=== PATIENT | female | born 1950 | race Caucasian/White ===

== ENCOUNTER 2016-02-28 21:37 | Inpatient (IN) | payer MEDICARE, OTHER ==
[~2016-02-28] VITALS: Ht 157.5 cm; Wt 68.0 kg
[~2016-02-28 21:37] MED LIST: ADVAIR 250-501 EACH; AMLODIPINE BESY10 MG PO; BETAMETHASONE D45 GM; CLONAZEPAM1 M2 PO; CYCLOBENZAPRINE10 MG PO; HYDROMORPHONE HC4 M1 PO; KLOR-CON 88 MEQ PO; NEXIUM40 MG PO; PREMARIN VAG CR45 GM; SYNTHROID100 MCG PO; TENORMIN25 MG ORAL; TOPIRAMATE100 MG PO; VIBRAMYCIN100 MG ORAL; VITAMIN D1000 UNI1 ORAL; ZOLOFT25 MG ORAL
[2016-02-28 21:41] VITALS: BP 108/58
--- NOTE | 2016-02-28 21:59 | Emergency Room Report ---
History of Present Illness General Chief Complaint: Dyspnea/Respdistress Source: Patient, Medical Record, EMS Present Illness HPI 65 YO F BIBEMS for "SOB." Patient allegedly hit life-alert button. EMS found her "SOB with rales" and O2 sat 90%. Improved with NRB and 2x nitro sprays to 100%. History of COPD and CHF. Patient very hard of hearing, cannot hear any questions for HPI I am asking her. Neighbors also saying patient "more altered than usual." Allergies: Coded Allergies: BENZODIAZEPINES (Verified Allergy, Unknown, 04/20/10) IODINE (Verified Allergy, Unknown, 04/20/10) LIDOCAINE (Verified Allergy, Unknown, 04/20/10) LORAZEPAM (Verified Allergy, Unknown, 04/20/10) OXYBUTYNIN (Verified Allergy, Unknown, 04/20/10) PENICILLINS (Verified Allergy, Unknown, 04/20/10) PHENOTHIAZINES (Verified Allergy, Unknown, 04/20/10) PIPERACILLIN (Verified Allergy, Unknown, 04/20/10) PROPOFOL (Verified Allergy, Unknown, 04/20/10) QUINOLONES (Verified Allergy, Unknown, 04/20/10) SULFASALAZINE (Verified Allergy, Unknown, 04/20/10) TAZOBACTAM (Verified Allergy, Unknown, 04/20/10) TEMAZEPAM (Verified Allergy, Unknown, 04/20/10) Patient History Limited by: medical condition Past Medical History: CHF, COPD Past Surgical History: unable to obtain Pertinent Family History: unable to obtain Social History: Denies: alcohol use, drug use, smoking Now: No Immunizations: UTD Reviewed Nursing Documentation: PMH: Agreed, PSxH: Agreed Nursing Documentation-PMH Past Medical History: No History, Except For Hx Cardiac Problems: Yes - AICD,QT SYNDROME Hx Hypertension: Yes - MRSA Hx Pacemaker: No - DEAFNESS, COCHLEAR IMPLANTS Hx Asthma: Yes - PAIN PUMP IMPLANT Hx COPD: Yes Hx Diabetes: No Hx Cancer: No Hx Gastrointestinal Problems: Yes - ULCERATIVE COLITIS Hx Dialysis: No Hx Neurological Problems: No Hx Cerebrovascular Accident: No Hx Seizures: No Review of Systems All Other Systems: limited - AMS, hard of hearing Physical Exam Vital Signs Date Time Temp Pulse Resp B/P Pulse Ox O2 Delivery O2 Flow Rate FiO2 02/28/16 21:36 75 20 108/58 98 Non-Rebreather 15.0 Sp02 EP Interpretation: reviewed, abnormal General Appearance: normal inspection, well appearing, non-toxic, other - lethargic but arousable Head: normocephalic, atraumatic Eyes: bilateral eye EOMI, bilateral eye PERRL ENT: normal ENT inspection, hearing grossly normal, normal voice Neck: normal inspection, full range of motion, supple, no meningismus, no bony tend Respiratory: normal inspection, no respiratory distress, no retraction, no accessory muscle use, decreased breath sounds, crackles, other - Bilateral rales with also wheezing/decreased breath sounds, chest symmetrical, palpation of chest normal Cardiovascular #1: regular rate, rhythm, no edema Gastrointestinal: normal inspection, normal bowel sounds, non tender, soft, no guarding, no hernia Genitourinary: no CVA tenderness Musculoskeletal: normal inspection, back normal, normal range of motion, Vicente' s Sign negative Neurologic: normal inspection, alert, oriented x3, responsive, 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 Hypoxic. Normotensive. DDx includes COPD exacerbation, ACS, infection, sepsis metabolic abnormality, toxic ingestion, polysubstance abuse Patient is slightly disoriented Comprehensive physical exam completed, atraumatic. Bilateral rales. Unreliable history from patient. Labs include CBC, urine toxicology and chem panel, EKG 12 lead and constant cardiac rhythm strip monitoring, IV established. Airway adequately maintained by patient upon arrival. BIPAP started for ?COPD and CHF exacerbation EKG reveals atrial paced rhythm Physician spent 55 minutes of direct critical care time monitoring patient's respiratory, cardiac and neurological status, reassessment, review of imaging, labs and discussion with attending hospitalist. Does not include procedures Medical Decision Making Medicare Attestation I Anthony Tillman MD hereby attest that the medical record entry for date of service, 01/30/16 accurately reflects signatures/notations that I made in my capacity as MD when I treated/diagnosed the above listed Medicare beneficiary. I attest that this information is true, accurate and complete to the best of my knowledge. I understand that any falsification, omission, or concealment of material fact may subject me to administrative, civil, or criminal liability. This patient warrants hospital admission for extreme of age and has a condition that cannot be treated as outpatient. Diagnostic Impression: Primary Impression: Dyspnea Qualified Codes: R06.00 - Dyspnea, unspecified Additional Impressions: CHF (congestive heart failure) Qualified Codes: I50.9 - Heart failure, unspecified COPD (chronic obstructive pulmonary disease) with acute bronchitis ELIZABETH (acute kidney injury) Benzocaine overdose of undetermined intent Qualified Codes: T41.3X4A - Poisoning by local anesthetics, undetermined, initial encounter ER Course 65 YO F with acute dyspnea. VS notable for afebrile, hypoxia. DDx ACS, sepsis, COPD exacerbation PLAN Cardiac, O2 monitor, IV access, EKG, CXR, BIPAP, Lasix, Duonebs, Empiric Abx Azithro May add additional ABx No sepsis at this time Likely admission EKG Diagnostic Results Rate: other - Atrial paced Rhythm: other ST Segments: no acute changes ASA given to the pt in ED: Yes Rhythm Strip Diag. Results EP Interpretation: yes Rate: 75 Rhythm: other - +PVCs Chest X-Ray Diagnostic Results EP Interpretation: Yes Findings: no consolidation, no effusion, no pneumothorax, no acute cardiopulmonary disease Number of Views: 1 Reevaluation Time: 23:32 Last Vital Signs Date Time Temp Pulse Resp B/P Pulse Ox O2 Delivery O2 Flow Rate FiO2 02/28/16 21:36 75 20 108/58 98 Non-Rebreather 15.0 Status: improved Reevaluation Impression Labs: Normal H&H. No leuks. Troponin 0. mild ELIZABETH EKG is atrial paced. No ischemia. CXR: No obvious focal consolidation. A: Combination of COPD and CHF exacerbation. Patient improved on BIPAP. Received lasix, duonebs, Azithro IV Endorsed to Dr Dodson for ODILON admission at 1135pm Urine Tox positive for benzos possibly contributing to her ?AMS Disposition: ADMITTED INPATIENT Condition: Critical ANTHONY TILLMAN M.D. Feb 28, 2016 21:59
[2016-02-28] MEDS ORDERED: Aspirin Baby 81mg ORAL ONE (22:00)
[2016-02-28] MEDS: Albuterol ud Inhalation HHN SCH ×3 (22:00→22:30)
[2016-02-28] MEDS: Ipratropium 0.02% Inh Soln 2.5ml UD HHN SCH ×3 (22:00→22:30)
[2016-02-28] MEDS ORDERED: Azithromycin 500 MG in NS 250 ML IVPB ONE (22:45)
[2016-02-28] MEDS ORDERED: Azithromycin Inj IV ONE (22:52)
[2016-02-28 23:03] LABS: BASOPHILS % (AUTO) 2.8 % (0.0-2.0); LYMPHOCYTES % (AUTO) 19.7 % (20.0-45.0); MEAN CORPUSCULAR HEMOGLOBIN 28.3 PG (27.0-31.0); MEAN CORPUSCULAR HGB CONC 29.9 G/DL (32.0-36.0); MEAN CORPUSCULAR VOLUME 95 FL (80-99); MEAN PLATELET VOLUME 6.3 FL (6.5-10.1); NEUTROPHILS % (AUTO) 69.6 % (45.0-75.0); PLATELET COUNT 134 K/UL (150-450); RED BLOOD COUNT 3.69 M/UL (4.20-5.40); RED CELL DISTRIBUTION WIDTH 13.8 % (11.6-14.8); WHITE BLOOD COUNT 3.9 K/UL (4.8-10.8)
[2016-02-28 23:18] LABS: ALBUMIN/GLOBULIN RATIO 1.2 (1.0-2.7); CALCIUM 8.6 mg/dL (8.6-10.2); CREATININE 1.1 mg/dL (0.5-0.9); GLOMERULAR FILTRATION RATE 49.7 mL/min (>60); POTASSIUM 4.3 mEQ/L (3.4-4.9); TOTAL PROTEIN 7.1 g/dL (6.6-8.7); TROPONIN I < 0.30 ng/mL (<=0.30)
[2016-02-28 23:19] VITALS: BP 119/66
[2016-02-28 23:29] LABS: CKMB 2.5 ng/mL (< 3.8)
[2016-02-29] VITALS (11 sets, daily range): BP systolic 94–146; BP diastolic 49–87
--- NOTE | 2016-02-29 09:41 | Diagnostic Imaging Report ---
Indication: Chest pain Technique: One view of the chest Comparison: 03/10/2012 Findings: There is some atelectasis in the right infrahilar region. Lungs and pleural spaces are clear otherwise. Is right chest bifocal AICD. There is a right arm PICC. Heart size is normal. Numerous prior exam, the PICC and atelectasis are new findings. Previously demonstrated left chest port catheter is no longer evident. Other findings are unchanged Impression: No acute process. Findings as noted
[2016-02-29] MEDS: Solu-MEDROL 40mg Inj IVP SCH ×2 (11:42→18:02)
[2016-02-29] MEDS ORDERED: Vancomycin 1250mg/D5W 250ml IVPB ONE ×2 (12:00)
[2016-02-29] MEDS ORDERED: Ipratropium 0.02% Inh Soln 2.5ml UD HHN SCH (13:00)
[2016-02-29] MEDS: DuoNeb 0.5-3(2.5)mg/3ml neb HHN SCH ×2 (13:00→19:22)
--- NOTE | 2016-02-29 15:02 | Cardiology Report ---
APPROVED REPORT EKG Measurement Heart [id number] MS [id number] [id number] Atiral pacing Low voltage QRS Cannot rule out Anterior infarct, age undetermined Abnormal ECG
[2016-02-29] MEDS ORDERED: BETAMETHASONE 0.05% TOPIC PRN (17:00)
[2016-02-29] MEDS ORDERED: NS 275ml ONE (17:18)
[2016-02-29] MEDS ORDERED: Tubing IV Secondary IV ONE (17:18)
[2016-02-29] MEDS ORDERED: Advair 250/50 Inhaler - 14 dose INH SCH (18:00)
[2016-02-29] MEDS: Cyclobenzaprine 10mg Tab ORAL SCH (18:03)
[2016-02-29] MEDS: Nystatin Powder 100,000 units/gm 15gm TOPIC SCH (18:13)
--- NOTE | 2016-02-29 18:18 | Consultation ---
DATE OF CONSULTATION: 02/29/2016 PULMONARY CONSULTATION HISTORY OF PRESENT ILLNESS: This is a 65-year-old female with a history of multiple medical problems. She hit her Life Alert button and was transported to [facility]. The patient was seen and worked up in the emergency room. She was found to have exacerbation of COPD. She was placed on a BiPAP and is now admitted to the medical floor. On my questioning, the patient appears to be unusually drowsy. Urine toxicology is positive for opiates and benzodiazepines. PAST HISTORY: There is no history of heart disease, however, the patient has a history of a AICD. In the past, she has had prolonged QT syndrome. She has a history of moderate COPD and is on home oxygen. She also has AAKASH and a CPAP at home. She has history with chronic pain and has a Dilaudid pump at home. She also takes regular Dilaudid at home on a regular basis. The patient continues to smoke as well. The patient also has a history in the past of IBD. She also has history of breast cancer and also deafness. She also has a history of ulcerative colitis and MRSA of nares. ALLERGIES: Multiple listed to benzodiazepines, iodine, lidocaine, Ativan, oxybutynin, penicillin, phenothiazine, piperacillin, propofol, quinolones, sulfasalazine, tazobactam and temazepam. This list is essentially unreliable as the patient does takes some of these medications on an infrequent basis. MEDICATIONS: Home medications as mentioned in the chart. REVIEW OF SYSTEMS: The patient denies any shortness of breath at this point in time. Denies any headache, hematemesis, melena, hematochezia. PHYSICAL EXAMINATION: GENERAL: Revealed a 65-year-old female. VITAL SIGNS: Blood pressure is 108/60, heart rate 74, respirations 22, and she is afebrile. HEENT: Unremarkable. CHEST: Clear breath sounds bilaterally. ABDOMEN: Soft. EXTREMITIES: There is edema. The patient has a small abscess on her right forearm. Her pubis Port-A-Cath has been removed. She has cochlear implant over the left side of her head/scalp, which had become infected and healing. LABORATORY AND DIAGNOSTIC DATA: Lab testing shows urine toxicology positive for opiates and benzodiazepines. White count 3.1, hemoglobin 10.5, and platelet count is normal. Chemistry is unremarkable. Toxicology, as discussed above. X-ray chest unremarkable with slight atelectasis. IMPRESSION: 1. Exacerbation of chronic obstructive pulmonary disease. 2. Automatic implantable cardioverter-defibrillator. 3. History of breast carcinoma. 4. Ulcerative colitis/irritable bowel disease. 5. Deafness. 6. Methicillin-resistant Staphylococcus aureus nares. 7. Chronic pain. DISCUSSION: Admit to the hospital. Dr. Dodson is admitting physician and I am consulting as orchid transplanter. We will start the patient on Levaquin and azithromycin, start steroids. We will discontinue BiPAP as a nasal oxygen or by Venti mask. We will follow carefully. Shahid Lake M.D. DR: JM JOB#: [id number] CC:
--- NOTE | 2016-02-29 19:04 | History & Physical ---
History and Physical History & Physicial Dictated for Int Med-Dr Dodson no. [id number]. OSMAR CAMPBELL Feb 29, 2016 19:04
[2016-02-29] MEDS: Advair 250/50 Inhaler - 14 dose INH SCH (20:29)
--- NOTE | 2016-02-29 23:08 | History and Physical Report ---
DATE OF ADMISSION: 02/28/[address] Dodson. CHIEF COMPLAINT: The patient is a 65-year-old white female, presents with complaint of shortness of breath. HISTORY OF PRESENT ILLNESS: The patient has a history of chronic obstructive pulmonary disease. The patient has a Life Alert button. The patient hit her Life Alert button at home after she became short of breath. The patient states she also has some noises in her lungs. The patient presented to [facility] emergency room. The patient was found to have oxygen saturation of 90% on room air. The patient was placed on non-rebreather via EMS. The patient is admitted for acute exacerbation of chronic obstructive pulmonary disease. PAST MEDICAL HISTORY: Significant for, 1. Chronic obstructive pulmonary disease. 2. Coronary artery disease. 3. Hypertension . 4. Congestive heart failure. PAST SURGICAL HISTORY: Significant for AICD placement. CURRENT MEDICATIONS: 1. Amlodipine 10 mg one tablet p.o. daily. 2. Atenolol 25 mg one tablet p.o. daily. 3. Betamethasone cream p.r.n. 4. Vitamin D 3000 units four tablets p.o. daily. 5. Klonopin 1 mg one tablet p.o. at q.h.s. p.r.n. 6. Flexeril 10 mg one tablet p.o. three times daily. 7. Nexium 40 mg one tablet p.o. daily. 8. Premarin 45 g cream applied twice weekly. 9. Advair 250/50 one puff p.o. twice daily. 10. Dilaudid 4 mg one tablet p.o. every 6 hours p.r.n. 11. Levoxyl 100 mcg one tablet p.o. daily. 12. Potassium chloride 8 mEq one tablet p.o. daily. 13. Zoloft 25 mg one tablet p.o. daily. 14. Topamax 200 mg one tablet p.o. at nightly. ALLERGIES: 1. Benzodiazepines. 2. Iodine and lidocaine. 3. Flurazepam. 4. Oxybutynin. 5. Penicillin. 6. Phenothiazine. 7. Piperacillin. 8. Propofol . 9. Quinolones. 10. Sulfasalazine . 11. Tazobactam. 12. Temazepam. SOCIAL HISTORY: The patient is single. The patient is . The patient is disabled. The patient admits to tobacco use of one pack per day for the last 50 years. The patient denies alcohol or drug abuse. REVIEW OF SYSTEMS: Constitutional: The patient denies weight loss or weight gain. The patient denies fevers or chills. HEENT: The patient denies ear or throat pain. Cardiovascular: The patient denies palpitations or chest pain. Chest: The patient complains of shortness of breath as above. The patient complains of wheezes. Abdomen: The patient denies nausea, vomiting, diarrhea, or constipation. Genitourinary: The patient denies dysuria or increased frequency of urination. Neuromuscular: The patient denies seizures or generalized weakness. PHYSICAL EXAMINATION: VITAL SIGNS: Temperature 98.1 degrees, respirations 19, pulse 72, blood pressure 117/76, and oxygen saturation 100% on BiPAP. GENERAL: The patient is well-developed and well-nourished white female, who is difficult to understand secondary to BiPAP mask. HEENT: Eyes, pupils are equal and responsive to light and accommodation. Extraocular movements intact. NECK: Supple without lymphadenopathy. CHEST: Few rales at bilateral bases with few expiratory wheezes. Otherwise, clear to auscultation without wheezes or rales. CARDIOVASCULAR: Regular rhythm and rate rate. S1, S2 normal without murmurs, rubs, or gallops. ABDOMEN: Soft, nontender, and nondistended. Positive bowel sounds. No evidence of hepatosplenomegaly. Currently, no rebound or guarding noted. EXTREMITIES: Negative for clubbing, cyanosis, or edema. RECTAL/GENITAL: Refused. NEUROLOGIC: Cranial nerves II through XII are grossly intact without focal deficits. Motor strength is 5/5 bilaterally. Deep tendon reflexes are 2+ plantar. LABORATORY STUDIES: Urine drug screen positive for opiates and benzodiazepines. WBC 3.9, hemoglobin 10.5, hematocrit 35.0, and platelets 134,000. Sodium 135, potassium 4.3, chloride 90, CO2 32, BUN 22, creatinine 1.1, and glucose 123. Troponin less than 0.3. BNP elevated to 115. Chest x-ray revealed atelectasis in the right infrahilar region. ASSESSMENT: This is a 65-year-old white female with 1. Shortness of breath. 2. Chronic obstructive pulmonary disease, acute exacerbation. 3. Coronary artery disease. 4. Hypertension. 5. Acute on chronic congestive heart failure. 6. Hypothyroidism. 7. Automatic implanted cardioverter defibrillator in situ. TREATMENT: 1. Shortness breath/chronic obstructive pulmonary disease exacerbation. A Pulmonary consultation with Dr. Lake. The patient is currently on DuoNeb every four hours p.r.n. The patient is also on Solu-Medrol 40 mg intravenous every six hours. The patient has been started empirically on intravenous levofloxacin and vancomycin for probable bronchitis. The patient is currently on BiPAP. We will follow recommendations of Pulmonary. 2. Coronary artery disease/congestive heart failure. Cardiology consultation with Dr. Dain Graf. BNP may be elevated secondary to chronic obstructive pulmonary disease as above. Serial troponin levels will be run. 3. Hypertension. Continue Norvasc and atenolol as above. 4. Hypothyroidism. Continue Levoxyl as above. 5. Automatic implanted cardioverter defibrillator in situ. Sheldon Mendoza M.D. DR: Leda JOB#: [id number] CC:
[2016-03-01] VITALS (7 sets, daily range): BP systolic 102–146; BP diastolic 60–87
[2016-03-01] MEDS: Solu-MEDROL 40mg Inj IVP SCH ×5 (00:18→23:59)
[2016-03-01] MEDS: DuoNeb 0.5-3(2.5)mg/3ml neb HHN SCH ×4 (01:05→19:43)
[2016-03-01] MEDS: HYDROmorphone 4mg tab ORAL PRN (01:15)
[2016-03-01 05:35] LABS: MEAN CORPUSCULAR HEMOGLOBIN 29.7 PG (27.0-31.0); MEAN CORPUSCULAR HGB CONC 31.8 G/DL (32.0-36.0); MEAN CORPUSCULAR VOLUME 93 FL (80-99); MEAN PLATELET VOLUME 7.8 FL (6.5-10.1); PLATELET COUNT 132 K/UL (150-450); RED BLOOD COUNT 3.78 M/UL (4.20-5.40); RED CELL DISTRIBUTION WIDTH 13.2 % (11.6-14.8)
[2016-03-01 05:46] LABS: WHITE BLOOD COUNT 1.8 K/UL (4.8-10.8)
[2016-03-01 05:48] LABS: TROPONIN I < 0.30 ng/mL (<=0.30)
[2016-03-01 06:03] LABS: ANION GAP 12 (5-15); CALCIUM 8.4 mg/dL (8.6-10.2); CARBON DIOXIDE 32 mEQ/L (20-30); CHLORIDE 90 mEQ/L (98-107); CREATININE 0.9 mg/dL (0.5-0.9); GLOMERULAR FILTRATION RATE > 60 mL/min (>60); HEMOLYSIS 9; POTASSIUM 4.2 mEQ/L (3.4-4.9); SODIUM 134 mEQ/L (135-145)
[2016-03-01 06:10] LABS: THYROID STIMULATING HORMONE 0.291 uIU/mL (0.300-4.500)
[2016-03-01] MEDS ORDERED: Premarin Vag Cream 3gm VAGIN SCH (09:00)
[2016-03-01] MEDS ORDERED: Atenolol 25mg tab ORAL SCH (09:00)
[2016-03-01] MEDS ORDERED: Sertraline 50mg tab ORAL SCH (09:00)
[2016-03-01] MEDS: Vitamin D 1000 IU Tab ORAL SCH (09:20)
[2016-03-01] MEDS: Cyclobenzaprine 10mg Tab ORAL SCH ×3 (09:20→17:36)
[2016-03-01] MEDS: Nystatin Powder 100,000 units/gm 15gm TOPIC SCH ×3 (09:28→17:36)
--- NOTE | 2016-03-01 09:28 | Pulmonology Progress Note ---
Assessment/Plan Assessment/Plan IMPRESSION: 1. Exacerbation of chronic obstructive pulmonary disease. 2. Automatic implantable cardioverter-defibrillator. 3. History of breast carcinoma. 4. Ulcerative colitis/irritable bowel disease. 5. Deafness. 6. History of methicillin-resistant Staphylococcus aureus nares. 7. Chronic pain. DISCUSSION: Continue Levaquin and azithromycin, continue steroids. Use BiPAP q pm and prn only; use NRBM as needed. I will follow carefully. Subjective Interval Events: On BiPAP q pm and prn; still drowsy Constitutional: Reports: no symptoms HEENT: Repors: no symptoms Respiratory: Reports: dyspnea at rest, wheezing Cardiovascular: Reports: no symptoms Gastrointestinal/Abdominal: Reports: no symptoms Genitourinary: Reports: no symptoms Neurologic: Reports: no symptoms Psychiatric: Reports: no symptoms Allergies: Coded Allergies: BENZODIAZEPINES (Verified Allergy, Unknown, 04/20/10) IODINE (Verified Allergy, Unknown, 04/20/10) LIDOCAINE (Verified Allergy, Unknown, 04/20/10) LORAZEPAM (Verified Allergy, Unknown, 04/20/10) OXYBUTYNIN (Verified Allergy, Unknown, 04/20/10) PENICILLINS (Verified Allergy, Unknown, 04/20/10) PHENOTHIAZINES (Verified Allergy, Unknown, 04/20/10) PIPERACILLIN (Verified Allergy, Unknown, 04/20/10) PROPOFOL (Verified Allergy, Unknown, 04/20/10) QUINOLONES (Verified Allergy, Unknown, 04/20/10) SULFASALAZINE (Verified Allergy, Unknown, 04/20/10) TAZOBACTAM (Verified Allergy, Unknown, 04/20/10) TEMAZEPAM (Verified Allergy, Unknown, 04/20/10) Objective Last 24 Hour Vital Signs Date Time Temp Pulse Resp B/P Pulse Ox O2 Delivery O2 Flow Rate FiO2 03/01/16 08:00 96.3 77 14 118/61 95 Bi-pap 70 03/01/16 07:16 75 15 100 Bi-pap 70 03/01/16 07:06 75 14 99 Bi-pap 70 03/01/16 07:05 75 14 99 Facial 70 03/01/16 05:30 71 23 92 Facial 70 03/01/16 04:03 97.5 74 20 102/62 90 Bi-pap 03/01/16 03:15 75 03/01/16 03:08 72 16 96 Facial 70 03/01/16 01:24 76 19 93 Facial 70 03/01/16 01:16 76 19 96 Bi-pap 70 03/01/16 01:00 70 03/01/16 01:00 76 19 93 Bi-pap 70 03/01/16 00:00 97.2 75 18 146/87 97 Bi-pap 3.0 02/29/16 23:32 75 02/29/16 23:19 74 15 94 Facial 70 02/29/16 21:06 75 16 97 Facial 70 02/29/16 20:00 74 02/29/16 19:53 98.3 77 22 105/62 97 Bi-pap 3.0 02/29/16 19:20 78 19 97 Bi-pap 70 02/29/16 19:10 75 21 92 Facial 70 02/29/16 19:10 75 21 92 Bi-pap 02/29/16 16:53 100 02/29/16 16:44 75 19 96 Facial 70 02/29/16 16:00 78 02/29/16 16:00 98.9 78 23 124/68 97 Bi-pap 4.0 02/29/16 14:41 74 17 99 Facial 75 02/29/16 13:00 75 19 100 Facial 80 02/29/16 12:00 98.1 72 19 117/76 100 Bi-pap 100 02/29/16 11:30 87 17 90 Facial 100 Intake and Output 02/29/16 03/01/16 19:00 07:00 Intake Total 650 ml 358 ml Output Total 300 ml 550 ml Balance 350 ml -192 ml Intake Oral 300 ml 358 ml IV Total 350 ml Output Urine Total 300 ml 550 ml # Voids 1 # Bowel Movements 1 General Appearance: no acute distress HEENT: normocephalic Respiratory/Chest: chest wall non-tender, decreased breath sounds, rhonchi Cardiovascular: normal peripheral pulses, normal rate Abdomen: normal bowel sounds Laboratory Tests 03/01/16 04:20: White Blood Count 1.8#*L, Red Blood Count 3.78L, Hemoglobin 11.2L, Hematocrit 35.3L, Mean Corpuscular Volume 93, Mean Corpuscular Hemoglobin 29.7, Mean Corpuscular Hemoglobin Concent 31.8L, Red Cell Distribution Width 13.2, Platelet Count 132L, Mean Platelet Volume 7.8, Neutrophils (%) (Auto) , Lymphocytes (%) (Auto) , Monocytes (%) (Auto) , Eosinophils (%) (Auto) , Basophils (%) (Auto) , Neutrophils % (Manual) [Pending], Lymphocytes % (Manual) [Pending], Platelet Estimate [Pending], Platelet Morphology [Pending], Sodium Level 134L, Potassium Level 4.2, Chloride Level 90L, Carbon Dioxide Level 32H, Anion Gap 12, Blood Urea Nitrogen 28H, Creatinine 0.9, Estimat Glomerular Filtration Rate > 60, Glucose Level 157H, Calcium Level 8.4L, Troponin I < 0.30 , Pro-B-Type Natriuretic Peptide 446H, Thyroid Stimulating Hormone (TSH) 0.291L , Free Thyroxine 0.61L, Total Triiodothyronine 0.37L, Triiodothyronine (T3) Uptake [Pending] Current Medications Medications (Trade) Dose Ordered Sig/Mamie Route PRN Reason Start Time Stop Time Status Last Admin Dose Admin Albuterol/ Ipratropium (DuoNeb 0.5-3(2.5)mg/3ml) 3 ml Q6HRT HHN 02/29/16 13:00 03/05/16 12:59 03/01/16 07:39 Amlodipine Besylate (Norvasc) 10 mg DAILY ORAL 03/01/16 09:00 03/31/16 08:59 Atenolol (Tenormin) 25 mg DAILY ORAL 03/01/16 09:00 03/31/16 08:59 Betamethasone Dipropionate (Diprolene Oint) 1 applic TID PRN TOPIC Itching 02/29/16 17:00 03/30/16 16:59 Clonazepam (KlonoPIN) 1 mg QPM PRN ORAL For Anxiety 02/29/16 17:00 03/07/16 16:59 Cyclobenzaprine HCl (Flexeril) 10 mg TID ORAL 02/29/16 18:00 03/30/16 17:59 02/29/16 18:03 Dextrose STAT PRN IV Hypoglycemia 02/29/16 10:15 03/30/16 10:14 Hydromorphone HCl (Dilaudid) 4 mg Q6HR PRN ORAL For Pain 02/29/16 17:00 03/07/16 16:59 03/01/16 01:15 Levofloxacin (Levaquin) 100 ml @ 100 mls/hr Q24H IVPB 02/29/16 11:00 03/07/16 10:59 02/29/16 11:42 Levothyroxine Sodium (Synthroid) 100 mcg ACBREAKFAST ORAL 03/01/16 06:30 03/31/16 06:29 03/01/16 06:19 Methylprednisolone Sodium Succinate 40 mg 40 mg EVERY 6 HOURS IVP 02/29/16 12:00 03/30/16 11:59 03/01/16 06:19 Nystatin (Nystop Powder) 1 applic THREE TIMES A DAY TOPIC 02/29/16 18:00 03/30/16 17:59 02/29/16 18:13 Pantoprazole (Protonix) 40 mg DAILY ORAL 03/01/16 09:00 03/31/16 08:59 Potassium Chloride (K-Dur) 10 meq DAILY ORAL 03/01/16 09:00 03/31/16 08:59 Salmeterol Xinafoate/ Fluticasone (Advair 250/50 Diskus) 1 puffs BID INH 02/29/16 21:00 03/30/16 20:59 02/29/16 20:29 Sertraline HCl (Zoloft) 1 mg DAILY ORAL 03/01/16 09:00 03/31/16 08:59 Topiramate (Topamax) 200 mg QHS ORAL 03/01/16 21:00 03/31/16 20:59 Vancomycin HCl (Vanco rx to dose) 1 ea DAILY PRN MISC Per rx protocol 02/29/16 10:15 03/30/16 10:14 Vancomycin HCl/ Dextrose (Vancomycin/D5W 250ml) 250 ml @ 167 mls/hr Q24H IVPB 03/01/16 12:00 03/06/16 11:59 Vitamin D (Vitamin D) 1,000 intlu DAILY ORAL 03/01/16 09:00 03/31/16 08:59 Shahid Lake MD Mar 01, 2016 09:28
[2016-03-01 09:47] LABS: BAND NEUTROPHILS % (MANUAL) 7 % (0-8); BASOPHILS % (MANUAL) 0 % (0-2); EOSINOPHILS % (MANUAL) 0 % (0-3); HYPOCHROMASIA 1+; LYMPHOCYTES % (MANUAL) 21 % (20-45); NEUTROPHILS % (MANUAL) 71 % (45-75); PLATELET ESTIMATE ADEQUATE; PLATELET MORPHOLOGY NORMAL; TOTAL CELLS COUNTED 100
[2016-03-01] MEDS: Advair 250/50 Inhaler - 14 dose INH SCH ×2 (10:33→18:00)
[2016-03-01 10:46] LABS: ABG ALLEN TEST POSITIVE; ABG BASE EXCESS 2.2; ABG PCO2 76.7 mmHg (35.0-45.0)
[2016-03-01] MEDS ORDERED: Vancomycin 1gm/D5W 250ml IVPB SCH ×2 (12:00)
--- NOTE | 2016-03-01 17:22 | Cardiac Electrophysiology PN ---
Subjective Subjective [id number] Objective Last 24 Hour Vital Signs Date Time Temp Pulse Resp B/P Pulse Ox O2 Delivery O2 Flow Rate FiO2 03/01/16 17:10 76 21 93 Facial 60 03/01/16 17:00 60 03/01/16 16:05 97.3 75 16 106/66 92 Bi-pap 60 03/01/16 15:12 75 15 94 Facial 60 03/01/16 13:45 96.3 03/01/16 13:26 77 24 92 70 03/01/16 13:16 75 20 92 Bi-pap 60 03/01/16 13:15 75 30 92 Facial 60 03/01/16 12:00 75 03/01/16 12:00 97.3 75 26 106/60 95 Bi-pap 60 03/01/16 10:41 75 15 94 Facial 60 03/01/16 09:19 77 118/61 03/01/16 09:00 77 118/61 03/01/16 08:00 75 03/01/16 08:00 96.3 77 14 118/61 95 Bi-pap 70 03/01/16 08:00 70 03/01/16 07:16 75 15 100 Bi-pap 70 03/01/16 07:06 75 14 99 Bi-pap 70 03/01/16 07:05 75 14 99 Facial 70 03/01/16 05:30 71 23 92 Facial 70 03/01/16 04:03 97.5 74 20 102/62 90 Bi-pap 03/01/16 03:15 75 03/01/16 03:08 72 16 96 Facial 70 03/01/16 01:24 76 19 93 Facial 70 03/01/16 01:16 76 19 96 Bi-pap 70 03/01/16 01:00 70 03/01/16 01:00 76 19 93 Bi-pap 70 03/01/16 00:00 97.2 75 18 146/87 97 Bi-pap 3.0 02/29/16 23:32 75 02/29/16 23:19 74 15 94 Facial 70 02/29/16 21:06 75 16 97 Facial 70 02/29/16 20:00 74 02/29/16 19:53 98.3 77 22 105/62 97 Bi-pap 3.0 02/29/16 19:20 78 19 97 Bi-pap 70 1/4/17 19:10 75 21 92 Facial 70 02/29/16 19:10 75 21 92 Bi-pap Intake and Output 02/29/16 03/01/16 19:00 07:00 Intake Total 650 ml 358 ml Output Total 300 ml 550 ml Balance 350 ml -192 ml Intake Oral 300 ml 358 ml IV Total 350 ml Output Urine Total 300 ml 550 ml # Voids 1 # Bowel Movements 1 Laboratory Tests Test 03/01/16 04:20 03/01/16 10:30 White Blood Count 1.8 K/UL (4.8-10.8) #*L Red Blood Count 3.78 M/UL (4.20-5.40) L Hemoglobin 11.2 G/DL (12.0-16.0) L Hematocrit 35.3 % (37.0-47.0) L Mean Corpuscular Volume 93 FL (80-99) Mean Corpuscular Hemoglobin 29.7 PG (27.0-31.0) Mean Corpuscular Hemoglobin Concent 31.8 G/DL (32.0-36.0) L Red Cell Distribution Width 13.2 % (11.6-14.8) Platelet Count 132 K/UL (150-450) L Mean Platelet Volume 7.8 FL (6.5-10.1) Neutrophils (%) (Auto) % (45.0-75.0) Lymphocytes (%) (Auto) % (20.0-45.0) Monocytes (%) (Auto) % (1.0-10.0) Eosinophils (%) (Auto) % (0.0-3.0) Basophils (%) (Auto) % (0.0-2.0) Differential Total Cells Counted 100 Neutrophils % (Manual) 71 % (45-75) Lymphocytes % (Manual) 21 % (20-45) Monocytes % (Manual) 1 % (1-10) Eosinophils % (Manual) 0 % (0-3) Basophils % (Manual) 0 % (0-2) Band Neutrophils 7 % (0-8) Platelet Estimate Adequate Platelet Morphology Normal Hypochromasia 1+ Sodium Level 134 mEQ/L (135-145) L Potassium Level 4.2 mEQ/L (3.4-4.9) Chloride Level 90 mEQ/L (98-107) L Carbon Dioxide Level 32 mEQ/L (20-30) H Anion Gap 12 (5-15) Blood Urea Nitrogen 28 mg/dL (7-23) H Creatinine 0.9 mg/dL (0.5-0.9) Estimat Glomerular Filtration Rate > 60 mL/min (>60) Glucose Level 157 mg/dL (74-106) H Calcium Level 8.4 mg/dL (8.6-10.2) L Troponin I < 0.30 ng/mL (<=0.30) Pro-B-Type Natriuretic Peptide 446 pg/mL (0-125) H Thyroid Stimulating Hormone (TSH) 0.291 uIU/mL (0.300-4.500) Free Thyroxine 0.61 ng/dL (0.86-1.85) L Total Triiodothyronine 0.37 ng/mL (0.80-2.00) L Triiodothyronine (T3) Uptake Pending Arterial Blood pH 7.230 (7.350-7.450) Arterial Blood Partial Pressure CO2 76.7 mmHg (35.0-45.0) *H Arterial Blood Partial Pressure O2 89.9 mmHg (75.0-100.0) Arterial Blood HCO3 31.5 mmol/L (22.0-26.0) H Arterial Blood Oxygen Saturation 96.0 % (92.0-98.0) Arterial Blood Base Excess 2.2 Giorgio Test Positive COCO ANGEL Mar 01, 2016 17:22
--- NOTE | 2016-03-01 18:12 | Internal Med Progress Note ---
Subjective Date of Service: Mar 01, 2016 Physician Name Osmar Campbell Attending Physician Flex Dodson MD Current Medications Medications (Trade) Dose Ordered Sig/Mamie Route PRN Reason Start Time Stop Time Status Last Admin Dose Admin Albuterol/ Ipratropium (DuoNeb 0.5-3(2.5)mg/3ml) 3 ml Q6HRT HHN 02/29/16 13:00 03/05/16 12:59 03/01/16 13:27 Amlodipine Besylate (Norvasc) 10 mg DAILY ORAL 03/01/16 09:00 03/31/16 08:59 03/01/16 09:19 Betamethasone Dipropionate (Diprolene Oint) 1 applic TID PRN TOPIC Itching 02/29/16 17:00 03/30/16 16:59 Clonazepam (KlonoPIN) 1 mg QPM PRN ORAL For Anxiety 02/29/16 17:00 03/07/16 16:59 Cyclobenzaprine HCl (Flexeril) 10 mg TID ORAL 02/29/16 18:00 03/30/16 17:59 03/01/16 17:36 Dextrose STAT PRN IV Hypoglycemia 02/29/16 10:15 03/30/16 10:14 Furosemide (Lasix) 40 mg EVERY 12 HOURS IV 03/01/16 21:00 03/31/16 20:59 Hydromorphone HCl (Dilaudid) 4 mg Q6HR PRN ORAL For Pain 02/29/16 17:00 03/07/16 16:59 03/01/16 01:15 Levofloxacin (Levaquin) 100 ml @ 100 mls/hr Q24H IVPB 02/29/16 11:00 03/07/16 10:59 03/01/16 11:46 Levothyroxine Sodium (Synthroid) 100 mcg ACBREAKFAST ORAL 03/01/16 06:30 03/31/16 06:29 03/01/16 06:19 Lisinopril (Zestril) 10 mg DAILY ORAL 03/02/16 09:00 04/01/16 08:59 Methylprednisolone Sodium Succinate 40 mg 40 mg EVERY 6 HOURS IVP 02/29/16 12:00 03/30/16 11:59 03/01/16 17:36 Nystatin (Nystop Powder) 1 applic THREE TIMES A DAY TOPIC 1/4/17 18:00 03/30/16 17:59 03/01/16 17:36 Pantoprazole (Protonix) 40 mg DAILY ORAL 03/01/16 09:00 03/31/16 08:59 03/01/16 09:19 Potassium Chloride (K-Dur) 10 meq DAILY ORAL 03/01/16 09:00 03/31/16 08:59 03/01/16 09:28 Salmeterol Xinafoate/ Fluticasone (Advair 250/50 Diskus) 1 puffs BID INH 02/29/16 21:00 03/30/16 20:59 03/01/16 10:33 Sertraline HCl (Zoloft) 50 mg DAILY ORAL 03/02/16 09:00 04/01/16 08:59 Topiramate (Topamax) 100 mg QHS ORAL 03/01/16 21:00 03/31/16 20:59 Vancomycin HCl (Vanco rx to dose) 1 ea DAILY PRN MISC Per rx protocol 02/29/16 10:15 03/30/16 10:14 Vancomycin HCl/ Dextrose (Vancomycin/D5W 250ml) 250 ml @ 167 mls/hr Q24H IVPB 03/01/16 12:00 03/06/16 11:59 03/01/16 12:57 Vitamin D (Vitamin D) 1,000 intlu DAILY ORAL 03/01/16 09:00 03/31/16 08:59 03/01/16 09:20 Allergies: Coded Allergies: BENZODIAZEPINES (Verified Allergy, Unknown, 04/20/10) IODINE (Verified Allergy, Unknown, 04/20/10) LIDOCAINE (Verified Allergy, Unknown, 04/20/10) LORAZEPAM (Verified Allergy, Unknown, 04/20/10) OXYBUTYNIN (Verified Allergy, Unknown, 04/20/10) PENICILLINS (Verified Allergy, Unknown, 04/20/10) PHENOTHIAZINES (Verified Allergy, Unknown, 04/20/10) PIPERACILLIN (Verified Allergy, Unknown, 04/20/10) PROPOFOL (Verified Allergy, Unknown, 04/20/10) QUINOLONES (Verified Allergy, Unknown, 04/20/10) SULFASALAZINE (Verified Allergy, Unknown, 04/20/10) TAZOBACTAM (Verified Allergy, Unknown, 04/20/10) TEMAZEPAM (Verified Allergy, Unknown, 04/20/10) ROS Limited/Unobtainable: No Constitutional: Reports: no symptoms HEENT: Reports: no symptoms Cardiovascular: Reports: no symptoms Respiratory: Reports: shortness of breath Gastrointestinal/Abdominal: Reports: no symptoms Genitourinary: Reports: no symptoms Neurologic/Psychiatric: Reports: no symptoms Subjective Cover for Int Med-Dr Dodson. Cont on BIPAP Objective Last Vital Signs Date Time Temp Pulse Resp B/P Pulse Ox O2 Delivery O2 Flow Rate FiO2 03/01/16 17:10 76 21 93 Facial 60 03/01/16 16:05 97.3 106/66 03/01/16 00:00 3.0 General Appearance: WD/WN, alert, moderate distress EENT: PERRL/EOMI, normal ENT inspection Neck: normal alignment, supple Cardiovascular: normal peripheral pulses, normal rate, regular rhythm, no gallop/murmur, no JVD Respiratory/Chest: decreased breath sounds, accessory muscle use, crackles/ rales, rhonchi - bilaterally, expiratory wheezing Abdomen: non tender, soft, no organomegaly, no mass Extremities: normal range of motion, non-tender Neurologic: director motion picture II-XII grossly normal, no motor/sensory deficits Skin: warm/dry Laboratory Tests Test 03/01/16 04:20 03/01/16 10:30 White Blood Count 1.8 K/UL (4.8-10.8) #*L Red Blood Count 3.78 M/UL (4.20-5.40) L Hemoglobin 11.2 G/DL (12.0-16.0) L Hematocrit 35.3 % (37.0-47.0) L Mean Corpuscular Volume 93 FL (80-99) Mean Corpuscular Hemoglobin 29.7 PG (27.0-31.0) Mean Corpuscular Hemoglobin Concent 31.8 G/DL (32.0-36.0) L Red Cell Distribution Width 13.2 % (11.6-14.8) Platelet Count 132 K/UL (150-450) L Mean Platelet Volume 7.8 FL (6.5-10.1) Neutrophils (%) (Auto) % (45.0-75.0) Lymphocytes (%) (Auto) % (20.0-45.0) Monocytes (%) (Auto) % (1.0-10.0) Eosinophils (%) (Auto) % (0.0-3.0) Basophils (%) (Auto) % (0.0-2.0) Differential Total Cells Counted 100 Neutrophils % (Manual) 71 % (45-75) Lymphocytes % (Manual) 21 % (20-45) Monocytes % (Manual) 1 % (1-10) Eosinophils % (Manual) 0 % (0-3) Basophils % (Manual) 0 % (0-2) Band Neutrophils 7 % (0-8) Platelet Estimate Adequate Platelet Morphology Normal Hypochromasia 1+ Sodium Level 134 mEQ/L (135-145) L Potassium Level 4.2 mEQ/L (3.4-4.9) Chloride Level 90 mEQ/L (98-107) L Carbon Dioxide Level 32 mEQ/L (20-30) H Anion Gap 12 (5-15) Blood Urea Nitrogen 28 mg/dL (7-23) H Creatinine 0.9 mg/dL (0.5-0.9) Estimat Glomerular Filtration Rate > 60 mL/min (>60) Glucose Level 157 mg/dL (74-106) H Calcium Level 8.4 mg/dL (8.6-10.2) L Troponin I < 0.30 ng/mL (<=0.30) Pro-B-Type Natriuretic Peptide 446 pg/mL (0-125) H Thyroid Stimulating Hormone (TSH) 0.291 uIU/mL (0.300-4.500) Free Thyroxine 0.61 ng/dL (0.86-1.85) L Total Triiodothyronine 0.37 ng/mL (0.80-2.00) L Triiodothyronine (T3) Uptake Pending Arterial Blood pH 7.230 (7.350-7.450) Arterial Blood Partial Pressure CO2 76.7 mmHg (35.0-45.0) *H Arterial Blood Partial Pressure O2 89.9 mmHg (75.0-100.0) Arterial Blood HCO3 31.5 mmol/L (22.0-26.0) H Arterial Blood Oxygen Saturation 96.0 % (92.0-98.0) Arterial Blood Base Excess 2.2 Giorgio Test Positive Intake and Output 02/29/16 03/01/16 19:00 07:00 Intake Total 650 ml 358 ml Output Total 300 ml 550 ml Balance 350 ml -192 ml Intake Oral 300 ml 358 ml IV Total 350 ml Output Urine Total 300 ml 550 ml # Voids 1 # Bowel Movements 1 Assessment/Plan Problem List: (1) CAD (coronary artery disease) (2) HTN (hypertension) Assessment & Plan: Cont lisinopril and norvasc. (3) CHF (congestive heart failure) (4) Hypothyroidism Assessment & Plan: Cont synthroid. (5) AICD (automatic cardioverter/defibrillator) present (6) Shortness of breath (7) COPD with acute exacerbation Assessment & Plan: See Pulmonary note. Cont BIPAP prn and non rebreather when tolerated. Cont advair and duoneb. D/C vanco; cont levaquin and start azithromycin per pulm (8) Chronic pain Assessment & Plan: Patient has dilaudid pain pump-needs refill on 03/02/16. Status: progressing OSMAR CAMPBELL Mar 01, 2016 18:12
[2016-03-01] MEDS: Topiramate 100mg tab ORAL SCH (20:45)
--- NOTE | 2016-03-01 20:52 | Cardiology Report ---
APPROVED REPORT EXAM: Two-dimensional and M-mode echocardiogram with Doppler and color Doppler. INDICATION Shortness of Breath M-Mode DIMENSIONS IVSd1.0 (0.7-1.1cm)Left Atrium (MM)4.1 (1.6-4.0cm) LVDd4.3 (3.5-5.6cm)Aortic Root2.8 (2.0-3.7cm) PWd.9 (0.7-1.1cm)Aortic Cusp Exc.1.6 (1.5-2.0cm) LVDs2.9 (2.5-4.0cm) PWs.7 cm Technically difficult study due to poor acoustic windows. Study quality precludes accurate assessment of regional wall motion. Normal left ventricular chamber size, systolic function and wall motion. Left ventricular ejection fraction estimated to be 60-65%. No evidence of ventricular hypertrophy. Anterior Echo-free space, may be due to pericardial fat or effusion. All other cardiac chamber sizes are within normal limits. Mild focal aortic valve sclerosis with adequate cusp excursion Mildly thickened mitral valve leaflets with normal excursion. Mild mitral annulus and aortic root calcification. Pulmonic valve visualized. Normal tricuspid valve structure. IVC at normal size with physiologic collapse. A color flow and spectral Doppler study was performed and revealed: No aortic regurgitation. Trace mitral regurgitation. Mitral inflow indicate normal left ventricular diastolic function. Trace tricuspid regurgitation. Tricuspid systolic velocities suggests peak right ventricular systolic pressure of 8 mmHg.
[2016-03-01] MEDS ORDERED: Topiramate 100mg tab ORAL SCH (21:00)
--- NOTE | 2016-03-01 22:17 | Consultation ---
DATE OF CONSULTATION: 03/01/2016 CARDIOLOGY CONSULTATION CONSULTING PHYSICIAN: Kevin Brennan M.D. REFERRING PHYSICIAN: Flex Dodson M.D. REASON FOR CONSULTATION: Management of congestive heart failure and the patient's defibrillator. HISTORY OF PRESENT ILLNESS: The patient is a 65-year-old lady with history of hypertension and congestive heart rate, who had undergone a right-sided defibrillator implantation, who hit her Life Alert button at home, where she became short of breath. The patient was brought to [place] emergency room and was found to have oxygen saturation of 90% on room air. The patient was put on non-rebreather face mask and was admitted for observation of CHF and COPD. At the time of my evaluation, the patient has a BiPAP on direct observation unit. PAST MEDICAL HISTORY: 1. Hypertension. 2. Congestive heart failure. 3. History of defibrillator implantation on the right side, but the patient does not remember the brand. MEDICATION: As per reconciliation. ALLERGIES: She is allergic to iodine, benzodiazepine, lorazepam, penicillin, piperacillin, propofol, quinolone, temazepam and tazobactam. FAMILY HISTORY: Noncontributory. SOCIAL HISTORY: She is single and . She has been smoking a pack a day for more than 50 years. Denies alcohol or drug use. REVIEW OF SYSTEMS: Negative other than what was mentioned in history of present illness. PHYSICAL EXAMINATION: VITAL SIGNS: Blood pressure is 106/60, pulse 76, respirations 16, and she is afebrile. HEAD AND NECK: Show positive JVD. LUNGS: Decreased breath sounds with coarse rhonchi and rales. CARDIOVASCULAR: Shows regular S1 and S2 with no gallop or murmur. The defibrillation is in the right subclavian. ABDOMEN: Soft. EXTREMITIES: There is 1+ pitting edema. IMAGING STUDIES: Her EKG showed atrially paced rhythm at a rate of 75 with a TN of 204 milliseconds. Echocardiogram showed ejection fraction of 40% to 45%. LABORATORY DATA: Show a white count of 1.8, hemoglobin 11.2, hematocrit 35.3, and platelet count is 132,000. Her urine toxicology screen is positive for benzodiazepine and opiates. INR is 1.1. ASSESSMENT AND PLAN: 1. Shortness of breath due to exacerbation of congestive heart failure as well as chronic obstructive pulmonary disease possible pneumonia. The patient's ejection fraction is 40%. We will start the patient on Lasix 40 mg intravenous twice a day. Continue to follow the patient clinically. In view of patient's chronic obstructive pulmonary disease, I would discontinue atenolol at this time. 2. Congestive heart failure. Brain natriuretic peptide of 815. Again, ejection fraction is 40%. Creatinine is within normal range with additional Lasix and add lisinopril to her medical regimen. Avoid beta-bridget at this time. The patient has severe chronic obstructive pulmonary disease. 3. Status post right-sided defibrillator implantation. We will try to find the brand of defibrillator interrogated for further evaluation. 4. Severe chronic obstructive pulmonary disease. 5. History of breast cancer. 6. History of ulcerative colitis bowel syndrome. 7. History of deafness. Thank you very much, Dr. Dodson, for allowing me to participate in the care of this patient. Please do not hesitate to contact me for any questions regarding my evaluation. Kevin Brennan M.D. DR: LAVELLE JOB#: [id number] CC:
[2016-03-02] MEDS: DuoNeb 0.5-3(2.5)mg/3ml neb HHN SCH ×4 (00:40→19:31)
[2016-03-02 04:32] VITALS: BP 138/69
[2016-03-02] MEDS: Solu-MEDROL 40mg Inj IVP SCH ×4 (05:32→23:51)
[2016-03-02 06:02] LABS: MEAN CORPUSCULAR HEMOGLOBIN 28.4 PG (27.0-31.0); MEAN CORPUSCULAR HGB CONC 30.9 G/DL (32.0-36.0); MEAN CORPUSCULAR VOLUME 92 FL (80-99); MEAN PLATELET VOLUME 7.6 FL (6.5-10.1); PLATELET COUNT 120 K/UL (150-450); RED BLOOD COUNT 3.95 M/UL (4.20-5.40); RED CELL DISTRIBUTION WIDTH 13.3 % (11.6-14.8); WHITE BLOOD COUNT 2.8 K/UL (4.8-10.8)
[2016-03-02 06:26] LABS: ANION GAP 13 (5-15); CALCIUM 8.9 mg/dL (8.6-10.2); CARBON DIOXIDE 35 mEQ/L (20-30); CHLORIDE 89 mEQ/L (98-107); CREATININE 0.8 mg/dL (0.5-0.9); GLOMERULAR FILTRATION RATE > 60 mL/min (>60); HEMOLYSIS 19; SODIUM 137 mEQ/L (135-145)
[2016-03-02 08:00] VITALS: BP 124/67
[2016-03-02] MEDS: Advair 250/50 Inhaler - 14 dose INH SCH ×2 (09:00→18:00)
--- NOTE | 2016-03-02 09:10 | Cardiac Electrophysiology PN ---
Assessment/Plan Assessment/Plan 1. Exacerbation of congestive heart failure and BNP 815. The patient's ejection fraction is 40%. Continue Lasix 40 mg intravenous twice a day and Lisinopril. Keep off beta bridget for severe chronic obstructive pulmonary disease. Creatinine is within normal range. 2. Status post right-sided defibrillator implantation. We will try to find the brand of defibrillator interrogated for further evaluation. 3. Severe chronic obstructive pulmonary disease. 4. History of breast cancer. 5. History of ulcerative colitis bowel syndrome. 6. History of deafness. PAULA RN Subjective Subjective In ODIL[place] on BIPAP. Did not have any events overnight. Objective Last 24 Hour Vital Signs Date Time Temp Pulse Resp B/P Pulse Ox O2 Delivery O2 Flow Rate FiO2 03/02/16 08:00 97.2 78 19 124/67 84 Venturi Mask 55 03/02/16 07:12 Bi-pap 60 03/02/16 07:12 76 17 94 Bi-pap 60 03/02/16 07:10 75 17 94 Facial 60 03/02/16 05:26 75 20 94 Facial 60 03/02/16 04:32 97.5 76 20 138/69 94 Bi-pap 03/02/16 04:00 75 03/02/16 03:24 82 16 93 Facial 60 03/02/16 01:00 60 03/02/16 00:48 76 16 95 Bi-pap 60 03/02/16 00:39 76 14 94 Facial 60 03/02/16 00:30 74 14 95 Bi-pap 60 03/02/16 00:30 60 03/01/16 23:30 97.0 79 19 105/62 95 Bi-pap 03/01/16 23:00 75 19 92 Facial 60 03/01/16 21:30 81 22 93 Facial 60 03/01/16 20:06 97.3 75 16 113/70 94 Bi-pap 60 03/01/16 20:00 75 03/01/16 19:40 83 23 93 Bi-pap 60 03/01/16 19:30 82 23 93 Facial 60 03/01/16 19:30 72 20 93 Bi-pap 60 03/01/16 19:30 60 03/01/16 18:35 97.3 03/01/16 17:10 76 21 93 Facial 60 03/01/16 17:00 60 1/5/17 16:05 97.3 75 16 106/66 92 Bi-pap 60 03/01/16 16:00 75 03/01/16 15:12 75 15 94 Facial 60 03/01/16 13:26 77 24 92 70 03/01/16 13:16 75 20 92 Bi-pap 60 03/01/16 13:15 75 30 92 Facial 60 03/01/16 12:00 75 03/01/16 12:00 97.3 75 26 106/60 95 Bi-pap 60 03/01/16 10:41 75 15 94 Facial 60 03/01/16 09:19 77 118/61 Intake and Output 03/01/16 03/02/16 19:00 07:00 Intake Total 500 ml 750 ml Output Total 300 ml 1700 ml Balance 200 ml -950 ml Intake Oral 150 ml 500 ml IV Total 350 ml 250 ml Output Urine Total 300 ml 1700 ml Laboratory Tests Test 03/01/16 10:30 03/02/16 04:20 Arterial Blood pH 7.230 (7.350-7.450) Arterial Blood Partial Pressure CO2 76.7 mmHg (35.0-45.0) *H Arterial Blood Partial Pressure O2 89.9 mmHg (75.0-100.0) Arterial Blood HCO3 31.5 mmol/L (22.0-26.0) H Arterial Blood Oxygen Saturation 96.0 % (92.0-98.0) Arterial Blood Base Excess 2.2 Giorgoi Test Positive White Blood Count 2.8 K/UL (4.8-10.8) #L Red Blood Count 3.95 M/UL (4.20-5.40) L Hemoglobin 11.2 G/DL (12.0-16.0) L Hematocrit 36.3 % (37.0-47.0) L Mean Corpuscular Volume 92 FL (80-99) Mean Corpuscular Hemoglobin 28.4 PG (27.0-31.0) Mean Corpuscular Hemoglobin Concent 30.9 G/DL (32.0-36.0) L Red Cell Distribution Width 13.3 % (11.6-14.8) Platelet Count 120 K/UL (150-450) L Mean Platelet Volume 7.6 FL (6.5-10.1) Neutrophils (%) (Auto) % (45.0-75.0) Lymphocytes (%) (Auto) % (20.0-45.0) Monocytes (%) (Auto) % (1.0-10.0) Eosinophils (%) (Auto) % (0.0-3.0) Basophils (%) (Auto) % (0.0-2.0) Neutrophils % (Manual) Pending Lymphocytes % (Manual) Pending Platelet Estimate Pending Platelet Morphology Pending Sodium Level 137 mEQ/L (135-145) Potassium Level 4.0 mEQ/L (3.4-4.9) Chloride Level 89 mEQ/L (98-107) L Carbon Dioxide Level 35 mEQ/L (20-30) H Anion Gap 13 (5-15) Blood Urea Nitrogen 31 mg/dL (7-23) H Creatinine 0.8 mg/dL (0.5-0.9) Estimat Glomerular Filtration Rate > 60 mL/min (>60) Glucose Level 140 mg/dL (74-106) H Calcium Level 8.9 mg/dL (8.6-10.2) Pro-B-Type Natriuretic Peptide 386 pg/mL (0-125) H Microbiology Date/Time Source Procedure Growth Status 02/29/16 06:15 Rectum VRE Culture - Final Enterococcus Faecium - Vre Complete Objective HEAD AND NECK: Positive JVD.BIPAP mask on. LUNGS: Decreased breath sounds with coarse rhonchi and rales. CARDIOVASCULAR: Shows regular S1 and S2 with no gallop or murmur. The defibrillatior is in the right subclavian. ABDOMEN: Soft. EXTREMITIES: There is 1+ pitting edema. COCO ANGEL Mar 02, 2016 09:10
[2016-03-02] MEDS: Nystatin Powder 100,000 units/gm 15gm TOPIC SCH ×3 (09:35→17:43)
[2016-03-02] MEDS: Vitamin D 1000 IU Tab ORAL SCH (09:36)
[2016-03-02] MEDS: Lisinopril 10mg tab ORAL SCH (09:36)
[2016-03-02] MEDS: Sertraline 50mg tab ORAL SCH (09:36)
[2016-03-02] MEDS: Cyclobenzaprine 10mg Tab ORAL SCH ×3 (09:37→17:42)
[2016-03-02 10:10] LABS: BAND NEUTROPHILS % (MANUAL) 5 % (0-8); BASOPHILS % (MANUAL) 0 % (0-2); EOSINOPHILS % (MANUAL) 0 % (0-3); LYMPHOCYTES % (MANUAL) 14 % (20-45); NEUTROPHILS % (MANUAL) 74 % (45-75); PLATELET ESTIMATE DECREASED; PLATELET MORPHOLOGY NORMAL; TOTAL CELLS COUNTED 100
[2016-03-02 10:11] LABS: HYPOCHROMASIA 1+
[2016-03-02 12:00] VITALS: BP 125/66
[2016-03-02 16:00] VITALS: BP 102/66
--- NOTE | 2016-03-02 16:59 | Internal Med Progress Note ---
Subjective Physician Name Flex Dodson Attending Physician Flex Dodson MD Current Medications Medications (Trade) Dose Ordered Sig/Mamie Route PRN Reason Start Time Stop Time Status Last Admin Dose Admin Albuterol/ Ipratropium (DuoNeb 0.5-3(2.5)mg/3ml) 3 ml Q6HRT HHN 02/29/16 13:00 03/05/16 12:59 03/02/16 00:40 Amlodipine Besylate (Norvasc) 10 mg DAILY ORAL 03/01/16 09:00 03/31/16 08:59 03/02/16 09:35 Azithromycin/ Dextrose (Zithromax/D5W 250ml) 250 ml @ 250 mls/hr Q24HRS IV 03/01/16 20:00 03/07/16 20:59 03/01/16 20:01 Betamethasone Dipropionate (Diprolene Oint) 1 applic TID PRN TOPIC Itching 02/29/16 17:00 03/30/16 16:59 Clonazepam (KlonoPIN) 1 mg QPM PRN ORAL For Anxiety 02/29/16 17:00 03/07/16 16:59 Cyclobenzaprine HCl (Flexeril) 10 mg TID ORAL 02/29/16 18:00 03/30/16 17:59 03/02/16 12:05 Dextrose (Dextrose 50%) STAT PRN IV Hypoglycemia 02/29/16 10:15 03/30/16 10:14 Furosemide (Lasix) 40 mg EVERY 12 HOURS IV 03/01/16 21:00 03/31/16 20:59 03/02/16 09:37 Hydromorphone HCl (Dilaudid) 4 mg Q6HR PRN ORAL For Pain 02/29/16 17:00 03/07/16 16:59 03/01/16 01:15 Levofloxacin (Levaquin) 100 ml @ 100 mls/hr Q24H IVPB 02/29/16 11:00 03/07/16 10:59 03/02/16 10:55 Levothyroxine Sodium (Synthroid) 100 mcg ACBREAKFAST ORAL 03/01/16 06:30 03/31/16 06:29 03/02/16 05:33 Lisinopril 10 mg 10 mg DAILY ORAL 03/02/16 09:00 04/01/16 08:59 03/02/16 09:36 Methylprednisolone Sodium Succinate 40 mg 40 mg EVERY 6 HOURS IVP 02/29/16 12:00 03/30/16 11:59 03/02/16 12:05 Nystatin (Nystop Powder) 1 applic THREE TIMES A DAY TOPIC 02/29/16 18:00 03/30/16 17:59 03/02/16 12:05 Pantoprazole (Protonix) 40 mg DAILY ORAL 03/01/16 09:00 03/31/16 08:59 03/02/16 09:36 Potassium Chloride (K-Dur) 10 meq DAILY ORAL 03/01/16 09:00 03/31/16 08:59 03/02/16 09:36 Salmeterol Xinafoate/ Fluticasone (Advair 250/50 Diskus) 1 puffs BID INH 02/29/16 21:00 03/30/16 20:59 03/01/16 10:33 Sertraline HCl (Zoloft) 50 mg DAILY ORAL 03/02/16 09:00 04/01/16 08:59 03/02/16 09:36 Topiramate (Topamax) 100 mg QHS ORAL 03/01/16 21:00 03/31/16 20:59 03/01/16 20:45 Vitamin D (Vitamin D) 1,000 intlu DAILY ORAL 03/01/16 09:00 03/31/16 08:59 03/02/16 09:36 Allergies: Coded Allergies: BENZODIAZEPINES (Verified Allergy, Unknown, 04/20/10) IODINE (Verified Allergy, Unknown, 04/20/10) LIDOCAINE (Verified Allergy, Unknown, 04/20/10) LORAZEPAM (Verified Allergy, Unknown, 04/20/10) OXYBUTYNIN (Verified Allergy, Unknown, 04/20/10) PENICILLINS (Verified Allergy, Unknown, 04/20/10) PHENOTHIAZINES (Verified Allergy, Unknown, 04/20/10) PIPERACILLIN (Verified Allergy, Unknown, 04/20/10) PROPOFOL (Verified Allergy, Unknown, 04/20/10) QUINOLONES (Verified Allergy, Unknown, 04/20/10) SULFASALAZINE (Verified Allergy, Unknown, 04/20/10) TAZOBACTAM (Verified Allergy, Unknown, 04/20/10) TEMAZEPAM (Verified Allergy, Unknown, 04/20/10) Subjective awake, alert, responsive, on BiPAP, Hard to hear Objective Last Vital Signs Date Time Temp Pulse Resp B/P Pulse Ox O2 Delivery O2 Flow Rate FiO2 03/02/16 16:44 77 19 96 Facial 60 03/02/16 16:00 98.1 102/66 03/01/16 00:00 3.0 Laboratory Tests Test 03/02/16 04:20 White Blood Count 2.8 K/UL (4.8-10.8) #L Red Blood Count 3.95 M/UL (4.20-5.40) L Hemoglobin 11.2 G/DL (12.0-16.0) L Hematocrit 36.3 % (37.0-47.0) L Mean Corpuscular Volume 92 FL (80-99) Mean Corpuscular Hemoglobin 28.4 PG (27.0-31.0) Mean Corpuscular Hemoglobin Concent 30.9 G/DL (32.0-36.0) L Red Cell Distribution Width 13.3 % (11.6-14.8) Platelet Count 120 K/UL (150-450) L Mean Platelet Volume 7.6 FL (6.5-10.1) Neutrophils (%) (Auto) % (45.0-75.0) Lymphocytes (%) (Auto) % (20.0-45.0) Monocytes (%) (Auto) % (1.0-10.0) Eosinophils (%) (Auto) % (0.0-3.0) Basophils (%) (Auto) % (0.0-2.0) Differential Total Cells Counted 100 Neutrophils % (Manual) 74 % (45-75) Lymphocytes % (Manual) 14 % (20-45) L Monocytes % (Manual) 7 % (1-10) Eosinophils % (Manual) 0 % (0-3) Basophils % (Manual) 0 % (0-2) Band Neutrophils 5 % (0-8) Platelet Estimate Decreased L Platelet Morphology Normal Hypochromasia 1+ Sodium Level 137 mEQ/L (135-145) Potassium Level 4.0 mEQ/L (3.4-4.9) Chloride Level 89 mEQ/L (98-107) L Carbon Dioxide Level 35 mEQ/L (20-30) H Anion Gap 13 (5-15) Blood Urea Nitrogen 31 mg/dL (7-23) H Creatinine 0.8 mg/dL (0.5-0.9) Estimat Glomerular Filtration Rate > 60 mL/min (>60) Glucose Level 140 mg/dL (74-106) H Calcium Level 8.9 mg/dL (8.6-10.2) Pro-B-Type Natriuretic Peptide 386 pg/mL (0-125) H Microbiology Date/Time Source Procedure Growth Status 02/29/16 06:15 Nasal Nares MRSA Culture - Final NO METHICILLIN RESISTANT STAPH AUREUS... Complete 02/29/16 06:15 Rectum VRE Culture - Final Enterococcus Faecium - Vre Complete Intake and Output 03/01/16 03/02/16 19:00 07:00 Intake Total 500 ml 750 ml Output Total 300 ml 1700 ml Balance 200 ml -950 ml Intake Oral 150 ml 500 ml IV Total 350 ml 250 ml Output Urine Total 300 ml 1700 ml Objective GENERAL: The patient is well-developed and well-nourished white female, on BiPAP mask. HEENT: Eyes, pupils are equal and responsive to light and accommodation. Extraocular movements intact. NECK: Supple without lymphadenopathy. CHEST: Bilateral air entry, decrease air on bases, less wheezes. CARDIOVASCULAR: Regular rhythm and rate rate. S1, S2 normal without murmurs, distant heart sound. AICD @ RCW. ABDOMEN: Soft, nontender, and nondistended. Positive bowel sounds. pain Pump on Left side of abdomen. EXTREMITIES: Negative for clubbing, cyanosis, or edema. Hyperpigmentation on Bilateral LE's. RECTAL/GENITAL: Refused. NEUROLOGIC: Cranial nerves II through XII are grossly intact without focal deficits. Motor strength is 5/5 bilaterally. Assessment/Plan Assessment/Plan 1. Acute respiratory failure. 2. Chronic obstructive pulmonary disease, acute exacerbation. 3. Coronary artery disease. 4. Hypertension. 5. Acute on chronic congestive heart failure. 6. Hypothyroidism. 7. Automatic implanted cardioverter defibrillator in situ. Plan: Abx: Levaquin IV Neb TX Solumedral IV ABG, Labs, Cultures Monitor BS Heparin SQ Full code Flex Dodson MD Mar 02, 2016 16:59
[2016-03-02] MEDS ORDERED: Tubing IV Secondary IV ONE (19:44)
[2016-03-02] MEDS ORDERED: NS 275ml ONE (19:44)
[2016-03-02] MEDS ORDERED: Sterile Water Irrig 1000ml IRRIG ONE (19:44)
[2016-03-02 20:00] VITALS: BP 102/58
--- NOTE | 2016-03-02 20:06 | Pulmonology Progress Note ---
Assessment/Plan Assessment/Plan IMPRESSION: 1. Exacerbation of chronic obstructive pulmonary disease. 2. Automatic implantable cardioverter-defibrillator. 3. History of breast carcinoma. 4. Ulcerative colitis/irritable bowel disease. 5. Deafness. 6. History of methicillin-resistant Staphylococcus aureus nares. 7. Chronic pain. DISCUSSION: Continue Levaquin and azithromycin, continue steroids. Use BiPAP q pm and prn only; use NRBM as needed. I will follow carefully. Subjective Interval Events: Looking and feeling bettre; on BiPAP Constitutional: Reports: no symptoms HEENT: Repors: no symptoms Respiratory: Reports: shortness of breath Cardiovascular: Reports: no symptoms Gastrointestinal/Abdominal: Reports: no symptoms Genitourinary: Reports: no symptoms Allergies: Coded Allergies: BENZODIAZEPINES (Verified Allergy, Unknown, 04/20/10) IODINE (Verified Allergy, Unknown, 04/20/10) LIDOCAINE (Verified Allergy, Unknown, 04/20/10) LORAZEPAM (Verified Allergy, Unknown, 04/20/10) OXYBUTYNIN (Verified Allergy, Unknown, 04/20/10) PENICILLINS (Verified Allergy, Unknown, 04/20/10) PHENOTHIAZINES (Verified Allergy, Unknown, 04/20/10) PIPERACILLIN (Verified Allergy, Unknown, 04/20/10) PROPOFOL (Verified Allergy, Unknown, 04/20/10) QUINOLONES (Verified Allergy, Unknown, 04/20/10) SULFASALAZINE (Verified Allergy, Unknown, 04/20/10) TAZOBACTAM (Verified Allergy, Unknown, 04/20/10) TEMAZEPAM (Verified Allergy, Unknown, 04/20/10) Objective Last 24 Hour Vital Signs Date Time Temp Pulse Resp B/P Pulse Ox O2 Delivery O2 Flow Rate FiO2 03/02/16 19:45 77 16 97 Bi-pap 60 03/02/16 19:33 60 03/02/16 19:32 75 14 95 Bi-pap 60 03/02/16 19:29 75 14 95 Facial 60 03/02/16 18:40 98.1 03/02/16 16:44 77 19 96 Facial 60 03/02/16 16:00 76 03/02/16 16:00 98.1 76 18 102/66 97 Bi-pap 60 03/02/16 16:00 60 03/02/16 15:02 75 14 96 Facial 60 03/02/16 13:14 Bi-pap 60 03/02/16 13:13 77 16 94 Bi-pap 60 03/02/16 13:12 77 16 94 Facial 60 03/02/16 12:00 97.7 81 18 125/66 94 Bi-pap 60 03/02/16 12:00 75 03/02/16 11:11 76 18 94 Facial 60 03/02/16 09:36 124/67 03/02/16 09:35 78 124/67 03/02/16 09:00 60 03/02/16 08:46 78 15 94 Facial 60 03/02/16 08:00 75 03/02/16 08:00 97.2 78 19 124/67 84 Venturi Mask 55 03/02/16 07:12 Bi-pap 60 03/02/16 07:12 76 17 94 Bi-pap 60 03/02/16 07:10 75 17 94 Facial 60 03/02/16 05:26 75 20 94 Facial 60 03/02/16 04:32 97.5 76 20 138/69 94 Bi-pap 03/02/16 04:00 75 03/02/16 03:24 82 16 93 Facial 60 03/02/16 01:00 60 03/02/16 00:48 76 16 95 Bi-pap 60 03/02/16 00:39 76 14 94 Facial 60 03/02/16 00:30 74 14 95 Bi-pap 60 03/02/16 00:30 60 03/01/16 23:30 97.0 79 19 105/62 95 Bi-pap 03/01/16 23:00 75 19 92 Facial 60 03/01/16 21:30 81 22 93 Facial 60 03/01/16 20:06 97.3 75 16 113/70 94 Bi-pap 60 Intake and Output 03/01/16 03/02/16 19:00 07:00 Intake Total 500 ml 750 ml Output Total 300 ml 1700 ml Balance 200 ml -950 ml Intake Oral 150 ml 500 ml IV Total 350 ml 250 ml Output Urine Total 300 ml 1700 ml General Appearance: WD/WN HEENT: normocephalic Respiratory/Chest: chest wall non-tender, decreased breath sounds, rhonchi Cardiovascular: normal peripheral pulses, regular rhythm Abdomen: normal bowel sounds, soft, non tender Microbiology Date/Time Source Procedure Growth Status 02/29/16 06:15 Nasal Nares MRSA Culture - Final NO METHICILLIN RESISTANT STAPH AUREUS... Complete 02/29/16 06:15 Rectum VRE Culture - Final Enterococcus Faecium - Vre Complete Laboratory Tests 03/02/16 04:20: White Blood Count 2.8#L, Red Blood Count 3.95L, Hemoglobin 11.2L, Hematocrit 36.3L, Mean Corpuscular Volume 92, Mean Corpuscular Hemoglobin 28.4, Mean Corpuscular Hemoglobin Concent 30.9L, Red Cell Distribution Width 13.3, Platelet Count 120L, Mean Platelet Volume 7.6, Neutrophils (%) (Auto) , Lymphocytes (%) (Auto) , Monocytes (%) (Auto) , Eosinophils (%) (Auto) , Basophils (%) (Auto) , Differential Total Cells Counted 100, Neutrophils % ( Manual) 74, Lymphocytes % (Manual) 14L, Monocytes % (Manual) 7, Eosinophils % ( Manual) 0, Basophils % (Manual) 0, Band Neutrophils 5, Platelet Estimate DecreasedL, Platelet Morphology Normal, Hypochromasia 1+, Sodium Level 137, Potassium Level 4.0, Chloride Level 89L, Carbon Dioxide Level 35H, Anion Gap 13 , Blood Urea Nitrogen 31H, Creatinine 0.8, Estimat Glomerular Filtration Rate > 60, Glucose Level 140H, Calcium Level 8.9, Pro-B-Type Natriuretic Peptide 386H Current Medications Medications (Trade) Dose Ordered Sig/Mamie Route PRN Reason Start Time Stop Time Status Last Admin Dose Admin Albuterol/ Ipratropium (DuoNeb 0.5-3(2.5)mg/3ml) 3 ml Q6HRT HHN 02/29/16 13:00 03/05/16 12:59 03/02/16 19:31 Amlodipine Besylate (Norvasc) 10 mg DAILY ORAL 03/01/16 09:00 03/31/16 08:59 03/02/16 09:35 Azithromycin/ Dextrose (Zithromax/D5W 250ml) 250 ml @ 250 mls/hr Q24HRS IV 03/01/16 20:00 03/07/16 20:59 03/01/16 20:01 Betamethasone Dipropionate (Diprolene Oint) 1 applic TID PRN TOPIC Itching 02/29/16 17:00 03/30/16 16:59 Clonazepam (KlonoPIN) 1 mg QPM PRN ORAL For Anxiety 02/29/16 17:00 03/07/16 16:59 Cyclobenzaprine HCl (Flexeril) 10 mg TID ORAL 02/29/16 18:00 03/30/16 17:59 03/02/16 17:42 Dextrose (Dextrose 50%) STAT PRN IV Hypoglycemia 02/29/16 10:15 03/30/16 10:14 Furosemide (Lasix) 40 mg DAILY IV 03/03/16 09:00 04/02/16 08:59 Hydromorphone HCl (Dilaudid) 4 mg Q6HR PRN ORAL For Pain 02/29/16 17:00 03/07/16 16:59 03/01/16 01:15 Insulin Aspart (NovoLOG) BEFORE MEALS AND HS SUBQ 03/02/16 21:00 04/01/16 20:59 Levofloxacin (Levaquin) 100 ml @ 100 mls/hr Q24H IVPB 02/29/16 11:00 03/07/16 10:59 03/02/16 10:55 Levothyroxine Sodium (Synthroid) 100 mcg ACBREAKFAST ORAL 03/01/16 06:30 03/31/16 06:29 03/02/16 05:33 Lisinopril 10 mg 10 mg DAILY ORAL 03/02/16 09:00 04/01/16 08:59 03/02/16 09:36 Methylprednisolone Sodium Succinate 40 mg 40 mg EVERY 6 HOURS IVP 02/29/16 12:00 03/30/16 11:59 03/02/16 17:42 Nystatin (Nystop Powder) 1 applic THREE TIMES A DAY TOPIC 02/29/16 18:00 03/30/16 17:59 03/02/16 17:43 Pantoprazole (Protonix) 40 mg DAILY ORAL 03/01/16 09:00 03/31/16 08:59 03/02/16 09:36 Potassium Chloride (K-Dur) 10 meq DAILY ORAL 03/01/16 09:00 03/31/16 08:59 03/02/16 09:36 Salmeterol Xinafoate/ Fluticasone (Advair 250/50 Diskus) 1 puffs BID INH 02/29/16 21:00 2/3/17 20:59 03/01/16 10:33 Sertraline HCl (Zoloft) 50 mg DAILY ORAL 03/02/16 09:00 04/01/16 08:59 03/02/16 09:36 Topiramate (Topamax) 100 mg QHS ORAL 03/01/16 21:00 03/31/16 20:59 03/01/16 20:45 Vitamin D (Vitamin D) 1,000 intlu DAILY ORAL 03/01/16 09:00 03/31/16 08:59 03/02/16 09:36 Shahid Lake MD Mar 02, 2016 20:06
[2016-03-02] MEDS: Topiramate 100mg tab ORAL SCH (20:54)
[2016-03-02] MEDS: NovoLOG Insulin Flexpen SUBQ SCH (20:57)
[2016-03-03] VITALS (7 sets, daily range): BP systolic 108–133; BP diastolic 60–68
[2016-03-03] MEDS: DuoNeb 0.5-3(2.5)mg/3ml neb HHN SCH ×4 (00:38→20:07)
[2016-03-03] MEDS: Solu-MEDROL 40mg Inj IVP SCH ×3 (06:00→18:23)
[2016-03-03] MEDS: NovoLOG Insulin Flexpen SUBQ SCH ×4 (06:38→20:31)
--- NOTE | 2016-03-03 08:47 | Pulmonology Progress Note ---
Assessment/Plan Assessment/Plan IMPRESSION: 1. Exacerbation of chronic obstructive pulmonary disease. 2. Automatic implantable cardioverter-defibrillator. 3. History of breast carcinoma. 4. Ulcerative colitis/irritable bowel disease. 5. Deafness. 6. History of methicillin-resistant Staphylococcus aureus nares. 7. Chronic pain. DISCUSSION: Continue Levaquin and azithromycin, continue steroids. Use BiPAP q pm and prn only; use NRBM as needed. I will follow carefully. She is improving slowly. Subjective Interval Events: On 50% VTM; feeling better Constitutional: Reports: no symptoms HEENT: Repors: no symptoms Respiratory: Reports: dyspnea at rest, productive cough Cardiovascular: Reports: no symptoms Gastrointestinal/Abdominal: Reports: no symptoms Genitourinary: Reports: no symptoms Allergies: Coded Allergies: BENZODIAZEPINES (Verified Allergy, Unknown, 04/20/10) IODINE (Verified Allergy, Unknown, 04/20/10) LIDOCAINE (Verified Allergy, Unknown, 04/20/10) LORAZEPAM (Verified Allergy, Unknown, 04/20/10) OXYBUTYNIN (Verified Allergy, Unknown, 04/20/10) PENICILLINS (Verified Allergy, Unknown, 04/20/10) PHENOTHIAZINES (Verified Allergy, Unknown, 04/20/10) PIPERACILLIN (Verified Allergy, Unknown, 04/20/10) PROPOFOL (Verified Allergy, Unknown, 04/20/10) QUINOLONES (Verified Allergy, Unknown, 04/20/10) SULFASALAZINE (Verified Allergy, Unknown, 04/20/10) TAZOBACTAM (Verified Allergy, Unknown, 04/20/10) TEMAZEPAM (Verified Allergy, Unknown, 04/20/10) Objective Last 24 Hour Vital Signs Date Time Temp Pulse Resp B/P Pulse Ox O2 Delivery O2 Flow Rate FiO2 03/03/16 07:36 77 18 98 Bi-pap 50 03/03/16 07:26 50 03/03/16 07:26 76 18 95 Facial 50 03/03/16 07:25 76 18 95 Bi-pap 50 03/03/16 05:29 80 14 94 Facial 50 03/03/16 04:00 96.3 76 18 133/68 97 Bi-pap 50 03/03/16 03:52 75 03/03/16 03:09 80 14 97 Facial 60 03/03/16 01:00 60 03/03/16 00:45 75 13 97 Bi-pap 3.0 60 03/03/16 00:40 75 03/03/16 00:37 60 03/03/16 00:36 75 13 96 Bi-pap 60 03/03/16 00:36 75 13 96 Facial 60 03/03/16 00:00 97.6 76 16 108/64 96 Bi-pap 60 03/02/16 22:40 74 19 95 Facial 60 03/02/16 20:56 78 22 95 Facial 60 03/02/16 20:00 60 03/02/16 20:00 98.2 78 20 102/58 96 Bi-pap 60 03/02/16 20:00 78 03/02/16 19:45 77 16 97 Bi-pap 60 03/02/16 19:33 60 03/02/16 19:32 75 14 95 Bi-pap 60 03/02/16 19:29 75 14 95 Facial 60 03/02/16 18:40 98.1 03/02/16 16:44 77 19 96 Facial 60 03/02/16 16:00 76 03/02/16 16:00 98.1 76 18 102/66 97 Bi-pap 60 03/02/16 16:00 60 03/02/16 15:02 75 14 96 Facial 60 03/02/16 13:14 Bi-pap 60 03/02/16 13:13 77 16 94 Bi-pap 60 03/02/16 13:12 77 16 94 Facial 60 03/02/16 12:00 97.7 81 18 125/66 94 Bi-pap 60 03/02/16 12:00 75 03/02/16 11:11 76 18 94 Facial 60 03/02/16 09:36 124/67 03/02/16 09:35 78 124/67 03/02/16 09:00 60 Intake and Output 03/02/16 03/03/16 19:00 07:00 Intake Total 450 ml 300 ml Output Total 850 ml 1000 ml Balance -400 ml -700 ml Intake Oral 350 ml 50 ml IV Total 100 ml 250 ml Output Urine Total 850 ml 1000 ml General Appearance: WD/WN HEENT: normocephalic Respiratory/Chest: chest wall non-tender, lungs clear Cardiovascular: normal peripheral pulses Current Medications Medications (Trade) Dose Ordered Sig/Mamie Route PRN Reason Start Time Stop Time Status Last Admin Dose Admin Albuterol/ Ipratropium (DuoNeb 0.5-3(2.5)mg/3ml) 3 ml Q6HRT HHN 02/29/16 13:00 03/05/16 12:59 03/03/16 07:26 Amlodipine Besylate (Norvasc) 10 mg DAILY ORAL 03/01/16 09:00 03/31/16 08:59 03/02/16 09:35 Azithromycin/ Dextrose (Zithromax/D5W 250ml) 250 ml @ 250 mls/hr Q24HRS IV 03/01/16 20:00 03/07/16 20:59 03/02/16 20:54 Betamethasone Dipropionate (Diprolene Oint) 1 applic TID PRN TOPIC Itching 02/29/16 17:00 03/30/16 16:59 Clonazepam (KlonoPIN) 1 mg QPM PRN ORAL For Anxiety 02/29/16 17:00 03/07/16 16:59 Cyclobenzaprine HCl (Flexeril) 10 mg TID ORAL 02/29/16 18:00 03/30/16 17:59 03/02/16 17:42 Dextrose (Dextrose 50%) STAT PRN IV Hypoglycemia 02/29/16 10:15 03/30/16 10:14 Furosemide (Lasix) 40 mg DAILY IV 03/03/16 09:00 04/02/16 08:59 Hydromorphone HCl (Dilaudid) 4 mg Q6HR PRN ORAL For Pain 02/29/16 17:00 03/07/16 16:59 03/01/16 01:15 Insulin Aspart (NovoLOG) BEFORE MEALS AND HS SUBQ 03/02/16 21:00 04/01/16 20:59 03/03/16 06:38 Levofloxacin (Levaquin) 100 ml @ 100 mls/hr Q24H IVPB 02/29/16 11:00 03/07/16 10:59 03/02/16 10:55 Levothyroxine Sodium (Synthroid) 100 mcg ACBREAKFAST ORAL 03/01/16 06:30 03/31/16 06:29 03/03/16 06:00 Lisinopril 10 mg 10 mg DAILY ORAL 03/02/16 09:00 04/01/16 08:59 03/02/16 09:36 Methylprednisolone Sodium Succinate 40 mg 40 mg EVERY 6 HOURS IVP 02/29/16 12:00 03/30/16 11:59 03/03/16 06:00 Nystatin (Nystop Powder) 1 applic THREE TIMES A DAY TOPIC 02/29/16 18:00 03/30/16 17:59 03/02/16 17:43 Pantoprazole (Protonix) 40 mg DAILY ORAL 03/01/16 09:00 03/31/16 08:59 03/02/16 09:36 Potassium Chloride (K-Dur) 10 meq DAILY ORAL 03/01/16 09:00 03/31/16 08:59 03/02/16 09:36 Salmeterol Xinafoate/ Fluticasone (Advair 250/50 Diskus) 1 puffs BID INH 02/29/16 21:00 03/30/16 20:59 03/01/16 10:33 Sertraline HCl (Zoloft) 50 mg DAILY ORAL 03/02/16 09:00 04/01/16 08:59 03/02/16 09:36 Topiramate (Topamax) 100 mg QHS ORAL 03/01/16 21:00 03/31/16 20:59 03/02/16 20:54 Vitamin D (Vitamin D) 1,000 intlu DAILY ORAL 03/01/16 09:00 03/31/16 08:59 03/02/16 09:36 Shahid Lake MD Mar 03, 2016 08:47
[2016-03-03] MEDS: Advair 250/50 Inhaler - 14 dose INH SCH ×2 (09:00→18:22)
[2016-03-03] MEDS: Cyclobenzaprine 10mg Tab ORAL SCH ×3 (09:24→18:23)
[2016-03-03] MEDS: Sertraline 50mg tab ORAL SCH (09:24)
[2016-03-03] MEDS: Vitamin D 1000 IU Tab ORAL SCH (09:25)
[2016-03-03] MEDS: Lisinopril 10mg tab ORAL SCH (09:25)
[2016-03-03 10:27] LABS: MEAN CORPUSCULAR HEMOGLOBIN 28.1 PG (27.0-31.0); MEAN CORPUSCULAR HGB CONC 30.9 G/DL (32.0-36.0); MEAN CORPUSCULAR VOLUME 91 FL (80-99); MEAN PLATELET VOLUME 7.3 FL (6.5-10.1); PLATELET COUNT 136 K/UL (150-450); RED CELL DISTRIBUTION WIDTH 13.6 % (11.6-14.8); WHITE BLOOD COUNT 2.8 K/UL (4.8-10.8)
[2016-03-03 10:41] LABS: INR 1.2 (0.9-1.1); PROTHROMBIN TIME 12.7 SEC (9.30-11.50)
[2016-03-03 10:50] LABS: ALANINE AMINOTRANSFERASE 16 U/L (3-33); ALBUMIN/GLOBULIN RATIO 1.5 (1.0-2.7); ANION GAP 11 (5-15); ASPARTATE AMINO TRANSFERASE 31 U/L (5-40); CARBON DIOXIDE 38 mEQ/L (20-30); CHLORIDE 90 mEQ/L (98-107); CREATININE 0.9 mg/dL (0.5-0.9); GLOMERULAR FILTRATION RATE > 60 mL/min (>60); HEMOLYSIS 3; MAGNESIUM 2.3 mg/dL (1.7-2.5); PHOSPHORUS 1.9 mg/dL (2.5-4.8); POTASSIUM 3.7 mEQ/L (3.4-4.9); SODIUM 139 mEQ/L (135-145)
[2016-03-03 11:06] LABS: BAND NEUTROPHILS % (MANUAL) 2 % (0-8); LYMPHOCYTES % (MANUAL) 31 % (20-45); NEUTROPHILS % (MANUAL) 61 % (45-75); TOTAL CELLS COUNTED 100
[2016-03-03 11:07] LABS: BASOPHILS % (MANUAL) 0 % (0-2); EOSINOPHILS % (MANUAL) 0 % (0-3); HYPOCHROMASIA 1+; PLATELET ESTIMATE ADEQUATE; PLATELET MORPHOLOGY NORMAL
[2016-03-03] MEDS: Nystatin Powder 100,000 units/gm 15gm TOPIC SCH ×3 (11:14→18:24)
--- NOTE | 2016-03-03 12:13 | Cardiac Electrophysiology PN ---
Assessment/Plan Assessment/Plan 1. Exacerbation of congestive heart failure and BNP 815. The patient's ejection fraction is 40%. Now on Lasix 40 mg intravenous daily and Lisinopril. Off beta bridget for severe chronic obstructive pulmonary disease. 2. Status post right-sided [facility] defibrillator implantation. Interrogation Final report pending. 3. Severe chronic obstructive pulmonary disease. 4. History of breast cancer. 5. History of ulcerative colitis 6. History of deafness. 7. Leukopenia DW RN Subjective Subjective Still SOB on BIPAP. Did not have any events or arrhythmia overnight. Objective Last 24 Hour Vital Signs Date Time Temp Pulse Resp B/P Pulse Ox O2 Delivery O2 Flow Rate FiO2 03/03/16 10:54 76 16 92 Facial 50 03/03/16 09:25 108/60 03/03/16 09:25 75 108/60 03/03/16 09:06 75 18 92 Facial 50 03/03/16 09:00 50 03/03/16 08:00 77 03/03/16 08:00 97.3 85 18 108/60 92 03/03/16 07:36 77 18 98 Bi-pap 50 03/03/16 07:26 50 03/03/16 07:26 76 18 95 Facial 50 03/03/16 07:25 76 18 95 Bi-pap 50 03/03/16 05:29 80 14 94 Facial 50 03/03/16 04:00 96.3 76 18 133/68 97 Bi-pap 50 03/03/16 03:52 75 03/03/16 03:09 80 14 97 Facial 60 03/03/16 01:00 60 03/03/16 00:45 75 13 97 Bi-pap 3.0 60 03/03/16 00:40 75 03/03/16 00:37 60 03/03/16 00:36 75 13 96 Bi-pap 60 03/03/16 00:36 75 13 96 Facial 60 03/03/16 00:00 97.6 76 16 108/64 96 Bi-pap 60 03/02/16 22:40 74 19 95 Facial 60 03/02/16 20:56 78 22 95 Facial 60 03/02/16 20:00 60 03/02/16 20:00 98.2 78 20 102/58 96 Bi-pap 60 03/02/16 20:00 78 03/02/16 19:45 77 16 97 Bi-pap 60 03/02/16 19:33 60 03/02/16 19:32 75 14 95 Bi-pap 60 03/02/16 19:29 75 14 95 Facial 60 03/02/16 18:40 98.1 03/02/16 16:44 77 19 96 Facial 60 03/02/16 16:00 76 03/02/16 16:00 98.1 76 18 102/66 97 Bi-pap 60 03/02/16 16:00 60 03/02/16 15:02 75 14 96 Facial 60 03/02/16 13:14 Bi-pap 60 03/02/16 13:13 77 16 94 Bi-pap 60 03/02/16 13:12 77 16 94 Facial 60 Intake and Output 03/02/16 03/03/16 19:00 07:00 Intake Total 450 ml 300 ml Output Total 850 ml 1000 ml Balance -400 ml -700 ml Intake Oral 350 ml 50 ml IV Total 100 ml 250 ml Output Urine Total 850 ml 1000 ml Laboratory Tests Test 03/03/16 09:45 White Blood Count 2.8 K/UL (4.8-10.8) L Red Blood Count 4.30 M/UL (4.20-5.40) Hemoglobin 12.1 G/DL (12.0-16.0) Hematocrit 39.2 % (37.0-47.0) Mean Corpuscular Volume 91 FL (80-99) Mean Corpuscular Hemoglobin 28.1 PG (27.0-31.0) Mean Corpuscular Hemoglobin Concent 30.9 G/DL (32.0-36.0) L Red Cell Distribution Width 13.6 % (11.6-14.8) Platelet Count 136 K/UL (150-450) L Mean Platelet Volume 7.3 FL (6.5-10.1) Neutrophils (%) (Auto) % (45.0-75.0) Lymphocytes (%) (Auto) % (20.0-45.0) Monocytes (%) (Auto) % (1.0-10.0) Eosinophils (%) (Auto) % (0.0-3.0) Basophils (%) (Auto) % (0.0-2.0) Differential Total Cells Counted 100 Neutrophils % (Manual) 61 % (45-75) Lymphocytes % (Manual) 31 % (20-45) Monocytes % (Manual) 6 % (1-10) Eosinophils % (Manual) 0 % (0-3) Basophils % (Manual) 0 % (0-2) Band Neutrophils 2 % (0-8) Platelet Estimate Adequate Platelet Morphology Normal Hypochromasia 1+ Prothrombin Time 12.7 SEC (9.30-11.50) H Prothromb Time International Ratio 1.2 (0.9-1.1) H Activated Partial Thromboplast Time 26 SEC (23-33) Sodium Level 139 mEQ/L (135-145) Potassium Level 3.7 mEQ/L (3.4-4.9) Chloride Level 90 mEQ/L (98-107) L Carbon Dioxide Level 38 mEQ/L (20-30) H Anion Gap 11 (5-15) Blood Urea Nitrogen 39 mg/dL (7-23) H Creatinine 0.9 mg/dL (0.5-0.9) Estimat Glomerular Filtration Rate > 60 mL/min (>60) Glucose Level 135 mg/dL (74-106) H Calcium Level 9.0 mg/dL (8.6-10.2) Phosphorus Level 1.9 mg/dL (2.5-4.8) L Magnesium Level 2.3 mg/dL (1.7-2.5) Total Bilirubin 0.5 mg/dL (0.0-1.2) Aspartate Amino Transf (AST/SGOT) 31 U/L (5-40) Alanine Aminotransferase (ALT/SGPT) 16 U/L (3-33) Alkaline Phosphatase 52 U/L (35-104) Total Protein 7.0 g/dL (6.6-8.7) Albumin 4.2 g/dL (3.5-5.2) Globulin 2.8 g/dL Albumin/Globulin Ratio 1.5 (1.0-2.7) Amylase Level 42 U/L (10-110) Objective HEAD AND NECK: Positive JVD.BIPAP mask on. LUNGS: Decreased breath sounds with coarse rhonchi and rales. CARDIOVASCULAR: Shows regular S1 and S2 with no gallop or murmur. The defibrillatior is in the right subclavian. ABDOMEN: Soft. EXTREMITIES: There is 1+ pitting edema. COCO ANGEL Mar 03, 2016 12:13
--- NOTE | 2016-03-03 14:42 | Internal Med Progress Note ---
Subjective Date of Service: Mar 03, 2016 Physician Name Osmar Campbell Attending Physician Flex Dodson MD Current Medications Medications (Trade) Dose Ordered Sig/Mamie Route PRN Reason Start Time Stop Time Status Last Admin Dose Admin Albuterol/ Ipratropium (DuoNeb 0.5-3(2.5)mg/3ml) 3 ml Q6HRT HHN 02/29/16 13:00 03/05/16 12:59 03/03/16 12:56 Azithromycin/ Dextrose (Zithromax/D5W 250ml) 250 ml @ 250 mls/hr Q24HRS IV 03/01/16 20:00 03/07/16 20:59 03/02/16 20:54 Betamethasone Dipropionate (Diprolene Oint) 1 applic TID PRN TOPIC Itching 02/29/16 17:00 03/30/16 16:59 Clonazepam (KlonoPIN) 1 mg QPM PRN ORAL For Anxiety 02/29/16 17:00 03/07/16 16:59 03/03/16 14:29 Cyclobenzaprine HCl (Flexeril) 10 mg TID ORAL 02/29/16 18:00 03/30/16 17:59 03/03/16 12:34 Dextrose (Dextrose 50%) STAT PRN IV Hypoglycemia 02/29/16 10:15 03/30/16 10:14 Docusate Sodium (Colace) 100 mg TWICE A DAY ORAL 03/03/16 18:00 04/02/16 17:59 Furosemide (Lasix) 40 mg DAILY IV 03/03/16 09:00 04/02/16 08:59 03/03/16 09:29 Hydromorphone HCl (Dilaudid) 4 mg Q6HR PRN ORAL For Pain 02/29/16 17:00 03/07/16 16:59 03/01/16 01:15 Insulin Aspart (NovoLOG) BEFORE MEALS AND HS SUBQ 03/02/16 21:00 04/01/16 20:59 03/03/16 11:31 Levofloxacin (Levaquin) 100 ml @ 100 mls/hr Q24H IVPB 02/29/16 11:00 03/07/16 10:59 03/03/16 11:14 Levothyroxine Sodium (Synthroid) 100 mcg ACBREAKFAST ORAL 03/01/16 06:30 03/31/16 06:29 03/03/16 06:00 Lisinopril (Zestril) 10 mg DAILY ORAL 03/04/16 09:00 04/03/16 08:59 Methylprednisolone Sodium Succinate 40 mg 40 mg EVERY 6 HOURS IVP 02/29/16 12:00 03/30/16 11:59 03/03/16 12:33 Nystatin (Nystop Powder) 1 applic THREE TIMES A DAY TOPIC 02/29/16 18:00 03/30/16 17:59 03/03/16 13:21 Pantoprazole (Protonix) 40 mg DAILY ORAL 03/01/16 09:00 03/31/16 08:59 03/03/16 09:23 Potassium Chloride (K-Dur) 10 meq DAILY ORAL 03/01/16 09:00 03/31/16 08:59 03/02/16 09:36 Salmeterol Xinafoate/ Fluticasone (Advair 250/50 Diskus) 1 puffs BID INH 02/29/16 21:00 03/30/16 20:59 03/01/16 10:33 Sertraline HCl (Zoloft) 50 mg DAILY ORAL 03/02/16 09:00 04/01/16 08:59 03/03/16 09:24 Topiramate 100 mg 100 mg QHS ORAL 03/01/16 21:00 03/31/16 20:59 03/02/16 20:54 Vitamin D (Vitamin D) 1,000 intlu DAILY ORAL 03/01/16 09:00 03/31/16 08:59 03/03/16 09:25 Allergies: Coded Allergies: BENZODIAZEPINES (Verified Allergy, Unknown, 04/20/10) IODINE (Verified Allergy, Unknown, 04/20/10) LIDOCAINE (Verified Allergy, Unknown, 04/20/10) LORAZEPAM (Verified Allergy, Unknown, 04/20/10) OXYBUTYNIN (Verified Allergy, Unknown, 04/20/10) PENICILLINS (Verified Allergy, Unknown, 04/20/10) PHENOTHIAZINES (Verified Allergy, Unknown, 04/20/10) PIPERACILLIN (Verified Allergy, Unknown, 04/20/10) PROPOFOL (Verified Allergy, Unknown, 04/20/10) QUINOLONES (Verified Allergy, Unknown, 04/20/10) SULFASALAZINE (Verified Allergy, Unknown, 04/20/10) TAZOBACTAM (Verified Allergy, Unknown, 04/20/10) TEMAZEPAM (Verified Allergy, Unknown, 04/20/10) ROS Limited/Unobtainable: No Constitutional: Reports: no symptoms HEENT: Reports: no symptoms Cardiovascular: Reports: no symptoms Respiratory: Reports: shortness of breath Gastrointestinal/Abdominal: Reports: no symptoms Genitourinary: Reports: no symptoms Neurologic/Psychiatric: Reports: no symptoms Subjective 65 YO F admitted for Shortness of breath and COPD exacerbation. Cover for Kelly Cristina-Dr Dodson. Off BIPAP; Tolerating face mask. Objective Last Vital Signs Date Time Temp Pulse Resp B/P Pulse Ox O2 Delivery O2 Flow Rate FiO2 03/03/16 13:06 78 18 98 15.0 55 03/03/16 12:00 97.7 119/66 Bi-pap Laboratory Tests Test 03/03/16 09:45 White Blood Count 2.8 K/UL (4.8-10.8) L Red Blood Count 4.30 M/UL (4.20-5.40) Hemoglobin 12.1 G/DL (12.0-16.0) Hematocrit 39.2 % (37.0-47.0) Mean Corpuscular Volume 91 FL (80-99) Mean Corpuscular Hemoglobin 28.1 PG (27.0-31.0) Mean Corpuscular Hemoglobin Concent 30.9 G/DL (32.0-36.0) L Red Cell Distribution Width 13.6 % (11.6-14.8) Platelet Count 136 K/UL (150-450) L Mean Platelet Volume 7.3 FL (6.5-10.1) Neutrophils (%) (Auto) % (45.0-75.0) Lymphocytes (%) (Auto) % (20.0-45.0) Monocytes (%) (Auto) % (1.0-10.0) Eosinophils (%) (Auto) % (0.0-3.0) Basophils (%) (Auto) % (0.0-2.0) Differential Total Cells Counted 100 Neutrophils % (Manual) 61 % (45-75) Lymphocytes % (Manual) 31 % (20-45) Monocytes % (Manual) 6 % (1-10) Eosinophils % (Manual) 0 % (0-3) Basophils % (Manual) 0 % (0-2) Band Neutrophils 2 % (0-8) Platelet Estimate Adequate Platelet Morphology Normal Hypochromasia 1+ Prothrombin Time 12.7 SEC (9.30-11.50) H Prothromb Time International Ratio 1.2 (0.9-1.1) H Activated Partial Thromboplast Time 26 SEC (23-33) Sodium Level 139 mEQ/L (135-145) Potassium Level 3.7 mEQ/L (3.4-4.9) Chloride Level 90 mEQ/L (98-107) L Carbon Dioxide Level 38 mEQ/L (20-30) H Anion Gap 11 (5-15) Blood Urea Nitrogen 39 mg/dL (7-23) H Creatinine 0.9 mg/dL (0.5-0.9) Estimat Glomerular Filtration Rate > 60 mL/min (>60) Glucose Level 135 mg/dL (74-106) H Calcium Level 9.0 mg/dL (8.6-10.2) Phosphorus Level 1.9 mg/dL (2.5-4.8) L Magnesium Level 2.3 mg/dL (1.7-2.5) Total Bilirubin 0.5 mg/dL (0.0-1.2) Aspartate Amino Transf (AST/SGOT) 31 U/L (5-40) Alanine Aminotransferase (ALT/SGPT) 16 U/L (3-33) Alkaline Phosphatase 52 U/L (35-104) Total Protein 7.0 g/dL (6.6-8.7) Albumin 4.2 g/dL (3.5-5.2) Globulin 2.8 g/dL Albumin/Globulin Ratio 1.5 (1.0-2.7) Amylase Level 42 U/L (10-110) Intake and Output 03/02/16 03/03/16 19:00 07:00 Intake Total 450 ml 300 ml Output Total 850 ml 1000 ml Balance -400 ml -700 ml Intake Oral 350 ml 50 ml IV Total 100 ml 250 ml Output Urine Total 850 ml 1000 ml Objective General Appearance: WD/WN, alert, moderate distress EENT: PERRL/EOMI, normal ENT inspection Neck: normal alignment, supple Cardiovascular: normal peripheral pulses, normal rate, regular rhythm, no gallop/murmur, no JVD Respiratory/Chest: Face mask; decreased breath sounds, accessory muscle use, crackles/rales, rhonchi - bilaterally, expiratory wheezing Abdomen: non tender, soft, no organomegaly, no mass Extremities: normal range of motion, non-tender 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 (3) CHF (congestive heart failure) (4) Hypothyroidism Assessment & Plan: Cont synthroid. (5) AICD (automatic cardioverter/defibrillator) present (6) Shortness of breath (7) COPD with acute exacerbation Assessment & Plan: See Pulmonary note. Off BIPAP prn and tolerating face mask.. Cont advair and duoneb. D/C vanco; cont levaquin and azithromycin per pulm (8) Chronic pain Assessment & Plan: Patient has dilaudid pain pump-needs refill on 03/02/16. Status: progressing OSMAR CAMPBELL Mar 03, 2016 14:42
[2016-03-03] MEDS ORDERED: NS 275ml ONE (17:04)
[2016-03-03] MEDS: Docusate 100mg cap ORAL SCH (18:23)
[2016-03-03] MEDS: Topiramate 100mg tab ORAL SCH (20:31)
[2016-03-04] MEDS: Solu-MEDROL 40mg Inj IVP SCH ×4 (00:11→17:45)
[2016-03-04] MEDS: HYDROmorphone 4mg tab ORAL PRN ×3 (00:12→19:14)
[2016-03-04] MEDS: DuoNeb 0.5-3(2.5)mg/3ml neb HHN SCH ×4 (01:03→20:18)
[2016-03-04 03:52] VITALS: BP 116/73
[2016-03-04 04:32] LABS: MEAN CORPUSCULAR HEMOGLOBIN 28.6 PG (27.0-31.0); MEAN CORPUSCULAR HGB CONC 30.8 G/DL (32.0-36.0); MEAN CORPUSCULAR VOLUME 93 FL (80-99); MEAN PLATELET VOLUME 7.4 FL (6.5-10.1); PLATELET COUNT 134 K/UL (150-450); RED BLOOD COUNT 4.44 M/UL (4.20-5.40); RED CELL DISTRIBUTION WIDTH 13.8 % (11.6-14.8); WHITE BLOOD COUNT 2.4 K/UL (4.8-10.8)
[2016-03-04 05:12] LABS: ANION GAP 12 (5-15); CALCIUM 9.1 mg/dL (8.6-10.2); CARBON DIOXIDE 35 mEQ/L (20-30); CHLORIDE 90 mEQ/L (98-107); CREATININE 0.9 mg/dL (0.5-0.9); GLOMERULAR FILTRATION RATE > 60 mL/min (>60); HEMOLYSIS 5; POTASSIUM 4.1 mEQ/L (3.4-4.9); SODIUM 137 mEQ/L (135-145)
[2016-03-04] MEDS: NovoLOG Insulin Flexpen SUBQ SCH ×4 (06:23→20:28)
[2016-03-04 08:00] VITALS: BP 118/74
[2016-03-04] MEDS: Advair 250/50 Inhaler - 14 dose INH SCH ×2 (09:00→19:13)
[2016-03-04] MEDS: Sertraline 50mg tab ORAL SCH (09:10)
[2016-03-04] MEDS: Vitamin D 1000 IU Tab ORAL SCH (09:10)
[2016-03-04] MEDS: Cyclobenzaprine 10mg Tab ORAL SCH ×3 (09:11→17:45)
[2016-03-04] MEDS: Docusate 100mg cap ORAL SCH ×2 (09:12→17:45)
[2016-03-04] MEDS: Lisinopril 10mg tab ORAL SCH (09:12)
--- NOTE | 2016-03-04 09:18 | Pulmonology Progress Note ---
Assessment/Plan Assessment/Plan IMPRESSION: 1. Exacerbation of chronic obstructive pulmonary disease. 2. Automatic implantable cardioverter-defibrillator. 3. History of breast carcinoma. 4. Ulcerative colitis/inflammatory bowel disease. 5. Deafness. 6. History of methicillin-resistant Staphylococcus aureus nares. 7. Chronic pain. DISCUSSION: Continue Levaquin and azithromycin, continue steroids, will decrease dose. Use BiPAP q pm and prn only; use NRBM as needed. I will follow carefully. She is improving slowly. Subjective Interval Events: Remains on 50% Ventimask; BiPAP use prn and qHS; feels better Constitutional: Reports: no symptoms HEENT: Repors: no symptoms Respiratory: Reports: dry cough, shortness of breath Cardiovascular: Reports: no symptoms Gastrointestinal/Abdominal: Reports: no symptoms Allergies: Coded Allergies: BENZODIAZEPINES (Verified Allergy, Unknown, 04/20/10) IODINE (Verified Allergy, Unknown, 04/20/10) LIDOCAINE (Verified Allergy, Unknown, 04/20/10) LORAZEPAM (Verified Allergy, Unknown, 04/20/10) OXYBUTYNIN (Verified Allergy, Unknown, 04/20/10) PENICILLINS (Verified Allergy, Unknown, 04/20/10) PHENOTHIAZINES (Verified Allergy, Unknown, 04/20/10) PIPERACILLIN (Verified Allergy, Unknown, 04/20/10) PROPOFOL (Verified Allergy, Unknown, 04/20/10) QUINOLONES (Verified Allergy, Unknown, 04/20/10) SULFASALAZINE (Verified Allergy, Unknown, 04/20/10) TAZOBACTAM (Verified Allergy, Unknown, 04/20/10) TEMAZEPAM (Verified Allergy, Unknown, 04/20/10) Objective Last 24 Hour Vital Signs Date Time Temp Pulse Resp B/P Pulse Ox O2 Delivery O2 Flow Rate FiO2 03/04/16 09:12 118/74 03/04/16 07:36 50 03/04/16 07:36 78 20 93 Venturi Mask 50 03/04/16 07:34 Facial 03/04/16 07:23 Bi-pap 50 03/04/16 07:23 75 13 Bi-pap 50 03/04/16 04:42 75 16 93 Facial 50 03/04/16 04:00 76 03/04/16 03:52 97.0 76 20 116/73 96 Bi-pap 03/04/16 03:30 75 14 94 Facial 50 03/04/16 01:15 96.8 03/04/16 01:13 76 20 95 Bi-pap 50 03/04/16 01:02 50 03/04/16 01:02 75 16 95 Bi-pap 50 03/04/16 01:00 55 03/04/16 00:59 79 15 95 Facial 50 03/04/16 00:00 72 03/03/16 23:31 96.8 72 19 120/61 95 Bi-pap 03/03/16 23:30 75 16 97 Facial 50 03/03/16 20:14 97.2 03/03/16 20:04 76 03/03/16 20:00 97.2 75 18 116/68 92 Venturi Mask 55 03/03/16 19:40 79 20 96 Venturi Mask 14.0 55 03/03/16 19:30 55 03/03/16 19:30 76 20 92 Venturi Mask 14.0 55 03/03/16 19:30 93 14.0 55 03/03/16 17:04 Venturi Mask 15.0 55 03/03/16 17:00 55 03/03/16 16:00 75 03/03/16 16:00 97.8 76 23 115/66 93 Venturi Mask 55 03/03/16 16:00 97.7 76 16 112/66 Mechanical Ventilator 03/03/16 13:06 78 18 98 15.0 55 03/03/16 12:56 55 03/03/16 12:55 76 20 95 55 03/03/16 12:00 75 03/03/16 12:00 97.7 78 14 119/66 92 Bi-pap 50 03/03/16 10:54 76 16 92 Facial 50 03/03/16 09:25 108/60 03/03/16 09:25 75 108/60 Intake and Output 03/03/16 03/04/16 19:00 07:00 Intake Total 860 ml 600 ml Output Total 700 ml 550 ml Balance 160 ml 50 ml Intake Oral 760 ml 600 ml IV Total 100 ml Output Urine Total 700 ml 550 ml General Appearance: no acute distress HEENT: normocephalic Respiratory/Chest: chest wall non-tender, decreased breath sounds Cardiovascular: normal peripheral pulses, normal rate Abdomen: normal bowel sounds, soft, non tender Laboratory Tests 03/03/16 09:45: White Blood Count 2.8L, Red Blood Count 4.30, Hemoglobin 12.1, Hematocrit 39.2, Mean Corpuscular Volume 91, Mean Corpuscular Hemoglobin 28.1, Mean Corpuscular Hemoglobin Concent 30.9L, Red Cell Distribution Width 13.6, Platelet Count 136L , Mean Platelet Volume 7.3, Neutrophils (%) (Auto) , Lymphocytes (%) (Auto) , Monocytes (%) (Auto) , Eosinophils (%) (Auto) , Basophils (%) (Auto) , Differential Total Cells Counted 100, Neutrophils % (Manual) 61, Lymphocytes % ( Manual) 31, Monocytes % (Manual) 6, Eosinophils % (Manual) 0, Basophils % ( Manual) 0, Band Neutrophils 2, Platelet Estimate Adequate, Platelet Morphology Normal, Hypochromasia 1+, Prothrombin Time 12.7H, Prothromb Time International Ratio 1.2H, Activated Partial Thromboplast Time 26, Sodium Level 139, Potassium Level 3.7, Chloride Level 90L, Carbon Dioxide Level 38H, Anion Gap 11, Blood Urea Nitrogen 39H, Creatinine 0.9, Estimat Glomerular Filtration Rate > 60, Glucose Level 135H, Calcium Level 9.0, Phosphorus Level 1.9L, Magnesium Level 2.3, Total Bilirubin 0.5, Aspartate Amino Transf (AST/SGOT) 31, Alanine Aminotransferase (ALT/SGPT) 16, Alkaline Phosphatase 52, Total Protein 7.0, Albumin 4.2, Globulin 2.8, Albumin/Globulin Ratio 1.5, Amylase Level 42 03/04/16 03:50: White Blood Count 2.4L, Red Blood Count 4.44, Hemoglobin 12.7, Hematocrit 41.1, Mean Corpuscular Volume 93, Mean Corpuscular Hemoglobin 28.6, Mean Corpuscular Hemoglobin Concent 30.8L, Red Cell Distribution Width 13.8, Platelet Count 134L , Mean Platelet Volume 7.4, Neutrophils (%) (Auto) , Lymphocytes (%) (Auto) , Monocytes (%) (Auto) , Eosinophils (%) (Auto) , Basophils (%) (Auto) , Neutrophils % (Manual) [Pending], Lymphocytes % (Manual) [Pending], Platelet Estimate [Pending], Platelet Morphology [Pending], Sodium Level 137, Potassium Level 4.1, Chloride Level 90L, Carbon Dioxide Level 35H, Anion Gap 12, Blood Urea Nitrogen 41H, Creatinine 0.9, Estimat Glomerular Filtration Rate > 60, Glucose Level 166H, Calcium Level 9.1 Current Medications Medications (Trade) Dose Ordered Sig/Mamie Route PRN Reason Start Time Stop Time Status Last Admin Dose Admin Albuterol/ Ipratropium (DuoNeb 0.5-3(2.5)mg/3ml) 3 ml Q6HRT HHN 02/29/16 13:00 03/05/16 12:59 03/04/16 07:25 Azithromycin/ Dextrose (Zithromax/D5W 250ml) 250 ml @ 250 mls/hr Q24HRS IV 03/01/16 20:00 03/07/16 20:59 03/03/16 20:30 Betamethasone Dipropionate (Diprolene Oint) 1 applic TID PRN TOPIC Itching 02/29/16 17:00 03/30/16 16:59 Clonazepam (KlonoPIN) 1 mg QPM PRN ORAL For Anxiety 02/29/16 17:00 03/07/16 16:59 03/03/16 14:29 Cyclobenzaprine HCl (Flexeril) 10 mg TID ORAL 02/29/16 18:00 03/30/16 17:59 03/04/16 09:11 Dextrose (Dextrose 50%) STAT PRN IV Hypoglycemia 02/29/16 10:15 03/30/16 10:14 Docusate Sodium (Colace) 100 mg TWICE A DAY ORAL 03/03/16 18:00 04/02/16 17:59 03/04/16 09:12 Furosemide (Lasix) 40 mg DAILY IV 03/03/16 09:00 04/02/16 08:59 03/04/16 09:11 Hydromorphone HCl (Dilaudid) 4 mg Q6HR PRN ORAL For Pain 02/29/16 17:00 03/07/16 16:59 03/04/16 00:12 Insulin Aspart (NovoLOG) BEFORE MEALS AND HS SUBQ 03/02/16 21:00 04/01/16 20:59 03/04/16 06:23 Levofloxacin (Levaquin) 100 ml @ 100 mls/hr Q24H IVPB 02/29/16 11:00 03/07/16 10:59 03/03/16 11:14 Levothyroxine Sodium (Synthroid) 100 mcg ACBREAKFAST ORAL 03/01/16 06:30 03/31/16 06:29 03/04/16 06:16 Lisinopril (Zestril) 10 mg DAILY ORAL 03/04/16 09:00 04/03/16 08:59 03/04/16 09:12 Methylprednisolone Sodium Succinate 40 mg 40 mg EVERY 6 HOURS IVP 02/29/16 12:00 03/30/16 11:59 03/04/16 06:16 Nystatin (Nystop Powder) 1 applic THREE TIMES A DAY TOPIC 02/29/16 18:00 03/30/16 17:59 03/03/16 18:24 Pantoprazole (Protonix) 40 mg DAILY ORAL 03/01/16 09:00 03/31/16 08:59 03/04/16 09:12 Potassium Chloride (K-Dur) 10 meq DAILY ORAL 03/01/16 09:00 03/31/16 08:59 03/02/16 09:36 Salmeterol Xinafoate/ Fluticasone (Advair 250/50 Diskus) 1 puffs BID INH 02/29/16 21:00 03/30/16 20:59 03/03/16 18:22 Sertraline HCl (Zoloft) 50 mg DAILY ORAL 03/02/16 09:00 04/01/16 08:59 03/04/16 09:10 Topiramate 100 mg 100 mg QHS ORAL 03/01/16 21:00 03/31/16 20:59 03/03/16 20:31 Vitamin D (Vitamin D) 1,000 intlu DAILY ORAL 03/01/16 09:00 03/31/16 08:59 03/04/16 09:10 Shahid Lake MD Mar 04, 2016 09:18
[2016-03-04] MEDS: Nystatin Powder 100,000 units/gm 15gm TOPIC SCH ×3 (09:22→17:45)
[2016-03-04 09:39] LABS: BAND NEUTROPHILS % (MANUAL) 1 % (0-8); BASOPHILS % (MANUAL) 0 % (0-2); EOSINOPHILS % (MANUAL) 0 % (0-3); HYPOCHROMASIA 1+; LYMPHOCYTES % (MANUAL) 27 % (20-45); NEUTROPHILS % (MANUAL) 70 % (45-75); PLATELET ESTIMATE ADEQUATE; PLATELET MORPHOLOGY NORMAL; TOTAL CELLS COUNTED 100
[2016-03-04 12:00] VITALS: BP 97/59
--- NOTE | 2016-03-04 12:42 | Cardiac Electrophysiology PN ---
Assessment/Plan Assessment/Plan 1. Exacerbation of congestive heart failure and BNP 815. Ejection fraction is 40%.Continue Lasix 40 mg intravenous daily and Lisinopril 10. Off beta bridget for severe chronic obstructive pulmonary disease. 2. Status post right-sided [facility] defibrillator implantation. Interrogation showed normal function. 3. Severe chronic obstructive pulmonary disease. 4. History of breast cancer. 5. History of ulcerative colitis 6. History of deafness. 7. 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 Did not have any arrhythmia overnight.Wants to go home. Objective Last 24 Hour Vital Signs Date Time Temp Pulse Resp B/P Pulse Ox O2 Delivery O2 Flow Rate FiO2 03/04/16 11:33 15.0 55 03/04/16 10:10 97.0 03/04/16 09:12 118/74 03/04/16 08:00 97.7 75 20 118/74 93 Venturi Mask 10.0 55 03/04/16 08:00 75 03/04/16 07:36 50 03/04/16 07:36 78 20 93 Venturi Mask 50 03/04/16 07:34 Facial 03/04/16 07:23 Bi-pap 50 03/04/16 07:23 75 13 Bi-pap 50 03/04/16 04:42 75 16 93 Facial 50 03/04/16 04:00 76 03/04/16 03:52 97.0 76 20 116/73 96 Bi-pap 03/04/16 03:30 75 14 94 Facial 50 03/04/16 01:15 96.8 03/04/16 01:13 76 20 95 Bi-pap 50 03/04/16 01:02 50 03/04/16 01:02 75 16 95 Bi-pap 50 03/04/16 01:00 55 03/04/16 00:59 79 15 95 Facial 50 03/04/16 00:00 72 03/03/16 23:31 96.8 72 19 120/61 95 Bi-pap 03/03/16 23:30 75 16 97 Facial 50 03/03/16 20:04 76 03/03/16 20:00 97.2 75 18 116/68 92 Venturi Mask 55 03/03/16 19:40 79 20 96 Venturi Mask 14.0 55 03/03/16 19:30 55 03/03/16 19:30 76 20 92 Venturi Mask 14.0 55 03/03/16 19:30 93 14.0 55 03/03/16 17:04 Venturi Mask 15.0 55 03/03/16 17:00 55 03/03/16 16:00 75 03/03/16 16:00 97.8 76 23 115/66 93 Venturi Mask 55 03/03/16 16:00 97.7 76 16 112/66 Mechanical Ventilator 03/03/16 13:06 78 18 98 15.0 55 03/03/16 12:56 55 03/03/16 12:55 76 20 95 55 Intake and Output 03/03/16 03/04/16 19:00 07:00 Intake Total 860 ml 600 ml Output Total 700 ml 550 ml Balance 160 ml 50 ml Intake Oral 760 ml 600 ml IV Total 100 ml Output Urine Total 700 ml 550 ml Laboratory Tests Test 03/04/16 03:50 White Blood Count 2.4 K/UL (4.8-10.8) L Red Blood Count 4.44 M/UL (4.20-5.40) Hemoglobin 12.7 G/DL (12.0-16.0) Hematocrit 41.1 % (37.0-47.0) Mean Corpuscular Volume 93 FL (80-99) Mean Corpuscular Hemoglobin 28.6 PG (27.0-31.0) Mean Corpuscular Hemoglobin Concent 30.8 G/DL (32.0-36.0) L Red Cell Distribution Width 13.8 % (11.6-14.8) Platelet Count 134 K/UL (150-450) L Mean Platelet Volume 7.4 FL (6.5-10.1) Neutrophils (%) (Auto) % (45.0-75.0) Lymphocytes (%) (Auto) % (20.0-45.0) Monocytes (%) (Auto) % (1.0-10.0) Eosinophils (%) (Auto) % (0.0-3.0) Basophils (%) (Auto) % (0.0-2.0) Differential Total Cells Counted 100 Neutrophils % (Manual) 70 % (45-75) Lymphocytes % (Manual) 27 % (20-45) Monocytes % (Manual) 2 % (1-10) Eosinophils % (Manual) 0 % (0-3) Basophils % (Manual) 0 % (0-2) Band Neutrophils 1 % (0-8) Platelet Estimate Adequate Platelet Morphology Normal Hypochromasia 1+ Sodium Level 137 mEQ/L (135-145) Potassium Level 4.1 mEQ/L (3.4-4.9) Chloride Level 90 mEQ/L (98-107) L Carbon Dioxide Level 35 mEQ/L (20-30) H Anion Gap 12 (5-15) Blood Urea Nitrogen 41 mg/dL (7-23) H Creatinine 0.9 mg/dL (0.5-0.9) Estimat Glomerular Filtration Rate > 60 mL/min (>60) Glucose Level 166 mg/dL (74-106) H Calcium Level 9.1 mg/dL (8.6-10.2) Objective HEAD AND NECK: Positive JVD. LUNGS: Decreased breath sounds with coarse rhonchi and rales. CARDIOVASCULAR: Shows regular S1 and S2 with no gallop or murmur. The defibrillatior is in the right subclavian. ABDOMEN: Soft. EXTREMITIES: There is 1+ pitting edema. COCO ANGEL Mar 04, 2016 12:42
[2016-03-04 16:00] VITALS: BP 111/45
--- NOTE | 2016-03-04 17:33 | Internal Med Progress Note ---
Subjective Date of Service: Mar 04, 2016 Physician Name KellyOsmar Attending Physician Flex Dodson MD Current Medications Medications (Trade) Dose Ordered Sig/Mamie Route PRN Reason Start Time Stop Time Status Last Admin Dose Admin Albuterol/ Ipratropium (DuoNeb 0.5-3(2.5)mg/3ml) 3 ml Q6HRT HHN 02/29/16 13:00 03/05/16 12:59 03/04/16 13:11 Azithromycin/ Dextrose (Zithromax/D5W 250ml) 250 ml @ 250 mls/hr Q24HRS IV 03/01/16 20:00 03/07/16 20:59 03/03/16 20:30 Betamethasone Dipropionate (Diprolene Oint) 1 applic TID PRN TOPIC Itching 02/29/16 17:00 03/30/16 16:59 Clonazepam (KlonoPIN) 1 mg QPM PRN ORAL For Anxiety 02/29/16 17:00 03/07/16 16:59 03/03/16 14:29 Cyclobenzaprine HCl (Flexeril) 10 mg TID ORAL 02/29/16 18:00 03/30/16 17:59 03/04/16 13:07 Dextrose (Dextrose 50%) STAT PRN IV Hypoglycemia 02/29/16 10:15 03/30/16 10:14 Docusate Sodium (Colace) 100 mg TWICE A DAY ORAL 03/03/16 18:00 04/02/16 17:59 03/04/16 09:12 Furosemide (Lasix) 40 mg DAILY IV 03/03/16 09:00 04/02/16 08:59 03/04/16 09:11 Hydromorphone HCl (Dilaudid) 4 mg Q6HR PRN ORAL For Pain 02/29/16 17:00 03/07/16 16:59 03/04/16 13:08 Insulin Aspart (NovoLOG) BEFORE MEALS AND HS SUBQ 03/02/16 21:00 04/01/16 20:59 03/04/16 16:24 Levofloxacin (Levaquin) 100 ml @ 100 mls/hr Q24H IVPB 02/29/16 11:00 03/07/16 10:59 03/04/16 11:23 Levothyroxine Sodium (Synthroid) 100 mcg ACBREAKFAST ORAL 03/01/16 06:30 03/31/16 06:29 03/04/16 06:16 Lisinopril (Zestril) 10 mg DAILY ORAL 03/04/16 09:00 04/03/16 08:59 03/04/16 09:12 Methylprednisolone Sodium Succinate (Solu-MEDROL) 20 mg EVERY 6 HOURS IVP 03/04/16 12:00 04/03/16 11:59 03/04/16 11:23 Nystatin (Nystop Powder) 1 applic THREE TIMES A DAY TOPIC 02/29/16 18:00 03/30/16 17:59 03/04/16 13:07 Pantoprazole (Protonix) 40 mg DAILY ORAL 03/01/16 09:00 03/31/16 08:59 03/04/16 09:12 Potassium Chloride (K-Dur) 10 meq DAILY ORAL 03/01/16 09:00 03/31/16 08:59 03/02/16 09:36 Salmeterol Xinafoate/ Fluticasone (Advair 250/50 Diskus) 1 puffs BID INH 02/29/16 21:00 03/30/16 20:59 03/03/16 18:22 Sertraline HCl (Zoloft) 50 mg DAILY ORAL 03/02/16 09:00 04/01/16 08:59 03/04/16 09:10 Topiramate 100 mg 100 mg QHS ORAL 03/01/16 21:00 03/31/16 20:59 03/03/16 20:31 Vitamin D (Vitamin D) 1,000 intlu DAILY ORAL 03/01/16 09:00 03/31/16 08:59 03/04/16 09:10 Allergies: Coded Allergies: BENZODIAZEPINES (Verified Allergy, Unknown, 04/20/10) IODINE (Verified Allergy, Unknown, 04/20/10) LIDOCAINE (Verified Allergy, Unknown, 04/20/10) LORAZEPAM (Verified Allergy, Unknown, 04/20/10) OXYBUTYNIN (Verified Allergy, Unknown, 04/20/10) PENICILLINS (Verified Allergy, Unknown, 04/20/10) PHENOTHIAZINES (Verified Allergy, Unknown, 04/20/10) PIPERACILLIN (Verified Allergy, Unknown, 04/20/10) PROPOFOL (Verified Allergy, Unknown, 04/20/10) QUINOLONES (Verified Allergy, Unknown, 04/20/10) SULFASALAZINE (Verified Allergy, Unknown, 04/20/10) TAZOBACTAM (Verified Allergy, Unknown, 04/20/10) TEMAZEPAM (Verified Allergy, Unknown, 04/20/10) ROS Limited/Unobtainable: No Constitutional: Reports: no symptoms HEENT: Reports: no symptoms Cardiovascular: Reports: no symptoms Respiratory: Reports: no symptoms Gastrointestinal/Abdominal: Reports: constipated Genitourinary: Reports: no symptoms Neurologic/Psychiatric: Reports: no symptoms Subjective 65 YO F admitted for Shortness of breath and COPD exacerbation. Cover for Int Jonnie-Dr Dodson. Off BIPAP; Tolerating simple face mask. Objective Last Vital Signs Date Time Temp Pulse Resp B/P Pulse Ox O2 Delivery O2 Flow Rate FiO2 03/04/16 16:00 75 03/04/16 16:00 98.1 14 111/45 90 Simple Mask 13.0 03/04/16 13:21 50 Laboratory Tests Test 03/04/16 03:50 White Blood Count 2.4 K/UL (4.8-10.8) L Red Blood Count 4.44 M/UL (4.20-5.40) Hemoglobin 12.7 G/DL (12.0-16.0) Hematocrit 41.1 % (37.0-47.0) Mean Corpuscular Volume 93 FL (80-99) Mean Corpuscular Hemoglobin 28.6 PG (27.0-31.0) Mean Corpuscular Hemoglobin Concent 30.8 G/DL (32.0-36.0) L Red Cell Distribution Width 13.8 % (11.6-14.8) Platelet Count 134 K/UL (150-450) L Mean Platelet Volume 7.4 FL (6.5-10.1) Neutrophils (%) (Auto) % (45.0-75.0) Lymphocytes (%) (Auto) % (20.0-45.0) Monocytes (%) (Auto) % (1.0-10.0) Eosinophils (%) (Auto) % (0.0-3.0) Basophils (%) (Auto) % (0.0-2.0) Differential Total Cells Counted 100 Neutrophils % (Manual) 70 % (45-75) Lymphocytes % (Manual) 27 % (20-45) Monocytes % (Manual) 2 % (1-10) Eosinophils % (Manual) 0 % (0-3) Basophils % (Manual) 0 % (0-2) Band Neutrophils 1 % (0-8) Platelet Estimate Adequate Platelet Morphology Normal Hypochromasia 1+ Sodium Level 137 mEQ/L (135-145) Potassium Level 4.1 mEQ/L (3.4-4.9) Chloride Level 90 mEQ/L (98-107) L Carbon Dioxide Level 35 mEQ/L (20-30) H Anion Gap 12 (5-15) Blood Urea Nitrogen 41 mg/dL (7-23) H Creatinine 0.9 mg/dL (0.5-0.9) Estimat Glomerular Filtration Rate > 60 mL/min (>60) Glucose Level 166 mg/dL (74-106) H Calcium Level 9.1 mg/dL (8.6-10.2) Intake and Output 03/03/16 03/04/16 19:00 07:00 Intake Total 860 ml 600 ml Output Total 700 ml 550 ml Balance 160 ml 50 ml Intake Oral 760 ml 600 ml IV Total 100 ml Output Urine Total 700 ml 550 ml Objective General Appearance: WD/WN, alert, moderate distress EENT: PERRL/EOMI, normal ENT inspection Neck: normal alignment, supple Cardiovascular: normal peripheral pulses, normal rate, regular rhythm, no gallop/murmur, no JVD Respiratory/Chest: Face mask; decreased breath sounds, accessory muscle use, crackles/rales, rhonchi - bilaterally, expiratory wheezing Abdomen: non tender, soft, no organomegaly, no mass Extremities: normal range of motion, non-tender 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 (3) CHF (congestive heart failure) (4) Hypothyroidism Assessment & Plan: Cont synthroid. (5) AICD (automatic cardioverter/defibrillator) present (6) Shortness of breath (7) COPD with acute exacerbation Assessment & Plan: See Pulmonary note. Off BIPAP prn and tolerating face mask. Cont advair and duoneb. D/C vanco; cont levaquin and azithromycin per pulm. Decrease IV solumedrol to 20 mg IV q 6 hr (8) Chronic pain Assessment & Plan: Patient has dilaudid pain pump-needs refill on 03/02/16. (9) Constipation Assessment & Plan: Cont colace. Start mag citrate prn Status: progressing OSMAR CAMPBELL Mar 04, 2016 17:33
[2016-03-04] MEDS ORDERED: Magnesium Citrate Liq Btl ORAL PRN (18:00)
[2016-03-04] MEDS ORDERED: Fleet's Enema 133ml RECTAL ONE (19:00)
[2016-03-04 20:00] VITALS: BP 104/45
[2016-03-04] MEDS: Topiramate 100mg tab ORAL SCH (20:27)
[2016-03-05] VITALS: BP_SYST 89; BP_SYST 95; BP_DIAS 55
[2016-03-05] MEDS: DuoNeb 0.5-3(2.5)mg/3ml neb HHN SCH ×2 (01:24→08:21)
[2016-03-05 04:00] VITALS: BP 105/63
[2016-03-05] MEDS: Solu-MEDROL 40mg Inj IVP SCH ×5 (05:52→23:43)
[2016-03-05] MEDS: NovoLOG Insulin Flexpen SUBQ SCH ×4 (05:54→20:52)
[2016-03-05 06:35] LABS: CALCIUM 9.3 mg/dL (8.6-10.2); CREATININE 1.1 mg/dL (0.5-0.9); GLOMERULAR FILTRATION RATE 49.7 mL/min (>60); POTASSIUM 3.7 mEQ/L (3.4-4.9)
[2016-03-05 08:00] VITALS: BP 135/68
[2016-03-05] MEDS: Advair 250/50 Inhaler - 14 dose INH SCH ×2 (08:22→19:31)
--- NOTE | 2016-03-05 08:52 | Pulmonology Progress Note ---
Assessment/Plan Assessment/Plan IMPRESSION: 1. Exacerbation of chronic obstructive pulmonary disease. 2. Automatic implantable cardioverter-defibrillator. 3. History of breast carcinoma. 4. Ulcerative colitis/inflammatory bowel disease. 5. Deafness. 6. History of methicillin-resistant Staphylococcus aureus nares. 7. Chronic pain. DISCUSSION: Continue Levaquin and azithromycin, continue steroids. Use BiPAP q pm and prn only; use NRBM as needed. I will follow carefully. She is improving slowly. REmains hypoxic. Suggest to decrease sedatives and narcotics Subjective Interval Events: Remains drowsy; episodically hypoxic on ventimask. Constitutional: Reports: no symptoms HEENT: Repors: no symptoms Respiratory: Reports: no symptoms Cardiovascular: Reports: no symptoms Gastrointestinal/Abdominal: Reports: no symptoms Genitourinary: Reports: no symptoms Allergies: Coded Allergies: BENZODIAZEPINES (Verified Allergy, Unknown, 04/20/10) IODINE (Verified Allergy, Unknown, 04/20/10) LIDOCAINE (Verified Allergy, Unknown, 04/20/10) LORAZEPAM (Verified Allergy, Unknown, 04/20/10) OXYBUTYNIN (Verified Allergy, Unknown, 04/20/10) PENICILLINS (Verified Allergy, Unknown, 04/20/10) PHENOTHIAZINES (Verified Allergy, Unknown, 04/20/10) PIPERACILLIN (Verified Allergy, Unknown, 04/20/10) PROPOFOL (Verified Allergy, Unknown, 04/20/10) QUINOLONES (Verified Allergy, Unknown, 04/20/10) SULFASALAZINE (Verified Allergy, Unknown, 04/20/10) TAZOBACTAM (Verified Allergy, Unknown, 04/20/10) TEMAZEPAM (Verified Allergy, Unknown, 04/20/10) Objective Last 24 Hour Vital Signs Date Time Temp Pulse Resp B/P Pulse Ox O2 Delivery O2 Flow Rate FiO2 03/05/16 07:50 91 18 75 Venturi Mask 55 03/05/16 07:49 55 03/05/16 07:45 91 18 74 55 03/05/16 07:45 Venturi Mask 15.0 55 03/05/16 04:00 97.0 77 18 105/63 92 Simple Mask 03/05/16 03:40 75 03/05/16 01:33 55 03/05/16 01:33 85 18 94 Venturi Mask 55 03/05/16 01:23 91 18 93 55 03/05/16 00:00 97.8 77 18 95/55 93 Simple Mask 10.0 03/05/16 00:00 96.0 77 18 89/55 92 Simple Mask 03/04/16 23:44 75 03/04/16 20:24 76 18 94 Venturi Mask 50 03/04/16 20:20 76 18 93 55 03/04/16 20:19 Venturi Mask 15.0 55 03/04/16 20:18 55 03/04/16 20:00 75 03/04/16 20:00 98.1 95 13 104/45 93 Simple Mask 10.0 03/04/16 16:00 75 03/04/16 16:00 98.1 76 14 111/45 90 Simple Mask 13.0 03/04/16 14:06 97.7 03/04/16 14:06 97.7 03/04/16 13:21 76 18 93 Venturi Mask 50 03/04/16 13:11 50 03/04/16 13:10 75 16 89 50 03/04/16 12:00 78 03/04/16 12:00 97.7 77 16 97/59 90 Venturi Mask 10.0 55 03/04/16 11:33 15.0 55 03/04/16 09:12 118/74 Intake and Output 03/04/16 03/05/16 19:00 07:00 Intake Total 400 ml 490 ml Output Total 850 ml 325 ml Balance -450 ml 165 ml Intake Oral 300 ml 240 ml IV Total 100 ml 250 ml Output Urine Total 850 ml 325 ml # Bowel Movements 1 General Appearance: no acute distress HEENT: normocephalic Respiratory/Chest: chest wall non-tender, lungs clear Cardiovascular: normal peripheral pulses, normal rate Abdomen: normal bowel sounds, soft, non tender Laboratory Tests 03/05/16 04:30: Sodium Level 138, Potassium Level 3.7, Chloride Level 91L, Carbon Dioxide Level 32H, Anion Gap 15, Blood Urea Nitrogen 49H, Creatinine 1.1H, Estimat Glomerular Filtration Rate 49.7, Glucose Level 161H, Calcium Level 9.3 Current Medications Medications (Trade) Dose Ordered Sig/Mamie Route PRN Reason Start Time Stop Time Status Last Admin Dose Admin Albuterol/ Ipratropium (DuoNeb 0.5-3(2.5)mg/3ml) 3 ml Q6HRT HHN 02/29/16 13:00 03/05/16 12:59 03/05/16 08:21 Azithromycin/ Dextrose (Zithromax/D5W 250ml) 250 ml @ 250 mls/hr Q24HRS IV 03/01/16 20:00 03/07/16 20:59 03/04/16 19:32 Betamethasone Dipropionate (Diprolene Oint) 1 applic TID PRN TOPIC Itching 02/29/16 17:00 03/30/16 16:59 Clonazepam (KlonoPIN) 1 mg QPM PRN ORAL For Anxiety 02/29/16 17:00 03/07/16 16:59 03/04/16 23:52 Cyclobenzaprine HCl (Flexeril) 10 mg TID ORAL 02/29/16 18:00 03/30/16 17:59 03/04/16 17:45 Dextrose (Dextrose 50%) STAT PRN IV Hypoglycemia 02/29/16 10:15 03/30/16 10:14 Docusate Sodium (Colace) 100 mg TWICE A DAY ORAL 03/03/16 18:00 04/02/16 17:59 03/04/16 17:45 Furosemide (Lasix) 40 mg DAILY IV 03/03/16 09:00 04/02/16 08:59 03/04/16 09:11 Hydromorphone HCl (Dilaudid) 4 mg Q6HR PRN ORAL For Pain 02/29/16 17:00 03/07/16 16:59 03/04/16 19:14 Insulin Aspart (NovoLOG) BEFORE MEALS AND HS SUBQ 03/02/16 21:00 04/01/16 20:59 03/05/16 05:54 Levofloxacin (Levaquin) 100 ml @ 100 mls/hr Q24H IVPB 02/29/16 11:00 03/07/16 10:59 03/04/16 11:23 Levothyroxine Sodium (Synthroid) 100 mcg ACBREAKFAST ORAL 03/01/16 06:30 03/31/16 06:29 03/05/16 05:52 Lisinopril (Zestril) 10 mg DAILY ORAL 03/04/16 09:00 04/03/16 08:59 03/04/16 09:12 Magnesium Citrate (Citrate Of Magnesia) 300 ml DAILYPRN PRN ORAL Constipation 03/04/16 18:00 04/03/16 17:59 Methylprednisolone Sodium Succinate (Solu-MEDROL) 20 mg EVERY 6 HOURS IVP 03/04/16 12:00 04/03/16 11:59 03/05/16 05:52 Nystatin (Nystop Powder) 1 applic THREE TIMES A DAY TOPIC 02/29/16 18:00 03/30/16 17:59 03/04/16 17:45 Pantoprazole (Protonix) 40 mg DAILY ORAL 03/01/16 09:00 03/31/16 08:59 03/04/16 09:12 Potassium Chloride (K-Dur) 10 meq DAILY ORAL 03/01/16 09:00 03/31/16 08:59 03/02/16 09:36 Salmeterol Xinafoate/ Fluticasone (Advair 250/50 Diskus) 1 puffs BID INH 02/29/16 21:00 03/30/16 20:59 03/05/16 08:22 Sertraline HCl (Zoloft) 50 mg DAILY ORAL 03/02/16 09:00 04/01/16 08:59 03/04/16 09:10 Topiramate 100 mg 100 mg QHS ORAL 03/01/16 21:00 03/31/16 20:59 03/04/16 20:27 Vitamin D (Vitamin D) 1,000 intlu DAILY ORAL 03/01/16 09:00 03/31/16 08:59 03/04/16 09:10 Shahid Lake MD Mar 05, 2016 08:52
[2016-03-05] MEDS: Vitamin D 1000 IU Tab ORAL SCH (09:01)
[2016-03-05] MEDS: Cyclobenzaprine 10mg Tab ORAL SCH ×3 (09:01→17:37)
[2016-03-05] MEDS: Lisinopril 10mg tab ORAL SCH (09:02)
[2016-03-05] MEDS: Sertraline 50mg tab ORAL SCH (09:04)
[2016-03-05] MEDS: Nystatin Powder 100,000 units/gm 15gm TOPIC SCH ×3 (09:04→17:37)
[2016-03-05] MEDS: Docusate 100mg cap ORAL SCH ×2 (09:04→17:37)
[2016-03-05 11:06] LABS: BASOPHILS % (AUTO) 1.4 % (0.0-2.0); EOSINOPHILS % (AUTO) 0.1 % (0.0-3.0); MEAN CORPUSCULAR HEMOGLOBIN 28.2 PG (27.0-31.0); MEAN CORPUSCULAR VOLUME 91 FL (80-99); MEAN PLATELET VOLUME 7.4 FL (6.5-10.1); MONOCYTES % (AUTO) 8.4 % (1.0-10.0); NEUTROPHILS % (AUTO) 70.1 % (45.0-75.0); PLATELET COUNT 129 K/UL (150-450); RED BLOOD COUNT 4.24 M/UL (4.20-5.40); RED CELL DISTRIBUTION WIDTH 13.7 % (11.6-14.8); WHITE BLOOD COUNT 4.6 K/UL (4.8-10.8)
[2016-03-05 12:00] VITALS: BP 99/59
--- NOTE | 2016-03-05 13:06 | Internal Med Progress Note ---
Subjective Date of Service: Mar 05, 2016 Physician Name Osmar Campbell Attending Physician Flex Dodson MD Current Medications Medications (Trade) Dose Ordered Sig/Mamie Route PRN Reason Start Time Stop Time Status Last Admin Dose Admin Azithromycin/ Dextrose (Zithromax/D5W 250ml) 250 ml @ 250 mls/hr Q24HRS IV 03/01/16 20:00 03/07/16 20:59 03/04/16 19:32 Betamethasone Dipropionate (Diprolene Oint) 1 applic TID PRN TOPIC Itching 02/29/16 17:00 03/30/16 16:59 Clonazepam (KlonoPIN) 1 mg QPM PRN ORAL For Anxiety 02/29/16 17:00 03/07/16 16:59 03/04/16 23:52 Cyclobenzaprine HCl (Flexeril) 10 mg TID ORAL 02/29/16 18:00 03/30/16 17:59 03/05/16 09:01 Dextrose (Dextrose 50%) STAT PRN IV Hypoglycemia 02/29/16 10:15 03/30/16 10:14 Docusate Sodium (Colace) 100 mg TWICE A DAY ORAL 03/03/16 18:00 04/02/16 17:59 03/05/16 09:04 Furosemide (Lasix) 40 mg DAILY IV 03/03/16 09:00 04/02/16 08:59 03/05/16 09:00 Hydromorphone HCl (Dilaudid) 4 mg Q6HR PRN ORAL For Pain 02/29/16 17:00 03/07/16 16:59 03/04/16 19:14 Insulin Aspart (NovoLOG) BEFORE MEALS AND HS SUBQ 03/02/16 21:00 04/01/16 20:59 03/05/16 11:52 Levofloxacin (Levaquin) 100 ml @ 100 mls/hr Q24H IVPB 02/29/16 11:00 03/07/16 10:59 03/05/16 11:42 Levothyroxine Sodium (Synthroid) 100 mcg ACBREAKFAST ORAL 03/01/16 06:30 03/31/16 06:29 03/05/16 05:52 Lisinopril (Zestril) 10 mg DAILY ORAL 03/04/16 09:00 04/03/16 08:59 03/05/16 09:02 Magnesium Citrate (Citrate Of Magnesia) 300 ml DAILYPRN PRN ORAL Constipation 03/04/16 18:00 04/03/16 17:59 Methylprednisolone Sodium Succinate (Solu-MEDROL) 20 mg EVERY 6 HOURS IVP 03/04/16 12:00 04/03/16 11:59 03/05/16 11:42 Nystatin (Nystop Powder) 1 applic THREE TIMES A DAY TOPIC 02/29/16 18:00 03/30/16 17:59 03/05/16 09:04 Pantoprazole (Protonix) 40 mg ACBREAKFAST ORAL 03/06/16 06:30 03/31/16 08:59 Potassium Chloride (K-Dur) 10 meq DAILY ORAL 03/01/16 09:00 03/31/16 08:59 03/05/16 09:01 Salmeterol Xinafoate/ Fluticasone (Advair 250/50 Diskus) 1 puffs BID INH 02/29/16 21:00 03/30/16 20:59 03/05/16 08:22 Sertraline HCl (Zoloft) 50 mg DAILY ORAL 03/02/16 09:00 04/01/16 08:59 03/05/16 09:04 Topiramate 100 mg 100 mg QHS ORAL 03/01/16 21:00 03/31/16 20:59 03/04/16 20:27 Vitamin D (Vitamin D) 1,000 intlu DAILY ORAL 03/01/16 09:00 03/31/16 08:59 03/05/16 09:01 Allergies: Coded Allergies: BENZODIAZEPINES (Verified Allergy, Unknown, 04/20/10) IODINE (Verified Allergy, Unknown, 04/20/10) LIDOCAINE (Verified Allergy, Unknown, 04/20/10) LORAZEPAM (Verified Allergy, Unknown, 04/20/10) OXYBUTYNIN (Verified Allergy, Unknown, 04/20/10) PENICILLINS (Verified Allergy, Unknown, 04/20/10) PHENOTHIAZINES (Verified Allergy, Unknown, 04/20/10) PIPERACILLIN (Verified Allergy, Unknown, 04/20/10) PROPOFOL (Verified Allergy, Unknown, 04/20/10) QUINOLONES (Verified Allergy, Unknown, 04/20/10) SULFASALAZINE (Verified Allergy, Unknown, 04/20/10) TAZOBACTAM (Verified Allergy, Unknown, 04/20/10) TEMAZEPAM (Verified Allergy, Unknown, 04/20/10) ROS Limited/Unobtainable: No Constitutional: Reports: no symptoms HEENT: Reports: no symptoms Cardiovascular: Reports: no symptoms Respiratory: Reports: cough, shortness of breath, wheezing Gastrointestinal/Abdominal: Reports: no symptoms Genitourinary: Reports: no symptoms Neurologic/Psychiatric: Reports: no symptoms Subjective 65 YO F admitted for Shortness of breath and COPD exacerbation. Cover for Int Jonnie-Dr Dodson. Off BIPAP; Tolerating simple mask. Objective Last Vital Signs Date Time Temp Pulse Resp B/P Pulse Ox O2 Delivery O2 Flow Rate FiO2 03/05/16 12:00 97.3 72 20 99/59 90 Simple Mask 03/05/16 07:50 55 03/05/16 07:45 15.0 Laboratory Tests Test 03/05/16 04:30 03/05/16 09:45 Sodium Level 138 mEQ/L (135-145) Potassium Level 3.7 mEQ/L (3.4-4.9) Chloride Level 91 mEQ/L (98-107) L Carbon Dioxide Level 32 mEQ/L (20-30) H Anion Gap 15 (5-15) Blood Urea Nitrogen 49 mg/dL (7-23) H Creatinine 1.1 mg/dL (0.5-0.9) H Estimat Glomerular Filtration Rate 49.7 mL/min (>60) Glucose Level 161 mg/dL (74-106) H Calcium Level 9.3 mg/dL (8.6-10.2) White Blood Count 4.6 K/UL (4.8-10.8) #L Red Blood Count 4.24 M/UL (4.20-5.40) Hemoglobin 11.9 G/DL (12.0-16.0) L Hematocrit 38.5 % (37.0-47.0) Mean Corpuscular Volume 91 FL (80-99) Mean Corpuscular Hemoglobin 28.2 PG (27.0-31.0) Mean Corpuscular Hemoglobin Concent 31.0 G/DL (32.0-36.0) L Red Cell Distribution Width 13.7 % (11.6-14.8) Platelet Count 129 K/UL (150-450) L Mean Platelet Volume 7.4 FL (6.5-10.1) Neutrophils (%) (Auto) 70.1 % (45.0-75.0) Lymphocytes (%) (Auto) 20.0 % (20.0-45.0) Monocytes (%) (Auto) 8.4 % (1.0-10.0) Eosinophils (%) (Auto) 0.1 % (0.0-3.0) Basophils (%) (Auto) 1.4 % (0.0-2.0) Intake and Output 03/04/16 03/05/16 19:00 07:00 Intake Total 400 ml 490 ml Output Total 850 ml 325 ml Balance -450 ml 165 ml Intake Oral 300 ml 240 ml IV Total 100 ml 250 ml Output Urine Total 850 ml 325 ml # Bowel Movements 1 Objective General Appearance: WD/WN, alert, moderate distress EENT: PERRL/EOMI, normal ENT inspection Neck: normal alignment, supple Cardiovascular: normal peripheral pulses, normal rate, regular rhythm, no gallop/murmur, no JVD Respiratory/Chest: Simple mask; decreased breath sounds, accessory muscle use, crackles/rales, rhonchi - bilaterally, expiratory wheezing Abdomen: non tender, soft, no organomegaly, no mass Extremities: normal range of motion, non-tender 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 (3) CHF (congestive heart failure) (4) Hypothyroidism Assessment & Plan: Cont synthroid. (5) AICD (automatic cardioverter/defibrillator) present (6) Shortness of breath (7) COPD with acute exacerbation Assessment & Plan: See Pulmonary note. Off BIPAP prn and tolerating face mask. Cont advair and duoneb. D/C vanco; cont levaquin and azithromycin per pulm. Decrease IV solumedrol to 20 mg IV q 6 hr (8) Chronic pain Assessment & Plan: Patient has dilaudid pain pump-needs refill on 03/02/16. (9) Constipation Assessment & Plan: Cont colace. Start mag citrate prn Status: not improved OSMAR CAMPBELL Mar 05, 2016 13:06
[2016-03-05 16:01] VITALS: BP 96/54
[2016-03-05] MEDS ORDERED: NS 275ml ONE (16:18)
[2016-03-05] MEDS ORDERED: Tubing IV Secondary IV ONE (16:18)
[2016-03-05 20:00] VITALS: BP 92/56
[2016-03-05] MEDS: Topiramate 100mg tab ORAL SCH (20:48)
[2016-03-06] VITALS: BP 100/55
[2016-03-06 04:00] VITALS: BP 98/64
[2016-03-06] MEDS: Solu-MEDROL 40mg Inj IVP SCH ×3 (06:01→17:32)
[2016-03-06] MEDS: NovoLOG Insulin Flexpen SUBQ SCH ×4 (06:03→20:25)
[2016-03-06 06:17] LABS: BASOPHILS % (AUTO) 0.7 % (0.0-2.0); LYMPHOCYTES % (AUTO) 12.5 % (20.0-45.0); MEAN CORPUSCULAR HEMOGLOBIN 28.2 PG (27.0-31.0); MEAN CORPUSCULAR HGB CONC 30.8 G/DL (32.0-36.0); MEAN CORPUSCULAR VOLUME 92 FL (80-99); MEAN PLATELET VOLUME 7.4 FL (6.5-10.1); NEUTROPHILS % (AUTO) 79.7 % (45.0-75.0); PLATELET COUNT 130 K/UL (150-450); RED BLOOD COUNT 4.13 M/UL (4.20-5.40); RED CELL DISTRIBUTION WIDTH 13.5 % (11.6-14.8); WHITE BLOOD COUNT 4.9 K/UL (4.8-10.8)
[2016-03-06 06:41] LABS: CALCIUM 9.3 mg/dL (8.6-10.2); GLOMERULAR FILTRATION RATE 55.5 mL/min (>60); POTASSIUM 3.9 mEQ/L (3.4-4.9)
[2016-03-06 08:35] VITALS: BP 126/77
[2016-03-06] MEDS: Advair 250/50 Inhaler - 14 dose INH SCH ×2 (09:12→21:15)
[2016-03-06] MEDS: Lisinopril 10mg tab ORAL SCH (09:26)
[2016-03-06] MEDS: Docusate 100mg cap ORAL SCH ×2 (09:26→17:32)
[2016-03-06] MEDS: Nystatin Powder 100,000 units/gm 15gm TOPIC SCH ×3 (09:26→17:34)
[2016-03-06] MEDS: Vitamin D 1000 IU Tab ORAL SCH (09:27)
[2016-03-06] MEDS: Cyclobenzaprine 10mg Tab ORAL SCH ×3 (09:27→17:33)
[2016-03-06] MEDS: Sertraline 50mg tab ORAL SCH (09:27)
--- NOTE | 2016-03-06 10:21 | Pulmonology Progress Note ---
Assessment/Plan Assessment/Plan IMPRESSION: 1. Exacerbation of chronic obstructive pulmonary disease. 2. Automatic implantable cardioverter-defibrillator. 3. History of breast carcinoma. 4. Ulcerative colitis/inflammatory bowel disease. 5. Deafness. 6. History of methicillin-resistant Staphylococcus aureus nares. 7. Chronic pain. DISCUSSION: Continue Levaquin and azithromycin, continue steroids. Use BiPAP q pm and prn only; use NRBM as needed. I will follow carefully. She is improving slowly. REmains hypoxic. Will advance diet Suggest to decrease sedatives and narcotics Subjective Interval Events: More awake Constitutional: Reports: no symptoms HEENT: Repors: no symptoms Respiratory: Reports: productive cough, shortness of breath Cardiovascular: Reports: no symptoms Gastrointestinal/Abdominal: Reports: no symptoms Genitourinary: Reports: no symptoms Allergies: Coded Allergies: BENZODIAZEPINES (Verified Allergy, Unknown, 04/20/10) IODINE (Verified Allergy, Unknown, 04/20/10) LIDOCAINE (Verified Allergy, Unknown, 04/20/10) LORAZEPAM (Verified Allergy, Unknown, 04/20/10) OXYBUTYNIN (Verified Allergy, Unknown, 04/20/10) PENICILLINS (Verified Allergy, Unknown, 04/20/10) PHENOTHIAZINES (Verified Allergy, Unknown, 04/20/10) PIPERACILLIN (Verified Allergy, Unknown, 04/20/10) PROPOFOL (Verified Allergy, Unknown, 04/20/10) QUINOLONES (Verified Allergy, Unknown, 04/20/10) SULFASALAZINE (Verified Allergy, Unknown, 04/20/10) TAZOBACTAM (Verified Allergy, Unknown, 04/20/10) TEMAZEPAM (Verified Allergy, Unknown, 04/20/10) Objective Last 24 Hour Vital Signs Date Time Temp Pulse Resp B/P Pulse Ox O2 Delivery O2 Flow Rate FiO2 03/06/16 09:26 126/77 03/06/16 08:36 75 03/06/16 08:35 97.9 75 14 126/77 75 Bi-pap 50 03/06/16 08:33 15.0 50 03/06/16 07:22 Venturi Mask 15.0 55 03/06/16 07:22 70 12 96 Facial 50 03/06/16 05:26 75 14 96 Facial 50 03/06/16 04:00 50 03/06/16 04:00 97.9 75 14 98/64 96 Bi-pap 50 03/06/16 04:00 75 03/06/16 03:26 75 12 96 Facial 50 03/06/16 01:18 76 12 95 Facial 50 03/06/16 00:00 50 03/06/16 00:00 76 03/06/16 00:00 97.5 76 12 100/55 98 Bi-pap 50 03/05/16 22:47 78 12 97 Facial 50 03/05/16 20:00 75 03/05/16 20:00 97.9 69 20 92/56 95 Venturi Mask 55 03/05/16 19:31 Venturi Mask 15.0 55 03/05/16 18:36 97.7 03/05/16 16:30 75 03/05/16 16:01 97.7 75 20 96/54 95 Venturi Mask 55 03/05/16 12:00 75 03/05/16 12:00 97.3 72 20 99/59 90 Simple Mask Intake and Output 03/05/16 03/06/16 19:00 07:00 Intake Total 250 ml 600 ml Output Total 550 ml 750 ml Balance -300 ml -150 ml Intake Oral 150 ml 350 ml IV Total 100 ml 250 ml Output Urine Total 550 ml 750 ml General Appearance: no acute distress HEENT: normocephalic, atraumatic Respiratory/Chest: chest wall non-tender, decreased breath sounds Cardiovascular: normal peripheral pulses, normal rate Abdomen: normal bowel sounds, soft, non tender Laboratory Tests 03/06/16 04:00: White Blood Count 4.9, Red Blood Count 4.13L, Hemoglobin 11.6L, Hematocrit 37.8 , Mean Corpuscular Volume 92, Mean Corpuscular Hemoglobin 28.2, Mean Corpuscular Hemoglobin Concent 30.8L, Red Cell Distribution Width 13.5, Platelet Count 130L, Mean Platelet Volume 7.4, Neutrophils (%) (Auto) 79.7H, Lymphocytes (%) (Auto) 12.5L, Monocytes (%) (Auto) 7.0, Eosinophils (%) (Auto) 0.0, Basophils (%) (Auto) 0.7, Sodium Level 139, Potassium Level 3.9, Chloride Level 91L, Carbon Dioxide Level 36H, Anion Gap 12, Blood Urea Nitrogen 48H, Creatinine 1.0H, Estimat Glomerular Filtration Rate 55.5, Glucose Level 127H, Calcium Level 9.3 Current Medications Medications (Trade) Dose Ordered Sig/Mamie Route PRN Reason Start Time Stop Time Status Last Admin Dose Admin Azithromycin/ Dextrose (Zithromax/D5W 250ml) 250 ml @ 250 mls/hr Q24HRS IV 03/01/16 20:00 03/07/16 20:59 03/05/16 19:59 Betamethasone Dipropionate (Diprolene Oint) 1 applic TID PRN TOPIC Itching 02/29/16 17:00 03/30/16 16:59 Clonazepam (KlonoPIN) 1 mg QPM PRN ORAL For Anxiety 02/29/16 17:00 03/07/16 16:59 03/04/16 23:52 Cyclobenzaprine HCl (Flexeril) 10 mg TID ORAL 02/29/16 18:00 03/30/16 17:59 03/06/16 09:27 Dextrose (Dextrose 50%) STAT PRN IV Hypoglycemia 02/29/16 10:15 03/30/16 10:14 Docusate Sodium (Colace) 100 mg TWICE A DAY ORAL 03/03/16 18:00 04/02/16 17:59 03/06/16 09:26 Furosemide (Lasix) 40 mg DAILY IV 03/03/16 09:00 04/02/16 08:59 03/06/16 09:26 Hydromorphone HCl (Dilaudid) 4 mg Q6HR PRN ORAL For Pain 02/29/16 17:00 03/07/16 16:59 03/04/16 19:14 Insulin Aspart (NovoLOG) BEFORE MEALS AND HS SUBQ 03/02/16 21:00 04/01/16 20:59 03/06/16 06:03 Levofloxacin (Levaquin) 100 ml @ 100 mls/hr Q24H IVPB 02/29/16 11:00 03/07/16 10:59 03/05/16 11:42 Levothyroxine Sodium (Synthroid) 100 mcg ACBREAKFAST ORAL 03/01/16 06:30 03/31/16 06:29 03/06/16 06:01 Lisinopril (Zestril) 10 mg DAILY ORAL 03/04/16 09:00 04/03/16 08:59 03/06/16 09:26 Magnesium Citrate (Citrate Of Magnesia) 300 ml DAILYPRN PRN ORAL Constipation 03/04/16 18:00 04/03/16 17:59 Methylprednisolone Sodium Succinate (Solu-MEDROL) 20 mg EVERY 6 HOURS IVP 03/04/16 12:00 04/03/16 11:59 03/06/16 06:01 Nystatin (Nystop Powder) 1 applic THREE TIMES A DAY TOPIC 02/29/16 18:00 03/30/16 17:59 03/06/16 09:26 Pantoprazole (Protonix) 40 mg ACBREAKFAST ORAL 03/06/16 06:30 03/31/16 08:59 03/06/16 06:02 Potassium Chloride (K-Dur) 10 meq DAILY ORAL 03/01/16 09:00 03/31/16 08:59 03/06/16 09:27 Salmeterol Xinafoate/ Fluticasone (Advair 250/50 Diskus) 1 puffs BID INH 02/29/16 21:00 03/30/16 20:59 03/06/16 09:12 Sertraline HCl (Zoloft) 50 mg DAILY ORAL 03/02/16 09:00 04/01/16 08:59 03/06/16 09:27 Topiramate 100 mg 100 mg QHS ORAL 03/01/16 21:00 03/31/16 20:59 03/05/16 20:48 Vitamin D (Vitamin D) 1,000 intlu DAILY ORAL 03/01/16 09:00 03/31/16 08:59 03/06/16 09:27 Shahid Lake MD Mar 06, 2016 10:21
[2016-03-06 12:00] VITALS: BP 97/64
[2016-03-06 16:10] VITALS: BP 85/54
--- NOTE | 2016-03-06 16:20 | Cardiac Electrophysiology PN ---
Assessment/Plan Assessment/Plan 1. CHF with BNP 815 and EF 40%.Continue Lasix 40 mg intravenous daily and Lisinopril 10. Off beta bridget for COPD. 2. Status post right-sided [facility] Oskar defibrillator implantation. Interrogation showed normal function. 3. Severe chronic obstructive pulmonary disease.On Venturi mask and antibiotics.. 4. History of breast cancer. 5. History of ulcerative colitis 6. History of deafness. 7. Leukopenia DW RN Subjective Subjective Alert in NAD but still on Venturi Mask. No svt or vt. In A Paced rhythm. Objective Last 24 Hour Vital Signs Date Time Temp Pulse Resp B/P Pulse Ox O2 Delivery O2 Flow Rate FiO2 03/06/16 16:10 97.3 76 14 85/54 93 Nasal Cannula 10.0 03/06/16 12:00 97.9 76 20 97/64 94 Venturi Mask 10.0 03/06/16 12:00 75 03/06/16 09:26 126/77 03/06/16 08:36 75 03/06/16 08:35 97.9 75 14 126/77 94 Venturi Mask 10.0 03/06/16 08:33 15.0 50 03/06/16 07:22 Venturi Mask 15.0 55 03/06/16 07:22 70 12 96 Facial 50 03/06/16 05:26 75 14 96 Facial 50 03/06/16 04:00 50 03/06/16 04:00 97.9 75 14 98/64 96 Bi-pap 50 03/06/16 04:00 75 03/06/16 03:26 75 12 96 Facial 50 03/06/16 01:18 76 12 95 Facial 50 03/06/16 00:00 50 03/06/16 00:00 76 03/06/16 00:00 97.5 76 12 100/55 98 Bi-pap 50 03/05/16 22:47 78 12 97 Facial 50 03/05/16 20:00 75 03/05/16 20:00 97.9 69 20 92/56 95 Venturi Mask 55 03/05/16 19:31 Venturi Mask 15.0 55 03/05/16 18:36 97.7 03/05/16 16:30 75 Intake and Output 03/05/16 03/06/16 19:00 07:00 Intake Total 250 ml 600 ml Output Total 550 ml 750 ml Balance -300 ml -150 ml Intake Oral 150 ml 350 ml IV Total 100 ml 250 ml Output Urine Total 550 ml 750 ml Laboratory Tests Test 03/06/16 04:00 White Blood Count 4.9 K/UL (4.8-10.8) Red Blood Count 4.13 M/UL (4.20-5.40) L Hemoglobin 11.6 G/DL (12.0-16.0) L Hematocrit 37.8 % (37.0-47.0) Mean Corpuscular Volume 92 FL (80-99) Mean Corpuscular Hemoglobin 28.2 PG (27.0-31.0) Mean Corpuscular Hemoglobin Concent 30.8 G/DL (32.0-36.0) L Red Cell Distribution Width 13.5 % (11.6-14.8) Platelet Count 130 K/UL (150-450) L Mean Platelet Volume 7.4 FL (6.5-10.1) Neutrophils (%) (Auto) 79.7 % (45.0-75.0) H Lymphocytes (%) (Auto) 12.5 % (20.0-45.0) L Monocytes (%) (Auto) 7.0 % (1.0-10.0) Eosinophils (%) (Auto) 0.0 % (0.0-3.0) Basophils (%) (Auto) 0.7 % (0.0-2.0) Sodium Level 139 mEQ/L (135-145) Potassium Level 3.9 mEQ/L (3.4-4.9) Chloride Level 91 mEQ/L (98-107) L Carbon Dioxide Level 36 mEQ/L (20-30) H Anion Gap 12 (5-15) Blood Urea Nitrogen 48 mg/dL (7-23) H Creatinine 1.0 mg/dL (0.5-0.9) H Estimat Glomerular Filtration Rate 55.5 mL/min (>60) Glucose Level 127 mg/dL (74-106) H Calcium Level 9.3 mg/dL (8.6-10.2) Objective HEAD AND NECK: Mild JVD. LUNGS: Decreased breath sounds CARDIOVASCULAR: Shows regular S1 and S2 with no gallop or murmur. The defibrillatior is in the right subclavian. ABDOMEN: Soft. EXTREMITIES: There is 1+ pitting edema. COCO ANGEL Mar 06, 2016 16:20
--- NOTE | 2016-03-06 18:59 | Internal Med Progress Note ---
Subjective Date of Service: Mar 06, 2016 Physician Name Osmar Campbell Attending Physician Flex Dodson MD Current Medications Medications (Trade) Dose Ordered Sig/Mamie Route PRN Reason Start Time Stop Time Status Last Admin Dose Admin Azithromycin/ Dextrose (Zithromax/D5W 250ml) 250 ml @ 250 mls/hr Q24HRS IV 03/01/16 20:00 03/07/16 20:59 03/05/16 19:59 Betamethasone Dipropionate (Diprolene Oint) 1 applic TID PRN TOPIC Itching 02/29/16 17:00 03/30/16 16:59 Clonazepam (KlonoPIN) 1 mg QPM PRN ORAL For Anxiety 02/29/16 17:00 03/07/16 16:59 03/04/16 23:52 Cyclobenzaprine HCl (Flexeril) 10 mg TID ORAL 02/29/16 18:00 03/30/16 17:59 03/06/16 17:33 Dextrose (Dextrose 50%) STAT PRN IV Hypoglycemia 02/29/16 10:15 03/30/16 10:14 Docusate Sodium (Colace) 100 mg TWICE A DAY ORAL 03/03/16 18:00 04/02/16 17:59 03/06/16 17:32 Furosemide (Lasix) 40 mg DAILY IV 03/03/16 09:00 04/02/16 08:59 03/06/16 09:26 Hydromorphone HCl (Dilaudid) 4 mg Q6HR PRN ORAL For Pain 02/29/16 17:00 03/07/16 16:59 03/04/16 19:14 Insulin Aspart (NovoLOG) BEFORE MEALS AND HS SUBQ 03/02/16 21:00 04/01/16 20:59 03/06/16 15:58 Levofloxacin (Levaquin) 100 ml @ 100 mls/hr Q24H IVPB 02/29/16 11:00 03/07/16 10:59 03/06/16 11:13 Levothyroxine Sodium (Synthroid) 100 mcg ACBREAKFAST ORAL 03/01/16 06:30 03/31/16 06:29 03/06/16 06:01 Lisinopril (Zestril) 10 mg DAILY ORAL 03/04/16 09:00 04/03/16 08:59 03/06/16 09:26 Magnesium Citrate (Citrate Of Magnesia) 300 ml DAILYPRN PRN ORAL Constipation 03/04/16 18:00 04/03/16 17:59 Methylprednisolone Sodium Succinate (Solu-MEDROL) 20 mg EVERY 6 HOURS IVP 03/04/16 12:00 04/03/16 11:59 03/06/16 17:32 Nystatin (Nystop Powder) 1 applic THREE TIMES A DAY TOPIC 02/29/16 18:00 03/30/16 17:59 03/06/16 17:34 Pantoprazole (Protonix) 40 mg ACBREAKFAST ORAL 03/06/16 06:30 03/31/16 08:59 03/06/16 06:02 Potassium Chloride (K-Dur) 10 meq DAILY ORAL 03/01/16 09:00 03/31/16 08:59 03/06/16 09:27 Salmeterol Xinafoate/ Fluticasone (Advair 250/50 Diskus) 1 puffs BID INH 02/29/16 21:00 03/30/16 20:59 03/06/16 09:12 Sertraline HCl (Zoloft) 50 mg DAILY ORAL 03/02/16 09:00 04/01/16 08:59 03/06/16 09:27 Topiramate 100 mg 100 mg QHS ORAL 03/01/16 21:00 03/31/16 20:59 03/05/16 20:48 Vitamin D (Vitamin D) 1,000 intlu DAILY ORAL 03/01/16 09:00 03/31/16 08:59 03/06/16 09:27 Allergies: Coded Allergies: BENZODIAZEPINES (Verified Allergy, Unknown, 04/20/10) IODINE (Verified Allergy, Unknown, 04/20/10) LIDOCAINE (Verified Allergy, Unknown, 04/20/10) LORAZEPAM (Verified Allergy, Unknown, 04/20/10) OXYBUTYNIN (Verified Allergy, Unknown, 04/20/10) PENICILLINS (Verified Allergy, Unknown, 04/20/10) PHENOTHIAZINES (Verified Allergy, Unknown, 04/20/10) PIPERACILLIN (Verified Allergy, Unknown, 04/20/10) PROPOFOL (Verified Allergy, Unknown, 04/20/10) QUINOLONES (Verified Allergy, Unknown, 04/20/10) SULFASALAZINE (Verified Allergy, Unknown, 04/20/10) TAZOBACTAM (Verified Allergy, Unknown, 04/20/10) TEMAZEPAM (Verified Allergy, Unknown, 04/20/10) ROS Limited/Unobtainable: No Constitutional: Reports: no symptoms HEENT: Reports: no symptoms Cardiovascular: Reports: no symptoms Respiratory: Reports: shortness of breath Gastrointestinal/Abdominal: Reports: no symptoms Genitourinary: Reports: no symptoms Neurologic/Psychiatric: Reports: no symptoms Subjective 65 YO F admitted for Shortness of breath and COPD exacerbation. Cover for Kelly Dodson. Off BIPAP; Tolerating venturi mask. Objective Last Vital Signs Date Time Temp Pulse Resp B/P Pulse Ox O2 Delivery O2 Flow Rate FiO2 03/06/16 16:10 97.3 76 14 85/54 93 Nasal Cannula 10.0 03/06/16 08:35 Laboratory Tests Test 03/06/16 04:00 White Blood Count 4.9 K/UL (4.8-10.8) Red Blood Count 4.13 M/UL (4.20-5.40) L Hemoglobin 11.6 G/DL (12.0-16.0) L Hematocrit 37.8 % (37.0-47.0) Mean Corpuscular Volume 92 FL (80-99) Mean Corpuscular Hemoglobin 28.2 PG (27.0-31.0) Mean Corpuscular Hemoglobin Concent 30.8 G/DL (32.0-36.0) L Red Cell Distribution Width 13.5 % (11.6-14.8) Platelet Count 130 K/UL (150-450) L Mean Platelet Volume 7.4 FL (6.5-10.1) Neutrophils (%) (Auto) 79.7 % (45.0-75.0) H Lymphocytes (%) (Auto) 12.5 % (20.0-45.0) L Monocytes (%) (Auto) 7.0 % (1.0-10.0) Eosinophils (%) (Auto) 0.0 % (0.0-3.0) Basophils (%) (Auto) 0.7 % (0.0-2.0) Sodium Level 139 mEQ/L (135-145) Potassium Level 3.9 mEQ/L (3.4-4.9) Chloride Level 91 mEQ/L (98-107) L Carbon Dioxide Level 36 mEQ/L (20-30) H Anion Gap 12 (5-15) Blood Urea Nitrogen 48 mg/dL (7-23) H Creatinine 1.0 mg/dL (0.5-0.9) H Estimat Glomerular Filtration Rate 55.5 mL/min (>60) Glucose Level 127 mg/dL (74-106) H Calcium Level 9.3 mg/dL (8.6-10.2) Intake and Output 03/05/16 03/06/16 19:00 07:00 Intake Total 250 ml 600 ml Output Total 550 ml 750 ml Balance -300 ml -150 ml Intake Oral 150 ml 350 ml IV Total 100 ml 250 ml Output Urine Total 550 ml 750 ml Objective General Appearance: WD/WN, alert, moderate distress EENT: PERRL/EOMI, normal ENT inspection Neck: normal alignment, supple Cardiovascular: normal peripheral pulses, normal rate, regular rhythm, no gallop/murmur, no JVD Respiratory/Chest: Simple mask; decreased breath sounds, accessory muscle use, crackles/rales, rhonchi - bilaterally, expiratory wheezing Abdomen: non tender, soft, no organomegaly, no mass Extremities: normal range of motion, non-tender 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 (3) CHF (congestive heart failure) (4) Hypothyroidism Assessment & Plan: Cont synthroid. (5) AICD (automatic cardioverter/defibrillator) present (6) Shortness of breath (7) COPD with acute exacerbation Assessment & Plan: See Pulmonary note. Off BIPAP prn and tolerating face mask. Cont advair and duoneb. D/C vanco; cont levaquin and azithromycin per pulm. Decrease IV solumedrol to 20 mg IV q 6 hr (8) Chronic pain Assessment & Plan: Cont oral dilaudid prn (9) Constipation Assessment & Plan: Cont colace. Start mag citrate prn Status: progressing OSMAR CAMPBELL Mar 06, 2016 18:59
[2016-03-06 20:00] VITALS: BP_SYST 110; BP_SYST 83; BP_DIAS 43; BP_DIAS 46
[2016-03-06] MEDS: Topiramate 100mg tab ORAL SCH (20:25)
--- NOTE | 2016-03-06 23:05 | Diagnostic Imaging Report ---
APPROVED REPORT CPT Code: 98863 Present Symptoms Lower Extremity Pain: Bilateral Shortness of breath Comments: Abnormal chest sounds BILATERAL: Imaging reveals a patent deep venous system bilaterally. There is no evidence of thrombus within the femoral, popliteal or tibial segments. The greater saphenous veins are also within normal limits. Doppler indicates normal spontaneous flow within these segments.
[2016-03-07] VITALS: BP 105/64
[2016-03-07] MEDS: Solu-MEDROL 40mg Inj IVP SCH ×4 (00:53→17:35)
[2016-03-07 04:00] VITALS: BP 110/66
[2016-03-07] MEDS: NovoLOG Insulin Flexpen SUBQ SCH ×4 (06:16→20:30)
[2016-03-07 06:21] LABS: BASOPHILS % (AUTO) 1.1 % (0.0-2.0); LYMPHOCYTES % (AUTO) 10.6 % (20.0-45.0); MEAN CORPUSCULAR HGB CONC 30.4 G/DL (32.0-36.0); MEAN CORPUSCULAR VOLUME 92 FL (80-99); MEAN PLATELET VOLUME 8.6 FL (6.5-10.1); MONOCYTES % (AUTO) 7.4 % (1.0-10.0); NEUTROPHILS % (AUTO) 80.9 % (45.0-75.0); PLATELET COUNT 140 K/UL (150-450); RED BLOOD COUNT 4.28 M/UL (4.20-5.40); RED CELL DISTRIBUTION WIDTH 14.1 % (11.6-14.8); WHITE BLOOD COUNT 6.5 K/UL (4.8-10.8)
[2016-03-07 06:30] LABS: GLOMERULAR FILTRATION RATE 55.5 mL/min (>60)
--- NOTE | 2016-03-07 07:19 | Pulmonology Progress Note ---
Assessment/Plan Assessment/Plan IMPRESSION: 1. Exacerbation of chronic obstructive pulmonary disease. 2. Automatic implantable cardioverter-defibrillator. 3. History of breast carcinoma. 4. Ulcerative colitis/inflammatory bowel disease. 5. Deafness. 6. History of methicillin-resistant Staphylococcus aureus nares. 7. Chronic pain. DISCUSSION: Continue Levaquin and azithromycin, continue steroids. Use BiPAP q pm and prn only; use NRBM as needed. I will follow carefully. She is improving slowly. Remains hypoxic. Will advance diet to regular. Continue to decrease sedatives and narcotics Dr Hurt will follow 03/07/16-03/10/16 Subjective Interval Events: Slowly improving; remains drowsy Constitutional: Reports: no symptoms HEENT: Repors: no symptoms Respiratory: Reports: dry cough, shortness of breath, wheezing Cardiovascular: Reports: no symptoms Gastrointestinal/Abdominal: Reports: no symptoms Genitourinary: Reports: no symptoms Allergies: Coded Allergies: BENZODIAZEPINES (Verified Allergy, Unknown, 04/20/10) IODINE (Verified Allergy, Unknown, 04/20/10) LIDOCAINE (Verified Allergy, Unknown, 04/20/10) LORAZEPAM (Verified Allergy, Unknown, 04/20/10) OXYBUTYNIN (Verified Allergy, Unknown, 04/20/10) PENICILLINS (Verified Allergy, Unknown, 04/20/10) PHENOTHIAZINES (Verified Allergy, Unknown, 04/20/10) PIPERACILLIN (Verified Allergy, Unknown, 04/20/10) PROPOFOL (Verified Allergy, Unknown, 04/20/10) QUINOLONES (Verified Allergy, Unknown, 04/20/10) SULFASALAZINE (Verified Allergy, Unknown, 04/20/10) TAZOBACTAM (Verified Allergy, Unknown, 04/20/10) TEMAZEPAM (Verified Allergy, Unknown, 04/20/10) Objective Last 24 Hour Vital Signs Date Time Temp Pulse Resp B/P Pulse Ox O2 Delivery O2 Flow Rate FiO2 03/07/16 05:22 75 12 98 Facial 50 03/07/16 04:00 97.7 75 20 110/66 98 Bi-pap 50 03/07/16 04:00 75 03/07/16 02:55 76 13 96 Facial 40 03/07/16 01:12 78 12 98 Facial 40 03/07/16 00:05 94 12 97 Facial 40 03/07/16 00:00 97.9 75 20 105/64 100 Venturi Mask 03/07/16 00:00 50 03/07/16 00:00 75 03/06/16 21:15 Venturi Mask 15.0 55 03/06/16 20:00 75 03/06/16 20:00 97.5 81 14 110/43 97 Simple Mask 14.0 03/06/16 16:10 97.3 76 14 85/54 93 Nasal Cannula 10.0 03/06/16 16:00 75 03/06/16 12:00 97.9 76 20 97/64 94 Venturi Mask 10.0 03/06/16 12:00 75 03/06/16 09:26 126/77 03/06/16 08:36 75 03/06/16 08:35 97.9 75 14 126/77 94 Venturi Mask 10.0 03/06/16 08:33 15.0 50 03/06/16 07:22 Venturi Mask 15.0 55 03/06/16 07:22 70 12 96 Facial 50 Intake and Output 03/06/16 03/07/16 19:00 07:00 Intake Total 480 ml 400 ml Output Total 750 ml 600 ml Balance -270 ml -200 ml Intake Oral 480 ml 150 ml IV Total 250 ml Output Urine Total 750 ml 600 ml General Appearance: no acute distress HEENT: normocephalic Respiratory/Chest: chest wall non-tender, decreased breath sounds, rhonchi Cardiovascular: normal peripheral pulses, normal rate Abdomen: normal bowel sounds Laboratory Tests 03/07/16 05:00: White Blood Count 6.5, Red Blood Count 4.28, Hemoglobin 12.0, Hematocrit 39.3, Mean Corpuscular Volume 92, Mean Corpuscular Hemoglobin 28.0, Mean Corpuscular Hemoglobin Concent 30.4L, Red Cell Distribution Width 14.1, Platelet Count 140L , Mean Platelet Volume 8.6, Neutrophils (%) (Auto) 80.9H, Lymphocytes (%) (Auto ) 10.6L, Monocytes (%) (Auto) 7.4, Eosinophils (%) (Auto) 0.0, Basophils (%) ( Auto) 1.1, Sodium Level 138, Potassium Level 4.0, Chloride Level 94L, Carbon Dioxide Level 34H, Anion Gap 10, Blood Urea Nitrogen 51H, Creatinine 1.0H, Estimat Glomerular Filtration Rate 55.5, Glucose Level 130H, Calcium Level 9.0 Current Medications Medications (Trade) Dose Ordered Sig/Mamie Route PRN Reason Start Time Stop Time Status Last Admin Dose Admin Azithromycin/ Dextrose (Zithromax/D5W 250ml) 250 ml @ 250 mls/hr Q24HRS IV 03/01/16 20:00 03/07/16 20:59 03/06/16 19:08 Betamethasone Dipropionate (Diprolene Oint) 1 applic TID PRN TOPIC Itching 02/29/16 17:00 03/30/16 16:59 Clonazepam (KlonoPIN) 1 mg QPM PRN ORAL For Anxiety 02/29/16 17:00 03/07/16 16:59 03/04/16 23:52 Cyclobenzaprine HCl (Flexeril) 10 mg TID ORAL 02/29/16 18:00 03/30/16 17:59 03/06/16 17:33 Dextrose (Dextrose 50%) STAT PRN IV Hypoglycemia 02/29/16 10:15 03/30/16 10:14 Docusate Sodium (Colace) 100 mg TWICE A DAY ORAL 03/03/16 18:00 04/02/16 17:59 03/06/16 17:32 Furosemide (Lasix) 40 mg DAILY IV 03/03/16 09:00 04/02/16 08:59 03/06/16 09:26 Hydromorphone HCl (Dilaudid) 4 mg Q6HR PRN ORAL For Pain 02/29/16 17:00 03/07/16 16:59 03/04/16 19:14 Insulin Aspart (NovoLOG) BEFORE MEALS AND HS SUBQ 03/02/16 21:00 04/01/16 20:59 03/07/16 06:16 Levofloxacin (Levaquin) 100 ml @ 100 mls/hr Q24H IVPB 02/29/16 11:00 03/07/16 10:59 03/06/16 11:13 Levothyroxine Sodium (Synthroid) 100 mcg ACBREAKFAST ORAL 03/01/16 06:30 03/31/16 06:29 03/07/16 06:14 Lisinopril (Zestril) 10 mg DAILY ORAL 03/04/16 09:00 04/03/16 08:59 03/06/16 09:26 Magnesium Citrate (Citrate Of Magnesia) 300 ml DAILYPRN PRN ORAL Constipation 03/04/16 18:00 04/03/16 17:59 Methylprednisolone Sodium Succinate (Solu-MEDROL) 20 mg EVERY 6 HOURS IVP 03/04/16 12:00 04/03/16 11:59 03/07/16 06:14 Nystatin (Nystop Powder) 1 applic THREE TIMES A DAY TOPIC 02/29/16 18:00 03/30/16 17:59 03/06/16 17:34 Pantoprazole (Protonix) 40 mg ACBREAKFAST ORAL 03/06/16 06:30 03/31/16 08:59 03/07/16 06:14 Potassium Chloride (K-Dur) 10 meq DAILY ORAL 03/01/16 09:00 03/31/16 08:59 03/06/16 09:27 Salmeterol Xinafoate/ Fluticasone (Advair 250/50 Diskus) 1 puffs BID INH 02/29/16 21:00 03/30/16 20:59 03/06/16 21:15 Sertraline HCl (Zoloft) 50 mg DAILY ORAL 03/02/16 09:00 04/01/16 08:59 03/06/16 09:27 Topiramate 100 mg 100 mg QHS ORAL 03/01/16 21:00 03/31/16 20:59 03/06/16 20:25 Vitamin D (Vitamin D) 1,000 intlu DAILY ORAL 03/01/16 09:00 03/31/16 08:59 03/06/16 09:27 Shahid Lake MD Mar 07, 2016 07:19
[2016-03-07 08:00] VITALS: BP 113/71
[2016-03-07] MEDS: HYDROmorphone 4mg tab ORAL PRN (08:34)
[2016-03-07] MEDS: Docusate 100mg cap ORAL SCH ×2 (08:34→17:34)
[2016-03-07] MEDS: Lisinopril 10mg tab ORAL SCH (08:35)
[2016-03-07] MEDS: Sertraline 50mg tab ORAL SCH (08:35)
[2016-03-07] MEDS: Cyclobenzaprine 10mg Tab ORAL SCH ×3 (08:35→17:35)
[2016-03-07] MEDS: Nystatin Powder 100,000 units/gm 15gm TOPIC SCH ×3 (08:36→17:38)
[2016-03-07] MEDS: Vitamin D 1000 IU Tab ORAL SCH (08:36)
[2016-03-07] MEDS: Advair 250/50 Inhaler - 14 dose INH SCH ×2 (09:00→18:00)
--- NOTE | 2016-03-07 09:20 | Cardiac Electrophysiology PN ---
Assessment/Plan Assessment/Plan 1. CHF with BNP 815 and EF 40%.Change Lasix to 40 mg po daily and continue Lisinopril 10. Off beta bridget for COPD. 2. Status post right-sided [employer] Oskar defibrillator implantation with showed normal function. 3. Severe chronic obstructive pulmonary disease.On Venturi mask and antibiotics. 4. History of breast cancer. 5. History of ulcerative colitis 6. History of deafness. 7. Leukopenia DW RN Subjective Subjective Alert feeling much better off and on on Venturi Mask. No SVT or VT. A. Paced rhythm. Objective Last 24 Hour Vital Signs Date Time Temp Pulse Resp B/P Pulse Ox O2 Delivery O2 Flow Rate FiO2 03/07/16 08:35 115/67 03/07/16 05:22 75 12 98 Facial 50 03/07/16 04:00 97.7 75 20 110/66 98 Bi-pap 50 03/07/16 04:00 75 03/07/16 02:55 76 13 96 Facial 40 03/07/16 01:12 78 12 98 Facial 40 03/07/16 00:05 94 12 97 Facial 40 03/07/16 00:00 97.9 75 20 105/64 100 Venturi Mask 03/07/16 00:00 50 03/07/16 00:00 75 03/06/16 21:15 Venturi Mask 15.0 55 03/06/16 20:00 75 03/06/16 20:00 97.5 81 14 110/43 97 Simple Mask 14.0 03/06/16 16:10 97.3 76 14 85/54 93 Nasal Cannula 10.0 03/06/16 16:00 75 03/06/16 12:00 97.9 76 20 97/64 94 Venturi Mask 10.0 03/06/16 12:00 75 03/06/16 09:26 126/77 Intake and Output 03/06/16 03/07/16 19:00 07:00 Intake Total 480 ml 400 ml Output Total 750 ml 600 ml Balance -270 ml -200 ml Intake Oral 480 ml 150 ml IV Total 250 ml Output Urine Total 750 ml 600 ml Laboratory Tests Test 03/07/16 05:00 White Blood Count 6.5 K/UL (4.8-10.8) Red Blood Count 4.28 M/UL (4.20-5.40) Hemoglobin 12.0 G/DL (12.0-16.0) Hematocrit 39.3 % (37.0-47.0) Mean Corpuscular Volume 92 FL (80-99) Mean Corpuscular Hemoglobin 28.0 PG (27.0-31.0) Mean Corpuscular Hemoglobin Concent 30.4 G/DL (32.0-36.0) L Red Cell Distribution Width 14.1 % (11.6-14.8) Platelet Count 140 K/UL (150-450) L Mean Platelet Volume 8.6 FL (6.5-10.1) Neutrophils (%) (Auto) 80.9 % (45.0-75.0) H Lymphocytes (%) (Auto) 10.6 % (20.0-45.0) L Monocytes (%) (Auto) 7.4 % (1.0-10.0) Eosinophils (%) (Auto) 0.0 % (0.0-3.0) Basophils (%) (Auto) 1.1 % (0.0-2.0) Sodium Level 138 mEQ/L (135-145) Potassium Level 4.0 mEQ/L (3.4-4.9) Chloride Level 94 mEQ/L (98-107) L Carbon Dioxide Level 34 mEQ/L (20-30) H Anion Gap 10 (5-15) Blood Urea Nitrogen 51 mg/dL (7-23) H Creatinine 1.0 mg/dL (0.5-0.9) H Estimat Glomerular Filtration Rate 55.5 mL/min (>60) Glucose Level 130 mg/dL (74-106) H Calcium Level 9.0 mg/dL (8.6-10.2) Objective HEAD AND NECK: Mild JVD. LUNGS: Decreased breath sounds CARDIOVASCULAR: Shows regular S1 and S2 with no gallop or murmur. The defibrillatior is in the right subclavian. ABDOMEN: Soft. EXTREMITIES: There is 1+ pitting edema. COCO ANGEL Mar 07, 2016 09:20
[2016-03-07 12:00] VITALS: BP 98/65
--- NOTE | 2016-03-07 14:22 | Internal Med Progress Note ---
Subjective Date of Service: Mar 07, 2016 Physician Name Osmar Campbell Attending Physician Flex Dodson MD Current Medications Medications (Trade) Dose Ordered Sig/Mamie Route PRN Reason Start Time Stop Time Status Last Admin Dose Admin Azithromycin/ Dextrose (Zithromax/D5W 250ml) 250 ml @ 250 mls/hr Q24HRS IV 03/01/16 20:00 03/07/16 20:59 03/06/16 19:08 Betamethasone Dipropionate (Diprolene Oint) 1 applic TID PRN TOPIC Itching 02/29/16 17:00 03/30/16 16:59 Clonazepam (KlonoPIN) 1 mg QPM PRN ORAL For Anxiety 02/29/16 17:00 03/07/16 16:59 03/04/16 23:52 Cyclobenzaprine HCl (Flexeril) 10 mg TID ORAL 02/29/16 18:00 03/30/16 17:59 03/07/16 13:16 Dextrose (Dextrose 50%) STAT PRN IV Hypoglycemia 02/29/16 10:15 03/30/16 10:14 Docusate Sodium (Colace) 100 mg TWICE A DAY ORAL 03/03/16 18:00 04/02/16 17:59 03/07/16 08:34 Furosemide (Lasix) 40 mg DAILY ORAL 03/08/16 09:00 04/07/16 08:59 Hydromorphone HCl (Dilaudid) 4 mg Q6HR PRN ORAL For Pain 02/29/16 17:00 03/07/16 16:59 03/07/16 08:34 Insulin Aspart (NovoLOG) BEFORE MEALS AND HS SUBQ 03/02/16 21:00 04/01/16 20:59 03/07/16 12:03 Levofloxacin (Levaquin) 100 ml @ 100 mls/hr Q24H IVPB 02/29/16 11:00 03/12/16 10:59 03/07/16 12:02 Levothyroxine Sodium (Synthroid) 100 mcg ACBREAKFAST ORAL 03/01/16 06:30 03/31/16 06:29 03/07/16 06:14 Lisinopril (Zestril) 10 mg DAILY ORAL 03/04/16 09:00 04/03/16 08:59 03/07/16 08:35 Magnesium Citrate (Citrate Of Magnesia) 300 ml DAILYPRN PRN ORAL Constipation 03/04/16 18:00 04/03/16 17:59 Methylprednisolone Sodium Succinate (Solu-MEDROL) 20 mg EVERY 6 HOURS IVP 03/04/16 12:00 04/03/16 11:59 03/07/16 12:02 Nystatin (Nystop Powder) 1 applic THREE TIMES A DAY TOPIC 02/29/16 18:00 03/30/16 17:59 03/07/16 13:17 Pantoprazole (Protonix) 40 mg ACBREAKFAST ORAL 03/06/16 06:30 03/31/16 08:59 03/07/16 06:14 Potassium Chloride (K-Dur) 10 meq DAILY ORAL 03/01/16 09:00 03/31/16 08:59 03/07/16 08:35 Salmeterol Xinafoate/ Fluticasone (Advair 250/50 Diskus) 1 puffs BID INH 02/29/16 21:00 03/30/16 20:59 03/06/16 21:15 Sertraline HCl (Zoloft) 50 mg DAILY ORAL 03/02/16 09:00 04/01/16 08:59 03/07/16 08:35 Topiramate 100 mg 100 mg QHS ORAL 03/01/16 21:00 03/31/16 20:59 03/06/16 20:25 Vitamin D (Vitamin D) 1,000 intlu DAILY ORAL 03/01/16 09:00 03/31/16 08:59 03/07/16 08:36 Allergies: Coded Allergies: BENZODIAZEPINES (Verified Allergy, Unknown, 04/20/10) IODINE (Verified Allergy, Unknown, 04/20/10) LIDOCAINE (Verified Allergy, Unknown, 04/20/10) LORAZEPAM (Verified Allergy, Unknown, 04/20/10) OXYBUTYNIN (Verified Allergy, Unknown, 04/20/10) PENICILLINS (Verified Allergy, Unknown, 04/20/10) PHENOTHIAZINES (Verified Allergy, Unknown, 04/20/10) PIPERACILLIN (Verified Allergy, Unknown, 04/20/10) PROPOFOL (Verified Allergy, Unknown, 04/20/10) QUINOLONES (Verified Allergy, Unknown, 04/20/10) SULFASALAZINE (Verified Allergy, Unknown, 04/20/10) TAZOBACTAM (Verified Allergy, Unknown, 04/20/10) TEMAZEPAM (Verified Allergy, Unknown, 04/20/10) ROS Limited/Unobtainable: No Constitutional: Reports: no symptoms HEENT: Reports: no symptoms Cardiovascular: Reports: no symptoms Respiratory: Reports: shortness of breath Gastrointestinal/Abdominal: Reports: no symptoms Genitourinary: Reports: no symptoms Neurologic/Psychiatric: Reports: no symptoms Subjective 65 YO F admitted for Shortness of breath and COPD exacerbation. Cover for Int Jonnie-Dr Dodson. Off BIPAP; venturi mask. Objective Last Vital Signs Date Time Temp Pulse Resp B/P Pulse Ox O2 Delivery O2 Flow Rate FiO2 03/07/16 12:00 75 03/07/16 12:00 97.8 20 98/65 95 Venturi Mask 55 03/07/16 09:00 15.0 Laboratory Tests Test 03/07/16 05:00 White Blood Count 6.5 K/UL (4.8-10.8) Red Blood Count 4.28 M/UL (4.20-5.40) Hemoglobin 12.0 G/DL (12.0-16.0) Hematocrit 39.3 % (37.0-47.0) Mean Corpuscular Volume 92 FL (80-99) Mean Corpuscular Hemoglobin 28.0 PG (27.0-31.0) Mean Corpuscular Hemoglobin Concent 30.4 G/DL (32.0-36.0) L Red Cell Distribution Width 14.1 % (11.6-14.8) Platelet Count 140 K/UL (150-450) L Mean Platelet Volume 8.6 FL (6.5-10.1) Neutrophils (%) (Auto) 80.9 % (45.0-75.0) H Lymphocytes (%) (Auto) 10.6 % (20.0-45.0) L Monocytes (%) (Auto) 7.4 % (1.0-10.0) Eosinophils (%) (Auto) 0.0 % (0.0-3.0) Basophils (%) (Auto) 1.1 % (0.0-2.0) Sodium Level 138 mEQ/L (135-145) Potassium Level 4.0 mEQ/L (3.4-4.9) Chloride Level 94 mEQ/L (98-107) L Carbon Dioxide Level 34 mEQ/L (20-30) H Anion Gap 10 (5-15) Blood Urea Nitrogen 51 mg/dL (7-23) H Creatinine 1.0 mg/dL (0.5-0.9) H Estimat Glomerular Filtration Rate 55.5 mL/min (>60) Glucose Level 130 mg/dL (74-106) H Calcium Level 9.0 mg/dL (8.6-10.2) Intake and Output 03/06/16 03/07/16 19:00 07:00 Intake Total 480 ml 400 ml Output Total 750 ml 600 ml Balance -270 ml -200 ml Intake Oral 480 ml 150 ml IV Total 250 ml Output Urine Total 750 ml 600 ml Objective General Appearance: WD/WN, alert, moderate distress EENT: PERRL/EOMI, normal ENT inspection Neck: normal alignment, supple Cardiovascular: normal peripheral pulses, normal rate, regular rhythm, no gallop/murmur, no JVD Respiratory/Chest: Simple mask; decreased breath sounds, accessory muscle use, crackles/rales, rhonchi - bilaterally, expiratory wheezing Abdomen: non tender, soft, no organomegaly, no mass Extremities: normal range of motion, non-tender 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 (3) CHF (congestive heart failure) (4) Hypothyroidism Assessment & Plan: Cont synthroid. (5) AICD (automatic cardioverter/defibrillator) present (6) Shortness of breath (7) COPD with acute exacerbation Assessment & Plan: See Pulmonary note. Off BIPAP prn and tolerating face mask. Cont advair and duoneb. D/C vanco; cont levaquin and azithromycin per pulm. Decrease IV solumedrol to 20 mg IV q 6 hr (8) Chronic pain Assessment & Plan: Cont oral dilaudid prn (9) Constipation Assessment & Plan: Cont colace. Start mag citrate prn Status: not improved OSMAR CAMPBELL Mar 07, 2016 14:22
[2016-03-07 16:07] VITALS: BP 105/40
[2016-03-07] MEDS ORDERED: NS 275ml ONE (18:08)
[2016-03-07 20:04] VITALS: BP 94/64
[2016-03-07] MEDS: Topiramate 100mg tab ORAL SCH (20:18)
[2016-03-08 00:04] VITALS: BP 113/61
[2016-03-08] MEDS: Solu-MEDROL 40mg Inj IVP SCH ×4 (00:09→17:38)
[2016-03-08 04:05] VITALS: BP 126/79
[2016-03-08] MEDS: NovoLOG Insulin Flexpen SUBQ SCH ×4 (06:11→20:17)
[2016-03-08 06:12] LABS: MEAN CORPUSCULAR HEMOGLOBIN 28.9 PG (27.0-31.0); MEAN CORPUSCULAR HGB CONC 32.5 G/DL (32.0-36.0); MEAN CORPUSCULAR VOLUME 89 FL (80-99); MEAN PLATELET VOLUME 7.1 FL (6.5-10.1); PLATELET COUNT 126 K/UL (150-450); WHITE BLOOD COUNT 7.9 K/UL (4.8-10.8)
[2016-03-08 06:33] LABS: CREATININE 1.1 mg/dL (0.5-0.9); GLOMERULAR FILTRATION RATE 49.7 mL/min (>60); POTASSIUM 4.3 mEQ/L (3.4-4.9)
[2016-03-08 08:00] VITALS: BP 116/61
[2016-03-08 08:38] LABS: LYMPHOCYTES % (MANUAL) 11 % (20-45); NEUTROPHILS % (MANUAL) 84 % (45-75); TOTAL CELLS COUNTED 100
[2016-03-08 08:40] LABS: BAND NEUTROPHILS % (MANUAL) 0 % (0-8); BASOPHILS % (MANUAL) 0 % (0-2); EOSINOPHILS % (MANUAL) 0 % (0-3); HYPOCHROMASIA 1+; PLATELET ESTIMATE DECREASED; PLATELET MORPHOLOGY NORMAL
[2016-03-08] MEDS: Advair 250/50 Inhaler - 14 dose INH SCH ×2 (09:00→18:00)
[2016-03-08] MEDS: Lisinopril 10mg tab ORAL SCH (09:45)
[2016-03-08] MEDS: Vitamin D 1000 IU Tab ORAL SCH (09:45)
[2016-03-08] MEDS: Furosemide 40mg tab ORAL SCH (09:45)
[2016-03-08] MEDS: Sertraline 50mg tab ORAL SCH (09:45)
[2016-03-08] MEDS: Cyclobenzaprine 10mg Tab ORAL SCH ×3 (09:46→17:38)
[2016-03-08] MEDS: Nystatin Powder 100,000 units/gm 15gm TOPIC SCH ×3 (09:46→17:39)
[2016-03-08] MEDS: Docusate 100mg cap ORAL SCH ×2 (09:46→17:38)
[2016-03-08 12:00] VITALS: BP 102/72
[2016-03-08 16:10] VITALS: BP 99/96
--- NOTE | 2016-03-08 16:45 | Cardiac Electrophysiology PN ---
Assessment/Plan Assessment/Plan 1. CHF with BNP 815 and EF 40%.Continue Lasix 40 mg po daily and Lisinopril 10 . Off beta bridget for COPD. 2. Status post right-sided [facility] [employer] defibrillator implantation with showed normal function. 3. Severe chronic obstructive pulmonary disease.On Venturi mask and antibiotics. 4. History of breast cancer. 5. History of ulcerative colitis 6. History of deafness. 7. Leukopenia DW RN Subjective Subjective Alert in NAD.Still has the face mask on. No fib, SVT or VT.Remained in A. Paced rhythm. Objective Last 24 Hour Vital Signs Date Time Temp Pulse Resp B/P Pulse Ox O2 Delivery O2 Flow Rate FiO2 03/08/16 16:10 97.5 76 19 99/96 96 Venturi Mask 03/08/16 13:00 98.4 03/08/16 12:00 75 03/08/16 12:00 97.5 75 22 102/72 100 Venturi Mask 55 03/08/16 09:45 126/79 03/08/16 08:00 98.6 80 20 116/61 96 Venturi Mask 55 03/08/16 08:00 75 03/08/16 07:35 98 Venturi Mask 15.0 55 03/08/16 07:35 Venturi Mask 15.0 55 03/08/16 04:05 98.4 80 20 126/79 99 Simple Mask 10.0 03/08/16 04:00 75 03/08/16 00:04 97.5 76 19 113/61 99 Simple Mask 10.0 03/08/16 00:00 75 03/07/16 22:00 77 16 96 03/07/16 20:35 98 Venturi Mask 15.0 55 03/07/16 20:34 Venturi Mask 15.0 55 03/07/16 20:04 97.7 76 14 94/64 93 Simple Mask 10.0 03/07/16 20:00 75 Intake and Output 03/07/16 03/08/16 19:00 07:00 Intake Total 260 ml Output Total 800 ml 1000 ml Balance -540 ml -1000 ml Intake Oral 260 ml Output Urine Total 800 ml 1000 ml Laboratory Tests Test 03/08/16 04:30 White Blood Count 7.9 K/UL (4.8-10.8) Red Blood Count 4.20 M/UL (4.20-5.40) Hemoglobin 12.2 G/DL (12.0-16.0) Hematocrit 37.5 % (37.0-47.0) Mean Corpuscular Volume 89 FL (80-99) Mean Corpuscular Hemoglobin 28.9 PG (27.0-31.0) Mean Corpuscular Hemoglobin Concent 32.5 G/DL (32.0-36.0) Red Cell Distribution Width 14.0 % (11.6-14.8) Platelet Count 126 K/UL (150-450) L Mean Platelet Volume 7.1 FL (6.5-10.1) Neutrophils (%) (Auto) % (45.0-75.0) Lymphocytes (%) (Auto) % (20.0-45.0) Monocytes (%) (Auto) % (1.0-10.0) Eosinophils (%) (Auto) % (0.0-3.0) Basophils (%) (Auto) % (0.0-2.0) Differential Total Cells Counted 100 Neutrophils % (Manual) 84 % (45-75) H Lymphocytes % (Manual) 11 % (20-45) L Monocytes % (Manual) 5 % (1-10) Eosinophils % (Manual) 0 % (0-3) Basophils % (Manual) 0 % (0-2) Band Neutrophils 0 % (0-8) Platelet Estimate Decreased L Platelet Morphology Normal Hypochromasia 1+ Sodium Level 136 mEQ/L (135-145) Potassium Level 4.3 mEQ/L (3.4-4.9) Chloride Level 94 mEQ/L (98-107) L Carbon Dioxide Level 32 mEQ/L (20-30) H Anion Gap 10 (5-15) Blood Urea Nitrogen 56 mg/dL (7-23) H Creatinine 1.1 mg/dL (0.5-0.9) H Estimat Glomerular Filtration Rate 49.7 mL/min (>60) Glucose Level 134 mg/dL (74-106) H Calcium Level 9.0 mg/dL (8.6-10.2) Objective HEAD AND NECK: Mild JVD. LUNGS: Coarse rhonchi CARDIOVASCULAR: Regular S1 and S2 with no gallop or murmur. The defibrillator is in the right subclavian. ABDOMEN: Soft. EXTREMITIES: There is 1+ pitting edema. COCO ANGEL Mar 08, 2016 16:45
--- NOTE | 2016-03-08 18:19 | Internal Med Progress Note ---
Subjective Date of Service: Mar 08, 2016 Physician Name Osmar Campbell Attending Physician Flex Dodson MD Current Medications Medications (Trade) Dose Ordered Sig/Mamie Route PRN Reason Start Time Stop Time Status Last Admin Dose Admin Betamethasone Dipropionate (Diprolene Oint) 1 applic TID PRN TOPIC Itching 02/29/16 17:00 03/30/16 16:59 Cyclobenzaprine HCl (Flexeril) 10 mg TID ORAL 02/29/16 18:00 03/30/16 17:59 03/08/16 17:38 Dextrose (Dextrose 50%) STAT PRN IV Hypoglycemia 02/29/16 10:15 03/30/16 10:14 Docusate Sodium (Colace) 100 mg TWICE A DAY ORAL 03/03/16 18:00 04/02/16 17:59 03/08/16 17:38 Furosemide (Lasix) 40 mg DAILY ORAL 03/08/16 09:00 04/07/16 08:59 03/08/16 09:45 Insulin Aspart (NovoLOG) BEFORE MEALS AND HS SUBQ 03/02/16 21:00 04/01/16 20:59 03/08/16 11:58 Levofloxacin (Levaquin) 500 mg DAILY ORAL 03/09/16 09:00 03/12/16 08:59 Levothyroxine Sodium (Synthroid) 100 mcg ACBREAKFAST ORAL 03/01/16 06:30 03/31/16 06:29 03/08/16 06:09 Lisinopril (Zestril) 10 mg DAILY ORAL 03/04/16 09:00 04/03/16 08:59 03/08/16 09:45 Magnesium Citrate (Citrate Of Magnesia) 300 ml DAILYPRN PRN ORAL Constipation 03/04/16 18:00 04/03/16 17:59 Methylprednisolone Sodium Succinate (Solu-MEDROL) 20 mg EVERY 6 HOURS IVP 03/04/16 12:00 04/03/16 11:59 03/08/16 17:38 Nystatin (Nystop Powder) 1 applic THREE TIMES A DAY TOPIC 02/29/16 18:00 03/30/16 17:59 03/08/16 17:39 Pantoprazole (Protonix) 40 mg ACBREAKFAST ORAL 03/06/16 06:30 03/31/16 08:59 03/08/16 06:09 Potassium Chloride (K-Dur) 10 meq DAILY ORAL 03/01/16 09:00 03/31/16 08:59 03/08/16 09:46 Salmeterol Xinafoate/ Fluticasone (Advair 250/50 Diskus) 1 puffs BID INH 02/29/16 21:00 03/30/16 20:59 03/06/16 21:15 Sertraline HCl (Zoloft) 50 mg DAILY ORAL 03/02/16 09:00 04/01/16 08:59 03/08/16 09:45 Topiramate (Topamax) 100 mg QHS ORAL 03/01/16 21:00 03/31/16 20:59 03/07/16 20:18 Vitamin D (Vitamin D) 1,000 intlu DAILY ORAL 03/01/16 09:00 03/31/16 08:59 03/08/16 09:45 Allergies: Coded Allergies: BENZODIAZEPINES (Verified Allergy, Unknown, 04/20/10) IODINE (Verified Allergy, Unknown, 04/20/10) LIDOCAINE (Verified Allergy, Unknown, 04/20/10) LORAZEPAM (Verified Allergy, Unknown, 04/20/10) OXYBUTYNIN (Verified Allergy, Unknown, 04/20/10) PENICILLINS (Verified Allergy, Unknown, 04/20/10) PHENOTHIAZINES (Verified Allergy, Unknown, 04/20/10) PIPERACILLIN (Verified Allergy, Unknown, 04/20/10) PROPOFOL (Verified Allergy, Unknown, 04/20/10) QUINOLONES (Verified Allergy, Unknown, 04/20/10) SULFASALAZINE (Verified Allergy, Unknown, 04/20/10) TAZOBACTAM (Verified Allergy, Unknown, 04/20/10) TEMAZEPAM (Verified Allergy, Unknown, 04/20/10) Constitutional: Reports: no symptoms HEENT: Reports: no symptoms Cardiovascular: Reports: no symptoms Respiratory: Reports: cough, shortness of breath Gastrointestinal/Abdominal: Reports: no symptoms Genitourinary: Reports: no symptoms Neurologic/Psychiatric: Reports: no symptoms Subjective 65 YO F admitted for Shortness of breath and COPD exacerbation. Cover for Int Jonnie-Dr Dodson. Off BIPAP; tolerating venturi mask. Await [facility] eval Objective Last Vital Signs Date Time Temp Pulse Resp B/P Pulse Ox O2 Delivery O2 Flow Rate FiO2 03/08/16 16:10 97.5 76 19 99/96 96 Venturi Mask 03/08/16 12:00 55 03/08/16 07:35 15.0 Laboratory Tests Test 03/08/16 04:30 White Blood Count 7.9 K/UL (4.8-10.8) Red Blood Count 4.20 M/UL (4.20-5.40) Hemoglobin 12.2 G/DL (12.0-16.0) Hematocrit 37.5 % (37.0-47.0) Mean Corpuscular Volume 89 FL (80-99) Mean Corpuscular Hemoglobin 28.9 PG (27.0-31.0) Mean Corpuscular Hemoglobin Concent 32.5 G/DL (32.0-36.0) Red Cell Distribution Width 14.0 % (11.6-14.8) Platelet Count 126 K/UL (150-450) L Mean Platelet Volume 7.1 FL (6.5-10.1) Neutrophils (%) (Auto) % (45.0-75.0) Lymphocytes (%) (Auto) % (20.0-45.0) Monocytes (%) (Auto) % (1.0-10.0) Eosinophils (%) (Auto) % (0.0-3.0) Basophils (%) (Auto) % (0.0-2.0) Differential Total Cells Counted 100 Neutrophils % (Manual) 84 % (45-75) H Lymphocytes % (Manual) 11 % (20-45) L Monocytes % (Manual) 5 % (1-10) Eosinophils % (Manual) 0 % (0-3) Basophils % (Manual) 0 % (0-2) Band Neutrophils 0 % (0-8) Platelet Estimate Decreased L Platelet Morphology Normal Hypochromasia 1+ Sodium Level 136 mEQ/L (135-145) Potassium Level 4.3 mEQ/L (3.4-4.9) Chloride Level 94 mEQ/L (98-107) L Carbon Dioxide Level 32 mEQ/L (20-30) H Anion Gap 10 (5-15) Blood Urea Nitrogen 56 mg/dL (7-23) H Creatinine 1.1 mg/dL (0.5-0.9) H Estimat Glomerular Filtration Rate 49.7 mL/min (>60) Glucose Level 134 mg/dL (74-106) H Calcium Level 9.0 mg/dL (8.6-10.2) Intake and Output 03/07/16 03/08/16 19:00 07:00 Intake Total 260 ml Output Total 800 ml 1000 ml Balance -540 ml -1000 ml Intake Oral 260 ml Output Urine Total 800 ml 1000 ml Objective General Appearance: WD/WN, alert, moderate distress EENT: PERRL/EOMI, normal ENT inspection Neck: normal alignment, supple Cardiovascular: normal peripheral pulses, normal rate, regular rhythm, no gallop/murmur, no JVD Respiratory/Chest: Simple mask; decreased breath sounds, accessory muscle use, crackles/rales, rhonchi - bilaterally, expiratory wheezing Abdomen: non tender, soft, no organomegaly, no mass Extremities: normal range of motion, non-tender 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 (3) CHF (congestive heart failure) (4) Hypothyroidism Assessment & Plan: Cont synthroid. (5) AICD (automatic cardioverter/defibrillator) present (6) Shortness of breath (7) COPD with acute exacerbation Assessment & Plan: See Pulmonary note. Off BIPAP prn and tolerating face mask. Cont advair and duoneb. D/C vanco; cont levaquin and azithromycin per pulm. Decrease IV solumedrol to 20 mg IV q 6 hr (8) Chronic pain Assessment & Plan: Cont oral dilaudid prn (9) Constipation Assessment & Plan: Cont colace. Start mag citrate prn Status: not improved Assessment/Plan Delano lucio. OSMAR CAMPBELL Mar 08, 2016 18:19
--- NOTE | 2016-03-08 18:54 | Pulmonology Progress Note ---
Assessment/Plan Problems: (1) COPD with acute exacerbation (2) CHF (congestive heart failure) (3) CAD (coronary artery disease) (4) Shortness of breath (5) Constipation (6) Chronic pain (7) Hypothyroidism (8) HTN (hypertension) Assessment/Plan IMPRESSION: 1. Exacerbation of chronic obstructive pulmonary disease. 2. Automatic implantable cardioverter-defibrillator. 3. History of breast carcinoma. 4. Ulcerative colitis/inflammatory bowel disease. 5. Deafness. 6. History of methicillin-resistant Staphylococcus aureus nares. 7. Chronic pain. PLAN: -Optimize pulmonary hygiene/mobilize as tolerated -Titrate down FiO2 to keep SaO2 ~ 90% -RTC and PRN DUOnebs -Continue SM 20 IV q6 and taper slowly -BiPAP PRN and qHS -D/C Abx -Check CXR and ABG -Monitor volumes/PO lasix per cards -DVT Px: SCD's, add Hep SQ -Aspiration precautions -Full code Subjective Allergies: Coded Allergies: BENZODIAZEPINES (Verified Allergy, Unknown, 04/20/10) IODINE (Verified Allergy, Unknown, 04/20/10) LIDOCAINE (Verified Allergy, Unknown, 04/20/10) LORAZEPAM (Verified Allergy, Unknown, 04/20/10) OXYBUTYNIN (Verified Allergy, Unknown, 04/20/10) PENICILLINS (Verified Allergy, Unknown, 04/20/10) PHENOTHIAZINES (Verified Allergy, Unknown, 04/20/10) PIPERACILLIN (Verified Allergy, Unknown, 04/20/10) PROPOFOL (Verified Allergy, Unknown, 04/20/10) QUINOLONES (Verified Allergy, Unknown, 04/20/10) SULFASALAZINE (Verified Allergy, Unknown, 04/20/10) TAZOBACTAM (Verified Allergy, Unknown, 04/20/10) TEMAZEPAM (Verified Allergy, Unknown, 04/20/10) Subjective Remains on VM Less cough, less SOB, no F/C, no CP + constipation Objective Last 24 Hour Vital Signs Date Time Temp Pulse Resp B/P Pulse Ox O2 Delivery O2 Flow Rate FiO2 03/08/16 16:10 97.5 76 19 99/96 96 Venturi Mask 03/08/16 16:00 75 03/08/16 13:00 98.4 03/08/16 12:00 75 03/08/16 12:00 97.5 75 22 102/72 100 Venturi Mask 55 03/08/16 09:45 126/79 03/08/16 08:00 98.6 80 20 116/61 96 Venturi Mask 55 03/08/16 08:00 75 03/08/16 07:35 98 Venturi Mask 15.0 55 03/08/16 07:35 Venturi Mask 15.0 55 03/08/16 04:05 98.4 80 20 126/79 99 Simple Mask 10.0 03/08/16 04:00 75 03/08/16 00:04 97.5 76 19 113/61 99 Simple Mask 10.0 03/08/16 00:00 75 03/07/16 22:00 77 16 96 03/07/16 20:35 98 Venturi Mask 15.0 55 03/07/16 20:34 Venturi Mask 15.0 55 03/07/16 20:04 97.7 76 14 94/64 93 Simple Mask 10.0 03/07/16 20:00 75 Intake and Output 03/07/16 03/08/16 19:00 07:00 Intake Total 260 ml Output Total 800 ml 1000 ml Balance -540 ml -1000 ml Intake Oral 260 ml Output Urine Total 800 ml 1000 ml General Appearance: WD/WN, no acute distress HEENT: normocephalic, atraumatic, anicteric, mucous membranes moist Respiratory/Chest: chest wall non-tender, lungs clear - but distant, no respiratory distress, no accessory muscle use Cardiovascular: normal peripheral pulses, normal rate, regular rhythm Abdomen: normal bowel sounds, soft, non tender, no organomegaly, non distended Extremities: no cyanosis, no clubbing, no edema Laboratory Tests 03/08/16 04:30: White Blood Count 7.9, Red Blood Count 4.20, Hemoglobin 12.2, Hematocrit 37.5, Mean Corpuscular Volume 89, Mean Corpuscular Hemoglobin 28.9, Mean Corpuscular Hemoglobin Concent 32.5, Red Cell Distribution Width 14.0, Platelet Count 126L, Mean Platelet Volume 7.1, Neutrophils (%) (Auto) , Lymphocytes (%) (Auto) , Monocytes (%) (Auto) , Eosinophils (%) (Auto) , Basophils (%) (Auto) , Differential Total Cells Counted 100, Neutrophils % (Manual) 84H, Lymphocytes % (Manual) 11L, Monocytes % (Manual) 5, Eosinophils % (Manual) 0, Basophils % ( Manual) 0, Band Neutrophils 0, Platelet Estimate DecreasedL, Platelet Morphology Normal, Hypochromasia 1+, Sodium Level 136, Potassium Level 4.3, Chloride Level 94L, Carbon Dioxide Level 32H, Anion Gap 10, Blood Urea Nitrogen 56H, Creatinine 1.1H, Estimat Glomerular Filtration Rate 49.7, Glucose Level 134H, Calcium Level 9.0 Current Medications Medications (Trade) Dose Ordered Sig/Mamie Route PRN Reason Start Time Stop Time Status Last Admin Dose Admin Albuterol/ Ipratropium (DuoNeb 0.5-3(2.5)mg/3ml) 3 ml Q4H PRN HHN Shortness of Breath 03/08/16 19:00 03/13/16 18:59 UNV Albuterol/ Ipratropium (DuoNeb 0.5-3(2.5)mg/3ml) 3 ml Q6HRT HHN 03/08/16 19:00 03/13/16 18:59 UNV Betamethasone Dipropionate (Diprolene Oint) 1 applic TID PRN TOPIC Itching 02/29/16 17:00 03/30/16 16:59 Cyclobenzaprine HCl (Flexeril) 10 mg TID ORAL 02/29/16 18:00 03/30/16 17:59 03/08/16 17:38 Dextrose (Dextrose 50%) STAT PRN IV Hypoglycemia 02/29/16 10:15 03/30/16 10:14 Docusate Sodium (Colace) 100 mg TWICE A DAY ORAL 03/03/16 18:00 04/02/16 17:59 03/08/16 17:38 Furosemide (Lasix) 40 mg DAILY ORAL 03/08/16 09:00 04/07/16 08:59 03/08/16 09:45 Insulin Aspart (NovoLOG) BEFORE MEALS AND HS SUBQ 03/02/16 21:00 04/01/16 20:59 03/08/16 11:58 Levofloxacin (Levaquin) 500 mg DAILY ORAL 03/09/16 09:00 03/12/16 08:59 Levothyroxine Sodium (Synthroid) 100 mcg ACBREAKFAST ORAL 03/01/16 06:30 03/31/16 06:29 03/08/16 06:09 Lisinopril (Zestril) 10 mg DAILY ORAL 03/04/16 09:00 04/03/16 08:59 03/08/16 09:45 Magnesium Citrate (Citrate Of Magnesia) 300 ml DAILYPRN PRN ORAL Constipation 03/04/16 18:00 04/03/16 17:59 Methylprednisolone Sodium Succinate (Solu-MEDROL) 20 mg EVERY 6 HOURS IVP 03/04/16 12:00 04/03/16 11:59 03/08/16 17:38 Nystatin (Nystop Powder) 1 applic THREE TIMES A DAY TOPIC 02/29/16 18:00 03/30/16 17:59 03/08/16 17:39 Pantoprazole (Protonix) 40 mg ACBREAKFAST ORAL 03/06/16 06:30 03/31/16 08:59 03/08/16 06:09 Potassium Chloride (K-Dur) 10 meq DAILY ORAL 03/01/16 09:00 03/31/16 08:59 03/08/16 09:46 Salmeterol Xinafoate/ Fluticasone (Advair 250/50 Diskus) 1 puffs BID INH 02/29/16 21:00 03/30/16 20:59 03/06/16 21:15 Sertraline HCl (Zoloft) 50 mg DAILY ORAL 03/02/16 09:00 04/01/16 08:59 03/08/16 09:45 Topiramate (Topamax) 100 mg QHS ORAL 03/01/16 21:00 03/31/16 20:59 03/07/16 20:18 Vitamin D (Vitamin D) 1,000 intlu DAILY ORAL 03/01/16 09:00 03/31/16 08:59 03/08/16 09:45 NABIL ORTEGA M.D. Mar 08, 2016 18:54
[2016-03-08] MEDS ORDERED: DuoNeb 0.5-3(2.5)mg/3ml neb HHN PRN (19:00)
[2016-03-08 19:32] LABS: ABG ALLEN TEST POSITIVE; ABG BASE EXCESS 2.8; ABG PCO2 49.3 mmHg (35.0-45.0)
[2016-03-08] MEDS: DuoNeb 0.5-3(2.5)mg/3ml neb HHN SCH (19:35)
[2016-03-08 20:00] VITALS: BP 101/60
[2016-03-08] MEDS: Topiramate 100mg tab ORAL SCH (20:16)
[2016-03-08] MEDS: Heparin 5000 units/ml inj SUBQ SCH (20:18)
[2016-03-09] VITALS: BP 98/61
[2016-03-09] MEDS: Solu-MEDROL 40mg Inj IVP SCH ×4 (00:09→18:04)
[2016-03-09] MEDS: DuoNeb 0.5-3(2.5)mg/3ml neb HHN SCH ×2 (01:00→07:08)
[2016-03-09 04:00] VITALS: BP 116/71
[2016-03-09 05:20] LABS: BASOPHILS % (AUTO) 0.4 % (0.0-2.0); LYMPHOCYTES % (AUTO) 14.1 % (20.0-45.0); MEAN CORPUSCULAR HEMOGLOBIN 28.3 PG (27.0-31.0); MEAN CORPUSCULAR HGB CONC 32.3 G/DL (32.0-36.0); MEAN CORPUSCULAR VOLUME 88 FL (80-99); MEAN PLATELET VOLUME 7.6 FL (6.5-10.1); MONOCYTES % (AUTO) 9.5 % (1.0-10.0); PLATELET COUNT 146 K/UL (150-450); RED BLOOD COUNT 4.36 M/UL (4.20-5.40); RED CELL DISTRIBUTION WIDTH 13.9 % (11.6-14.8); WHITE BLOOD COUNT 9.7 K/UL (4.8-10.8)
[2016-03-09 06:13] LABS: CALCIUM 9.2 mg/dL (8.6-10.2); CREATININE 1.1 mg/dL (0.5-0.9); GLOMERULAR FILTRATION RATE 49.7 mL/min (>60)
[2016-03-09] MEDS: NovoLOG Insulin Flexpen SUBQ SCH ×4 (07:01→20:29)
[2016-03-09 08:00] VITALS: BP 114/69
[2016-03-09] MEDS: Advair 250/50 Inhaler - 14 dose INH SCH ×2 (08:04→19:52)
[2016-03-09] MEDS: Nystatin Powder 100,000 units/gm 15gm TOPIC SCH ×3 (08:44→18:04)
[2016-03-09] MEDS: Docusate 100mg cap ORAL SCH ×2 (08:45→18:04)
[2016-03-09] MEDS: Lisinopril 10mg tab ORAL SCH (08:45)
[2016-03-09] MEDS: Vitamin D 1000 IU Tab ORAL SCH (08:45)
[2016-03-09] MEDS: Sertraline 50mg tab ORAL SCH (08:45)
[2016-03-09] MEDS: Furosemide 40mg tab ORAL SCH (08:46)
[2016-03-09] MEDS: Cyclobenzaprine 10mg Tab ORAL SCH ×3 (08:46→18:05)
[2016-03-09] MEDS: Heparin 5000 units/ml inj SUBQ SCH ×2 (08:49→20:29)
[2016-03-09] MEDS ORDERED: Levofloxacin 500mg tab ORAL SCH (09:00)
--- NOTE | 2016-03-09 10:53 | Cardiac Electrophysiology PN ---
Assessment/Plan Assessment/Plan 1. CHF with BNP 815 and EF 40%.Continue Lasix 40 mg po daily and Lisinopril 10. Off beta bridget for COPD. 2. Status post right-sided [facility] [employer] defibrillator implantation with showed normal function. 3. Severe chronic obstructive pulmonary disease.On Venturi mask and antibiotics. 4. History of breast cancer. 5. Leukopenia 6. Ulcerative colitis/inflammatory bowel disease. 7. Deafness. 8. History of methicillin-resistant Staphylococcus aureus nares. PAULA RN Subjective Subjective Alert in NAD with the face mask on. No fib, SVT or VT.Remais in A. Paced rhythm.Nothing new overnight Objective Last 24 Hour Vital Signs Date Time Temp Pulse Resp B/P Pulse Ox O2 Delivery O2 Flow Rate FiO2 03/09/16 08:45 114/69 03/09/16 08:00 97.0 78 20 114/69 98 Venturi Mask 45 03/09/16 08:00 75 03/09/16 07:07 96 Venturi Mask 14.0 55 03/09/16 07:07 Venturi Mask 03/09/16 07:06 Venturi Mask 10.0 45 03/09/16 07:06 Venturi Mask 14.0 55 03/09/16 04:04 75 03/09/16 04:00 96.8 75 20 116/71 96 Venturi Mask 45 03/09/16 01:16 Venturi Mask 03/09/16 01:15 74 18 97 Venturi Mask 10.0 45 03/09/16 00:30 75 03/09/16 00:00 96.1 75 18 98/61 96 Venturi Mask 55 03/08/16 22:07 75 16 95 03/08/16 20:00 75 03/08/16 20:00 97.5 76 19 101/60 97 Venturi Mask 55 03/08/16 19:48 82 22 95 Venturi Mask 10.0 45 03/08/16 19:41 55 03/08/16 19:40 75 20 97 Venturi Mask 14.0 55 03/08/16 19:39 Venturi Mask 14.0 55 03/08/16 19:38 97 Venturi Mask 14.0 55 03/08/16 16:10 97.5 76 19 99/96 96 Venturi Mask 03/08/16 16:00 75 03/08/16 13:00 98.4 03/08/16 12:00 75 03/08/16 12:00 97.5 75 22 102/72 100 Venturi Mask 55 Intake and Output 03/08/16 03/09/16 19:00 07:00 Intake Total 500 ml 400 ml Output Total 500 ml 850 ml Balance 0 ml -450 ml Intake Oral 400 ml 400 ml IV Total 100 ml Output Urine Total 500 ml 850 ml Laboratory Tests Test 03/08/16 18:48 03/09/16 04:00 Arterial Blood pH 7.380 (7.350-7.450) Arterial Blood Partial Pressure CO2 49.3 mmHg (35.0-45.0) H Arterial Blood Partial Pressure O2 74.4 mmHg (75.0-100.0) L Arterial Blood HCO3 28.7 mmol/L (22.0-26.0) H Arterial Blood Oxygen Saturation 93.5 % (92.0-98.0) Arterial Blood Base Excess 2.8 Giorgio Test Positive White Blood Count 9.7 K/UL (4.8-10.8) Red Blood Count 4.36 M/UL (4.20-5.40) Hemoglobin 12.3 G/DL (12.0-16.0) Hematocrit 38.2 % (37.0-47.0) Mean Corpuscular Volume 88 FL (80-99) Mean Corpuscular Hemoglobin 28.3 PG (27.0-31.0) Mean Corpuscular Hemoglobin Concent 32.3 G/DL (32.0-36.0) Red Cell Distribution Width 13.9 % (11.6-14.8) Platelet Count 146 K/UL (150-450) L Mean Platelet Volume 7.6 FL (6.5-10.1) Neutrophils (%) (Auto) 76.0 % (45.0-75.0) H Lymphocytes (%) (Auto) 14.1 % (20.0-45.0) L Monocytes (%) (Auto) 9.5 % (1.0-10.0) Eosinophils (%) (Auto) 0.0 % (0.0-3.0) Basophils (%) (Auto) 0.4 % (0.0-2.0) Sodium Level 142 mEQ/L (135-145) Potassium Level 4.0 mEQ/L (3.4-4.9) Chloride Level 99 mEQ/L (98-107) Carbon Dioxide Level 31 mEQ/L (20-30) H Anion Gap 12 (5-15) Blood Urea Nitrogen 58 mg/dL (7-23) H Creatinine 1.1 mg/dL (0.5-0.9) H Estimat Glomerular Filtration Rate 49.7 mL/min (>60) Glucose Level 94 mg/dL (74-106) Calcium Level 9.2 mg/dL (8.6-10.2) Objective HEAD AND NECK: No JVD. LUNGS: Coarse rhonchi CARDIOVASCULAR: Regular S1 and S2 with no gallop or murmur. The defibrillator is in the right subclavian. ABDOMEN: Soft. EXTREMITIES: No pitting edema. COCO ANGEL Mar 09, 2016 10:53
[2016-03-09 11:34] VITALS: BP 106/57
--- NOTE | 2016-03-09 12:49 | Diagnostic Imaging Report ---
Indication: Cough Comparison: 02/28/16 A single view chest radiograph was obtained. Findings: Suggestion of mild basilar atelectasis. Heart is mildly enlarged but stable. Pacemaker noted as well as a PICC line both stable. Impression: Suggestion of basilar atelectasis and/or scarring.
--- NOTE | 2016-03-09 13:40 | Pulmonology Progress Note ---
Assessment/Plan Problems: (1) COPD with acute exacerbation (2) CHF (congestive heart failure) (3) CAD (coronary artery disease) (4) Shortness of breath (5) Constipation (6) Chronic pain (7) Hypothyroidism (8) HTN (hypertension) Assessment/Plan IMPRESSION: 1. Exacerbation of chronic obstructive pulmonary disease. 2. Automatic implantable cardioverter-defibrillator. 3. History of breast carcinoma. 4. Ulcerative colitis/inflammatory bowel disease. 5. Deafness. 6. History of methicillin-resistant Staphylococcus aureus nares. 7. Chronic pain. PLAN: -Optimize pulmonary hygiene/mobilize as tolerated -Titrate down FiO2 to keep SaO2 ~ 90% -RTC and PRN Ipratropium only -Decrease SM to 20 IV BID and taper -BiPAP PRN and qHS -Observe off Abx -Monitor volumes/PO lasix per cards -DVT Px: SCD's, add Hep SQ -Aspiration precautions -Full code Subjective Allergies: Coded Allergies: BENZODIAZEPINES (Verified Allergy, Unknown, 04/20/10) IODINE (Verified Allergy, Unknown, 04/20/10) LIDOCAINE (Verified Allergy, Unknown, 04/20/10) LORAZEPAM (Verified Allergy, Unknown, 04/20/10) OXYBUTYNIN (Verified Allergy, Unknown, 04/20/10) PENICILLINS (Verified Allergy, Unknown, 04/20/10) PHENOTHIAZINES (Verified Allergy, Unknown, 04/20/10) PIPERACILLIN (Verified Allergy, Unknown, 04/20/10) PROPOFOL (Verified Allergy, Unknown, 04/20/10) QUINOLONES (Verified Allergy, Unknown, 04/20/10) SULFASALAZINE (Verified Allergy, Unknown, 04/20/10) TAZOBACTAM (Verified Allergy, Unknown, 04/20/10) TEMAZEPAM (Verified Allergy, Unknown, 04/20/10) Subjective Remains on VM @ 45% 7.38/49/74/28/93 No cough, still SOB, no F/C, no CP Refused albuterol + constipation Objective Last 24 Hour Vital Signs Date Time Temp Pulse Resp B/P Pulse Ox O2 Delivery O2 Flow Rate FiO2 03/09/16 11:34 97.0 76 18 106/57 97 Venturi Mask 45 03/09/16 08:45 114/69 03/09/16 08:00 97.0 78 20 114/69 98 Venturi Mask 45 03/09/16 08:00 75 03/09/16 07:07 96 Venturi Mask 14.0 55 03/09/16 07:07 Venturi Mask 03/09/16 07:06 Venturi Mask 10.0 45 03/09/16 07:06 Venturi Mask 14.0 55 03/09/16 04:04 75 03/09/16 04:00 96.8 75 20 116/71 96 Venturi Mask 45 03/09/16 01:16 Venturi Mask 03/09/16 01:15 74 18 97 Venturi Mask 10.0 45 03/09/16 00:30 75 03/09/16 00:00 96.1 75 18 98/61 96 Venturi Mask 55 03/08/16 22:07 75 16 95 03/08/16 20:00 75 03/08/16 20:00 97.5 76 19 101/60 97 Venturi Mask 55 03/08/16 19:48 82 22 95 Venturi Mask 10.0 45 03/08/16 19:41 55 03/08/16 19:40 75 20 97 Venturi Mask 14.0 55 03/08/16 19:39 Venturi Mask 14.0 55 03/08/16 19:38 97 Venturi Mask 14.0 55 03/08/16 16:10 97.5 76 19 99/96 96 Venturi Mask 03/08/16 16:00 75 Intake and Output 03/08/16 03/09/16 19:00 07:00 Intake Total 500 ml 400 ml Output Total 500 ml 850 ml Balance 0 ml -450 ml Intake Oral 400 ml 400 ml IV Total 100 ml Output Urine Total 500 ml 850 ml General Appearance: WD/WN, no acute distress HEENT: normocephalic, atraumatic, mucous membranes moist Respiratory/Chest: no respiratory distress, rhonchi - scattered Cardiovascular: normal peripheral pulses, normal rate, regular rhythm Abdomen: normal bowel sounds, soft, non tender, no organomegaly, non distended Extremities: no cyanosis, no clubbing, other - trace Laboratory Tests 03/08/16 18:48: Arterial Blood pH 7.380, Arterial Blood Partial Pressure CO2 49.3H, Arterial Blood Partial Pressure O2 74.4L, Arterial Blood HCO3 28.7H, Arterial Blood Oxygen Saturation 93.5, Arterial Blood Base Excess 2.8, Giorgio Test Positive 03/09/16 04:00: White Blood Count 9.7, Red Blood Count 4.36, Hemoglobin 12.3, Hematocrit 38.2, Mean Corpuscular Volume 88, Mean Corpuscular Hemoglobin 28.3, Mean Corpuscular Hemoglobin Concent 32.3, Red Cell Distribution Width 13.9, Platelet Count 146L, Mean Platelet Volume 7.6, Neutrophils (%) (Auto) 76.0H, Lymphocytes (%) (Auto) 14.1L, Monocytes (%) (Auto) 9.5, Eosinophils (%) (Auto) 0.0, Basophils (%) (Auto ) 0.4, Sodium Level 142, Potassium Level 4.0, Chloride Level 99, Carbon Dioxide Level 31H, Anion Gap 12, Blood Urea Nitrogen 58H, Creatinine 1.1H, Estimat Glomerular Filtration Rate 49.7, Glucose Level 94, Calcium Level 9.2 Current Medications Medications (Trade) Dose Ordered Sig/Mamie Route PRN Reason Start Time Stop Time Status Last Admin Dose Admin Albuterol/ Ipratropium (DuoNeb 0.5-3(2.5)mg/3ml) 3 ml Q4H PRN HHN Shortness of Breath 03/08/16 19:00 03/13/16 18:59 Albuterol/ Ipratropium (DuoNeb 0.5-3(2.5)mg/3ml) 3 ml Q6HRT HHN 03/08/16 19:00 03/13/16 18:59 03/08/16 19:35 Betamethasone Dipropionate (Diprolene Oint) 1 applic TID PRN TOPIC Itching 02/29/16 17:00 03/30/16 16:59 Cyclobenzaprine HCl (Flexeril) 10 mg TID ORAL 02/29/16 18:00 03/30/16 17:59 03/09/16 12:33 Dextrose (Dextrose 50%) STAT PRN IV Hypoglycemia 02/29/16 10:15 03/30/16 10:14 Docusate Sodium (Colace) 100 mg TWICE A DAY ORAL 03/03/16 18:00 04/02/16 17:59 03/09/16 08:45 Furosemide (Lasix) 40 mg DAILY ORAL 03/08/16 09:00 04/07/16 08:59 03/09/16 08:46 Heparin Sodium (Porcine) (Heparin 5000 units/ml) 5,000 units EVERY 12 HOURS SUBQ 03/08/16 21:00 04/07/16 20:59 03/09/16 08:49 Insulin Aspart (NovoLOG) BEFORE MEALS AND HS SUBQ 03/02/16 21:00 04/01/16 20:59 03/09/16 11:39 Levothyroxine Sodium (Synthroid) 100 mcg ACBREAKFAST ORAL 03/01/16 06:30 03/31/16 06:29 03/09/16 06:36 Lisinopril (Zestril) 10 mg DAILY ORAL 03/04/16 09:00 04/03/16 08:59 03/09/16 08:45 Magnesium Citrate (Citrate Of Magnesia) 300 ml DAILYPRN PRN ORAL Constipation 03/04/16 18:00 04/03/16 17:59 Methylprednisolone Sodium Succinate (Solu-MEDROL) 20 mg EVERY 6 HOURS IVP 03/04/16 12:00 04/03/16 11:59 03/09/16 11:38 Nystatin (Nystop Powder) 1 applic THREE TIMES A DAY TOPIC 02/29/16 18:00 03/30/16 17:59 03/09/16 08:44 Pantoprazole (Protonix) 40 mg ACBREAKFAST ORAL 03/06/16 06:30 03/31/16 08:59 03/09/16 06:36 Potassium Chloride (K-Dur) 10 meq DAILY ORAL 03/01/16 09:00 03/31/16 08:59 03/09/16 08:45 Salmeterol Xinafoate/ Fluticasone (Advair 250/50 Diskus) 1 puffs BID INH 02/29/16 21:00 03/30/16 20:59 03/06/16 21:15 Sertraline HCl (Zoloft) 50 mg DAILY ORAL 03/02/16 09:00 04/01/16 08:59 03/09/16 08:45 Topiramate (Topamax) 100 mg QHS ORAL 03/01/16 21:00 03/31/16 20:59 03/08/16 20:16 Vitamin D (Vitamin D) 1,000 intlu DAILY ORAL 03/01/16 09:00 2/4/17 08:59 03/09/16 08:45 NABIL ORTEGA M.D. Mar 09, 2016 13:40
[2016-03-09] MEDS ORDERED: Ipratropium 0.02% Inh Soln 2.5ml UD HHN PRN (13:45)
[2016-03-09 17:00] VITALS: BP 112/58
--- NOTE | 2016-03-09 19:32 | Internal Med Progress Note ---
Subjective Date of Service: Mar 09, 2016 Physician Name Osmar Mendoza Attending Physician Flex Dodson MD Current Medications Medications (Trade) Dose Ordered Sig/Mamie Route PRN Reason Start Time Stop Time Status Last Admin Dose Admin Betamethasone Dipropionate (Diprolene Oint) 1 applic TID PRN TOPIC Itching 02/29/16 17:00 03/30/16 16:59 Cyclobenzaprine HCl (Flexeril) 10 mg TID ORAL 02/29/16 18:00 03/30/16 17:59 03/09/16 18:05 Dextrose (Dextrose 50%) STAT PRN IV Hypoglycemia 02/29/16 10:15 03/30/16 10:14 Docusate Sodium (Colace) 100 mg TWICE A DAY ORAL 03/03/16 18:00 04/02/16 17:59 03/09/16 18:04 Furosemide (Lasix) 40 mg DAILY ORAL 03/08/16 09:00 04/07/16 08:59 03/09/16 08:46 Heparin Sodium (Porcine) (Heparin 5000 units/ml) 5,000 units EVERY 12 HOURS SUBQ 03/08/16 21:00 04/07/16 20:59 03/09/16 08:49 Insulin Aspart (NovoLOG) BEFORE MEALS AND HS SUBQ 03/02/16 21:00 04/01/16 20:59 03/09/16 15:44 Ipratropium [place] (Atrovent) 500 mcg Q4H PRN HHN Shortness of Breath 03/09/16 13:45 03/14/16 13:44 Ipratropium [place] (Atrovent) 500 mcg Q6HRT HHN 03/09/16 19:00 03/14/16 18:59 Levothyroxine Sodium (Synthroid) 100 mcg ACBREAKFAST ORAL 03/01/16 06:30 03/31/16 06:29 03/09/16 06:36 Lisinopril (Zestril) 10 mg DAILY ORAL 03/04/16 09:00 04/03/16 08:59 03/09/16 08:45 Magnesium Citrate (Citrate Of Magnesia) 300 ml DAILYPRN PRN ORAL Constipation 03/04/16 18:00 04/03/16 17:59 Methylprednisolone Sodium Succinate (Solu-MEDROL) 20 mg BID IVP 03/09/16 18:00 2/12/17 17:59 03/09/16 18:04 Nystatin (Nystop Powder) 1 applic THREE TIMES A DAY TOPIC 02/29/16 18:00 03/30/16 17:59 03/09/16 18:04 Pantoprazole (Protonix) 40 mg ACBREAKFAST ORAL 03/06/16 06:30 03/31/16 08:59 03/09/16 06:36 Potassium Chloride (K-Dur) 10 meq DAILY ORAL 03/01/16 09:00 03/31/16 08:59 03/09/16 08:45 Salmeterol Xinafoate/ Fluticasone (Advair 250/50 Diskus) 1 puffs BID INH 02/29/16 21:00 03/30/16 20:59 03/06/16 21:15 Sertraline HCl (Zoloft) 50 mg DAILY ORAL 03/02/16 09:00 04/01/16 08:59 03/09/16 08:45 Topiramate (Topamax) 100 mg QHS ORAL 03/01/16 21:00 03/31/16 20:59 03/08/16 20:16 Vitamin D (Vitamin D) 1,000 intlu DAILY ORAL 03/01/16 09:00 03/31/16 08:59 03/09/16 08:45 Allergies: Coded Allergies: BENZODIAZEPINES (Verified Allergy, Unknown, 04/20/10) IODINE (Verified Allergy, Unknown, 04/20/10) LIDOCAINE (Verified Allergy, Unknown, 04/20/10) LORAZEPAM (Verified Allergy, Unknown, 04/20/10) OXYBUTYNIN (Verified Allergy, Unknown, 04/20/10) PENICILLINS (Verified Allergy, Unknown, 04/20/10) PHENOTHIAZINES (Verified Allergy, Unknown, 04/20/10) PIPERACILLIN (Verified Allergy, Unknown, 04/20/10) PROPOFOL (Verified Allergy, Unknown, 04/20/10) QUINOLONES (Verified Allergy, Unknown, 04/20/10) SULFASALAZINE (Verified Allergy, Unknown, 04/20/10) TAZOBACTAM (Verified Allergy, Unknown, 04/20/10) TEMAZEPAM (Verified Allergy, Unknown, 04/20/10) ROS Limited/Unobtainable: No Constitutional: Reports: no symptoms HEENT: Reports: no symptoms Cardiovascular: Reports: no symptoms Respiratory: Reports: shortness of breath Gastrointestinal/Abdominal: Reports: no symptoms Genitourinary: Reports: no symptoms Neurologic/Psychiatric: Reports: no symptoms Subjective 65 YO F admitted for Shortness of breath and COPD exacerbation. Cover for Kelly Cristina-Dr Dodson. Off BIPAP; tolerating venturi mask. Await [facility] eval Objective Last Vital Signs Date Time Temp Pulse Resp B/P Pulse Ox O2 Delivery O2 Flow Rate FiO2 03/09/16 17:00 75 03/09/16 17:00 98.1 20 112/58 99 Venturi Mask 10.0 45 Laboratory Tests Test 03/09/16 04:00 White Blood Count 9.7 K/UL (4.8-10.8) Red Blood Count 4.36 M/UL (4.20-5.40) Hemoglobin 12.3 G/DL (12.0-16.0) Hematocrit 38.2 % (37.0-47.0) Mean Corpuscular Volume 88 FL (80-99) Mean Corpuscular Hemoglobin 28.3 PG (27.0-31.0) Mean Corpuscular Hemoglobin Concent 32.3 G/DL (32.0-36.0) Red Cell Distribution Width 13.9 % (11.6-14.8) Platelet Count 146 K/UL (150-450) L Mean Platelet Volume 7.6 FL (6.5-10.1) Neutrophils (%) (Auto) 76.0 % (45.0-75.0) H Lymphocytes (%) (Auto) 14.1 % (20.0-45.0) L Monocytes (%) (Auto) 9.5 % (1.0-10.0) Eosinophils (%) (Auto) 0.0 % (0.0-3.0) Basophils (%) (Auto) 0.4 % (0.0-2.0) Sodium Level 142 mEQ/L (135-145) Potassium Level 4.0 mEQ/L (3.4-4.9) Chloride Level 99 mEQ/L (98-107) Carbon Dioxide Level 31 mEQ/L (20-30) H Anion Gap 12 (5-15) Blood Urea Nitrogen 58 mg/dL (7-23) H Creatinine 1.1 mg/dL (0.5-0.9) H Estimat Glomerular Filtration Rate 49.7 mL/min (>60) Glucose Level 94 mg/dL (74-106) Calcium Level 9.2 mg/dL (8.6-10.2) Intake and Output 03/08/16 03/09/16 19:00 07:00 Intake Total 500 ml 400 ml Output Total 500 ml 850 ml Balance 0 ml -450 ml Intake Oral 400 ml 400 ml IV Total 100 ml Output Urine Total 500 ml 850 ml Objective General Appearance: WD/WN, alert, moderate distress EENT: PERRL/EOMI, normal ENT inspection Neck: normal alignment, supple Cardiovascular: normal peripheral pulses, normal rate, regular rhythm, no gallop/murmur, no JVD Respiratory/Chest: Venturi mask; decreased breath sounds, accessory muscle use , crackles/rales, rhonchi - bilaterally, expiratory wheezing Abdomen: non tender, soft, no organomegaly, no mass Extremities: normal range of motion, non-tender Neurologic: 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 (3) CHF (congestive heart failure) (4) Hypothyroidism Assessment & Plan: Cont synthroid. (5) AICD (automatic cardioverter/defibrillator) present (6) Shortness of breath (7) COPD with acute exacerbation Assessment & Plan: See Pulmonary note. Off BIPAP prn and tolerating face mask. Cont advair and duoneb. D/C vanco; cont levaquin and azithromycin per pulm. Decrease IV solumedrol to 20 mg IV BID (8) Chronic pain Assessment & Plan: Cont oral dilaudid prn (9) Constipation Assessment & Plan: Cont colace. 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
[2016-03-09] MEDS: Ipratropium 0.02% Inh Soln 2.5ml UD HHN SCH (19:52)
[2016-03-09 20:00] VITALS: BP 105/68
[2016-03-09] MEDS: Topiramate 100mg tab ORAL SCH (20:29)
[2016-03-10] VITALS: BP 106/70
[2016-03-10] MEDS: Ipratropium 0.02% Inh Soln 2.5ml UD HHN SCH ×4 (01:50→19:23)
[2016-03-10 04:00] VITALS: BP 110/59
[2016-03-10 05:57] LABS: BASOPHILS % (AUTO) 0.6 % (0.0-2.0); LYMPHOCYTES % (AUTO) 18.5 % (20.0-45.0); MEAN CORPUSCULAR HEMOGLOBIN 28.2 PG (27.0-31.0); MEAN CORPUSCULAR HGB CONC 30.7 G/DL (32.0-36.0); MEAN CORPUSCULAR VOLUME 92 FL (80-99); MEAN PLATELET VOLUME 7.5 FL (6.5-10.1); MONOCYTES % (AUTO) 8.6 % (1.0-10.0); NEUTROPHILS % (AUTO) 72.4 % (45.0-75.0); PLATELET COUNT 162 K/UL (150-450); RED BLOOD COUNT 4.35 M/UL (4.20-5.40); RED CELL DISTRIBUTION WIDTH 13.9 % (11.6-14.8); WHITE BLOOD COUNT 11.9 K/UL (4.8-10.8)
[2016-03-10 06:00] LABS: ANION GAP 10 (5-15); CALCIUM 8.7 mg/dL (8.6-10.2); CARBON DIOXIDE 32 mEQ/L (20-30); CHLORIDE 101 mEQ/L (98-107); CREATININE 0.9 mg/dL (0.5-0.9); GLOMERULAR FILTRATION RATE > 60 mL/min (>60); HEMOLYSIS 5; POTASSIUM 3.8 mEQ/L (3.4-4.9); SODIUM 143 mEQ/L (135-145)
[2016-03-10] MEDS: NovoLOG Insulin Flexpen SUBQ SCH ×4 (06:11→22:00)
[2016-03-10 08:00] VITALS: BP 126/65
[2016-03-10] MEDS: Docusate 100mg cap ORAL SCH ×2 (08:39→17:43)
[2016-03-10] MEDS: Cyclobenzaprine 10mg Tab ORAL SCH ×3 (08:39→17:44)
[2016-03-10] MEDS: Vitamin D 1000 IU Tab ORAL SCH (08:39)
[2016-03-10] MEDS: Solu-MEDROL 40mg Inj IVP SCH ×2 (08:40→17:44)
[2016-03-10] MEDS: Lisinopril 10mg tab ORAL SCH (08:40)
[2016-03-10] MEDS: Sertraline 50mg tab ORAL SCH (08:40)
[2016-03-10] MEDS: Furosemide 40mg tab ORAL SCH (08:40)
[2016-03-10] MEDS: Heparin 5000 units/ml inj SUBQ SCH ×2 (08:42→21:36)
[2016-03-10] MEDS: Nystatin Powder 100,000 units/gm 15gm TOPIC SCH ×3 (08:43→17:59)
[2016-03-10] MEDS: Advair 250/50 Inhaler - 14 dose INH SCH ×2 (09:00→19:23)
[2016-03-10 12:00] VITALS: BP 110/62
--- NOTE | 2016-03-10 13:02 | Cardiac Electrophysiology PN ---
Assessment/Plan Assessment/Plan 1. CHF with BNP 815 and EF 40%.Continue Lasix 40 mg and Lisinopril 10 daily. Off beta bridget for COPD. 2. Status post right-sided [employer] Oskar defibrillator implantation with function. 3. Severe chronic obstructive pulmonary disease.On Nasal Cannula now. 4. History of breast cancer. 5. Leukopenia 6. Ulcerative colitis/inflammatory bowel disease. 7. Deafness. 8. History of methicillin-resistant Staphylococcus aureus nares. PUALA RN Subjective Subjective Alert in NAD no chest pain. Now on Nasal Cannula. Remais in A. Paced rhythm Objective Last 24 Hour Vital Signs Date Time Temp Pulse Resp B/P Pulse Ox O2 Delivery O2 Flow Rate FiO2 03/10/16 09:38 97.2 03/10/16 08:40 126/65 03/10/16 08:03 82 18 97 Nasal Cannula 4.0 36 03/10/16 08:00 97.2 76 18 126/65 90 Nasal Cannula 3.0 03/10/16 08:00 75 03/10/16 07:53 95 Nasal Cannula 3.0 32 03/10/16 07:53 Nasal Cannula 3.0 32 03/10/16 07:53 75 18 95 Nasal Cannula 3.0 32 03/10/16 04:00 75 03/10/16 04:00 97.5 74 19 110/59 98 Venturi Mask 10.0 45 03/10/16 01:59 79 18 98 Nasal Cannula 3.0 32 03/10/16 01:50 78 18 98 Nasal Cannula 3.0 32 03/10/16 00:00 75 03/10/16 00:00 98.0 76 19 106/70 99 Venturi Mask 10.0 45 03/09/16 20:00 98.5 79 20 105/68 99 Venturi Mask 10.0 45 03/09/16 20:00 75 03/09/16 20:00 82 20 96 Nasal Cannula 3.0 32 03/09/16 19:52 75 20 96 Nasal Cannula 3.0 32 03/09/16 19:51 Nasal Cannula 3.0 32 03/09/16 19:51 96 Nasal Cannula 3.0 32 03/09/16 17:00 75 03/09/16 17:00 98.1 75 20 112/58 99 Venturi Mask 10.0 45 Intake and Output 03/09/16 03/10/16 19:00 07:00 Intake Total 880 ml 550 ml Output Total 200 ml 1000 ml Balance 680 ml -450 ml Intake Oral 880 ml 550 ml Output Urine Total 200 ml 1000 ml Laboratory Tests Test 03/10/16 04:00 White Blood Count 11.9 K/UL (4.8-10.8) H Red Blood Count 4.35 M/UL (4.20-5.40) Hemoglobin 12.3 G/DL (12.0-16.0) Hematocrit 39.9 % (37.0-47.0) Mean Corpuscular Volume 92 FL (80-99) Mean Corpuscular Hemoglobin 28.2 PG (27.0-31.0) Mean Corpuscular Hemoglobin Concent 30.7 G/DL (32.0-36.0) L Red Cell Distribution Width 13.9 % (11.6-14.8) Platelet Count 162 K/UL (150-450) Mean Platelet Volume 7.5 FL (6.5-10.1) Neutrophils (%) (Auto) 72.4 % (45.0-75.0) Lymphocytes (%) (Auto) 18.5 % (20.0-45.0) L Monocytes (%) (Auto) 8.6 % (1.0-10.0) Eosinophils (%) (Auto) 0.0 % (0.0-3.0) Basophils (%) (Auto) 0.6 % (0.0-2.0) Sodium Level 143 mEQ/L (135-145) Potassium Level 3.8 mEQ/L (3.4-4.9) Chloride Level 101 mEQ/L (98-107) Carbon Dioxide Level 32 mEQ/L (20-30) H Anion Gap 10 (5-15) Blood Urea Nitrogen 52 mg/dL (7-23) H Creatinine 0.9 mg/dL (0.5-0.9) Estimat Glomerular Filtration Rate > 60 mL/min (>60) Glucose Level 87 mg/dL (74-106) Calcium Level 8.7 mg/dL (8.6-10.2) Objective HEAD AND NECK: No JVD. LUNGS: Coarse rhonchi CARDIOVASCULAR: Regular S1 and S2 with no murmur. The defibrillator is in the right subclavian. ABDOMEN: Soft. EXTREMITIES: No pitting edema. COCO ANGEL Mar 10, 2016 13:02
[2016-03-10 16:00] VITALS: BP 107/64
[2016-03-10] MEDS ORDERED: Ipratropium 0.02% Inh Soln 2.5ml UD HHN PRN (17:45)
[2016-03-10] MEDS ORDERED: BETAMETHASONE 0.05% TOPIC PRN (18:00)
[2016-03-10] MEDS ORDERED: Magnesium Citrate Liq Btl ORAL PRN (18:00)
--- NOTE | 2016-03-10 18:18 | Pulmonology Progress Note ---
Assessment/Plan Assessment/Plan IMPRESSION: 1. Exacerbation of chronic obstructive pulmonary disease. 2. Automatic implantable cardioverter-defibrillator. 3. History of breast carcinoma. 4. Ulcerative colitis/inflammatory bowel disease. 5. Deafness. 6. History of methicillin-resistant Staphylococcus aureus nares. 7. Chronic pain. PLAN: -Optimize pulmonary hygiene/mobilize as tolerated -Titrate down FiO2 to keep SaO2 ~ 90% -RTC and PRN Ipratropium only -Decrease SM to 20 IV BID and taper -BiPAP PRN and qHS -Observe off Abx -Monitor volumes/PO lasix per cards -DVT Px: SCD's, add Hep SQ -Aspiration precautions -Full code Subjective Interval Events: ontinues to improve; saturating 94% on 2L/min O2 HEENT: Repors: no symptoms Respiratory: Reports: productive cough, shortness of breath Cardiovascular: Reports: no symptoms Gastrointestinal/Abdominal: Reports: no symptoms Allergies: Coded Allergies: BENZODIAZEPINES (Verified Allergy, Unknown, 04/20/10) IODINE (Verified Allergy, Unknown, 04/20/10) LIDOCAINE (Verified Allergy, Unknown, 04/20/10) LORAZEPAM (Verified Allergy, Unknown, 04/20/10) OXYBUTYNIN (Verified Allergy, Unknown, 04/20/10) PENICILLINS (Verified Allergy, Unknown, 04/20/10) PHENOTHIAZINES (Verified Allergy, Unknown, 04/20/10) PIPERACILLIN (Verified Allergy, Unknown, 04/20/10) PROPOFOL (Verified Allergy, Unknown, 04/20/10) QUINOLONES (Verified Allergy, Unknown, 04/20/10) SULFASALAZINE (Verified Allergy, Unknown, 04/20/10) TAZOBACTAM (Verified Allergy, Unknown, 04/20/10) TEMAZEPAM (Verified Allergy, Unknown, 04/20/10) Objective Last 24 Hour Vital Signs Date Time Temp Pulse Resp B/P Pulse Ox O2 Delivery O2 Flow Rate FiO2 03/10/16 16:00 97.5 85 18 107/64 95 Nasal Cannula 2.0 03/10/16 14:40 89 18 98 Nasal Cannula 4.0 36 03/10/16 14:31 89 16 94 Nasal Cannula 4.0 36 03/10/16 14:05 97.2 03/10/16 12:00 75 03/10/16 12:00 97.2 82 19 110/62 93 Nasal Cannula 4.0 03/10/16 08:40 126/65 03/10/16 08:03 82 18 97 Nasal Cannula 4.0 36 03/10/16 08:00 97.2 76 18 126/65 90 Nasal Cannula 3.0 03/10/16 08:00 75 03/10/16 07:53 95 Nasal Cannula 3.0 32 03/10/16 07:53 Nasal Cannula 3.0 32 03/10/16 07:53 75 18 95 Nasal Cannula 3.0 32 03/10/16 04:00 75 03/10/16 04:00 97.5 74 19 110/59 98 Venturi Mask 10.0 45 03/10/16 01:59 79 18 98 Nasal Cannula 3.0 32 03/10/16 01:50 78 18 98 Nasal Cannula 3.0 32 03/10/16 00:00 75 03/10/16 00:00 98.0 76 19 106/70 99 Venturi Mask 10.0 45 03/09/16 20:00 98.5 79 20 105/68 99 Venturi Mask 10.0 45 03/09/16 20:00 75 03/09/16 20:00 82 20 96 Nasal Cannula 3.0 32 03/09/16 19:52 75 20 96 Nasal Cannula 3.0 32 03/09/16 19:51 Nasal Cannula 3.0 32 03/09/16 19:51 96 Nasal Cannula 3.0 32 Intake and Output 03/09/16 03/10/16 19:00 07:00 Intake Total 880 ml 550 ml Output Total 200 ml 1000 ml Balance 680 ml -450 ml Intake Oral 880 ml 550 ml Output Urine Total 200 ml 1000 ml General Appearance: no acute distress HEENT: normocephalic Respiratory/Chest: chest wall non-tender, lungs clear Cardiovascular: normal peripheral pulses, normal rate Abdomen: normal bowel sounds Laboratory Tests 03/10/16 04:00: White Blood Count 11.9H, Red Blood Count 4.35, Hemoglobin 12.3, Hematocrit 39.9 , Mean Corpuscular Volume 92, Mean Corpuscular Hemoglobin 28.2, Mean Corpuscular Hemoglobin Concent 30.7L, Red Cell Distribution Width 13.9, Platelet Count 162, Mean Platelet Volume 7.5, Neutrophils (%) (Auto) 72.4, Lymphocytes (%) (Auto) 18.5L, Monocytes (%) (Auto) 8.6, Eosinophils (%) (Auto) 0.0, Basophils (%) (Auto) 0.6, Sodium Level 143, Potassium Level 3.8, Chloride Level 101, Carbon Dioxide Level 32H, Anion Gap 10, Blood Urea Nitrogen 52H, Creatinine 0.9, Estimat Glomerular Filtration Rate > 60, Glucose Level 87, Calcium Level 8.7 Current Medications Medications (Trade) Dose Ordered Sig/Mamie Route PRN Reason Start Time Stop Time Status Last Admin Dose Admin Betamethasone Dipropionate (Diprolene Oint) 1 applic TID PRN TOPIC Itching 03/10/16 18:00 04/09/16 17:59 Cyclobenzaprine HCl (Flexeril) 10 mg TID ORAL 03/10/16 18:00 04/09/16 17:59 03/10/16 17:44 Dextrose (Dextrose 50%) STAT PRN IV Hypoglycemia 03/10/16 15:26 04/09/16 15:25 Docusate Sodium (Colace) 100 mg TWICE A DAY ORAL 03/10/16 18:00 04/09/16 17:59 03/10/16 17:43 Furosemide (Lasix) 40 mg DAILY ORAL 03/11/16 09:00 04/10/16 08:59 Heparin Sodium (Porcine) (Heparin 5000 units/ml) 5,000 units EVERY 12 HOURS SUBQ 03/10/16 21:00 04/09/16 20:59 Insulin Aspart (NovoLOG) BEFORE MEALS AND HS SUBQ 03/10/16 16:30 04/09/16 16:29 03/10/16 16:30 Ipratropium [place] (Atrovent) 500 mcg Q4H PRN HHN Shortness of Breath 03/10/16 17:45 03/15/16 17:44 Ipratropium [place] (Atrovent) 500 mcg Q6HRT HHN 03/10/16 19:00 03/15/16 18:59 Levothyroxine Sodium (Synthroid) 100 mcg ACBREAKFAST ORAL 03/11/16 06:30 04/10/16 06:29 Lisinopril (Zestril) 10 mg DAILY ORAL 03/11/16 09:00 04/10/16 08:59 Magnesium Citrate (Citrate Of Magnesia) 300 ml DAILYPRN PRN ORAL Constipation 03/10/16 18:00 04/09/16 17:59 Methylprednisolone Sodium Succinate (Solu-MEDROL) 20 mg BID IVP 03/10/16 18:00 04/09/16 17:59 03/10/16 17:44 Nystatin (Nystop Powder) 1 applic THREE TIMES A DAY TOPIC 03/10/16 18:00 04/09/16 17:59 03/10/16 17:59 Pantoprazole (Protonix) 40 mg ACBREAKFAST ORAL 03/11/16 06:30 04/10/16 06:29 Potassium Chloride (K-Dur) 10 meq DAILY ORAL 03/11/16 09:00 04/10/16 08:59 Salmeterol Xinafoate/ Fluticasone (Advair 250/50 Diskus) 1 puffs BID INH 03/10/16 18:00 04/09/16 17:59 Sertraline HCl (Zoloft) 50 mg DAILY ORAL 03/11/16 09:00 04/10/16 08:59 Topiramate (Topamax) 100 mg QHS ORAL 03/10/16 21:00 04/09/16 20:59 Vitamin D (Vitamin D) 1,000 intlu DAILY ORAL 03/11/16 09:00 04/10/16 08:59 Shahid Lake MD Mar 10, 2016 18:18
--- NOTE | 2016-03-10 18:57 | Internal Med Progress Note ---
Subjective Date of Service: Mar 10, 2016 Physician Name Sheldon Mendoza Attending Physician Flex Dodson MD Current Medications Medications (Trade) Dose Ordered Sig/Mamie Route PRN Reason Start Time Stop Time Status Last Admin Dose Admin Betamethasone Dipropionate (Diprolene Oint) 1 applic TID PRN TOPIC Itching 03/10/16 18:00 04/09/16 17:59 Cyclobenzaprine HCl (Flexeril) 10 mg TID ORAL 03/10/16 18:00 04/09/16 17:59 03/10/16 17:44 Dextrose (Dextrose 50%) STAT PRN IV Hypoglycemia 03/10/16 15:26 04/09/16 15:25 Docusate Sodium (Colace) 100 mg TWICE A DAY ORAL 03/10/16 18:00 04/09/16 17:59 03/10/16 17:43 Furosemide (Lasix) 40 mg DAILY ORAL 03/11/16 09:00 04/10/16 08:59 Heparin Sodium (Porcine) (Heparin 5000 units/ml) 5,000 units EVERY 12 HOURS SUBQ 03/10/16 21:00 04/09/16 20:59 Insulin Aspart (NovoLOG) BEFORE MEALS AND HS SUBQ 03/10/16 16:30 04/09/16 16:29 03/10/16 16:30 Ipratropium [place] (Atrovent) 500 mcg Q4H PRN HHN Shortness of Breath 03/10/16 17:45 03/15/16 17:44 Ipratropium [place] (Atrovent) 500 mcg Q6HRT HHN 03/10/16 19:00 03/15/16 18:59 Levothyroxine Sodium (Synthroid) 100 mcg ACBREAKFAST ORAL 03/11/16 06:30 04/10/16 06:29 Lisinopril (Zestril) 10 mg DAILY ORAL 03/11/16 09:00 04/10/16 08:59 Magnesium Citrate (Citrate Of Magnesia) 300 ml DAILYPRN PRN ORAL Constipation 03/10/16 18:00 04/09/16 17:59 Methylprednisolone Sodium Succinate (Solu-MEDROL) 20 mg BID IVP 03/10/16 18:00 04/09/16 17:59 03/10/16 17:44 Nystatin (Nystop Powder) 1 applic THREE TIMES A DAY TOPIC 03/10/16 18:00 04/09/16 17:59 03/10/16 17:59 Pantoprazole (Protonix) 40 mg ACBREAKFAST ORAL 03/11/16 06:30 04/10/16 06:29 Potassium Chloride (K-Dur) 10 meq DAILY ORAL 03/11/16 09:00 04/10/16 08:59 Salmeterol Xinafoate/ Fluticasone (Advair 250/50 Diskus) 1 puffs BID INH 03/10/16 18:00 04/09/16 17:59 Sertraline HCl (Zoloft) 50 mg DAILY ORAL 03/11/16 09:00 04/10/16 08:59 Topiramate (Topamax) 100 mg QHS ORAL 03/10/16 21:00 04/09/16 20:59 Vitamin D (Vitamin D) 1,000 intlu DAILY ORAL 03/11/16 09:00 04/10/16 08:59 Allergies: Coded Allergies: BENZODIAZEPINES (Verified Allergy, Unknown, 04/20/10) IODINE (Verified Allergy, Unknown, 04/20/10) LIDOCAINE (Verified Allergy, Unknown, 04/20/10) LORAZEPAM (Verified Allergy, Unknown, 04/20/10) OXYBUTYNIN (Verified Allergy, Unknown, 04/20/10) PENICILLINS (Verified Allergy, Unknown, 04/20/10) PHENOTHIAZINES (Verified Allergy, Unknown, 04/20/10) PIPERACILLIN (Verified Allergy, Unknown, 04/20/10) PROPOFOL (Verified Allergy, Unknown, 04/20/10) QUINOLONES (Verified Allergy, Unknown, 04/20/10) SULFASALAZINE (Verified Allergy, Unknown, 04/20/10) TAZOBACTAM (Verified Allergy, Unknown, 04/20/10) TEMAZEPAM (Verified Allergy, Unknown, 04/20/10) ROS Limited/Unobtainable: No Constitutional: Reports: no symptoms HEENT: Reports: no symptoms Cardiovascular: Reports: no symptoms Respiratory: Reports: shortness of breath Gastrointestinal/Abdominal: Reports: no symptoms Genitourinary: Reports: no symptoms Neurologic/Psychiatric: Reports: no symptoms Subjective 65 YO F admitted for Shortness of breath and COPD exacerbation. Cover for Int Med-Dr Dodson. Off BIPAP; tolerating nasal canula. Await [place] eval Objective Last Vital Signs Date Time Temp Pulse Resp B/P Pulse Ox O2 Delivery O2 Flow Rate FiO2 03/10/16 16:00 97.5 85 18 107/64 95 Nasal Cannula 2.0 03/10/16 14:40 36 Laboratory Tests Test 03/10/16 04:00 White Blood Count 11.9 K/UL (4.8-10.8) H Red Blood Count 4.35 M/UL (4.20-5.40) Hemoglobin 12.3 G/DL (12.0-16.0) Hematocrit 39.9 % (37.0-47.0) Mean Corpuscular Volume 92 FL (80-99) Mean Corpuscular Hemoglobin 28.2 PG (27.0-31.0) Mean Corpuscular Hemoglobin Concent 30.7 G/DL (32.0-36.0) L Red Cell Distribution Width 13.9 % (11.6-14.8) Platelet Count 162 K/UL (150-450) Mean Platelet Volume 7.5 FL (6.5-10.1) Neutrophils (%) (Auto) 72.4 % (45.0-75.0) Lymphocytes (%) (Auto) 18.5 % (20.0-45.0) L Monocytes (%) (Auto) 8.6 % (1.0-10.0) Eosinophils (%) (Auto) 0.0 % (0.0-3.0) Basophils (%) (Auto) 0.6 % (0.0-2.0) Sodium Level 143 mEQ/L (135-145) Potassium Level 3.8 mEQ/L (3.4-4.9) Chloride Level 101 mEQ/L (98-107) Carbon Dioxide Level 32 mEQ/L (20-30) H Anion Gap 10 (5-15) Blood Urea Nitrogen 52 mg/dL (7-23) H Creatinine 0.9 mg/dL (0.5-0.9) Estimat Glomerular Filtration Rate > 60 mL/min (>60) Glucose Level 87 mg/dL (74-106) Calcium Level 8.7 mg/dL (8.6-10.2) Intake and Output 03/09/16 03/10/16 19:00 07:00 Intake Total 880 ml 550 ml Output Total 200 ml 1000 ml Balance 680 ml -450 ml Intake Oral 880 ml 550 ml Output Urine Total 200 ml 1000 ml Objective General Appearance: WD/WN, alert, moderate distress EENT: PERRL/EOMI, normal ENT inspection Neck: normal alignment, supple Cardiovascular: normal peripheral pulses, normal rate, regular rhythm, no gallop/murmur, no JVD Respiratory/Chest: Venturi mask; decreased breath sounds, accessory muscle use , crackles/rales, rhonchi - bilaterally, expiratory wheezing Abdomen: non tender, soft, no organomegaly, no mass Extremities: normal range of motion, non-tender Neurologic: beef trimmer II-XII grossly normal, no motor/sensory deficits Skin: warm/dry Assessment/Plan Problem List: (1) CAD (coronary artery disease) (2) HTN (hypertension) Assessment & Plan: Cont lisinopril and norvasc. (3) CHF (congestive heart failure) (4) Hypothyroidism Assessment & Plan: Cont synthroid. (5) AICD (automatic cardioverter/defibrillator) present (6) Shortness of breath (7) COPD with acute exacerbation Assessment & Plan: See Pulmonary note. Off BIPAP prn and tolerating nasal canula. Cont advair and duoneb. D/C vanco; cont levaquin and azithromycin per pulm. Decrease IV solumedrol to 20 mg IV BID (8) Chronic pain Assessment & Plan: Cont oral dilaudid prn (9) Constipation Assessment & Plan: Cont colace. Start mag citrate prn Assessment/Plan snf acute care eval - [place] or SHELDON Painter Mar 10, 2016 18:57
[2016-03-10 20:00] VITALS: BP 98/60
[2016-03-10] MEDS: Topiramate 100mg tab ORAL SCH (21:38)
[2016-03-10] MEDS: Artificial Tears 1.4% Op Soln BOTH EYES PRN (22:05)
[2016-03-11 00:27] VITALS: BP 98/53
[2016-03-11] MEDS: Ipratropium 0.02% Inh Soln 2.5ml UD HHN SCH ×4 (01:22→19:49)
[2016-03-11 04:13] VITALS: BP 119/70
[2016-03-11] MEDS: NovoLOG Insulin Flexpen SUBQ SCH ×4 (07:00→20:39)
[2016-03-11 07:46] VITALS: BP 97/56
[2016-03-11] MEDS: Nystatin Powder 100,000 units/gm 15gm TOPIC SCH ×3 (09:00→17:55)
[2016-03-11] MEDS: Advair 250/50 Inhaler - 14 dose INH SCH ×2 (09:00→18:00)
--- NOTE | 2016-03-11 09:06 | Pulmonology Progress Note ---
Assessment/Plan Assessment/Plan IMPRESSION: 1. Exacerbation of chronic obstructive pulmonary disease. 2. Automatic implantable cardioverter-defibrillator. 3. History of breast carcinoma. 4. Ulcerative colitis/inflammatory bowel disease. 5. Deafness. 6. History of methicillin-resistant Staphylococcus aureus nares. 7. Chronic pain. PLAN: -Optimize pulmonary hygiene/mobilize as tolerated -Titrate down FiO2 to keep SaO2 ~ 90% -RTC and PRN Ipratropium only -Decrease SM to 20 IV BID and taper -BiPAP PRN and qHS -Observe off Abx -Monitor volumes/PO lasix per cards -DVT Px: SCD's, add Hep SQ -Aspiration precautions -Full code DC home in AM Subjective Interval Events: Much improved Constitutional: Reports: no symptoms HEENT: Repors: no symptoms Respiratory: Reports: dry cough Cardiovascular: Reports: no symptoms Gastrointestinal/Abdominal: Reports: no symptoms Allergies: Coded Allergies: BENZODIAZEPINES (Verified Allergy, Unknown, 04/20/10) IODINE (Verified Allergy, Unknown, 04/20/10) LIDOCAINE (Verified Allergy, Unknown, 04/20/10) LORAZEPAM (Verified Allergy, Unknown, 04/20/10) OXYBUTYNIN (Verified Allergy, Unknown, 04/20/10) PENICILLINS (Verified Allergy, Unknown, 04/20/10) PHENOTHIAZINES (Verified Allergy, Unknown, 04/20/10) PIPERACILLIN (Verified Allergy, Unknown, 04/20/10) PROPOFOL (Verified Allergy, Unknown, 04/20/10) QUINOLONES (Verified Allergy, Unknown, 04/20/10) SULFASALAZINE (Verified Allergy, Unknown, 04/20/10) TAZOBACTAM (Verified Allergy, Unknown, 04/20/10) TEMAZEPAM (Verified Allergy, Unknown, 04/20/10) Objective Last 24 Hour Vital Signs Date Time Temp Pulse Resp B/P Pulse Ox O2 Delivery O2 Flow Rate FiO2 03/11/16 08:05 Nasal Cannula 4.0 36 03/11/16 08:05 97 Nasal Cannula 4.0 36 03/11/16 08:05 75 16 99 Nasal Cannula 4.0 36 03/11/16 08:05 75 18 98 Nasal Cannula 4.0 36 03/11/16 07:46 97.0 77 20 97/56 96 Nasal Cannula 4.0 03/11/16 04:13 97.0 69 20 119/70 98 Nasal Cannula 2.0 03/11/16 03:45 75 03/11/16 01:28 75 18 98 Nasal Cannula 4.0 36 03/11/16 01:20 75 16 98 Nasal Cannula 4.0 36 03/11/16 00:27 97.0 75 20 98/53 97 Room Air 03/11/16 00:15 75 03/11/16 00:15 75 03/10/16 20:00 97.2 84 19 98/60 95 Nasal Cannula 4.0 03/10/16 19:52 91 03/10/16 19:31 92 18 97 Nasal Cannula 4.0 36 03/10/16 19:23 80 18 94 Nasal Cannula 4.0 36 03/10/16 19:23 94 Nasal Cannula 4.0 36 03/10/16 19:23 Nasal Cannula 4.0 36 03/10/16 16:00 87 03/10/16 16:00 97.5 85 18 107/64 95 Nasal Cannula 2.0 03/10/16 14:40 89 18 98 Nasal Cannula 4.0 36 03/10/16 14:31 89 16 94 Nasal Cannula 4.0 36 03/10/16 14:05 97.2 03/10/16 12:00 75 03/10/16 12:00 97.2 82 19 110/62 93 Nasal Cannula 4.0 Intake and Output 03/10/16 03/11/16 19:00 07:00 Intake Total 320 ml 400 ml Output Total 350 ml 950 ml Balance -30 ml -550 ml Intake Oral 320 ml 400 ml Output Urine Total 350 ml 950 ml # Bowel Movements 1 General Appearance: no acute distress HEENT: normocephalic Respiratory/Chest: chest wall non-tender, lungs clear Cardiovascular: normal peripheral pulses, normal rate Abdomen: normal bowel sounds, soft, non tender Current Medications Medications (Trade) Dose Ordered Sig/Mamie Route PRN Reason Start Time Stop Time Status Last Admin Dose Admin Artificial Tears (Akwa-Tears) 1 drop Q4HR PRN BOTH EYES Dry Eyes 03/10/16 20:00 04/09/16 19:59 03/10/16 22:05 Betamethasone Dipropionate (Diprolene Oint) 1 applic TID PRN TOPIC Itching 03/10/16 18:00 04/09/16 17:59 Cyclobenzaprine HCl (Flexeril) 10 mg TID ORAL 03/10/16 18:00 04/09/16 17:59 03/10/16 17:44 Dextrose (Dextrose 50%) STAT PRN IV Hypoglycemia 03/10/16 15:26 04/09/16 15:25 Docusate Sodium (Colace) 100 mg TWICE A DAY ORAL 03/10/16 18:00 04/09/16 17:59 03/10/16 17:43 Furosemide (Lasix) 40 mg DAILY ORAL 03/11/16 09:00 04/10/16 08:59 Heparin Sodium (Porcine) (Heparin 5000 units/ml) 5,000 units EVERY 12 HOURS SUBQ 03/10/16 21:00 04/09/16 20:59 03/10/16 21:36 Insulin Aspart (NovoLOG) BEFORE MEALS AND HS SUBQ 03/10/16 16:30 04/09/16 16:29 03/11/16 07:00 Ipratropium [place] (Atrovent) 500 mcg Q4H PRN HHN Shortness of Breath 03/10/16 17:45 03/15/16 17:44 Ipratropium [place] (Atrovent) 500 mcg Q6HRT HHN 03/10/16 19:00 03/15/16 18:59 03/11/16 01:22 Levothyroxine Sodium (Synthroid) 100 mcg ACBREAKFAST ORAL 03/11/16 06:30 04/10/16 06:29 03/11/16 06:51 Lisinopril (Zestril) 10 mg DAILY ORAL 03/11/16 09:00 04/10/16 08:59 Magnesium Citrate (Citrate Of Magnesia) 300 ml DAILYPRN PRN ORAL Constipation 03/10/16 18:00 04/09/16 17:59 Methylprednisolone Sodium Succinate (Solu-MEDROL) 20 mg BID IVP 03/10/16 18:00 04/09/16 17:59 03/10/16 17:44 Nystatin (Nystop Powder) 1 applic THREE TIMES A DAY TOPIC 03/10/16 18:00 04/09/16 17:59 03/10/16 17:59 Pantoprazole (Protonix) 40 mg ACBREAKFAST ORAL 03/11/16 06:30 04/10/16 06:29 03/11/16 06:51 Potassium Chloride (K-Dur) 10 meq DAILY ORAL 03/11/16 09:00 04/10/16 08:59 Salmeterol Xinafoate/ Fluticasone (Advair 250/50 Diskus) 1 puffs BID INH 03/10/16 18:00 04/09/16 17:59 Sertraline HCl (Zoloft) 50 mg DAILY ORAL 03/11/16 09:00 04/10/16 08:59 Topiramate (Topamax) 100 mg QHS ORAL 03/10/16 21:00 04/09/16 20:59 03/10/16 21:38 Vitamin D (Vitamin D) 1,000 intlu DAILY ORAL 03/11/16 09:00 04/10/16 08:59 Shahid Lake MD Mar 11, 2016 09:06
[2016-03-11] MEDS: Docusate 100mg cap ORAL SCH ×3 (09:37→17:56)
[2016-03-11] MEDS: Solu-MEDROL 40mg Inj IVP SCH ×2 (09:37→17:55)
[2016-03-11] MEDS: Lisinopril 10mg tab ORAL SCH (09:38)
[2016-03-11] MEDS: Cyclobenzaprine 10mg Tab ORAL SCH ×3 (09:39→17:55)
[2016-03-11] MEDS: Furosemide 40mg tab ORAL SCH (09:39)
[2016-03-11] MEDS: Sertraline 50mg tab ORAL SCH (09:47)
[2016-03-11] MEDS: Vitamin D 1000 IU Tab ORAL SCH (09:47)
[2016-03-11] MEDS: Heparin 5000 units/ml inj SUBQ SCH ×2 (09:49→20:38)
[2016-03-11 12:30] VITALS: BP 112/51
[2016-03-11 16:00] VITALS: BP 147/69
--- NOTE | 2016-03-11 17:27 | Internal Med Progress Note ---
Subjective Date of Service: Mar 11, 2016 Physician Name Sheldon Campbell Attending Physician Flex Dodson MD Current Medications Medications (Trade) Dose Ordered Sig/Mamie Route PRN Reason Start Time Stop Time Status Last Admin Dose Admin Artificial Tears (Akwa-Tears) 1 drop Q4HR PRN BOTH EYES Dry Eyes 03/10/16 20:00 04/09/16 19:59 03/10/16 22:05 Betamethasone Dipropionate (Diprolene Oint) 1 applic TID PRN TOPIC Itching 03/10/16 18:00 04/09/16 17:59 Cyclobenzaprine HCl (Flexeril) 10 mg TID ORAL 03/10/16 18:00 04/09/16 17:59 03/11/16 13:00 Dextrose (Dextrose 50%) STAT PRN IV Hypoglycemia 03/10/16 15:26 04/09/16 15:25 Docusate Sodium (Colace) 100 mg TWICE A DAY ORAL 03/10/16 18:00 04/09/16 17:59 03/11/16 09:37 Furosemide (Lasix) 40 mg DAILY ORAL 03/11/16 09:00 04/10/16 08:59 03/11/16 09:39 Heparin Sodium (Porcine) (Heparin 5000 units/ml) 5,000 units EVERY 12 HOURS SUBQ 03/10/16 21:00 04/09/16 20:59 03/11/16 09:49 Insulin Aspart (NovoLOG) BEFORE MEALS AND HS SUBQ 03/10/16 16:30 04/09/16 16:29 03/11/16 16:57 Ipratropium [place] (Atrovent) 500 mcg Q4H PRN HHN Shortness of Breath 03/10/16 17:45 03/15/16 17:44 Ipratropium [place] (Atrovent) 500 mcg Q6HRT HHN 03/10/16 19:00 03/15/16 18:59 03/11/16 13:43 Levothyroxine Sodium (Synthroid) 100 mcg ACBREAKFAST ORAL 03/11/16 06:30 04/10/16 06:29 03/11/16 06:51 Lisinopril (Zestril) 10 mg DAILY ORAL 03/11/16 09:00 04/10/16 08:59 03/11/16 09:38 Magnesium Citrate (Citrate Of Magnesia) 300 ml DAILYPRN PRN ORAL Constipation 03/10/16 18:00 04/09/16 17:59 Methylprednisolone Sodium Succinate (Solu-MEDROL) 20 mg BID IVP 03/10/16 18:00 04/09/16 17:59 03/11/16 09:37 Nystatin (Nystop Powder) 1 applic THREE TIMES A DAY TOPIC 03/10/16 18:00 04/09/16 17:59 03/11/16 13:01 Pantoprazole (Protonix) 40 mg ACBREAKFAST ORAL 03/11/16 06:30 04/10/16 06:29 03/11/16 06:51 Potassium Chloride (K-Dur) 10 meq DAILY ORAL 03/11/16 09:00 04/10/16 08:59 03/11/16 09:47 Salmeterol Xinafoate/ Fluticasone (Advair 250/50 Diskus) 1 puffs BID INH 03/10/16 18:00 04/09/16 17:59 Sertraline HCl (Zoloft) 50 mg DAILY ORAL 03/11/16 09:00 04/10/16 08:59 03/11/16 09:47 Topiramate (Topamax) 100 mg QHS ORAL 03/10/16 21:00 04/09/16 20:59 03/10/16 21:38 Vitamin D (Vitamin D) 1,000 intlu DAILY ORAL 03/11/16 09:00 04/10/16 08:59 03/11/16 09:47 Allergies: Coded Allergies: BENZODIAZEPINES (Verified Allergy, Unknown, 04/20/10) IODINE (Verified Allergy, Unknown, 04/20/10) LIDOCAINE (Verified Allergy, Unknown, 04/20/10) LORAZEPAM (Verified Allergy, Unknown, 04/20/10) OXYBUTYNIN (Verified Allergy, Unknown, 04/20/10) PENICILLINS (Verified Allergy, Unknown, 04/20/10) PHENOTHIAZINES (Verified Allergy, Unknown, 04/20/10) PIPERACILLIN (Verified Allergy, Unknown, 04/20/10) PROPOFOL (Verified Allergy, Unknown, 04/20/10) QUINOLONES (Verified Allergy, Unknown, 04/20/10) SULFASALAZINE (Verified Allergy, Unknown, 04/20/10) TAZOBACTAM (Verified Allergy, Unknown, 04/20/10) TEMAZEPAM (Verified Allergy, Unknown, 04/20/10) ROS Limited/Unobtainable: No Constitutional: Reports: no symptoms HEENT: Reports: no symptoms Cardiovascular: Reports: no symptoms Respiratory: Reports: shortness of breath Gastrointestinal/Abdominal: Reports: no symptoms Genitourinary: Reports: no symptoms Neurologic/Psychiatric: Reports: no symptoms Subjective 65 YO F admitted for Shortness of breath and COPD exacerbation. Cover for Int Med-Dr Dodson. Off BIPAP; tolerating nasal canula. Await D/C in am per pulmonary Objective Last Vital Signs Date Time Temp Pulse Resp B/P Pulse Ox O2 Delivery O2 Flow Rate FiO2 03/11/16 13:59 97.5 03/11/16 13:29 83 18 90 Nasal Cannula 4.0 36 03/11/16 12:30 112/51 Intake and Output 03/10/16 03/11/16 18:59 06:59 Intake Total 320 ml 400 ml Output Total 350 ml 950 ml Balance -30 ml -550 ml Intake Oral 320 ml 400 ml Output Urine Total 350 ml 950 ml # Bowel Movements 1 Objective General Appearance: WD/WN, alert, moderate distress EENT: PERRL/EOMI, normal ENT inspection Neck: normal alignment, supple Cardiovascular: normal peripheral pulses, normal rate, regular rhythm, no gallop/murmur, no JVD Respiratory/Chest: Nasal canula; decreased breath sounds, accessory muscle use , crackles/rales, rhonchi - bilaterally, expiratory wheezing Abdomen: non tender, soft, no organomegaly, no mass Extremities: normal range of motion, non-tender Neurologic: prevention coordinator II-XII grossly normal, no motor/sensory deficits Skin: warm/dry Assessment/Plan Problem List: (1) CAD (coronary artery disease) (2) HTN (hypertension) Assessment & Plan: Cont lisinopril and norvasc. (3) CHF (congestive heart failure) (4) Hypothyroidism Assessment & Plan: Cont synthroid. (5) AICD (automatic cardioverter/defibrillator) present (6) Shortness of breath (7) COPD with acute exacerbation Assessment & Plan: See Pulmonary note. Off BIPAP prn and tolerating nasal canula. Cont advair and duoneb. D/C vanco; cont levaquin and azithromycin per pulm. Decrease IV solumedrol to 20 mg IV BID (8) Chronic pain Assessment & Plan: Cont oral dilaudid prn (9) Constipation Assessment & Plan: Cont colace. Start mag citrate prn Assessment/Plan D/C in am home with home health. F/U Dr Lake in 1 week SHELDON CAMPBELL Mar 11, 2016 17:27
[2016-03-11] MEDS: Artificial Tears 1.4% Op Soln BOTH EYES PRN (17:36)
[2016-03-11 20:00] VITALS: BP 107/64
[2016-03-11] MEDS: Topiramate 100mg tab ORAL SCH (20:36)
[2016-03-12] VITALS (7 sets, daily range): BP systolic 98–121; BP diastolic 63–72
[2016-03-12] MEDS: Ipratropium 0.02% Inh Soln 2.5ml UD HHN SCH ×4 (00:58→19:52)
[2016-03-12 06:19] LABS: BASOPHILS % (AUTO) 0.4 % (0.0-2.0); LYMPHOCYTES % (AUTO) 21.5 % (20.0-45.0); MEAN CORPUSCULAR HEMOGLOBIN 29.5 PG (27.0-31.0); MEAN CORPUSCULAR HGB CONC 32.4 G/DL (32.0-36.0); MEAN CORPUSCULAR VOLUME 91 FL (80-99); MEAN PLATELET VOLUME 7.7 FL (6.5-10.1); MONOCYTES % (AUTO) 5.7 % (1.0-10.0); NEUTROPHILS % (AUTO) 72.4 % (45.0-75.0); PLATELET COUNT 169 K/UL (150-450); RED BLOOD COUNT 3.82 M/UL (4.20-5.40); RED CELL DISTRIBUTION WIDTH 13.6 % (11.6-14.8); WHITE BLOOD COUNT 12.3 K/UL (4.8-10.8)
[2016-03-12 06:24] LABS: GLOMERULAR FILTRATION RATE 55.5 mL/min (>60); POTASSIUM 3.8 mEQ/L (3.4-4.9)
[2016-03-12] MEDS: NovoLOG Insulin Flexpen SUBQ SCH ×4 (06:30→20:41)
[2016-03-12] MEDS: Sertraline 50mg tab ORAL SCH (09:00)
[2016-03-12] MEDS: Advair 250/50 Inhaler - 14 dose INH SCH ×2 (09:00→18:00)
[2016-03-12] MEDS: Docusate 100mg cap ORAL SCH ×2 (09:00→17:24)
[2016-03-12] MEDS: Nystatin Powder 100,000 units/gm 15gm TOPIC SCH ×3 (09:00→17:26)
[2016-03-12] MEDS: Solu-MEDROL 40mg Inj IVP SCH ×2 (09:52→17:24)
[2016-03-12] MEDS: Vitamin D 1000 IU Tab ORAL SCH (09:53)
[2016-03-12] MEDS: Furosemide 40mg tab ORAL SCH (09:54)
[2016-03-12] MEDS: Cyclobenzaprine 10mg Tab ORAL SCH ×3 (09:55→17:28)
[2016-03-12] MEDS: Lisinopril 10mg tab ORAL SCH (09:56)
[2016-03-12] MEDS: Heparin 5000 units/ml inj SUBQ SCH ×2 (10:01→20:18)
--- NOTE | 2016-03-12 11:06 | Cardiac Electrophysiology PN ---
Assessment/Plan Assessment/Plan 1. CHF with BNP 815 and EF 40%.Continue Lasix 40 mg po QD and Lisinopril 10 mg po daily. Off beta bridget for COPD.Add Aldactone 25 daily. 2. Status post right-sided [facility] [employer] defibrillator implantation with normal function. 3. Severe chronic obstructive pulmonary disease.On Nasal Cannula 4. History of breast cancer. 5. Leukopenia 6. Ulcerative colitis/inflammatory bowel disease. 7. Deafness. 8. History of methicillin-resistant Staphylococcus aureus nares. PAULA RN Subjective Subjective Alert in NAD. Off and on wears Nasal Cannula. Remains in A. Paced rhythm. No fib. Objective Last 24 Hour Vital Signs Date Time Temp Pulse Resp B/P Pulse Ox O2 Delivery O2 Flow Rate FiO2 03/12/16 09:56 140/78 03/12/16 08:00 96.8 76 17 108/64 97 Nasal Cannula 2.0 03/12/16 07:47 Nasal Cannula 3.0 32 03/12/16 07:47 80 16 96 Nasal Cannula 3.0 32 03/12/16 07:47 96 Nasal Cannula 3.0 32 03/12/16 07:47 82 16 96 Nasal Cannula 3.0 32 03/12/16 06:01 97.0 75 20 116/69 95 Room Air 03/12/16 04:00 75 03/12/16 04:00 97.0 75 20 116/69 95 Room Air 03/12/16 01:08 91 18 98 Nasal Cannula 4.0 36 03/12/16 00:59 75 18 95 Nasal Cannula 4.0 36 03/12/16 00:20 97.0 75 20 98/63 97 Room Air 03/12/16 00:00 75 03/11/16 20:00 98.0 91 20 107/64 99 Nasal Cannula 4.0 03/11/16 20:00 84 03/11/16 19:51 87 18 96 Nasal Cannula 4.0 36 03/11/16 19:47 Nasal Cannula 4.0 36 03/11/16 19:47 87 18 91 Nasal Cannula 4.0 36 03/11/16 19:47 94 Nasal Cannula 4.0 36 03/11/16 18:54 97.5 03/11/16 16:00 83 03/11/16 16:00 97.5 90 18 147/69 90 Nasal Cannula 4.0 03/11/16 13:29 83 18 90 Nasal Cannula 4.0 36 03/11/16 13:29 85 18 98 Nasal Cannula 4.0 36 03/11/16 12:30 97.5 77 20 112/51 95 Nasal Cannula 4.0 03/11/16 12:00 78 Intake and Output 03/11/16 03/12/16 19:00 07:00 Intake Total 550 ml Output Total 1100 ml 100 ml Balance -550 ml -100 ml Intake Oral 550 ml Output Urine Total 1100 ml 100 ml # Voids 2 4 # Bowel Movements 4 1 Laboratory Tests Test 03/12/16 05:00 White Blood Count 12.3 K/UL (4.8-10.8) H Red Blood Count 3.82 M/UL (4.20-5.40) L Hemoglobin 11.3 G/DL (12.0-16.0) L Hematocrit 34.8 % (37.0-47.0) L Mean Corpuscular Volume 91 FL (80-99) Mean Corpuscular Hemoglobin 29.5 PG (27.0-31.0) Mean Corpuscular Hemoglobin Concent 32.4 G/DL (32.0-36.0) Red Cell Distribution Width 13.6 % (11.6-14.8) Platelet Count 169 K/UL (150-450) Mean Platelet Volume 7.7 FL (6.5-10.1) Neutrophils (%) (Auto) 72.4 % (45.0-75.0) Lymphocytes (%) (Auto) 21.5 % (20.0-45.0) Monocytes (%) (Auto) 5.7 % (1.0-10.0) Eosinophils (%) (Auto) 0.0 % (0.0-3.0) Basophils (%) (Auto) 0.4 % (0.0-2.0) Sodium Level 142 mEQ/L (135-145) Potassium Level 3.8 mEQ/L (3.4-4.9) Chloride Level 99 mEQ/L (98-107) Carbon Dioxide Level 30 mEQ/L (20-30) Anion Gap 13 (5-15) Blood Urea Nitrogen 42 mg/dL (7-23) H Creatinine 1.0 mg/dL (0.5-0.9) H Estimat Glomerular Filtration Rate 55.5 mL/min (>60) Glucose Level 91 mg/dL (74-106) Calcium Level 9.0 mg/dL (8.6-10.2) Objective HEAD AND NECK: No JVD. LUNGS: Coarse rhonchi CARDIOVASCULAR: Regular S1 and S2 with no murmur with the ICD in the right subclavian. ABDOMEN: Soft. EXTREMITIES: No pitting edema. COCO ANGEL Mar 12, 2016 11:06
--- NOTE | 2016-03-12 17:28 | Pulmonology Progress Note ---
Assessment/Plan Assessment/Plan IMPRESSION: 1. Exacerbation of chronic obstructive pulmonary disease. 2. Automatic implantable cardioverter-defibrillator. 3. History of breast carcinoma. 4. Ulcerative colitis/inflammatory bowel disease. 5. Deafness. 6. History of methicillin-resistant Staphylococcus aureus nares. 7. Chronic pain. PLAN: -Optimize pulmonary hygiene/mobilize as tolerated -Titrate down FiO2 to keep SaO2 ~ 90% -RTC and PRN Ipratropium only -Decrease SM to 20 IV BID and taper -BiPAP PRN and qHS -Observe off Abx -Monitor volumes/PO lasix per cards -DVT Px: SCD's, add Hep SQ -Aspiration precautions -Full code DC home Subjective Interval Events: Feeling better Constitutional: Reports: no symptoms HEENT: Repors: no symptoms Respiratory: Reports: no symptoms Cardiovascular: Reports: no symptoms Gastrointestinal/Abdominal: Reports: no symptoms Genitourinary: Reports: no symptoms Allergies: Coded Allergies: BENZODIAZEPINES (Verified Allergy, Unknown, 04/20/10) IODINE (Verified Allergy, Unknown, 04/20/10) LIDOCAINE (Verified Allergy, Unknown, 04/20/10) LORAZEPAM (Verified Allergy, Unknown, 04/20/10) OXYBUTYNIN (Verified Allergy, Unknown, 04/20/10) PENICILLINS (Verified Allergy, Unknown, 04/20/10) PHENOTHIAZINES (Verified Allergy, Unknown, 04/20/10) PIPERACILLIN (Verified Allergy, Unknown, 04/20/10) PROPOFOL (Verified Allergy, Unknown, 04/20/10) QUINOLONES (Verified Allergy, Unknown, 04/20/10) SULFASALAZINE (Verified Allergy, Unknown, 04/20/10) TAZOBACTAM (Verified Allergy, Unknown, 04/20/10) TEMAZEPAM (Verified Allergy, Unknown, 04/20/10) Objective Last 24 Hour Vital Signs Date Time Temp Pulse Resp B/P Pulse Ox O2 Delivery O2 Flow Rate FiO2 03/12/16 16:00 97.7 100 21 114/64 97 Nasal Cannula 4.0 03/12/16 15:52 97.9 03/12/16 14:13 84 03/12/16 13:35 79 16 96 Nasal Cannula 3.0 32 03/12/16 12:00 96.9 82 16 111/72 95 Nasal Cannula 03/12/16 09:56 140/78 03/12/16 08:30 79 1/16/17 08:00 96.8 76 17 108/64 97 Nasal Cannula 2.0 03/12/16 07:47 Nasal Cannula 3.0 32 03/12/16 07:47 80 16 96 Nasal Cannula 3.0 32 03/12/16 07:47 96 Nasal Cannula 3.0 32 03/12/16 07:47 82 16 96 Nasal Cannula 3.0 32 03/12/16 06:01 97.0 75 20 116/69 95 Room Air 03/12/16 04:00 75 03/12/16 04:00 97.0 75 20 116/69 95 Room Air 03/12/16 01:08 91 18 98 Nasal Cannula 4.0 36 03/12/16 00:59 75 18 95 Nasal Cannula 4.0 36 03/12/16 00:20 97.0 75 20 98/63 97 Room Air 03/12/16 00:00 75 03/11/16 20:00 98.0 91 20 107/64 99 Nasal Cannula 4.0 03/11/16 20:00 84 03/11/16 19:51 87 18 96 Nasal Cannula 4.0 36 03/11/16 19:47 Nasal Cannula 4.0 36 03/11/16 19:47 87 18 91 Nasal Cannula 4.0 36 03/11/16 19:47 94 Nasal Cannula 4.0 36 Intake and Output 03/11/16 03/12/16 19:00 07:00 Intake Total 550 ml Output Total 1100 ml 100 ml Balance -550 ml -100 ml Intake Oral 550 ml Output Urine Total 1100 ml 100 ml # Voids 2 4 # Bowel Movements 4 1 General Appearance: no acute distress HEENT: normocephalic Respiratory/Chest: chest wall non-tender, lungs clear Cardiovascular: normal peripheral pulses, normal rate Laboratory Tests 03/12/16 05:00: White Blood Count 12.3H, Red Blood Count 3.82L, Hemoglobin 11.3L, Hematocrit 34.8L, Mean Corpuscular Volume 91, Mean Corpuscular Hemoglobin 29.5, Mean Corpuscular Hemoglobin Concent 32.4, Red Cell Distribution Width 13.6, Platelet Count 169, Mean Platelet Volume 7.7, Neutrophils (%) (Auto) 72.4, Lymphocytes (% ) (Auto) 21.5, Monocytes (%) (Auto) 5.7, Eosinophils (%) (Auto) 0.0, Basophils ( %) (Auto) 0.4, Sodium Level 142, Potassium Level 3.8, Chloride Level 99, Carbon Dioxide Level 30, Anion Gap 13, Blood Urea Nitrogen 42H, Creatinine 1.0H, Estimat Glomerular Filtration Rate 55.5, Glucose Level 91, Calcium Level 9.0 Current Medications Medications (Trade) Dose Ordered Sig/Mamie Route PRN Reason Start Time Stop Time Status Last Admin Dose Admin Artificial Tears (Akwa-Tears) 1 drop Q4HR PRN BOTH EYES Dry Eyes 03/10/16 20:00 04/09/16 19:59 03/11/16 17:36 Betamethasone Dipropionate (Diprolene Oint) 1 applic TID PRN TOPIC Itching 03/10/16 18:00 04/09/16 17:59 Cyclobenzaprine HCl (Flexeril) 10 mg TID ORAL 03/10/16 18:00 04/09/16 17:59 03/12/16 14:05 Dextrose (Dextrose 50%) STAT PRN IV Hypoglycemia 03/10/16 15:26 04/09/16 15:25 Docusate Sodium (Colace) 100 mg TWICE A DAY ORAL 03/10/16 18:00 04/09/16 17:59 03/12/16 09:00 Furosemide (Lasix) 40 mg DAILY ORAL 03/11/16 09:00 04/10/16 08:59 03/12/16 09:54 Heparin Sodium (Porcine) (Heparin 5000 units/ml) 5,000 units EVERY 12 HOURS SUBQ 03/10/16 21:00 04/09/16 20:59 03/12/16 10:01 Insulin Aspart (NovoLOG) BEFORE MEALS AND HS SUBQ 03/10/16 16:30 04/09/16 16:29 03/12/16 11:43 Ipratropium [place] (Atrovent) 500 mcg Q4H PRN HHN Shortness of Breath 03/10/16 17:45 03/15/16 17:44 Ipratropium [place] (Atrovent) 500 mcg Q6HRT HHN 03/10/16 19:00 03/15/16 18:59 03/12/16 07:47 Levothyroxine Sodium (Synthroid) 100 mcg ACBREAKFAST ORAL 03/11/16 06:30 04/10/16 06:29 03/12/16 06:35 Lisinopril (Zestril) 10 mg DAILY ORAL 03/11/16 09:00 04/10/16 08:59 03/12/16 09:56 Magnesium Citrate (Citrate Of Magnesia) 300 ml DAILYPRN PRN ORAL Constipation 03/10/16 18:00 04/09/16 17:59 Methylprednisolone Sodium Succinate (Solu-MEDROL) 20 mg BID IVP 03/10/16 18:00 04/09/16 17:59 03/12/16 09:52 Nystatin (Nystop Powder) 1 applic THREE TIMES A DAY TOPIC 03/10/16 18:00 04/09/16 17:59 03/12/16 13:00 Pantoprazole (Protonix) 40 mg ACBREAKFAST ORAL 03/11/16 06:30 04/10/16 06:29 03/12/16 06:35 Potassium Chloride (K-Dur) 10 meq DAILY ORAL 03/11/16 09:00 04/10/16 08:59 03/12/16 09:56 Salmeterol Xinafoate/ Fluticasone (Advair 250/50 Diskus) 1 puffs BID INH 03/10/16 18:00 04/09/16 17:59 Sertraline HCl (Zoloft) 50 mg DAILY ORAL 03/11/16 09:00 04/10/16 08:59 03/12/16 09:00 Spironolactone (Aldactone) 25 mg DAILY ORAL 03/13/16 14:00 04/12/16 13:59 Topiramate (Topamax) 100 mg QHS ORAL 03/10/16 21:00 04/09/16 20:59 03/11/16 20:36 Vitamin D (Vitamin D) 1,000 intlu DAILY ORAL 03/11/16 09:00 04/10/16 08:59 03/12/16 09:53 Shahid Lake MD Mar 12, 2016 17:28
--- NOTE | 2016-03-12 19:04 | Internal Med Progress Note ---
Subjective Date of Service: Mar 12, 2016 Physician Name Osmar Campbell Attending Physician Flex Dodson MD Current Medications Medications (Trade) Dose Ordered Sig/Mamie Route PRN Reason Start Time Stop Time Status Last Admin Dose Admin Artificial Tears (Akwa-Tears) 1 drop Q4HR PRN BOTH EYES Dry Eyes 03/10/16 20:00 04/09/16 19:59 03/11/16 17:36 Betamethasone Dipropionate (Diprolene Oint) 1 applic TID PRN TOPIC Itching 03/10/16 18:00 04/09/16 17:59 Cyclobenzaprine HCl (Flexeril) 10 mg TID ORAL 03/10/16 18:00 04/09/16 17:59 03/12/16 17:28 Dextrose (Dextrose 50%) STAT PRN IV Hypoglycemia 03/10/16 15:26 04/09/16 15:25 Docusate Sodium (Colace) 100 mg TWICE A DAY ORAL 03/10/16 18:00 04/09/16 17:59 03/12/16 09:00 Furosemide (Lasix) 40 mg DAILY ORAL 03/11/16 09:00 04/10/16 08:59 03/12/16 09:54 Heparin Sodium (Porcine) (Heparin 5000 units/ml) 5,000 units EVERY 12 HOURS SUBQ 03/10/16 21:00 04/09/16 20:59 03/12/16 10:01 Insulin Aspart (NovoLOG) BEFORE MEALS AND HS SUBQ 03/10/16 16:30 04/09/16 16:29 03/12/16 17:26 Ipratropium [place] (Atrovent) 500 mcg Q4H PRN HHN Shortness of Breath 03/10/16 17:45 03/15/16 17:44 Ipratropium [place] (Atrovent) 500 mcg Q6HRT HHN 03/10/16 19:00 03/15/16 18:59 03/12/16 07:47 Levothyroxine Sodium (Synthroid) 100 mcg ACBREAKFAST ORAL 03/11/16 06:30 04/10/16 06:29 03/12/16 06:35 Lisinopril (Zestril) 10 mg DAILY ORAL 03/11/16 09:00 04/10/16 08:59 1/16/17 09:56 Magnesium Citrate (Citrate Of Magnesia) 300 ml DAILYPRN PRN ORAL Constipation 03/10/16 18:00 04/09/16 17:59 Methylprednisolone Sodium Succinate (Solu-MEDROL) 20 mg BID IVP 03/10/16 18:00 04/09/16 17:59 03/12/16 17:24 Nystatin (Nystop Powder) 1 applic THREE TIMES A DAY TOPIC 03/10/16 18:00 04/09/16 17:59 03/12/16 17:26 Pantoprazole (Protonix) 40 mg ACBREAKFAST ORAL 03/11/16 06:30 04/10/16 06:29 03/12/16 06:35 Potassium Chloride (K-Dur) 10 meq DAILY ORAL 03/11/16 09:00 04/10/16 08:59 03/12/16 09:56 Salmeterol Xinafoate/ Fluticasone (Advair 250/50 Diskus) 1 puffs BID INH 03/10/16 18:00 04/09/16 17:59 Sertraline HCl (Zoloft) 50 mg DAILY ORAL 03/11/16 09:00 04/10/16 08:59 03/12/16 09:00 Spironolactone (Aldactone) 25 mg DAILY ORAL 03/13/16 14:00 04/12/16 13:59 Topiramate (Topamax) 100 mg QHS ORAL 03/10/16 21:00 04/09/16 20:59 03/11/16 20:36 Vitamin D (Vitamin D) 1,000 intlu DAILY ORAL 03/11/16 09:00 04/10/16 08:59 03/12/16 09:53 Allergies: Coded Allergies: BENZODIAZEPINES (Verified Allergy, Unknown, 04/20/10) IODINE (Verified Allergy, Unknown, 04/20/10) LIDOCAINE (Verified Allergy, Unknown, 04/20/10) LORAZEPAM (Verified Allergy, Unknown, 04/20/10) OXYBUTYNIN (Verified Allergy, Unknown, 04/20/10) PENICILLINS (Verified Allergy, Unknown, 04/20/10) PHENOTHIAZINES (Verified Allergy, Unknown, 04/20/10) PIPERACILLIN (Verified Allergy, Unknown, 04/20/10) PROPOFOL (Verified Allergy, Unknown, 04/20/10) QUINOLONES (Verified Allergy, Unknown, 04/20/10) SULFASALAZINE (Verified Allergy, Unknown, 04/20/10) TAZOBACTAM (Verified Allergy, Unknown, 04/20/10) TEMAZEPAM (Verified Allergy, Unknown, 04/20/10) ROS Limited/Unobtainable: No Constitutional: Reports: no symptoms HEENT: Reports: no symptoms Cardiovascular: Reports: no symptoms Respiratory: Reports: no symptoms Gastrointestinal/Abdominal: Reports: no symptoms Genitourinary: Reports: no symptoms Neurologic/Psychiatric: Reports: no symptoms Subjective 65 YO F admitted for Shortness of breath and COPD exacerbation. Cover for Int Jonnie-Dr Dodson. Off BIPAP; tolerating nasal canula. Await D/C in am per pulmonary Objective Last Vital Signs Date Time Temp Pulse Resp B/P Pulse Ox O2 Delivery O2 Flow Rate FiO2 03/12/16 16:00 97.7 100 21 114/64 97 Nasal Cannula 4.0 03/12/16 13:35 32 Laboratory Tests Test 03/12/16 05:00 White Blood Count 12.3 K/UL (4.8-10.8) H Red Blood Count 3.82 M/UL (4.20-5.40) L Hemoglobin 11.3 G/DL (12.0-16.0) L Hematocrit 34.8 % (37.0-47.0) L Mean Corpuscular Volume 91 FL (80-99) Mean Corpuscular Hemoglobin 29.5 PG (27.0-31.0) Mean Corpuscular Hemoglobin Concent 32.4 G/DL (32.0-36.0) Red Cell Distribution Width 13.6 % (11.6-14.8) Platelet Count 169 K/UL (150-450) Mean Platelet Volume 7.7 FL (6.5-10.1) Neutrophils (%) (Auto) 72.4 % (45.0-75.0) Lymphocytes (%) (Auto) 21.5 % (20.0-45.0) Monocytes (%) (Auto) 5.7 % (1.0-10.0) Eosinophils (%) (Auto) 0.0 % (0.0-3.0) Basophils (%) (Auto) 0.4 % (0.0-2.0) Sodium Level 142 mEQ/L (135-145) Potassium Level 3.8 mEQ/L (3.4-4.9) Chloride Level 99 mEQ/L (98-107) Carbon Dioxide Level 30 mEQ/L (20-30) Anion Gap 13 (5-15) Blood Urea Nitrogen 42 mg/dL (7-23) H Creatinine 1.0 mg/dL (0.5-0.9) H Estimat Glomerular Filtration Rate 55.5 mL/min (>60) Glucose Level 91 mg/dL (74-106) Calcium Level 9.0 mg/dL (8.6-10.2) Intake and Output 03/11/16 03/12/16 19:00 07:00 Intake Total 550 ml Output Total 1100 ml 100 ml Balance -550 ml -100 ml Intake Oral 550 ml Output Urine Total 1100 ml 100 ml # Voids 2 4 # Bowel Movements 4 1 Objective General Appearance: WD/WN, alert, moderate distress EENT: PERRL/EOMI, normal ENT inspection Neck: normal alignment, supple Cardiovascular: normal peripheral pulses, normal rate, regular rhythm, no gallop/murmur, no JVD Respiratory/Chest: Nasal canula; decreased breath sounds, accessory muscle use , crackles/rales, rhonchi - bilaterally, expiratory wheezing Abdomen: non tender, soft, no organomegaly, no mass Extremities: normal range of motion, non-tender Neurologic: supervisor general II-XII grossly normal, no motor/sensory deficits Skin: warm/dry Assessment/Plan Problem List: (1) CAD (coronary artery disease) (2) HTN (hypertension) Assessment & Plan: Cont lisinopril and norvasc. (3) CHF (congestive heart failure) (4) Hypothyroidism Assessment & Plan: Cont synthroid. (5) AICD (automatic cardioverter/defibrillator) present (6) Shortness of breath (7) COPD with acute exacerbation Assessment & Plan: See Pulmonary note. Off BIPAP prn and tolerating nasal canula. Cont advair and duoneb. D/C vanco; cont levaquin and azithromycin per pulm. D/C IV solumedrol; prednisone 30 mg PO q day with taper as outpatient (8) Chronic pain Assessment & Plan: Cont oral dilaudid prn (9) Constipation Assessment & Plan: Cont colace. Start mag citrate prn Status: progressing Assessment/Plan D/C in am home with home health. F/U Dr Lake in 1 week OSMAR CAMPBELL Mar 12, 2016 19:04
[2016-03-12] MEDS: Topiramate 100mg tab ORAL SCH (20:17)
[2016-03-13] VITALS: BP 138/90
[2016-03-13] MEDS: Ipratropium 0.02% Inh Soln 2.5ml UD HHN SCH ×3 (01:00→13:08)
[2016-03-13 04:00] VITALS: BP 110/56
[2016-03-13] MEDS: NovoLOG Insulin Flexpen SUBQ SCH ×2 (06:19→12:08)
[2016-03-13 07:49] LABS: BASOPHILS % (AUTO) 0.8 % (0.0-2.0); LYMPHOCYTES % (AUTO) 23.4 % (20.0-45.0); MEAN CORPUSCULAR HEMOGLOBIN 28.5 PG (27.0-31.0); MEAN CORPUSCULAR HGB CONC 32.4 G/DL (32.0-36.0); MEAN CORPUSCULAR VOLUME 88 FL (80-99); MEAN PLATELET VOLUME 7.3 FL (6.5-10.1); MONOCYTES % (AUTO) 5.6 % (1.0-10.0); NEUTROPHILS % (AUTO) 70.2 % (45.0-75.0); PLATELET COUNT 186 K/UL (150-450); RED BLOOD COUNT 4.09 M/UL (4.20-5.40); RED CELL DISTRIBUTION WIDTH 13.5 % (11.6-14.8); WHITE BLOOD COUNT 12.5 K/UL (4.8-10.8)
[2016-03-13 08:00] VITALS: BP 99/72
[2016-03-13 08:19] LABS: ANION GAP 15 (5-15); CALCIUM 9.1 mg/dL (8.6-10.2); CARBON DIOXIDE 29 mEQ/L (20-30); CHLORIDE 93 mEQ/L (98-107); CREATININE 0.9 mg/dL (0.5-0.9); GLOMERULAR FILTRATION RATE > 60 mL/min (>60); HEMOLYSIS 3; POTASSIUM 3.6 mEQ/L (3.4-4.9); SODIUM 137 mEQ/L (135-145)
[2016-03-13] MEDS: Vitamin D 1000 IU Tab ORAL SCH (08:39)
[2016-03-13] MEDS: Cyclobenzaprine 10mg Tab ORAL SCH ×2 (08:40→13:23)
[2016-03-13] MEDS: Sertraline 50mg tab ORAL SCH (08:40)
[2016-03-13] MEDS: Furosemide 40mg tab ORAL SCH (08:40)
[2016-03-13] MEDS: Heparin 5000 units/ml inj SUBQ SCH (08:41)
[2016-03-13] MEDS: Nystatin Powder 100,000 units/gm 15gm TOPIC SCH ×2 (08:44→13:24)
[2016-03-13] MEDS: Lisinopril 10mg tab ORAL SCH (08:45)
[2016-03-13] MEDS: Docusate 100mg cap ORAL SCH (08:45)
[2016-03-13] MEDS ORDERED: PredniSONE 20mg tab ORAL SCH (09:00)
[2016-03-13] MEDS: Advair 250/50 Inhaler - 14 dose INH SCH (09:15)
--- NOTE | 2016-03-13 09:49 | Pulmonology Progress Note ---
Assessment/Plan Assessment/Plan IMPRESSION: 1. Exacerbation of chronic obstructive pulmonary disease. 2. Automatic implantable cardioverter-defibrillator. 3. History of breast carcinoma. 4. Ulcerative colitis/inflammatory bowel disease. 5. Deafness. 6. History of methicillin-resistant Staphylococcus aureus nares. 7. Chronic pain. PLAN: -Optimize pulmonary hygiene/mobilize as tolerated -Titrate down FiO2 to keep SaO2 ~ 90% -RTC and PRN Ipratropium only -Decrease Steroids -BiPAP PRN and qHS -Observe off Abx -Monitor volumes/PO lasix per cards -DVT Px: SCD's, add Hep SQ -Aspiration precautions -Full code DC home on PO steroids per Dr Dodson Subjective Interval Events: Had diarrhea yesterday Constitutional: Reports: no symptoms HEENT: Repors: no symptoms Respiratory: Reports: dry cough, shortness of breath Cardiovascular: Reports: no symptoms Gastrointestinal/Abdominal: Reports: diarrhea Genitourinary: Reports: no symptoms Neurologic: Reports: no symptoms Allergies: Coded Allergies: BENZODIAZEPINES (Verified Allergy, Unknown, 04/20/10) IODINE (Verified Allergy, Unknown, 04/20/10) LIDOCAINE (Verified Allergy, Unknown, 04/20/10) LORAZEPAM (Verified Allergy, Unknown, 04/20/10) OXYBUTYNIN (Verified Allergy, Unknown, 04/20/10) PENICILLINS (Verified Allergy, Unknown, 04/20/10) PHENOTHIAZINES (Verified Allergy, Unknown, 04/20/10) PIPERACILLIN (Verified Allergy, Unknown, 04/20/10) PROPOFOL (Verified Allergy, Unknown, 04/20/10) QUINOLONES (Verified Allergy, Unknown, 04/20/10) SULFASALAZINE (Verified Allergy, Unknown, 04/20/10) TAZOBACTAM (Verified Allergy, Unknown, 04/20/10) TEMAZEPAM (Verified Allergy, Unknown, 04/20/10) Objective Last 24 Hour Vital Signs Date Time Temp Pulse Resp B/P Pulse Ox O2 Delivery O2 Flow Rate FiO2 03/13/16 08:45 99/72 03/13/16 08:00 96.5 75 17 99/72 98 Nasal Cannula 2.0 03/13/16 07:35 80 20 100 Nasal Cannula 4.0 36 03/13/16 07:25 79 20 96 Nasal Cannula 4.0 36 03/13/16 07:24 96 Nasal Cannula 4.0 36 03/13/16 07:24 Nasal Cannula 4.0 36 03/13/16 04:00 97.0 75 16 110/56 97 Nasal Cannula 2.0 03/13/16 04:00 75 03/13/16 01:30 Nasal Cannula 3.0 32 03/13/16 01:30 Nasal Cannula 3.0 32 03/13/16 00:00 97.0 98 20 138/90 97 Room Air 03/13/16 00:00 75 03/12/16 20:00 97.5 54 19 121/65 99 Room Air 03/12/16 20:00 89 03/12/16 19:45 102 20 97 Nasal Cannula 3.0 32 03/12/16 19:30 Nasal Cannula 3.0 32 03/12/16 19:30 99 20 95 Nasal Cannula 3.0 32 03/12/16 19:30 95 Nasal Cannula 3.0 32 03/12/16 16:00 102 03/12/16 16:00 97.7 100 21 114/64 97 Nasal Cannula 4.0 03/12/16 15:52 97.9 03/12/16 14:13 84 03/12/16 13:35 79 16 96 Nasal Cannula 3.0 32 03/12/16 12:00 96.9 82 16 111/72 95 Nasal Cannula 03/12/16 09:56 140/78 Intake and Output 03/12/16 03/13/16 19:00 07:00 Intake Total 580 ml 540 ml Balance 580 ml 540 ml Intake Oral 580 ml 540 ml # Voids 6 11 # Bowel Movements 11 2 General Appearance: WD/WN HEENT: normocephalic, atraumatic Respiratory/Chest: chest wall non-tender, lungs clear Cardiovascular: normal peripheral pulses, normal rate Abdomen: normal bowel sounds, soft, non tender Laboratory Tests 03/13/16 07:25: White Blood Count 12.5H, Red Blood Count 4.09L, Hemoglobin 11.7L, Hematocrit 36.0L, Mean Corpuscular Volume 88, Mean Corpuscular Hemoglobin 28.5, Mean Corpuscular Hemoglobin Concent 32.4, Red Cell Distribution Width 13.5, Platelet Count 186, Mean Platelet Volume 7.3, Neutrophils (%) (Auto) 70.2, Lymphocytes (% ) (Auto) 23.4, Monocytes (%) (Auto) 5.6, Eosinophils (%) (Auto) 0.0, Basophils ( %) (Auto) 0.8, Sodium Level 137, Potassium Level 3.6, Chloride Level 93L, Carbon Dioxide Level 29, Anion Gap 15, Blood Urea Nitrogen 35H, Creatinine 0.9, Estimat Glomerular Filtration Rate > 60, Glucose Level 117H, Calcium Level 9.1 Current Medications Medications (Trade) Dose Ordered Sig/Mamie Route PRN Reason Start Time Stop Time Status Last Admin Dose Admin Artificial Tears (Akwa-Tears) 1 drop Q4HR PRN BOTH EYES Dry Eyes 03/10/16 20:00 04/09/16 19:59 03/11/16 17:36 Betamethasone Dipropionate (Diprolene Oint) 1 applic TID PRN TOPIC Itching 03/10/16 18:00 04/09/16 17:59 Clonazepam (KlonoPIN) 1 mg Q6H PRN ORAL For Anxiety 03/12/16 19:30 03/19/16 19:29 03/12/16 22:31 Cyclobenzaprine HCl (Flexeril) 10 mg TID ORAL 03/10/16 18:00 04/09/16 17:59 03/13/16 08:40 Dextrose (Dextrose 50%) STAT PRN IV Hypoglycemia 03/10/16 15:26 04/09/16 15:25 Docusate Sodium (Colace) 100 mg TWICE A DAY ORAL 03/10/16 18:00 04/09/16 17:59 03/12/16 09:00 Furosemide (Lasix) 40 mg DAILY ORAL 03/11/16 09:00 04/10/16 08:59 03/13/16 08:40 Heparin Sodium (Porcine) (Heparin 5000 units/ml) 5,000 units EVERY 12 HOURS SUBQ 03/10/16 21:00 04/09/16 20:59 03/13/16 08:41 Insulin Aspart (NovoLOG) BEFORE MEALS AND HS SUBQ 03/10/16 16:30 04/09/16 16:29 03/13/16 06:19 Ipratropium [place] (Atrovent) 500 mcg Q4H PRN HHN Shortness of Breath 03/10/16 17:45 03/15/16 17:44 Ipratropium [place] (Atrovent) 500 mcg Q6HRT HHN 03/10/16 19:00 03/15/16 18:59 03/13/16 07:25 Levothyroxine Sodium (Synthroid) 100 mcg ACBREAKFAST ORAL 03/11/16 06:30 04/10/16 06:29 03/13/16 06:16 Lisinopril (Zestril) 10 mg DAILY ORAL 03/11/16 09:00 04/10/16 08:59 03/12/16 09:56 Magnesium Citrate (Citrate Of Magnesia) 300 ml DAILYPRN PRN ORAL Constipation 03/10/16 18:00 04/09/16 17:59 Nystatin (Nystop Powder) 1 applic THREE TIMES A DAY TOPIC 03/10/16 18:00 04/09/16 17:59 03/13/16 08:44 Pantoprazole (Protonix) 40 mg ACBREAKFAST ORAL 03/11/16 06:30 04/10/16 06:29 03/13/16 06:16 Potassium Chloride (K-Dur) 10 meq DAILY ORAL 03/11/16 09:00 04/10/16 08:59 03/13/16 08:41 Prednisone (predniSONE) 30 mg DAILY ORAL 03/13/16 09:00 04/12/16 08:59 03/13/16 08:39 Salmeterol Xinafoate/ Fluticasone (Advair 250/50 Diskus) 1 puffs BID INH 03/10/16 18:00 04/09/16 17:59 Sertraline HCl (Zoloft) 50 mg DAILY ORAL 03/11/16 09:00 04/10/16 08:59 03/13/16 08:40 Spironolactone (Aldactone) 25 mg DAILY ORAL 03/13/16 14:00 04/12/16 13:59 Topiramate (Topamax) 100 mg QHS ORAL 03/10/16 21:00 04/09/16 20:59 03/12/16 20:17 Vitamin D (Vitamin D) 1,000 intlu DAILY ORAL 03/11/16 09:00 04/10/16 08:59 03/13/16 08:39 Shahid Lake MD Mar 13, 2016 09:49
[2016-03-13 12:00] VITALS: BP 122/74
[2016-03-13 13:28] VITALS: BP 94/56
[2016-03-13] MEDS ORDERED: Spironolactone 25mg tab ORAL SCH (14:00)
--- NOTE | 2016-03-13 15:17 | Discharge Summary ---
Discharge Summary Hospital Course Date of Admission Feb 28, 2016 at 22:11 Date of Discharge Admitting Diagnosis Shortness of breath HPI Wilda Mathias is a 65 year old female who was admitted on Feb 28, 2016 at 22 :11 for Shortness Of Breath Hospital Course The patient was seen and examined at bedside and all new and available data was reviewed in the patients chart. Last 24 Hour Vital Signs Date Time Temp Pulse Resp B/P Pulse Ox O2 Delivery O2 Flow Rate FiO2 03/13/16 14:22 97.7 03/13/16 13:28 97.7 83 17 94/56 97 Nasal Cannula 2.0 03/13/16 13:09 79 20 96 Nasal Cannula 4.0 36 03/13/16 13:07 80 20 96 Nasal Cannula 4.0 36 03/13/16 12:00 97.0 82 18 122/74 95 Nasal Cannula 2.0 03/13/16 11:30 81 03/13/16 08:45 99/72 03/13/16 08:00 96.5 75 17 99/72 98 Nasal Cannula 2.0 03/13/16 07:44 75 03/13/16 07:35 80 20 100 Nasal Cannula 4.0 36 03/13/16 07:25 79 20 96 Nasal Cannula 4.0 36 03/13/16 07:24 96 Nasal Cannula 4.0 36 03/13/16 07:24 Nasal Cannula 4.0 36 03/13/16 04:00 97.0 75 16 110/56 97 Nasal Cannula 2.0 03/13/16 04:00 75 03/13/16 01:30 Nasal Cannula 3.0 32 03/13/16 01:30 Nasal Cannula 3.0 32 03/13/16 00:00 97.0 98 20 138/90 97 Room Air 03/13/16 00:00 75 03/12/16 20:00 97.5 54 19 121/65 99 Room Air 03/12/16 20:00 89 03/12/16 19:45 102 20 97 Nasal Cannula 3.0 32 03/12/16 19:30 Nasal Cannula 3.0 32 03/12/16 19:30 99 20 95 Nasal Cannula 3.0 32 03/12/16 19:30 95 Nasal Cannula 3.0 32 03/12/16 16:00 102 03/12/16 16:00 97.7 100 21 114/64 97 Nasal Cannula 4.0 GENERAL: The patient is well-developed and well-nourished white female. hard to hear. HEENT: Eyes, pupils are equal and responsive to light and accommodation. Extraocular movements intact. NECK: Supple without lymphadenopathy. CHEST: Bilateral air entry, decrease air on bases, less wheezes. CARDIOVASCULAR: Regular rhythm and rate rate. S1, S2 normal without murmurs, distant heart sound. AICD @ [facility]. ABDOMEN: Soft, nontender, and nondistended. Positive bowel sounds. pain Pump on Left side of abdomen. EXTREMITIES: Negative for clubbing, cyanosis, or edema. Hyperpigmentation on Bilateral LE's. RECTAL/GENITAL: Refused. NEUROLOGIC: Cranial nerves II through XII are grossly intact without focal deficits. Motor strength is 5/5 bilaterally Plan: DC home with . (Patient was seen earlier today. Signature timestamp does not reflect patient encounter time) Flex Dodson MD Discharge Discharge Disposition Patient was discharged to Home with Home Health() Discharge Diagnoses: Flex Dodson MD Mar 13, 2016 15:17
[2016-03-13 16:00] VITALS: BP 103/66
--- NOTE | 2016-03-13 16:28 | Cardiac Electrophysiology PN ---
Assessment/Plan Assessment/Plan 1. CHF with BNP 815 and EF 40%.Continue Lasix 40 mg po QD, Lisinopril 10 mg po daily and Aldactone 25 daily. Off beta bridget for COPD 2. Status post right-sided [facility] defibrillator implantation with normal function. 3. Severe chronic obstructive pulmonary disease.On Nasal Cannula 4. History of breast cancer. 5. Leukopenia 6. Ulcerative colitis/inflammatory bowel disease. 7. Deafness. 8. History of methicillin-resistant Staphylococcus aureus nares. PAULA RN Subjective Subjective Alert in NAD.On Nasal Cannula. Remains in Atrially Paced rhythm. Nephew at bedside. Awaiting DC. Objective Last 24 Hour Vital Signs Date Time Temp Pulse Resp B/P Pulse Ox O2 Delivery O2 Flow Rate FiO2 03/13/16 14:22 97.7 03/13/16 13:28 97.7 83 17 94/56 97 Nasal Cannula 2.0 03/13/16 13:09 79 20 96 Nasal Cannula 4.0 36 03/13/16 13:07 80 20 96 Nasal Cannula 4.0 36 03/13/16 12:00 97.0 82 18 122/74 95 Nasal Cannula 2.0 03/13/16 11:30 81 03/13/16 08:45 99/72 03/13/16 08:00 96.5 75 17 99/72 98 Nasal Cannula 2.0 03/13/16 07:44 75 03/13/16 07:35 80 20 100 Nasal Cannula 4.0 36 03/13/16 07:25 79 20 96 Nasal Cannula 4.0 36 03/13/16 07:24 96 Nasal Cannula 4.0 36 03/13/16 07:24 Nasal Cannula 4.0 36 03/13/16 04:00 97.0 75 16 110/56 97 Nasal Cannula 2.0 03/13/16 04:00 75 03/13/16 01:30 Nasal Cannula 3.0 32 03/13/16 01:30 Nasal Cannula 3.0 32 03/13/16 00:00 97.0 98 20 138/90 97 Room Air 03/13/16 00:00 75 03/12/16 20:00 97.5 54 19 121/65 99 Room Air 03/12/16 20:00 89 03/12/16 19:45 102 20 97 Nasal Cannula 3.0 32 03/12/16 19:30 Nasal Cannula 3.0 32 1/16/17 19:30 99 20 95 Nasal Cannula 3.0 32 03/12/16 19:30 95 Nasal Cannula 3.0 32 Intake and Output 03/12/16 03/13/16 19:00 07:00 Intake Total 580 ml 540 ml Balance 580 ml 540 ml Intake Oral 580 ml 540 ml # Voids 6 11 # Bowel Movements 11 2 Laboratory Tests Test 03/13/16 07:25 White Blood Count 12.5 K/UL (4.8-10.8) H Red Blood Count 4.09 M/UL (4.20-5.40) L Hemoglobin 11.7 G/DL (12.0-16.0) L Hematocrit 36.0 % (37.0-47.0) L Mean Corpuscular Volume 88 FL (80-99) Mean Corpuscular Hemoglobin 28.5 PG (27.0-31.0) Mean Corpuscular Hemoglobin Concent 32.4 G/DL (32.0-36.0) Red Cell Distribution Width 13.5 % (11.6-14.8) Platelet Count 186 K/UL (150-450) Mean Platelet Volume 7.3 FL (6.5-10.1) Neutrophils (%) (Auto) 70.2 % (45.0-75.0) Lymphocytes (%) (Auto) 23.4 % (20.0-45.0) Monocytes (%) (Auto) 5.6 % (1.0-10.0) Eosinophils (%) (Auto) 0.0 % (0.0-3.0) Basophils (%) (Auto) 0.8 % (0.0-2.0) Sodium Level 137 mEQ/L (135-145) Potassium Level 3.6 mEQ/L (3.4-4.9) Chloride Level 93 mEQ/L (98-107) L Carbon Dioxide Level 29 mEQ/L (20-30) Anion Gap 15 (5-15) Blood Urea Nitrogen 35 mg/dL (7-23) H Creatinine 0.9 mg/dL (0.5-0.9) Estimat Glomerular Filtration Rate > 60 mL/min (>60) Glucose Level 117 mg/dL (74-106) H Calcium Level 9.1 mg/dL (8.6-10.2) Objective HEAD AND NECK: No JVD. LUNGS: Coarse rhonchi CARDIOVASCULAR: Regular S1 and S2 with no murmur with the ICD in the right subclavian. ABDOMEN: Soft. EXTREMITIES: No pitting edema. COCO ANGEL Mar 13, 2016 16:27
[2016-03-13] MEDS ORDERED: NS 275ml ONE (18:13)
--- NOTE | 2016-03-13 19:51 | Discharge Summary ---
Discharge Summary Hospital Course Date of Admission Feb 28, 2016 at 22:11 Date of Discharge Mar 13, 2016 at 18:14 Admitting Diagnosis Shortness of breath HPI Wilda Mathias is a 65 year old female who was admitted on Feb 28, 2016 at 22 :11 for Shortness Of Breath Hospital Course Dictated for Int Jonnie-Dr Dodson no. [id number]. Discharge Discharge Disposition Patient was discharged to Home with Home Health(06) Discharge Diagnoses: OSMAR CAMPBELL Mar 13, 2016 19:51
--- NOTE | 2016-03-14 06:48 | Discharge Summary ---
DATE OF ADMISSION: 02/28/2016 DATE OF DISCHARGE: 03/13/2016 ADMITTING DIAGNOSES: 1. Shortness of breath. 2. Coronary artery disease. 3. Hypertension. 4. Congestive heart failure. 5. Hypothyroidism. 6. Automatic implanted cardioverter-defibrillator in place. 7. Renal failure. DISCHARGE DIAGNOSES: 1. Shortness of breath. 2. Chronic obstructive pulmonary disease exacerbation. 3. Elevated troponin. 4. Coronary artery disease. 5. Hypertension. 6. Congestive heart failure. 7. Hypothyroidism. 8. Automatic implanted cardioverter-defibrillator in place. 9. Renal failure. HOSPITAL COURSE BY PROBLEM LIST: 1. Shortness of breath/chronic obstructive pulmonary disease acute exacerbation. A Pulmonary consultation was obtained with Dr. Shahid Lake. The patient was placed on intravenous Solu-Medrol. The patient was placed on DuoNeb every four hours. The patient was slow to clear. The patient was initially placed on BiPAP. This was replaced with a face mask later on. The patient is now tolerating nasal cannula. The patient is to be discharged home today, 03/13/2016 with a prednisone taper. The patient is to follow up with Dr. Lake in one week. 2. Elevated troponin. A Cardiology consultation was obtained with Dr. Kevin Brennan. Elevated troponin was thought to be secondary to renal failure. The patient is to follow up with Dr. Brennan as an outpatient. 3. History of coronary artery disease. The patient remained as above. Cardiology consultation was obtained and documented. The patient is to follow up with Dr. Brennan as an outpatient. 4. Hypertension. The patient remained on lisinopril 10 mg one tablet p.o. daily. The patient is to follow up with her primary care physician. 5. Congestive heart failure. The patient remained on Lasix 40 mg p.o. daily. Congestive heart failure is well controlled during the hospitalization. Cardiology consultation was obtained with Dr. Kevin Brennan. The patient is to follow up with Dr. Brennan as an outpatient. 6. Hypothyroidism. The patient remained on Levoxyl 0.1 mg p.o. daily. TSH was normal during the hospitalization. The patient to follow up with her primary care physician. 7. Renal failure. A Nephrology consultation was made. She received intravenous fluids during the hospitalization. Renal failure has now resolved. DISCHARGE MEDICATIONS: Please refer to discharge medication list. DISCHARGE INSTRUCTIONS: The patient is to follow up with Dr. Shahid Lake in one week. Sheldon Mendoza M.D. DR: TRENTON JOB#: [id number] CC:
== END 2016-03-13 18:14 | disposition home health service (06) | DRG 190 ==
LOC: EDBD 21:37 → EDBEDREQ 21:47 → EDBEDREQSVC 21:48 → EMR 22:10 → 2W 22:11 → EDBEDREQ 22:28 → EMR 02-29 07:45 → EDBEDREQ 02-29 07:49 → 2W 02-29 08:28 → 2E 03-10 15:26
PROC: 5A09557 Assistance with Respiratory Ventilation, Greater than 96 Consecutive Hours, Continuous Positive Airway Pressure (ICD-10-PCS; principal; 2016-02-28)
DX: J44.1 Chronic obstructive pulmonary disease with (acute) exacerbation (principal); J96.01 Acute respiratory failure with hypoxia; K51.90 Ulcerative colitis, unspecified, without complications; I50.9 Heart failure, unspecified; Z95.810 Presence of automatic (implantable) cardiac defibrillator; Z85.3 Personal history of malignant neoplasm of breast; E03.9 Hypothyroidism, unspecified; I25.10 Atherosclerotic heart disease of native coronary artery without angina pectoris; I10 Essential (primary) hypertension; F17.200 Nicotine dependence, unspecified, uncomplicated; Z88.8 Allergy status to other drugs, medicaments and biological substances; H91.90 Unspecified hearing loss, unspecified ear; Z99.81 Dependence on supplemental oxygen; K58.9 Irritable bowel syndrome, unspecified; Z22.322 Carrier or suspected carrier of Methicillin resistant Staphylococcus aureus; G89.29 Other chronic pain; Z88.1 Allergy status to other antibiotic agents; Z88.0 Allergy status to penicillin; Z88.2 Allergy status to sulfonamides; K59.00 Constipation, unspecified; D72.819 Decreased white blood cell count, unspecified; N19 Unspecified kidney failure; R77.8 Other specified abnormalities of plasma proteins
CPT/HCPCS: 36415; 36600; 71010; 80048; 80053; 80300; 82150; 82550; 82553; 82803; 82962; 83735; 83880; 84100; 84439; 84443; 84480; 84484; 85007; 85025; 85610; 85730; 87081; 93005; 93306; 93970; 94640; 94660; 94760; J1815; J7620

== ENCOUNTER 2016-08-07 16:53 | Inpatient (IN) | payer MEDICARE, OTHER ==
[~2016-08-07] VITALS: Ht 152.4 cm; Wt 68.0 kg
[2016-08-07 17:26] VITALS: BP 139/91
[2016-08-07] MEDS ORDERED: DiphenhydrAMINE 50mg/ml Inj IVP ONE ×2 (17:30→20:00)
[2016-08-07] MEDS ORDERED: HYDROmorphone 1mg/ml Carpuject IVP ONE ×2 (17:30→20:00)
[2016-08-07 18:32] LABS: BASOPHILS % (AUTO) 1.1 % (0.0-2.0); EOSINOPHILS % (AUTO) 1.2 % (0.0-3.0); MEAN CORPUSCULAR HEMOGLOBIN 28.6 PG (27.0-31.0); MEAN CORPUSCULAR HGB CONC 32.2 G/DL (32.0-36.0); MEAN CORPUSCULAR VOLUME 89 FL (80-99); MEAN PLATELET VOLUME 6.9 FL (6.5-10.1); MONOCYTES % (AUTO) 5.4 % (1.0-10.0); NEUTROPHILS % (AUTO) 64.2 % (45.0-75.0); PLATELET COUNT 147 K/UL (150-450); RED BLOOD COUNT 3.76 M/UL (4.20-5.40); RED CELL DISTRIBUTION WIDTH 14.3 % (11.6-14.8); WHITE BLOOD COUNT 7.3 K/UL (4.8-10.8)
[2016-08-07 18:35] LABS: ALANINE AMINOTRANSFERASE 10 U/L (3-33); ALBUMIN/GLOBULIN RATIO 1.5 (1.0-2.7); ANION GAP 12 (5-15); ASPARTATE AMINO TRANSFERASE 18 U/L (5-40); CALCIUM 9.7 mg/dL (8.6-10.2); CARBON DIOXIDE 33 mEQ/L (20-30); CHLORIDE 94 mEQ/L (98-107); CREATININE 0.6 mg/dL (0.5-0.9); GLOMERULAR FILTRATION RATE > 60 mL/min (>60); HEMOLYSIS 0; LIPASE 13 U/L (< 60); POTASSIUM 3.7 mEQ/L (3.4-4.9); SODIUM 139 mEQ/L (135-145)
[2016-08-07 18:49] VITALS: BP 170/99
[2016-08-07 18:49] LABS: APPEARANCE,URINE CLEAR; KETONES,URINE 2+ (NEGATIVE); LEUKOCYTE ESTERASE ,URINE 1+ (NEGATIVE); NITRITE,URINE NEGATIVE (NEGATIVE); PH,URINE 7 (4.5-8.0); PROTEIN,URINE 1+ (NEGATIVE); UROBILINOGEN,URINE NORMAL MG/DL (0.0-1.0)
[2016-08-07 19:01] LABS: BACTERIA,URINE FEW /HPF; RBC,URINE 0-2 /HPF (0 - 2); SQUAMOUS EPITHELIAL CELL,UR FEW /LPF (NONE/OCC)
[2016-08-07] MEDS ORDERED: DIPHENOXYLATE-1 EACH PO (19:05)
[2016-08-07 19:42] VITALS: BP 159/94
--- NOTE | 2016-08-07 19:47 | Emergency Room Report ---
History of Present Illness General Chief Complaint: Diarrhea Source: Patient Present Illness HPI 66-year-old female presents to ED complaining of abdominal pain with diarrhea. States she was recently discharged from [facility]. States that since discharge she was having constipation. Patient has chronic constipation. Patient started taking suppositories and states that for the last one week she has had profuse diarrhea. Notes nonstop watery diarrhea. Notes history of ulcerative colitis. States pain is cramping 10/10, nonradiating. No other aggravating or relieving factors. Denies fevers chills. Denies chest pain or shortness of breath. Denies any other associated symptoms Allergies: Coded Allergies: BENZODIAZEPINES (Verified Allergy, Unknown, 04/20/10) IODINE (Verified Allergy, Unknown, 04/20/10) LIDOCAINE (Verified Allergy, Unknown, 04/20/10) LORAZEPAM (Verified Allergy, Unknown, 04/20/10) OXYBUTYNIN (Verified Allergy, Unknown, 04/20/10) PENICILLINS (Verified Allergy, Unknown, 04/20/10) PHENOTHIAZINES (Verified Allergy, Unknown, 04/20/10) PIPERACILLIN (Verified Allergy, Unknown, 04/20/10) PROPOFOL (Verified Allergy, Unknown, 04/20/10) QUINOLONES (Verified Allergy, Unknown, 04/20/10) SULFASALAZINE (Verified Allergy, Unknown, 04/20/10) TAZOBACTAM (Verified Allergy, Unknown, 04/20/10) TEMAZEPAM (Verified Allergy, Unknown, 04/20/10) Patient History Past Medical History: HTN, CAD, asthma, COPD, other - ulcerative colitis Past Surgical History: none Pertinent Family History: none Social History: Denies: alcohol use, drug use, smoking Now: No Immunizations: UTD Reviewed Nursing Documentation: PMH: Agreed, PSxH: Agreed Nursing Documentation-PMH Past Medical History: No History, Except For Hx Cardiac Problems: Yes - defibrillator, thyroid problem, arthritis, RSD Hx Hypertension: Yes Hx Pacemaker: No - DEAFNESS, COCHLEAR IMPLANTS Hx Asthma: Yes - PAIN PUMP IMPLANT Hx COPD: Yes - PNA Hx Diabetes: No Hx Cancer: No Hx Gastrointestinal Problems: Yes - ulcerative colitis Hx Dialysis: No Hx Neurological Problems: No Hx Cerebrovascular Accident: No Hx Seizures: No Review of Systems All Other Systems: negative except mentioned in HPI Physical Exam Vital Signs Date Time Temp Pulse Resp B/P Pulse Ox O2 Delivery O2 Flow Rate FiO2 08/07/16 17:14 98.8 75 18 139/91 85 Nasal Cannula 4.0 Sp02 EP Interpretation: reviewed, normal General Appearance: no apparent distress, alert, GCS 15, non-toxic Head: normocephalic, atraumatic Eyes: bilateral eye PERRL, bilateral eye normal inspection ENT: hearing grossly normal, normal pharynx, no angioedema, normal voice Neck: full range of motion, supple/symm/no masses Respiratory: chest non-tender, lungs clear, normal breath sounds, speaking full sentences Cardiovascular #1: regular rate, rhythm, no edema Cardiovascular #2: 2+ carotid (R), 2+ carotid (L), 2+ radial (R), 2+ radial (L) , 2+ dorsalis pedis (R), 2+ dorsalis pedis (L) Gastrointestinal: normal bowel sounds, non tender, soft, non-distended, no guarding, no rebound Rectal: deferred Genitourinary: normal inspection, no CVA tenderness Musculoskeletal: back normal, gait/station normal, normal range of motion, non- tender Neurologic: alert, oriented x3, responsive, motor strength/tone normal, sensory intact, speech normal Psychiatric: judgement/insight normal, memory normal, mood/affect normal, no suicidal/homicidal ideation Reflexes: 3+ bicep (R), 3+ bicep (L), 3+ tricep (R), 3+ tricep (L), 3+ knee (R) , 3+ knee (L) Skin: normal color, no rash, warm/dry, well hydrated Lymphatic: no adenopathy Medical Decision Making Diagnostic Impression: Primary Impression: Colitis Additional Impression: Opiate dependence Qualified Codes: F11.24 - Opioid dependence with opioid-induced mood disorder ER Course Hospital Course 66-year-old female presenting to ED with abdominal pain, diarrhea. h/o ulcerative colitis Differential diagnoses include: Pneumonia, UTI, sepsis, dehydration Clinical course Patient placed on stretcher. On quality assurance monitor final. After initial history and physical, I ordered labs, IV fluids, pain medications Labs - no leukocytosis. hb/hct stable. electrolytes ok, trop negative. Case discussed with Dr Lake and they agreed to admit patient to their service for further care and support I feel this is a highly complex case requiring extensive working including EKG/ Rhythm strip, Xray/CT/US, Blood/urine lab work, repeat exams while in ED, and administration of strong opiates/narcotics for pain control, admission to hospital or close patient follow up. Diagnosis - colitis, opiate dependence Patient admitted to floor in serious condition Labs Test 08/07/16 17:45 08/07/16 18:30 White Blood Count 7.3 K/UL (4.8-10.8) Red Blood Count 3.76 M/UL (4.20-5.40) Hemoglobin 10.8 G/DL (12.0-16.0) Hematocrit 33.5 % (37.0-47.0) Mean Corpuscular Volume 89 FL (80-99) Mean Corpuscular Hemoglobin 28.6 PG (27.0-31.0) Mean Corpuscular Hemoglobin Concent 32.2 G/DL (32.0-36.0) Red Cell Distribution Width 14.3 % (11.6-14.8) Platelet Count 147 K/UL (150-450) Mean Platelet Volume 6.9 FL (6.5-10.1) Neutrophils (%) (Auto) 64.2 % (45.0-75.0) Lymphocytes (%) (Auto) 28.0 % (20.0-45.0) Monocytes (%) (Auto) 5.4 % (1.0-10.0) Eosinophils (%) (Auto) 1.2 % (0.0-3.0) Basophils (%) (Auto) 1.1 % (0.0-2.0) Sodium Level 139 mEQ/L (135-145) Potassium Level 3.7 mEQ/L (3.4-4.9) Chloride Level 94 mEQ/L (98-107) Carbon Dioxide Level 33 mEQ/L (20-30) Anion Gap 12 (5-15) Blood Urea Nitrogen 14 mg/dL (7-23) Creatinine 0.6 mg/dL (0.5-0.9) Estimat Glomerular Filtration Rate > 60 mL/min (>60) Glucose Level 109 mg/dL (74-106) Calcium Level 9.7 mg/dL (8.6-10.2) Total Bilirubin 0.5 mg/dL (0.0-1.2) Aspartate Amino Transf (AST/SGOT) 18 U/L (5-40) Alanine Aminotransferase (ALT/SGPT) 10 U/L (3-33) Alkaline Phosphatase 66 U/L (35-104) Total Protein 7.0 g/dL (6.6-8.7) Albumin 4.2 g/dL (3.5-5.2) Globulin 2.8 g/dL Albumin/Globulin Ratio 1.5 (1.0-2.7) Lipase 13 U/L (< 60) Urine Color Pale yellow Urine Appearance Clear Urine pH 7 (4.5-8.0) Urine Specific Valier 1.010 (1.005-1.035) Urine Protein 1+ (NEGATIVE) Urine Glucose (UA) Negative (NEGATIVE) Urine Ketones 2+ (NEGATIVE) Urine Occult Blood Negative (NEGATIVE) Urine Nitrite Negative (NEGATIVE) Urine Bilirubin Negative (NEGATIVE) Urine Urobilinogen Normal MG/DL (0.0-1.0) Urine Leukocyte Esterase 1+ (NEGATIVE) Urine RBC 0-2 /HPF (0 - 2) Urine WBC 2-4 /HPF (0 - 2) Urine Squamous Epithelial Cells Few /LPF (NONE/OCC) Urine Bacteria Few /HPF (NONE) Last Vital Signs Date Time Temp Pulse Resp B/P Pulse Ox O2 Delivery O2 Flow Rate FiO2 08/07/16 19:17 98.8 08/07/16 18:49 72 18 170/99 97 Nasal Cannula 4.0 Status: improved Disposition: ADMITTED INPATIENT Condition: Serious Referrals: Shahid Lake MD (PCP) MARITO SALDIVAR M.D. Aug 07, 2016 19:47
[2016-08-07 20:39] VITALS: BP 162/86
[2016-08-07] MEDS ORDERED: Lomotil 2.5mg tab ORAL PRN (22:30)
[2016-08-08] VITALS (7 sets, daily range): BP systolic 144–163; BP diastolic 72–88
[2016-08-08] MEDS: D5NS 1,000 ML IV SCH ×2 (00:18→11:48)
[2016-08-08] MEDS: DiphenhydrAMINE 50mg/ml Inj IVP PRN ×6 (00:18→23:57)
[2016-08-08] MEDS: HYDROmorphone 1mg/ml Carpuject IVP PRN ×2 (00:19→04:39)
[2016-08-08] MEDS ORDERED: KLONOPIN1 MG ORAL (06:32)
--- NOTE | 2016-08-08 08:24 | History & Physical ---
History and Physical History & Physicial DATE OF ADMISSION: 08/07/2016 HISTORY OF PRESENT ILLNESS: This is a 65-year-old female with a history of multiple medical problems. She has been complaining of [profuse diarrhea. She states she has lost 15 pounds. The patient was seen and worked up in the emergency room. Labs and imaging series were negative.. PAST HISTORY: There is no history of heart disease, however, the patient has a history of a AICD. In the past, she has had prolonged QT syndrome. She has a history of moderate COPD and is on home oxygen. She also has AAKASH and a CPAP at home. She has history with chronic pain and has a Dilaudid pump at home. She also takes regular Dilaudid at home on a regular basis. The patient continues to smoke as well. The patient also has a history in the past of IBD. She also has history of breast cancer and also deafness. She also has a history of ulcerative colitis and MRSA of nares. ALLERGIES: Multiple listed to benzodiazepines, iodine, lidocaine, Ativan, oxybutynin, penicillin, phenothiazine, piperacillin, propofol, quinolones, sulfasalazine, tazobactam and temazepam. This list is essentially unreliable as the patient does takes some of these medications on an infrequent basis. MEDICATIONS: Home medications as mentioned in the chart. REVIEW OF SYSTEMS: The patient denies any shortness of breath at this point in time. Denies any headache, hematemesis, melena, hematochezia. PHYSICAL EXAMINATION: GENERAL: Revealed a 65-year-old female. VITAL SIGNS: Blood pressure is 118/60, heart rate 74, respirations 22, and she is afebrile. HEENT: Unremarkable. CHEST: Clear breath sounds bilaterally. ABDOMEN: Soft. EXTREMITIES: There is no edema. LABORATORY AND DIAGNOSTIC DATA: Lab testing normal IMPRESSION: 1. Chronic obstructive pulmonary disease. 2. Automatic implantable cardioverter-defibrillator. 3. History of breast carcinoma. 4. Ulcerative colitis/irritable bowel disease. 5. Deafness. 6. Methicillin-resistant Staphylococcus aureus nares. 7. Chronic pain. 8. Diarrhea; suspect colitis DISCUSSION: Admit to the hospital. I will follow carefully. Will consult GI Start Flagyl Check stool studies IV fluids Favio Garcia Omar Syed MD Aug 08, 2016 08:24
[2016-08-08] MEDS ORDERED: HYDROmorphone 4mg tab ORAL PRN ×2 (08:30→09:00)
--- NOTE | 2016-08-08 08:50 | Wound Care Consultation ---
Wound Assessment Wound Assessment : Wound Number: #1 Wound Present on Admission: Yes New Wound: No Status Change of Wound: No Wound Location Body Site Modif: mid Wound Location Body Site: sacral Wound Type: pressure ulcer Eamon Test: Does not Eamon Pressure Ulcer Stage: I Wound Length: 3.0 Wound Width: 3.0 Percent of Wound Mccoy/Red: 100 Wound Drainage Amount: None Wound Drainage Odor: None/Absent Tissue Surrounding Wound: Erythemic Wound General Appearance: Reddened Wound Comment #1 Mid sacral stage I pressure ulcer. Recommendation. - Local wound care per protocol. - Turn and reposition. - Avoid shear and friction. - keep clean and dry. -Optimize nutrition. - Offload affected site. -Assess and notify MD for any further changes of condition noted. GEORGIA ROMERO Aug 08, 2016 08:50
[2016-08-08] MEDS: Atenolol 25mg tab ORAL SCH (09:00)
[2016-08-08] MEDS: Dyna-Hex 2% Top Sol 8oz TOPIC SCH (09:01)
[2016-08-08] MEDS: HYDROmorphone 2 MG in NS 55 ML IVPB PRN ×4 (09:51→23:58)
[2016-08-08] MEDS ORDERED: HYDROmorphone 1mg/ml Carpuject IVPB PRN ×2 (10:30)
[2016-08-08] MEDS: metroNIDAZOLE 500mg 100 ML IVPB SCH ×2 (11:04→21:38)
--- NOTE | 2016-08-08 12:10 | GI Initial Consult Note ---
MendyEvette Tam N.P. 08/08/16 1210: History of Present Illness General Date patient seen: Aug 08, 2016 Time patient seen: 11:00 Reason for Hospitalization: Diarrhea Referring physician: JOSE MARIA OVALLE Reason for Consultation: DIARRHEA Present Illness HPI 66-year-old female presents to ED complaining of abdominal pain with diarrhea. States she was recently discharged from [facility]. States that since discharge she was having constipation. Patient has chronic constipation. Patient started taking suppositories and states that for the last one week she has had profuse diarrhea. Notes nonstop watery diarrhea. Notes history of ulcerative colitis. States pain is cramping 10/10, nonradiating. No other aggravating or relieving factors. Denies fevers chills. Denies chest pain or shortness of breath. Denies any other associated symptoms. GI CONSULT. HPI as noted above. GI consulted for diarrhea, possible colitis. Pt seen on floor, awake A&Ox4 NAD KNIK. The patient currently denies any N/V/D or constipation. States she only has the urge to have bowel movements every time she stands. The patient has a history of UC and colonic polyps. She states she gets year colonoscopies but hasn't gone in over 5 years. Home Meds Reported Medications Clonazepam* (KLONOPIN*) 1 Mg Tablet, 1.5 MG ORAL QHS, #15 TAB 0 Refills 08/08/16 Diphenoxylate Hcl/Atropine (DIPHENOXYLATE-ATROPINE TABLET) 1 Each Tablet, 1 EACH PO TID, TAB 08/07/16 Atenolol (Tenormin) 25 Mg Tab, 25 MG ORAL DAILY, TAB 01/09/13 Amlodipine Besylate* (AMLODIPINE BESYLATE*) 10 Mg Tablet, 10 MG PO DAILY, #30 01/09/13 Esomeprazole Magnesium (NEXIUM) 40 Mg Capsule.dr, 40 MG PO AC, #30 01/09/13 Levothyroxine Sodium* (SYNTHROID*) 100 Mcg Tablet, 100 MCG PO AC, #30 01/09/13 Discontinued Reported Medications Sertraline Hcl* (ZOLOFT*) 25 Mg Tablet, ORAL DAILY, TAB 03/25/14 Fluticasone/Salmeterol (Advair 250-50 Diskus) 1 Each Disk.w.dev, #60 01/09/13 Cholecalciferol (Vitamin D3)* (VITAMIN D*) 1,000 Unit Tablet, 4000 UNITS ORAL DAILY, #60 TAB 0 Refills 01/09/13 Estrogens Conjugated (Premarin) 45 Gm Cr, 2XW, #30 01/09/13 Betamethasone Dipropionate (BETAMETHASONE DIPROPIONATE) 45 Gm Cream..g., TID Y for Itching, #45 01/09/13 Hydromorphone Hcl (HYDROMORPHONE HCL) 4 Mg Tablet, 4 MG PO Q6HR Y for For Pain, #120 01/09/13 Cyclobenzaprine Hcl* (FLEXERIL*) 10 Mg Tablet, 10 MG PO TID, #90 01/09/13 Potassium Chloride (KLOR-CON 8) 8 Meq Tablet.er, 8 MEQ PO DAILY, #60 01/09/13 Topiramate* (TOPAMAX*) 100 Mg Tablet, 200 MG PO QPM, #90 01/09/13 Clonazepam (Clonazepam) 1 Mg Tab, 1 MG PO QPM Y for Per rx protocol, #30 01/09/13 Med list reviewed/reconciled: Yes Allergies: Coded Allergies: BENZODIAZEPINES (Verified Allergy, Unknown, 04/20/10) IODINE (Verified Allergy, Unknown, 04/20/10) LIDOCAINE (Verified Allergy, Unknown, 04/20/10) LORAZEPAM (Verified Allergy, Unknown, 04/20/10) OXYBUTYNIN (Verified Allergy, Unknown, 04/20/10) PENICILLINS (Verified Allergy, Unknown, 04/20/10) PHENOTHIAZINES (Verified Allergy, Unknown, 04/20/10) PIPERACILLIN (Verified Allergy, Unknown, 04/20/10) PROPOFOL (Verified Allergy, Unknown, 04/20/10) QUINOLONES (Verified Allergy, Unknown, 04/20/10) SULFASALAZINE (Verified Allergy, Unknown, 04/20/10) TAZOBACTAM (Verified Allergy, Unknown, 04/20/10) TEMAZEPAM (Verified Allergy, Unknown, 04/20/10) Patient History History Provided By: Patient, Medical Record [facility] Narrative Past Medical History: HTN, CAD, asthma, COPD, other - ulcerative colitis Past Surgical History: none Pertinent Family History: none Social History: Denies: alcohol use, drug use, smoking Now: No Immunizations: UTD Reviewed Nursing Documentation: PMH: Agreed, PSxH: Agreed Nursing Documentation-PMH Past Medical History: No History, Except For Hx Cardiac Problems: Yes - defibrillator, thyroid problem, arthritis, RSD Hx Hypertension: Yes Hx Pacemaker: No - DEAFNESS, COCHLEAR IMPLANTS Hx Asthma: Yes - PAIN PUMP IMPLANT Hx COPD: Yes - PNA Hx Diabetes: No Hx Cancer: No Hx Gastrointestinal Problems: Yes - ulcerative colitis Hx Dialysis: No Hx Neurological Problems: No Hx Cerebrovascular Accident: No Hx Seizures: No Review of Systems All Other Systems: negative except mentioned in HPI Physical Exam Vital Signs Date Time Temp Pulse Resp B/P Pulse Ox O2 Delivery O2 Flow Rate FiO2 08/07/16 17:14 98.8 75 18 139/91 85 Nasal Cannula 4.0 Sp02 EP Interpretation: reviewed Labs Laboratory Tests Test 08/07/16 17:45 08/07/16 18:30 White Blood Count 7.3 K/UL (4.8-10.8) Red Blood Count 3.76 M/UL (4.20-5.40) L Hemoglobin 10.8 G/DL (12.0-16.0) L Hematocrit 33.5 % (37.0-47.0) L Mean Corpuscular Volume 89 FL (80-99) Mean Corpuscular Hemoglobin 28.6 PG (27.0-31.0) Mean Corpuscular Hemoglobin Concent 32.2 G/DL (32.0-36.0) Red Cell Distribution Width 14.3 % (11.6-14.8) Platelet Count 147 K/UL (150-450) L Mean Platelet Volume 6.9 FL (6.5-10.1) Neutrophils (%) (Auto) 64.2 % (45.0-75.0) Lymphocytes (%) (Auto) 28.0 % (20.0-45.0) Monocytes (%) (Auto) 5.4 % (1.0-10.0) Eosinophils (%) (Auto) 1.2 % (0.0-3.0) Basophils (%) (Auto) 1.1 % (0.0-2.0) Sodium Level 139 mEQ/L (135-145) Potassium Level 3.7 mEQ/L (3.4-4.9) Chloride Level 94 mEQ/L (98-107) L Carbon Dioxide Level 33 mEQ/L (20-30) H Anion Gap 12 (5-15) Blood Urea Nitrogen 14 mg/dL (7-23) Creatinine 0.6 mg/dL (0.5-0.9) Estimat Glomerular Filtration Rate > 60 mL/min (>60) Glucose Level 109 mg/dL (74-106) H Calcium Level 9.7 mg/dL (8.6-10.2) Total Bilirubin 0.5 mg/dL (0.0-1.2) Aspartate Amino Transf (AST/SGOT) 18 U/L (5-40) Alanine Aminotransferase (ALT/SGPT) 10 U/L (3-33) Alkaline Phosphatase 66 U/L (35-104) Total Protein 7.0 g/dL (6.6-8.7) Albumin 4.2 g/dL (3.5-5.2) Globulin 2.8 g/dL Albumin/Globulin Ratio 1.5 (1.0-2.7) Lipase 13 U/L (< 60) Urine Color Pale yellow Urine Appearance Clear Urine pH 7 (4.5-8.0) Urine Specific [place] 1.010 (1.005-1.035) Urine Protein 1+ (NEGATIVE) H Urine Glucose (UA) Negative (NEGATIVE) Urine Ketones 2+ (NEGATIVE) H Urine Occult Blood Negative (NEGATIVE) Urine Nitrite Negative (NEGATIVE) Urine Bilirubin Negative (NEGATIVE) Urine Urobilinogen Normal MG/DL (0.0-1.0) Urine Leukocyte Esterase 1+ (NEGATIVE) H Urine RBC 0-2 /HPF (0 - 2) Urine WBC 2-4 /HPF (0 - 2) Urine Squamous Epithelial Cells Few /LPF (NONE/OCC) Urine Bacteria Few /HPF (NONE) General Appearance: well appearing, no apparent distress, alert Head: normocephalic EENT: normal ENT inspection Neck: supple Respiratory: other - 4LNC Cardiovascular: normal rate Gastrointestinal: normal inspection, non tender, soft, normal bowel sounds Genitourinary: normal inspection Musculoskeletal: back normal Neurologic: normal inspection, alert, oriented x3, responsive Psychiatric: normal inspection, judgement/insight normal, memory normal Skin: normal inspection, normal color, no rash, warm/dry Lymphatic: normal inspection, no adenopathy Current Medications Current Medications Medications (Trade) Dose Ordered Sig/Mamie Route PRN Reason Start Time Stop Time Status Last Admin Dose Admin Amlodipine Besylate (Norvasc) 10 mg DAILY ORAL 08/08/16 09:00 09/07/16 08:59 08/08/16 09:00 Atenolol (Tenormin) 25 mg DAILY ORAL 08/08/16 09:00 09/07/16 08:59 08/08/16 09:00 Chlorhexidine Gluconate 1 applic 1 applic DAILY TOPIC 08/08/16 09:00 09/07/16 08:59 08/08/16 09:01 Clonazepam (KlonoPIN) 1 mg QHS ORAL 08/08/16 21:00 08/15/16 20:59 Dextrose/Sodium Chloride (D5ns) 1,000 ml @ 75 mls/hr [id number] IV 08/07/16 22:30 09/06/16 22:29 08/08/16 11:48 Diphenhydramine HCl (Benadryl) 25 mg Q4H PRN IVP Itching 08/07/16 22:30 09/06/16 22:29 08/08/16 09:59 Diphenoxylate HCl/ Atropine (Lomotil) 2.5 mg TID PRN ORAL Diarrhea 08/07/16 22:30 09/06/16 22:29 Hydromorphone HCl 4 mg 4 mg Q6H PRN ORAL Moderate Pain (Pain Scale 4-6) 08/08/16 09:00 08/15/16 08:59 Hydromorphone HCl/ Sodium Chloride (Dilaudid/Sodium Chloride) 56 ml @ 112 mls/hr Q4H PRN IVPB Severe Pain (Pain Scale 7-10) 08/08/16 09:00 08/15/16 08:59 08/08/16 09:51 Levothyroxine Sodium (Synthroid) 100 mcg ACBREAKFAST ORAL 08/08/16 06:30 09/07/16 06:29 08/08/16 06:37 Metronidazole (Flagyl) 100 ml @ 100 mls/hr Q8HR IVPB 08/08/16 10:00 08/15/16 09:59 08/08/16 11:04 Pantoprazole (Protonix) 40 mg DAILY@0700 ORAL 08/08/16 07:00 09/07/16 06:59 08/08/16 06:33 GI: Plan Problems: (1) Colitis (2) Constipation (3) Opiate dependence (4) Chronic pain (5) COPD with acute exacerbation (6) HTN (hypertension) Plan EGD/colonoscopy scheduled for tomorrow. - CLD, NPO @ MI. - hold all blood thinners ppi fu labs Discussed with Dr. Willis. Thank you for referring this patient, we will follow. AGUILAR WILLIS 08/09/16 1305: History of Present Illness General Reason for Hospitalization: Diarrhea Present Illness Home Meds Reported Medications Clonazepam* (KLONOPIN*) 1 Mg Tablet, 1.5 MG ORAL QHS, #15 TAB 0 Refills 08/08/16 Diphenoxylate Hcl/Atropine (DIPHENOXYLATE-ATROPINE TABLET) 1 Each Tablet, 1 EACH PO TID, TAB 08/07/16 Atenolol (Tenormin) 25 Mg Tab, 25 MG ORAL DAILY, TAB 01/09/13 Amlodipine Besylate* (AMLODIPINE BESYLATE*) 10 Mg Tablet, 10 MG PO DAILY, #30 01/09/13 Esomeprazole Magnesium (NEXIUM) 40 Mg Capsule.dr, 40 MG PO AC, #30 01/09/13 Levothyroxine Sodium* (SYNTHROID*) 100 Mcg Tablet, 100 MCG PO AC, #30 01/09/13 Discontinued Reported Medications Sertraline Hcl* (ZOLOFT*) 25 Mg Tablet, ORAL DAILY, TAB 03/25/14 Fluticasone/Salmeterol (Advair 250-50 Diskus) 1 Each Disk.w.dev, #60 01/09/13 Cholecalciferol (Vitamin D3)* (VITAMIN D*) 1,000 Unit Tablet, 4000 UNITS ORAL DAILY, #60 TAB 0 Refills 01/09/13 Estrogens Conjugated (Premarin) 45 Gm Cr, 2XW, #30 01/09/13 Betamethasone Dipropionate (BETAMETHASONE DIPROPIONATE) 45 Gm Cream..g., TID Y for Itching, #45 01/09/13 Hydromorphone Hcl (HYDROMORPHONE HCL) 4 Mg Tablet, 4 MG PO Q6HR Y for For Pain, #120 01/09/13 Cyclobenzaprine Hcl* (FLEXERIL*) 10 Mg Tablet, 10 MG PO TID, #90 11/15/13 Potassium Chloride (KLOR-CON 8) 8 Meq Tablet.er, 8 MEQ PO DAILY, #60 01/09/13 Topiramate* (TOPAMAX*) 100 Mg Tablet, 200 MG PO QPM, #90 01/09/13 Clonazepam (Clonazepam) 1 Mg Tab, 1 MG PO QPM Y for Per rx protocol, #30 01/09/13 Allergies: Coded Allergies: BENZODIAZEPINES (Verified Allergy, Unknown, 04/20/10) IODINE (Verified Allergy, Unknown, 04/20/10) LIDOCAINE (Verified Allergy, Unknown, 04/20/10) LORAZEPAM (Verified Allergy, Unknown, 04/20/10) OXYBUTYNIN (Verified Allergy, Unknown, 04/20/10) PENICILLINS (Verified Allergy, Unknown, 04/20/10) PHENOTHIAZINES (Verified Allergy, Unknown, 04/20/10) PIPERACILLIN (Verified Allergy, Unknown, 04/20/10) PROPOFOL (Verified Allergy, Unknown, 04/20/10) QUINOLONES (Verified Allergy, Unknown, 04/20/10) SULFASALAZINE (Verified Allergy, Unknown, 04/20/10) TAZOBACTAM (Verified Allergy, Unknown, 04/20/10) TEMAZEPAM (Verified Allergy, Unknown, 04/20/10) GI: Plan Plan The patient was seen and examined at bedside and all new and available data was reviewed in the patients chart. I agree with the above findings, impression and plan. (Patient seen earlier today. Signature stamp does not reflect patient encounter time.). -Aguilar [facility] Tam NChristine Aug 08, 2016 12:10 AGUILAR WILLIS Aug 09, 2016 13:05
[2016-08-08] MEDS ORDERED: Magnesium Citrate Liq Btl ORAL ONE (16:00)
[2016-08-08] MEDS ORDERED: Polyethylene Glycol 238gm bottle ORAL ONE (16:00)
[2016-08-08] MEDS ORDERED: Bisacodyl EC 5mg tab ORAL ONE (16:00)
[2016-08-08] MEDS ORDERED: DuoNeb 0.5-3(2.5)mg/3ml neb HHN PRN (18:45)
[2016-08-08] MEDS ORDERED: Fleet's Enema 133ml RECTAL ONE (23:00)
[2016-08-09] VITALS (9 sets, daily range): BP systolic 134–153; BP diastolic 60–88
[2016-08-09] MEDS ORDERED: Ipratropium 0.02% Inh Soln 2.5ml UD HHN PRN (02:00)
[2016-08-09] MEDS: D5NS 1,000 ML IV SCH ×3 (02:20→18:48)
[2016-08-09] MEDS: DiphenhydrAMINE 50mg/ml Inj IVP PRN ×4 (05:05→20:00)
[2016-08-09] MEDS: HYDROmorphone 2 MG in NS 55 ML IVPB PRN ×4 (05:06→20:00)
[2016-08-09] MEDS: metroNIDAZOLE 500mg 100 ML IVPB SCH ×3 (06:04→22:35)
[2016-08-09 06:58] LABS: INR 1.1 (0.9-1.1); PROTHROMBIN TIME 11.4 SEC (9.30-11.50)
[2016-08-09] MEDS: Dyna-Hex 2% Top Sol 8oz TOPIC SCH (09:10)
[2016-08-09] MEDS: Atenolol 25mg tab ORAL SCH (09:10)
--- NOTE | 2016-08-09 10:02 | Pulmonology Progress Note ---
Assessment/Plan Assessment/Plan IMPRESSION: 1. Chronic obstructive pulmonary disease. 2. Automatic implantable cardioverter-defibrillator. 3. History of breast carcinoma. 4. Ulcerative colitis/irritable bowel disease. 5. Deafness. 6. Methicillin-resistant Staphylococcus aureus nares. 7. Chronic pain. 8. Diarrhea; suspect colitis DISCUSSION: Seen by GI On Flagyl Await stool studies IV fluids Subjective Interval Events: For colonscopy today Constitutional: Reports: no symptoms HEENT: Repors: no symptoms Respiratory: Reports: no symptoms Cardiovascular: Reports: no symptoms Gastrointestinal/Abdominal: Reports: diarrhea Genitourinary: Reports: no symptoms Neurologic: Reports: no symptoms Allergies: Coded Allergies: BENZODIAZEPINES (Verified Allergy, Unknown, 04/20/10) IODINE (Verified Allergy, Unknown, 04/20/10) LIDOCAINE (Verified Allergy, Unknown, 04/20/10) LORAZEPAM (Verified Allergy, Unknown, 04/20/10) OXYBUTYNIN (Verified Allergy, Unknown, 04/20/10) PENICILLINS (Verified Allergy, Unknown, 04/20/10) PHENOTHIAZINES (Verified Allergy, Unknown, 04/20/10) PIPERACILLIN (Verified Allergy, Unknown, 04/20/10) PROPOFOL (Verified Allergy, Unknown, 04/20/10) QUINOLONES (Verified Allergy, Unknown, 04/20/10) SULFASALAZINE (Verified Allergy, Unknown, 04/20/10) TAZOBACTAM (Verified Allergy, Unknown, 04/20/10) TEMAZEPAM (Verified Allergy, Unknown, 04/20/10) Objective Last 24 Hour Vital Signs Date Time Temp Pulse Resp B/P Pulse Ox O2 Delivery O2 Flow Rate FiO2 08/09/16 09:10 76 134/67 08/09/16 09:10 76 134/67 08/09/16 08:00 97.5 76 18 134/67 94 Room Air 08/09/16 04:00 97.3 76 20 148/78 91 Nasal Cannula 2.0 08/09/16 03:21 75 22 95 Nasal Cannula 4.0 36 08/09/16 03:11 36 08/09/16 03:10 78 22 92 Nasal Cannula 4.0 36 08/09/16 02:12 78 20 Nasal Cannula 4.0 36 08/08/16 23:53 97.6 75 19 146/82 94 Nasal Cannula 2.0 08/08/16 19:57 97.6 75 19 153/84 95 Nasal Cannula 2.0 08/08/16 19:32 97.2 08/08/16 19:30 95 Nasal Cannula 4.0 36 08/08/16 19:30 Nasal Cannula 4.0 36 08/08/16 18:09 163/88 08/08/16 17:40 97.2 80 20 163/88 95 Nasal Cannula 4.0 08/08/16 12:00 96.8 75 20 144/79 95 Nasal Cannula 4.0 Intake and Output 08/08/16 08/09/16 19:00 07:00 Intake Total 1224 ml 1411 ml Balance 1224 ml 1411 ml Intake Oral 300 ml IV Total 924 ml 1411 ml # Voids 10 7 # Bowel Movements 1 5 General Appearance: no acute distress HEENT: normocephalic Respiratory/Chest: chest wall non-tender, lungs clear Cardiovascular: normal peripheral pulses, normal rate Abdomen: normal bowel sounds, soft, non tender, no organomegaly, non distended , no mass Laboratory Tests 08/09/16 05:00: Prothrombin Time 11.4, Prothromb Time International Ratio 1.1, Activated Partial Thromboplast Time 28 Current Medications Medications (Trade) Dose Ordered Sig/Mamie Route PRN Reason Start Time Stop Time Status Last Admin Dose Admin Amlodipine Besylate (Norvasc) 10 mg DAILY ORAL 08/08/16 09:00 09/07/16 08:59 08/09/16 09:10 Atenolol (Tenormin) 25 mg DAILY ORAL 08/08/16 09:00 09/07/16 08:59 08/09/16 09:10 Chlorhexidine Gluconate 1 applic 1 applic DAILY TOPIC 08/08/16 09:00 09/07/16 08:59 08/09/16 09:10 Clonazepam (KlonoPIN) 1 mg QHS ORAL 08/08/16 21:00 08/15/16 20:59 08/08/16 21:00 Clonidine HCl (Catapres) 0.1 mg EVERY 6 HOURS PRN ORAL SBP>150 08/08/16 18:00 09/07/16 17:59 08/08/16 18:09 Dextrose/Sodium Chloride (D5ns) 1,000 ml @ 75 mls/hr [id number] IV 08/07/16 22:30 09/06/16 22:29 08/09/16 02:20 Diphenhydramine HCl (Benadryl) 25 mg Q4H PRN IVP Itching 08/07/16 22:30 09/06/16 22:29 08/09/16 05:05 Diphenoxylate HCl/ Atropine (Lomotil) 2.5 mg TID PRN ORAL Diarrhea 08/07/16 22:30 09/06/16 22:29 Hydromorphone HCl 4 mg 4 mg Q6H PRN ORAL Moderate Pain (Pain Scale 4-6) 08/08/16 09:00 08/15/16 08:59 Hydromorphone HCl/ Sodium Chloride (Dilaudid/Sodium Chloride) 56 ml @ 112 mls/hr Q4H PRN IVPB Severe Pain (Pain Scale 7-10) 08/08/16 09:00 08/15/16 08:59 08/09/16 05:06 Ipratropium Menard (Atrovent) 500 mcg Q6H PRN HHN Shortness of Breath 08/09/16 02:00 08/14/16 01:59 08/09/16 03:05 Levothyroxine Sodium (Synthroid) 100 mcg ACBREAKFAST ORAL 08/08/16 06:30 09/07/16 06:29 08/08/16 06:37 Metronidazole (Flagyl) 100 ml @ 100 mls/hr Q8HR IVPB 08/08/16 10:00 08/15/16 09:59 08/09/16 06:04 Pantoprazole (Protonix) 40 mg DAILY@0700 ORAL 08/08/16 07:00 09/07/16 06:59 08/08/16 06:33 Shahid Lake MD Aug 09, 2016 10:02
--- NOTE | 2016-08-09 12:53 | Pre-Procedure Note/Attestation ---
Pre-Procedure Note/Attestation Complete Prior to Procedure Planned Procedure: not applicable Procedure Narrative: egd/colon Indications for Procedure Pre-Operative Diagnosis: anemia Attestation I attest that I discussed the nature of the procedure; its benefits; risks and complications; and alternatives (and the risks and benefits of such alternatives ), prior to the procedure, with the patient (or the patient's legal credit representative). I attest that, if there was a reasonable possibility of needing a blood transfusion, the patient (or the patient's legal credit representative) was given the [facility] standardized written summary, pursuant to the [place] Blood Safety Act ([place] Health and Safety Code # 1645, as amended). I attest that I re-evaluated the patient just prior to the surgery and that there has been no change in the patient's H&P, except as documented below: STACY TAYLOR Aug 09, 2016 12:53
[2016-08-09] MEDS ORDERED: Propofol 10mg/ml 20ml IV ONE (13:00)
[2016-08-09] MEDS ORDERED: Lidocaine 1% MPF 10mg/ml 5ml ONE (13:00)
[2016-08-09] MEDS ORDERED: LR 1000ml ONE (13:00)
[2016-08-09] MEDS ORDERED: NS 550ML IV ONE (13:05)
--- NOTE | 2016-08-09 13:31 | Anethesia Preoperative Eval ---
Anesthesia Pre-op PMH/ROS General Date of Evaluation: Aug 09, 2016 Time of Evaluation: 13:00 Anesthesiologist: jose antonio ASA Score: ASA 3 Mallampati Score Class I : Soft palate, uvula, fauces, pillars visible Class II: Soft palate, uvula, fauces visible Class III: Soft palate, base of uvula visible Class IV: Only hard plate visible Mallampati Classification: Class III Surgeon: bev Diagnosis: anemia Surgical Procedure: EGD/Colonoscopy Anesthesia History: none Social History: smoking Family History: no anesthesia problems Allergies: Coded Allergies: BENZODIAZEPINES (Verified Allergy, Unknown, 04/20/10) IODINE (Verified Allergy, Unknown, 04/20/10) LIDOCAINE (Verified Allergy, Unknown, 04/20/10) LORAZEPAM (Verified Allergy, Unknown, 04/20/10) OXYBUTYNIN (Verified Allergy, Unknown, 04/20/10) PENICILLINS (Verified Allergy, Unknown, 04/20/10) PHENOTHIAZINES (Verified Allergy, Unknown, 04/20/10) PIPERACILLIN (Verified Allergy, Unknown, 04/20/10) PROPOFOL (Verified Allergy, Unknown, 04/20/10) QUINOLONES (Verified Allergy, Unknown, 04/20/10) SULFASALAZINE (Verified Allergy, Unknown, 04/20/10) TAZOBACTAM (Verified Allergy, Unknown, 04/20/10) TEMAZEPAM (Verified Allergy, Unknown, 04/20/10) Medications: see eMAR Past Medical History Cardiovascular: Reports: CAD, HTN, arrhythmia, other Gastrointestinal/Genitourinary: Reports: GERD Endocrine: Reports: hypothyroidism HEENT: Denies: KOTLIK (L), KOTLIK (R), cataract (L), cataract (R), glaucoma, other Hematology/Immune: Reports: anemia Musculoskeletal/Integumentary: Denies: DDD, DJD, OA, RA, edema, other Other: obesity PSxH Narrative: multiple Anesthesia Pre-op Phys. Exam Physician Exam Last Vital Signs Date Time Temp Pulse Resp B/P Pulse Ox O2 Delivery O2 Flow Rate FiO2 08/09/16 12:18 97.0 75 18 136/64 94 Room Air 08/09/16 04:00 2.0 08/09/16 03:21 36 Constitutional: NAD Neurologic: CN 2-12 intact Cardiovascular: RRR Respiratory: CTA Gastrointestinal: S/NT/ND Airway Exam Mallampati Classification 3 Mallampati Score: Class III MO: limited ROM: limited Dentures: lower, upper Anesthesia Pre-op A/P Labs Coagulation Test 08/09/16 05:00 Prothrombin Time 11.4 SEC (9.30-11.50) Prothromb Time International Ratio 1.1 (0.9-1.1) Activated Partial Thromboplast Time 28 SEC (23-33) Studies Pre-op Studies: EKG - sr Risk Assessment & Plan Assessment: pt denies any complication to propofol/ lidocaine Plan: mac Status Change Before Surgery: No Pre-Antibiotics Drug: non TARRILLIONANTONIO BILLET EXAMINER Aug 09, 2016 13:31
--- NOTE | 2016-08-09 13:43 | Immediate Post-Op Evaluation ---
Immediate Post-Op Evalulation Immediate Post-Op Evalulation Procedure: EGD/Colonoscopy Date of Evaluation: Aug 09, 2016 Time of Evaluation: 13:43 IV Fluids: 300 Blood Pressure Systolic: 120 Blood Pressure Diastolic: 60 Pulse Rate: 75 Respiratory Rate: 14 O2 Sat by Pulse Oximetry: 98 Temperature (Fahrenheit): 98.0 Nausea: No Vomiting: No Complications none Patient Status: awake, reacts Hydration Status: adequate Drug: none ANTONIO RUSSO CRNA Aug 09, 2016 13:43
--- NOTE | 2016-08-09 14:04 | 48 Hour Post Anesthesia Eval ---
Post Anesthesia Evaluation Procedure: EGD/Colonoscopy Date of Evaluation: Aug 09, 2016 Time of Evaluation: 14:04 Blood Pressure Systolic: 141 0: 88 Pulse Rate: 74 Respiratory Rate: 14 O2 Sat by Pulse Oximetry: 99 Airway: patent Nausea: No Vomiting: No Hydration Status: adequate Cardiopulmonary Status: stable Mental Status/LOC: patient returned to baseline Post-Anesthesia Complications: none Follow-up care needed: N/A ANTONIO RUSSO CRNA Aug 09, 2016 14:04
--- NOTE | 2016-08-09 21:45 | Procedure Note ---
DATE OF PROCEDURE: 08/09/2016 PROCEDURE: Upper endoscopy with biopsy and colonoscopy with biopsy. SURGEON: Aguilar Willis M.D. ANESTHESIOLOGIST: Salma Mendes CRNA. REFERRING PHYSICIAN: Shahid Lake M.D. INSTRUMENT: Olympus adult flexible endoscope and colonoscope. INDICATION: History of colitis and anemia. The procedure, risks, benefits, and possible consequences, including hemorrhage, aspiration, perforation and infection, and alternative treatments, were explained to the patient/legal guardian by Dr. Aguilar Willis and the patient/legal guardian understood and accepted these risks. DESCRIPTION OF PROCEDURE: After informed consent was obtained and the patient was adequately sedated, Olympus upper endoscope was advanced from mouth into the second portion of duodenum and retroflexion was performed in the stomach. The patient had diffuse gastritis. Random biopsy from antrum was obtained to rule out H. pylori infection. At this time, the upper endoscope was retrieved and the patient was turned over for colonoscopy. First, a rectal examination was performed, which was positive for internal hemorrhoids. Then, the scope was advanced from rectum into the cecum. Quality of prep was fair. Actually in the cecum, we could not see the appendix orifice given the solid stool in the cecum. Also throughout the colon, there was stool making this examination a little bit challenging and incomplete. About 10 to 15% of the colonic mucosa was not examined fully given this prep. The patient had evidence of one polyp in the ascending colon, which was removed with the cold biopsy forceps technique and another polyp in the transverse colon, which was also removed with the cold biopsy forceps technique. The patient had some pseudopolyps in the left colon, especially in the sigmoid colon, in which one of them was biopsied. The patient also has evidence of a scarring of the mucosa in the right colon, so it is suggestive of history of colitis. Retroflexion of rectum was performed, which shows evidence of internal hemorrhoid. The patient tolerated the procedure very well without any complication. FINDINGS: 1. Gastritis, status post biopsy. 2. Two colonic polyps, one in the ascending and one in the transverse, removed. See above for details. 3. Multiple pseudopolyps in the left colon. 4. looking scar tissue lining of the colonic mucosa in the right colon. 5. Internal hemorrhoids. RECOMMENDATIONS: 1. Follow up biopsies and treat accordingly. 2. We recommend the patient to be on Asacol at least 2400 mg a day for maintenance of the colitis. I want to thank, Dr. Lake, for this kind referral. Aguilar Willis M.D. DR: SHARI JOB#: [id number] CC: Shahid Lake M.D.; Fax#: [phone]
[2016-08-10] MEDS: DiphenhydrAMINE 50mg/ml Inj IVP PRN ×5 (00:04→16:45)
[2016-08-10] MEDS: HYDROmorphone 2 MG in NS 55 ML IVPB PRN ×5 (00:04→16:45)
[2016-08-10 00:36] VITALS: BP 153/79
[2016-08-10 04:52] VITALS: BP 162/85
[2016-08-10] MEDS: metroNIDAZOLE 500mg 100 ML IVPB SCH (06:00)
[2016-08-10 07:17] LABS: ANION GAP 13 (5-15); CALCIUM 9.2 mg/dL (8.6-10.2); CARBON DIOXIDE 33 mEQ/L (20-30); CHLORIDE 95 mEQ/L (98-107); CREATININE 0.7 mg/dL (0.5-0.9); GLOMERULAR FILTRATION RATE > 60 mL/min (>60); HEMOLYSIS 0; POTASSIUM 3.3 mEQ/L (3.4-4.9); SODIUM 141 mEQ/L (135-145)
[2016-08-10 07:21] LABS: BASOPHILS % (AUTO) 0.8 % (0.0-2.0); LYMPHOCYTES % (AUTO) 18.9 % (20.0-45.0); MEAN CORPUSCULAR HGB CONC 31.2 G/DL (32.0-36.0); MEAN CORPUSCULAR VOLUME 90 FL (80-99); MONOCYTES % (AUTO) 6.2 % (1.0-10.0); NEUTROPHILS % (AUTO) 72.1 % (45.0-75.0); PLATELET COUNT 137 K/UL (150-450); RED BLOOD COUNT 3.96 M/UL (4.20-5.40); RED CELL DISTRIBUTION WIDTH 14.2 % (11.6-14.8); WHITE BLOOD COUNT 10.8 K/UL (4.8-10.8)
[2016-08-10] MEDS: Dyna-Hex 2% Top Sol 8oz TOPIC SCH (08:25)
[2016-08-10] MEDS: Atenolol 25mg tab ORAL SCH (08:26)
[2016-08-10 08:29] VITALS: BP 142/78
--- NOTE | 2016-08-10 10:43 | GI Progress Note ---
Assessment/Plan Problems: (1) Constipation ICD Codes: K59.00 - Constipation, unspecified SNOMED: 66308524 (2) Colitis ICD Codes: K52.9 - Noninfective gastroenteritis and colitis, unspecified SNOMED: 90062928 (3) Opiate dependence ICD Codes: F11.20 - Opioid dependence, uncomplicated SNOMED: 42269102 Qualifiers: Qualified Codes: F11.24 - Opioid dependence with opioid-induced mood disorder Status: stable Status Narrative Discussed with Dr. Willis. Assessment/Plan S/P EGD / Colonoscopy FINDINGS: 1. Gastritis, status post biopsy. 2. Two colonic polyps, one in the ascending and one in the transverse, removed. See full report. 3. Multiple pseudopolyps in the left colon. 4. Scar tissue lining of the colonic mucosa in the right colon. 5. Internal hemorrhoids. RECOMMENDATIONS: ok for DC per GI standpoint 1. Follow up biopsies and treat accordingly. 2. We recommend the patient to be on Asacol at least 2400 mg a day for maintenance of the colitis. 3. Follow up as outpatient Subjective Gastrointestinal/Abdominal: Reports: no symptoms Objective Last 24 Hour Vital Signs Date Time Temp Pulse Resp B/P Pulse Ox O2 Delivery O2 Flow Rate FiO2 08/10/16 09:13 98.0 08/10/16 08:29 98.0 60 15 142/78 100 Room Air 08/10/16 08:26 60 142/78 08/10/16 08:26 60 142/78 08/10/16 07:54 Nasal Cannula 3.0 32 08/10/16 07:54 75 18 Nasal Cannula 3.0 32 08/10/16 07:54 95 Nasal Cannula 3.0 32 08/10/16 04:52 97.7 71 15 162/85 100 Room Air 08/10/16 00:36 98.6 75 17 153/79 95 Room Air 08/09/16 20:38 97.9 76 20 143/81 95 Room Air 08/09/16 19:20 96 Nasal Cannula 3.0 32 08/09/16 19:20 74 18 Nasal Cannula 3.0 32 08/09/16 19:20 Nasal Cannula 3.0 32 08/09/16 16:00 96.9 76 19 153/87 93 Room Air 08/09/16 14:04 74 14 99 08/09/16 13:58 97.8 78 18 141/88 96 Nasal Cannula 3.0 08/09/16 13:45 73 16 148/78 97 Nasal Cannula 3.0 08/09/16 13:43 75 14 98 08/09/16 13:40 75 15 151/82 96 Nasal Cannula 3.0 08/09/16 13:35 98.0 74 16 150/60 95 Nasal Cannula 3.0 08/09/16 12:18 97.0 75 18 136/64 94 Room Air Intake and Output 08/09/16 08/10/16 19:00 07:00 Intake Total 687 ml 306 ml Output Total 0 ml Balance 687 ml 306 ml IV Total 687 ml 306 ml Output Estimated Blood Loss 0 ml Laboratory Tests Test 08/10/16 06:20 White Blood Count 10.8 K/UL (4.8-10.8) Red Blood Count 3.96 M/UL (4.20-5.40) L Hemoglobin 11.1 G/DL (12.0-16.0) L Hematocrit 35.4 % (37.0-47.0) L Mean Corpuscular Volume 90 FL (80-99) Mean Corpuscular Hemoglobin 28.0 PG (27.0-31.0) Mean Corpuscular Hemoglobin Concent 31.2 G/DL (32.0-36.0) L Red Cell Distribution Width 14.2 % (11.6-14.8) Platelet Count 137 K/UL (150-450) L Mean Platelet Volume 7.0 FL (6.5-10.1) Neutrophils (%) (Auto) 72.1 % (45.0-75.0) Lymphocytes (%) (Auto) 18.9 % (20.0-45.0) L Monocytes (%) (Auto) 6.2 % (1.0-10.0) Eosinophils (%) (Auto) 2.0 % (0.0-3.0) Basophils (%) (Auto) 0.8 % (0.0-2.0) Sodium Level 141 mEQ/L (135-145) Potassium Level 3.3 mEQ/L (3.4-4.9) L Chloride Level 95 mEQ/L (98-107) L Carbon Dioxide Level 33 mEQ/L (20-30) H Anion Gap 13 (5-15) Blood Urea Nitrogen 8 mg/dL (7-23) Creatinine 0.7 mg/dL (0.5-0.9) Estimat Glomerular Filtration Rate > 60 mL/min (>60) Glucose Level 113 mg/dL (74-106) H Calcium Level 9.2 mg/dL (8.6-10.2) Height (Feet): 5 Height (Inches): 0.00 Weight (Pounds): 150 General Appearance: no apparent distress, alert Cardiovascular: normal rate Respiratory/Chest: normal breath sounds, no respiratory distress Abdominal Exam: normal bowel sounds, non tender, soft Evette Brooke N.P. Aug 10, 2016 10:43
[2016-08-10 12:00] VITALS: BP 138/78
--- NOTE | 2016-08-10 12:45 | Pulmonology Progress Note ---
Assessment/Plan Assessment/Plan IMPRESSION: 1. Chronic obstructive pulmonary disease. 2. Automatic implantable cardioverter-defibrillator. 3. History of breast carcinoma. 4. Ulcerative colitis/irritable bowel disease. 5. Deafness. 6. Methicillin-resistant Staphylococcus aureus nares. 7. Chronic pain. 8. Diarrhea; colonoscopy negative DISCUSSION: Seen by GI and cleared Will dc home Subjective Interval Events: EGD and colonscopy normal; patient very tearful Constitutional: Reports: no symptoms HEENT: Repors: no symptoms Respiratory: Reports: no symptoms Cardiovascular: Reports: no symptoms Gastrointestinal/Abdominal: Reports: diarrhea Genitourinary: Reports: no symptoms Neurologic: Reports: no symptoms Allergies: Coded Allergies: BENZODIAZEPINES (Verified Allergy, Unknown, 04/20/10) IODINE (Verified Allergy, Unknown, 04/20/10) LIDOCAINE (Verified Allergy, Unknown, 04/20/10) LORAZEPAM (Verified Allergy, Unknown, 04/20/10) OXYBUTYNIN (Verified Allergy, Unknown, 04/20/10) PENICILLINS (Verified Allergy, Unknown, 04/20/10) PHENOTHIAZINES (Verified Allergy, Unknown, 04/20/10) PIPERACILLIN (Verified Allergy, Unknown, 04/20/10) PROPOFOL (Verified Allergy, Unknown, 04/20/10) QUINOLONES (Verified Allergy, Unknown, 04/20/10) SULFASALAZINE (Verified Allergy, Unknown, 04/20/10) TAZOBACTAM (Verified Allergy, Unknown, 04/20/10) TEMAZEPAM (Verified Allergy, Unknown, 04/20/10) Objective Last 24 Hour Vital Signs Date Time Temp Pulse Resp B/P Pulse Ox O2 Delivery O2 Flow Rate FiO2 08/10/16 09:13 98.0 08/10/16 08:29 98.0 60 15 142/78 100 Room Air 08/10/16 08:26 60 142/78 08/10/16 08:26 60 142/78 08/10/16 07:54 Nasal Cannula 3.0 32 08/10/16 07:54 75 18 Nasal Cannula 3.0 32 08/10/16 07:54 95 Nasal Cannula 3.0 32 08/10/16 04:52 97.7 71 15 162/85 100 Room Air 08/10/16 00:36 98.6 75 17 153/79 95 Room Air 08/09/16 20:38 97.9 76 20 143/81 95 Room Air 08/09/16 19:20 96 Nasal Cannula 3.0 32 08/09/16 19:20 74 18 Nasal Cannula 3.0 32 08/09/16 19:20 Nasal Cannula 3.0 32 08/09/16 16:00 96.9 76 19 153/87 93 Room Air 08/09/16 14:04 74 14 99 08/09/16 13:58 97.8 78 18 141/88 96 Nasal Cannula 3.0 08/09/16 13:45 73 16 148/78 97 Nasal Cannula 3.0 08/09/16 13:43 75 14 98 08/09/16 13:40 75 15 151/82 96 Nasal Cannula 3.0 08/09/16 13:35 98.0 74 16 150/60 95 Nasal Cannula 3.0 Intake and Output 08/09/16 08/10/16 19:00 07:00 Intake Total 687 ml 381 ml Output Total 0 ml Balance 687 ml 381 ml IV Total 687 ml 381 ml Output Estimated Blood Loss 0 ml General Appearance: no acute distress HEENT: normocephalic Respiratory/Chest: chest wall non-tender, lungs clear Cardiovascular: normal peripheral pulses, normal rate Abdomen: normal bowel sounds, soft, non tender Extremities: no cyanosis Microbiology Date/Time Source Procedure Growth Status 08/08/16 19:15 Stool Stool Culture - Preliminary NORMAL FECAL SOHA. Resulted 08/08/16 19:15 Stool Clostridium difficile Toxin Assay - Final Resulted Laboratory Tests 08/10/16 06:20: White Blood Count 10.8, Red Blood Count 3.96L, Hemoglobin 11.1L, Hematocrit 35.4L, Mean Corpuscular Volume 90, Mean Corpuscular Hemoglobin 28.0, Mean Corpuscular Hemoglobin Concent 31.2L, Red Cell Distribution Width 14.2, Platelet Count 137L, Mean Platelet Volume 7.0, Neutrophils (%) (Auto) 72.1, Lymphocytes (%) (Auto) 18.9L, Monocytes (%) (Auto) 6.2, Eosinophils (%) (Auto) 2.0, Basophils (%) (Auto) 0.8, Sodium Level 141, Potassium Level 3.3L, Chloride Level 95L, Carbon Dioxide Level 33H, Anion Gap 13, Blood Urea Nitrogen 8, Creatinine 0.7, Estimat Glomerular Filtration Rate > 60, Glucose Level 113H, Calcium Level 9.2 Current Medications Medications (Trade) Dose Ordered Sig/Mamie Route PRN Reason Start Time Stop Time Status Last Admin Dose Admin Amlodipine Besylate (Norvasc) 10 mg DAILY ORAL 08/08/16 09:00 09/07/16 08:59 08/10/16 08:26 Atenolol (Tenormin) 25 mg DAILY ORAL 08/08/16 09:00 09/07/16 08:59 08/10/16 08:26 Chlorhexidine Gluconate 1 applic 1 applic DAILY TOPIC 08/08/16 09:00 09/07/16 08:59 08/10/16 08:25 Clonazepam (KlonoPIN) 1 mg QHS ORAL 08/08/16 21:00 08/15/16 20:59 08/09/16 21:19 Clonidine HCl (Catapres) 0.1 mg EVERY 6 HOURS PRN ORAL SBP>150 08/08/16 18:00 09/07/16 17:59 08/08/16 18:09 Dextrose/Sodium Chloride (D5ns) 1,000 ml @ 75 mls/hr [id number] IV 08/07/16 22:30 09/06/16 22:29 08/09/16 18:48 Diphenhydramine HCl (Benadryl) 25 mg Q4H PRN IVP Itching 08/07/16 22:30 09/06/16 22:29 08/10/16 08:49 Diphenoxylate HCl/ Atropine (Lomotil) 2.5 mg TID PRN ORAL Diarrhea 08/07/16 22:30 09/06/16 22:29 Hydromorphone HCl 4 mg 4 mg Q6H PRN ORAL Moderate Pain (Pain Scale 4-6) 08/08/16 09:00 08/15/16 08:59 Hydromorphone HCl/ Sodium Chloride (Dilaudid/Sodium Chloride) 56 ml @ 112 mls/hr Q4H PRN IVPB Severe Pain (Pain Scale 7-10) 08/08/16 09:00 08/15/16 08:59 08/10/16 08:[address] [place] (Atrovent) 500 mcg Q6H PRN HHN Shortness of Breath 08/09/16 02:00 08/14/16 01:59 08/09/16 03:05 Levothyroxine Sodium (Synthroid) 100 mcg ACBREAKFAST ORAL 08/08/16 06:30 09/07/16 06:29 08/10/16 05:59 Mesalamine (Asacol) 800 mg THREE TIMES A DAY ORAL 08/09/16 18:00 09/08/16 17:59 08/10/16 08:26 Metronidazole (Flagyl) 100 ml @ 100 mls/hr Q8HR IVPB 08/08/16 10:00 08/15/16 09:59 08/10/16 06:00 Pantoprazole (Protonix) 40 mg DAILY@0700 ORAL 08/08/16 07:00 09/07/16 06:59 08/10/16 05:59 Shahid Lake MD Aug 10, 2016 12:45
[2016-08-10 16:24] VITALS: BP 140/80
[2016-08-10] MEDS: D5NS 1,000 ML IV SCH (17:10)
[2016-08-10 18:43] VITALS: BP 150/88
[2016-08-10] MEDS ORDERED: D5NS 1000ml IV ONE (18:44)
[2016-08-10] MEDS ORDERED: Tubing IV Secondary IV ONE (18:44)
--- NOTE | 2016-08-13 09:39 | Discharge Summary ---
Discharge Summary Hospital Course Date of Admission Aug 07, 2016 at 18:34 Date of Discharge Aug 10, 2016 at 18:45 Admitting Diagnosis colitis/weakness HPI Wilda Mathias is a 66 year old female who was admitted on Aug 07, 2016 at 18:34 for Colitis, Weakness Hospital Course dc summary #[id number] Discharge Medications Continued Medications: Amlodipine Besylate* (Amlodipine Besylate*) 10 Mg Tablet 10 MG PO DAILY, #30 Atenolol (Tenormin) 25 Mg Tab 25 MG ORAL DAILY, TAB Clonazepam* (Klonopin*) 1 Mg Tablet 1.5 MG ORAL QHS, #15 TAB 0 Refills Diphenoxylate Hcl/Atropine (Diphenoxylate-Atropine Tablet) 1 Each Tablet 1 EACH PO TID, TAB Esomeprazole Magnesium (Nexium) 40 Mg Capsule.dr 40 MG PO AC, #30 Levothyroxine Sodium* (Synthroid*) 100 Mcg Tablet 100 MCG PO AC, #30 Discharge Condition Upon Discharge: stable Discharge Disposition Patient was discharged to Home (01) Discharge Diagnoses: Discharge Instructions Discharge Instructions Special Instructions I have been assigned to complete a D/C Summary on this account. I was not involved in the patient management Sridevi Barfield NP ([place]te[place]) Aug 13, 2016 09:39
--- NOTE | 2016-08-13 23:30 | Discharge Summary 2 SIG ---
DATE OF ADMISSION: 08/07/2016 DATE OF DISCHARGE: 08/10/2016 REASON FOR ADMISSION: This is a 66-year-old female who presented to emergency room with complaint of abdominal pain and diarrhea. The patient with history of colitis and also had chronic constipation. The patient started to take suppository as stated for one week. She had profuse diarrhea. Diarrhea described as watery. No blood in the stool. The patient has a history of ulcerative colitis. Pain was nonradiating, cramping. No fever. No chills. No chest pain. No shortness of breath. Workup in the emergency room, laboratory arias was unremarkable. The patient required placement of nasal cannula. She was slightly hypoxic. The patient with known history of COPD. Afebrile and normotensive. Troponin negative. Electrolytes stable. Hemoglobin and hematocrit with some evidence of mild anemia. The patient was started on IV fluids. Analgesia provided. The patient admitted for further management. ADMITTING DIAGNOSES: 1. History of ulcerative colitis. 2. Abdominal pain with diarrhea. 3. Chronic pain. 4. Chronic obstructive pulmonary disease. 5. Automatic implantable cardioverter-defibrillator. 6. History of breast cancer. HOSPITAL STAY: The patient admitted. The patient started on IV fluids. GI consult was requested. Stool studies were negative. Stool culture revealed no evidence of Salmonella, Shigella, or Campylobacter. Stool for C. diff toxin was negative. The patient was started on PPI. GI seen and evaluated the patient and scheduled the patient for EGD and colonoscopy secondary to anemia and history of ulcerative colitis. EGD revealed gastritis status post biopsy. Biopsy results are still pending. Colonoscopy revealed 2 colonic polyps, 1 in ascending colon and 1 in transverse, removed status post biopsy. Also revealed internal hemorrhoids and multiple pseudopolyps in the left colon. In addition, colonoscopy revealed scarring of the mucosa in the right colon suggestive of history of ulcerative colitis. Hemoglobin and hematocrit were closely monitored and remained stable. GI recommended to start the patient on Asacol; however, the patient reported allergy to sulfasalazine. GI cleared the patient for discharge and follow up as an outpatient for further management of ulcerative colitis. Supplemental oxygen and pulmonary toilet provided as needed. Prior to discharge, the patient is on room air. Pulse oximetry stable. Blood pressure was managed with calcium channel bridget and was stable. The patient is stable for discharge home. Follow up with the biopsy and treat accordingly. Follow up with GI as an outpatient and primary medical doctor. DISCHARGE DIAGNOSES: 1. Ulcerative colitis, status post esophagogastroduodenoscopy with biopsy. 2. Gastritis. 3. Status post colonoscopy with biopsy of 2 colonic polyps and polypectomy, with 2 colonic polyps removed. 4. Internal hemorrhoids. 5. Chronic pain. 6. Anemia. 7. Diarrhea. 8. Chronic obstructive pulmonary disease. 9. Automatic implantable cardioverter-defibrillator. 10. Hypertension. 11. History of breast carcinoma. DISCHARGE MEDICATIONS: See medication reconciliation list. DISCHARGE INSTRUCTIONS: The patient to follow up with the primary medical doctor and GI on an outpatient basis for monitoring and maintenance of ulcerative colitis. Shahid Lake M.D. I have been assigned to dictate discharge summary on this account and I was not involved in the patient's management. Sridevi Garzonst. clare's hospitalVasu NChristine DR: ESTHER JOB#: [id number] CC:
== END 2016-08-10 18:45 | disposition home or self-care (01) | DRG 386 ==
LOC: EMR 17:50 → 4E 18:34 → EDBEDREQ 18:49
PROC: 0DB68ZX Excision of Stomach, Via Natural or Artificial Opening Endoscopic, Diagnostic (ICD-10-PCS; principal; 2016-08-09 13:06)
PROC: 0DBL8ZX Excision of Transverse Colon, Via Natural or Artificial Opening Endoscopic, Diagnostic (ICD-10-PCS; principal; 2016-08-09 13:06)
PROC: 0DBK8ZX Excision of Ascending Colon, Via Natural or Artificial Opening Endoscopic, Diagnostic (ICD-10-PCS; principal; 2016-08-09 13:06)
DX: K51.90 Ulcerative colitis, unspecified, without complications (principal); J44.1 Chronic obstructive pulmonary disease with (acute) exacerbation; Z99.81 Dependence on supplemental oxygen; K52.9 Noninfective gastroenteritis and colitis, unspecified; K29.70 Gastritis, unspecified, without bleeding; I10 Essential (primary) hypertension; I25.10 Atherosclerotic heart disease of native coronary artery without angina pectoris; F11.29 Opioid dependence with unspecified opioid-induced disorder; D64.9 Anemia, unspecified; D12.2 Benign neoplasm of ascending colon; D12.3 Benign neoplasm of transverse colon; K64.8 Other hemorrhoids; H91.90 Unspecified hearing loss, unspecified ear; G47.33 Obstructive sleep apnea (adult) (pediatric); F17.200 Nicotine dependence, unspecified, uncomplicated; Z88.0 Allergy status to penicillin; Z22.322 Carrier or suspected carrier of Methicillin resistant Staphylococcus aureus; G89.29 Other chronic pain; Z95.810 Presence of automatic (implantable) cardiac defibrillator; Z85.3 Personal history of malignant neoplasm of breast; R09.02 Hypoxemia
CPT/HCPCS: 36415; 80048; 80053; 81003; 83690; 85025; 85610; 85730; 87045; 87324; 94003; 94150; 94640; 94664; 94760; J8499

== ENCOUNTER 2017-05-23 16:42 | Inpatient (IN) | payer MEDICARE, OTHER ==
[~2017-05-23] VITALS: Ht 162.6 cm; Wt 79.4 kg
[~2017-05-23 16:42] MED LIST changes: +DIPHENOXYLATE-1 EACH PO; +KLONOPIN1 MG ORAL
[2017-05-23] MEDS ORDERED: FUROSEMIDE20 M1 ORAL (16:46)
[2017-05-23] MEDS ORDERED: DILAUDID1 MG/1 ML PO (16:46)
[2017-05-23 17:00] VITALS: BP 139/78
[2017-05-23] MEDS ORDERED: Sodium Chloride 500ML 500 ML IV ONE (17:01)
--- NOTE | 2017-05-23 17:11 | Emergency Room Report ---
History of Present Illness General Chief Complaint: Generalized Weakness Source: EMS (Sena Smith) Present Illness HPI 66-year-old female presents to the emergency department for altered mental status in addition to COPD. Patient had a fall 3 days ago was examined and had staple closure of the left-sided head lack. Patient's friend called 911 because she was "not acting right". Friend was suspicious for possible Dilaudid overdose. Patient states that she typically is on 5 L nasal cannula at home. She denies fevers or chills. Denies chest pain. History of present illness and ROS is limited due to patient mental status. Easily distracted. (Sena Smith) Allergies: Coded Allergies: BENZODIAZEPINES (Verified Allergy, Unknown, 04/20/10) IODINE (Verified Allergy, Unknown, 04/20/10) IPRATROPIUM (Verified Allergy, Unknown, unknown, 05/24/17) LIDOCAINE (Verified Allergy, Unknown, 04/20/10) LORAZEPAM (Verified Allergy, Unknown, 04/20/10) OXYBUTYNIN (Verified Allergy, Unknown, 04/20/10) PENICILLINS (Verified Allergy, Unknown, 04/20/10) PHENOTHIAZINES (Verified Allergy, Unknown, 04/20/10) PIPERACILLIN (Verified Allergy, Unknown, 04/20/10) PROPOFOL (Verified Allergy, Unknown, 04/20/10) QUINOLONES (Verified Allergy, Unknown, 04/20/10) SULFASALAZINE (Verified Allergy, Unknown, 04/20/10) TAZOBACTAM (Verified Allergy, Unknown, 04/20/10) TEMAZEPAM (Verified Allergy, Unknown, 04/20/10) VANCOMYCIN (Verified Adverse Reaction, Intermediate, 05/23/17) "it messes up my stomach" Patient History Past Medical History: see triage record, COPD Past Surgical History: none Pertinent Family History: unable to obtain Now: No Immunizations: other - LONG Reviewed Nursing Documentation: PMH: Agreed; PSxH: Agreed (Sena Smith) Nursing Documentation-PMH Past Medical History: No History, Except For Hx Cardiac Problems: Yes - defibrillator Hx Hypertension: Yes Hx Pacemaker: No - DEAFNESS, COCHLEAR IMPLANTS Hx Asthma: Yes - PAIN PUMP IMPLANT Hx COPD: Yes - PNA Hx Diabetes: No Hx Cancer: No Hx Gastrointestinal Problems: Yes - ulcerative colitis Hx Dialysis: No Hx Neurological Problems: Yes - RSD Hx Cerebrovascular Accident: No Hx Seizures: No (Sena Smith) Review of Systems All Other Systems: negative except mentioned in HPI (Sena Smith) Physical Exam Vital Signs Date Time Temp Pulse Resp B/P (MAP) Pulse Ox O2 Delivery O2 Flow Rate FiO2 05/23/17 16:37 98.4 96 16 128/61 98 Nasal Cannula 2.0 98.4 Sp02 EP Interpretation: abnormal General Appearance: no apparent distress, GCS 15 Head: normocephalic, other - pt. has scalp yancy in place. ENT: hearing grossly normal, no angioedema, normal voice, uvula midline Neck: normal inspection, full range of motion, no bony tend Respiratory: no respiratory distress, rhonchi, wheezing Cardiovascular #1: regular rate, rhythm, no edema Gastrointestinal: non tender, soft, no mass, non-distended Rectal: deferred Genitourinary: deferred Musculoskeletal: non-tender, no calf tenderness Neurologic: alert, oriented x3, responsive, motor strength/tone normal, speech normal - pt. easily distracted. Skin: no rash, warm/dry (Sena Smith) Medical Decision Making PA Attestation Dr. steele is my supervising Physician whom patient management has been discussed with. (Sena Smith) Medicare Attestation The history of Wilda Mathias has been reviewed and management options for her have been examined and discussed by Reji Edge. I have personally examined and interviewed the patient. (Reji Edge MD) Diagnostic Impression: Primary Impression: COPD with acute exacerbation Additional Impressions: Hypoxia UTI (urinary tract infection) Qualified Codes: N30.00 - Acute cystitis without hematuria ER Course 66-year-old female presents to the emergency department for altered mental status in addition to COPD. Patient had a fall 3 days ago was examined and had staple closure of the left-sided head lack. Patient's friend called 911 because she was "not acting right". Friend was suspicious for possible Dilaudid overdose. Patient states that she typically is on 5 L nasal cannula at home. She denies fevers or chills. Denies chest pain. History of present illness and ROS is limited due to patient mental status. Easily distracted. Ddx considered but are not limited to Hypoglycemia, hyperglycemia, sepsis, UTI, subdural bleed, COPD exacerbation, arrhythmia just to name a few --Per caregiver who presented temporarily: pt. has cochlear implant, yancy placed in april- has appt for follow up and staple removal in 2 weeks. reports believes pt. taking too much of her hydromorphone. reports pt. administers her own medication. hx of COPD on O2 at home. pt. from home. Vital signs: are WNL, pt. is afebrile H&PE are most consistent with COPD exacerbation and will check for UTI. ORDERS: -CBC: anemia -CMP: Co2 of 30 -Troponin: 0.00 -Elevated Ck-MB - BNP:281 -Lactic Acid :0.5 WNL -Blood cultures:Pending -UA: positive for infection ED INTERVENTIONS: -Atrovent HHN. -Solumedrol - Antibiotic was considered for acute COPD exacerbation and UTI however due to patient having extensive list of allergies to antibiotics will will defer to admitting physicians or infectious disease as needed. DISPOSITION: at this time pt. will be admitted to Dr. Dodson for Hypoxia, COPD exacerbation and AMS, Dr. Dodson agreed to admit the pt. and to continue pt. care management. Labs Test 05/23/17 17:50 White Blood Count 10.2 K/UL (4.8-10.8) Red Blood Count 3.88 M/UL (4.20-5.40) Hemoglobin 10.9 G/DL (12.0-16.0) Hematocrit 34.5 % (37.0-47.0) Mean Corpuscular Volume 89 FL (80-99) Mean Corpuscular Hemoglobin 28.1 PG (27.0-31.0) Mean Corpuscular Hemoglobin Concent 31.7 G/DL (32.0-36.0) Red Cell Distribution Width 14.4 % (11.6-14.8) Platelet Count 253 K/UL (150-450) Mean Platelet Volume 5.9 FL (6.5-10.1) Neutrophils (%) (Auto) 82.3 % (45.0-75.0) Lymphocytes (%) (Auto) 13.4 % (20.0-45.0) Monocytes (%) (Auto) 3.6 % (1.0-10.0) Eosinophils (%) (Auto) 0.3 % (0.0-3.0) Basophils (%) (Auto) 0.4 % (0.0-2.0) Urine Color Pale yellow Urine Appearance Slightly cloudy Urine pH 8 (4.5-8.0) Urine Specific [place] 1.010 (1.005-1.035) Urine Protein 3+ (NEGATIVE) Urine Glucose (UA) Negative (NEGATIVE) Urine Ketones 2+ (NEGATIVE) Urine Occult Blood 2+ (NEGATIVE) Urine Nitrite Negative (NEGATIVE) Urine Bilirubin Negative (NEGATIVE) Urine Urobilinogen Normal MG/DL (0.0-1.0) Urine Leukocyte Esterase 3+ (NEGATIVE) Urine RBC 0-2 /HPF (0 - 2) Urine WBC 5-10 /HPF (0 - 2) Urine Squamous Epithelial Cells Occasional /LPF Urine Bacteria Many /HPF (NONE) Sodium Level 142 MMOL/L (136-145) Potassium Level 3.7 MMOL/L (3.5-5.1) Chloride Level 95 MMOL/L (98-107) Carbon Dioxide Level 39 MMOL/L (21-32) Anion Gap 8 mmol/L (5-15) Blood Urea Nitrogen 19 mg/dL (7-18) Creatinine 1.0 MG/DL (0.55-1.30) Estimat Glomerular Filtration Rate 55.3 mL/min (>60) Glucose Level 127 MG/DL (74-106) Lactic Acid Level 0.50 mmol/L (0.66-2.22) Calcium Level 9.5 MG/DL (8.5-10.1) Total Bilirubin 0.6 MG/DL (0.2-1.0) Aspartate Amino Transf (AST/SGOT) 35 U/L (15-37) Alanine Aminotransferase (ALT/SGPT) 26 U/L (12-78) Alkaline Phosphatase 79 U/L (46-116) Total Creatine Kinase 177 U/L (26-308) Creatine Kinase MB 4.0 NG/ML (0.0-3.6) Troponin I 0.022 ng/mL (0.000-0.056) Pro-B-Type Natriuretic Peptide 281 pg/mL (0-125) Total Protein 7.2 G/DL (6.4-8.2) Albumin 4.0 G/DL (3.4-5.0) Globulin 3.2 g/dL Albumin/Globulin Ratio 1.3 (1.0-2.7) (Sena Smith) EKG Diagnostic Results EP Interpretation: Dr. Edge Rate: normal - 80 Rhythm: NSR ST Segments: no acute changes Other Impression implanted cardiac defib. peripheral access line right side. ASA given to the pt in ED: No PA Scribe Text This Interpretation was scribed by TRISHA Smith. (Sena Smith) Chest X-Ray Diagnostic Results Chest X-Ray Diagnostic Results : Chest X-Ray Ordered: Yes # of Views/Limited/Complete: 1 View Indication: Shortness of Breath EP Interpretation: Yes PA Xray: Interpretation reviewed, by supervising MD, and agrees with findings. Interpretation: other Impression: Other - Chronic disease, xray is compared with previous cxr from 02/2016. Chronic interstitial lung disease. (Sena Smith) CT/MRI/US Diagnostic Results CT/MRI/US Diagnostic Results : Imaging Test Ordered: CT Head No Contrast Impression "No obvious intracranial hemorrhages or cortical ischemia. No skull fractures. Mild chronic ischemic changes. . "Per official radiology report- Please see report for specific details. (Sena Smith) Last Vital Signs Date Time Temp Pulse Resp B/P (MAP) Pulse Ox O2 Delivery O2 Flow Rate FiO2 05/23/17 16:37 98.4 96 16 128/61 98 Nasal Cannula 2.0 98.4 (Sena Smith) Disposition: ADMITTED INPATIENT Condition: Serious Sena Smith May 23, 2017 17:11 Reji Edge MD May 27, 2017 06:35
[2017-05-23] MEDS ORDERED: Ipratropium 0.02% Inh Soln 2.5ml UD HHN ONE (17:15)
[2017-05-23] MEDS ORDERED: Solu-MEDROL 125mg Inj IVP ONE (17:15)
[2017-05-23] MEDS ORDERED: Albuterol ud Inhalation HHN ONE (17:15)
[2017-05-23 18:00] VITALS: BP 146/61
[2017-05-23 18:11] LABS: APPEARANCE,URINE SLIGHTLY CLOUDY; BILIRUBIN, URINE NEGATIVE (NEGATIVE); COLOR,URINE PALE YELLOW; GLUCOSE, URINE (UA) NEGATIVE (NEGATIVE); KETONES,URINE 2+ (NEGATIVE); LEUKOCYTE ESTERASE ,URINE 3+ (NEGATIVE); NITRITE,URINE NEGATIVE (NEGATIVE); PH,URINE 8 (4.5-8.0); PROTEIN,URINE 3+ (NEGATIVE); UROBILINOGEN,URINE NORMAL MG/DL (0.0-1.0)
[2017-05-23 18:22] LABS: BASOPHILS % (AUTO) 0.4 % (0.0-2.0); EOSINOPHILS % (AUTO) 0.3 % (0.0-3.0); HEMATOCRIT 34.5 % (37.0-47.0); HEMOGLOBIN 10.9 G/DL (12.0-16.0); LYMPHOCYTES % (AUTO) 13.4 % (20.0-45.0); MEAN CORPUSCULAR VOLUME 89 FL (80-99); MONOCYTES % (AUTO) 3.6 % (1.0-10.0); NEUTROPHILS % (AUTO) 82.3 % (45.0-75.0); PLATELET COUNT 253 K/UL (150-450); RED BLOOD COUNT 3.88 M/UL (4.20-5.40); RED CELL DISTRIBUTION WIDTH 14.4 % (11.6-14.8); WHITE BLOOD COUNT 10.2 K/UL (4.8-10.8)
[2017-05-23 18:45] LABS: ANION GAP 8 mmol/L (5-15); BLOOD UREA NITROGEN 19 mg/dL (7-18); CALCIUM 9.5 MG/DL (8.5-10.1); CARBON DIOXIDE 39 MMOL/L (21-32); CHLORIDE 95 MMOL/L (98-107); POTASSIUM 3.7 MMOL/L (3.5-5.1); SODIUM 142 MMOL/L (136-145)
[2017-05-23] MEDS ORDERED: Vancomycin 1.5gm/D5W 250ml 250 ML IVPB ONE (18:45)
[2017-05-23 18:49] LABS: ALANINE AMINOTRANSFERASE 26 U/L (12-78); ALBUMIN/GLOBULIN RATIO 1.3 (1.0-2.7); ALKALINE PHOSPHATASE 79 U/L (46-116); ASPARTATE AMINO TRANSFERASE 35 U/L (15-37); BILIRUBIN,TOTAL 0.6 MG/DL (0.2-1.0); CREATINE KINASE 177 U/L (26-308)
[2017-05-23 19:00] VITALS: BP 150/63
[2017-05-23] MEDS ORDERED: CYCLOBENZAPRINE10 MG ORAL (19:52)
[2017-05-23] MEDS ORDERED: HYDROMORPHONE HC4 M1 PO (19:52)
[2017-05-23] MEDS ORDERED: VENTOLIN HFA18 GM INH (19:55)
[2017-05-23] MEDS ORDERED: ASACOL HD800 MG ORAL (19:56)
[2017-05-23 20:05] VITALS: BP 155/65
[2017-05-23] MEDS ORDERED: Albuterol/Ipratropium 3ml neb HHN PRN (20:15)
[2017-05-23 20:20] VITALS: BP 155/68
--- NOTE | 2017-05-23 21:32 | History & Physical ---
History and Physical History & Physicial The patient was seen and examined at bedside. Last 24 Hour Vital Signs Date Time Temp Pulse Resp B/P (MAP) Pulse Ox O2 Delivery O2 Flow Rate FiO2 05/23/17 18:02 88 15 95 Nasal Cannula 2.0 05/23/17 18:01 89 16 Nasal Cannula 2.0 28 05/23/17 17:54 93 20 90 Nasal Cannula 2.0 28 05/23/17 16:37 98.4 96 16 128/61 98 Nasal Cannula 2.0 98.4 F/U Labs F/U cultures Discuss with RN -PT mobility F/U with Dr. Lake Recommendation H & P dictated Job : [id number] (Patient was seen earlier today. Signature timestamp does not reflect patient encounter time) Flex Mello MD, MD May 23, 2017 21:31
[2017-05-23] MEDS ORDERED: Acetaminophen 650 MG SUPP RECTAL PRN ×2 (21:45)
[2017-05-23] MEDS ORDERED: Nitroglycerin Subl 0.4mg tab SL PRN (21:45)
[2017-05-23] MEDS: Heparin 5000 units/ml inj SUBQ SCH (22:00)
[2017-05-23] MEDS: Solu-MEDROL 125mg Inj IV SCH (22:00)
[2017-05-23] MEDS: Albuterol/Ipratropium 3ml neb HHN SCH (23:00)
[2017-05-23] MEDS ORDERED: guaiFENesin DM 100mg/5ml ORAL PRN (23:15)
[2017-05-24] VITALS: BP 140/75
[2017-05-24] MEDS: Zolpidem 5mg tab ORAL PRN ×2 (03:31→21:49)
[2017-05-24 04:00] VITALS: BP 143/77
[2017-05-24] MEDS: Solu-MEDROL 125mg Inj IV SCH ×3 (06:00→21:26)
[2017-05-24] MEDS: Heparin 5000 units/ml inj SUBQ SCH ×3 (06:00→21:28)
[2017-05-24] MEDS: NovoLOG Insulin Flexpen SUBQ SCH ×4 (06:30→21:29)
[2017-05-24] MEDS: Albuterol/Ipratropium 3ml neb HHN SCH (07:00)
[2017-05-24] MEDS ORDERED: Guaifenesin/DM 10ml syrup ORAL PRN (07:00)
[2017-05-24 07:10] LABS: MEAN CORPUSCULAR VOLUME 87 FL (80-99); PLATELET COUNT 232 K/UL (150-450); RED BLOOD COUNT 3.55 M/UL (4.20-5.40); RED CELL DISTRIBUTION WIDTH 14.1 % (11.6-14.8); WHITE BLOOD COUNT 5.2 K/UL (4.8-10.8)
[2017-05-24 07:42] LABS: ALANINE AMINOTRANSFERASE 26 U/L (12-78); ALBUMIN 3.5 G/DL (3.4-5.0); ALKALINE PHOSPHATASE 72 U/L (46-116); ANION GAP 8 mmol/L (5-15); ASPARTATE AMINO TRANSFERASE 31 U/L (15-37); BILIRUBIN,TOTAL 0.7 MG/DL (0.2-1.0); BLOOD UREA NITROGEN 20 mg/dL (7-18); CALCIUM 8.9 MG/DL (8.5-10.1); CARBON DIOXIDE 35 MMOL/L (21-32); CHLORIDE 98 MMOL/L (98-107); CREATININE 1.1 MG/DL (0.55-1.30); PHOSPHORUS 3.8 MG/DL (2.5-4.9); POTASSIUM 3.8 MMOL/L (3.5-5.1); SODIUM 141 MMOL/L (136-145)
[2017-05-24 08:00] VITALS: BP 153/115
[2017-05-24] MEDS ORDERED: Esomeprazole sodium 40mg vial IVP SCH (09:00)
[2017-05-24] MEDS: Docusate 100mg cap ORAL SCH ×2 (09:03→20:12)
[2017-05-24] MEDS: Cyclobenzaprine 10mg Tab ORAL SCH ×3 (09:04→17:45)
--- NOTE | 2017-05-24 09:12 | Diagnostic Imaging Report ---
Indication: Pain Technique: Continuous helical CT scanning of the head was performed utilizing automated exposure control without intravenous contrast material. Axial and coronal reconstructions were obtained. Comparison: None CT dose: Total DLP 1453.5 mGycm; CTDI vol 70.38 mGy Findings: Limited evaluation due to significant streak artifact from metallic structures about the right-sided soft tissues. There is no definite large acute intracranial hemorrhage. No mass effect, midline shift or evidence of definite cortical edema. The ventricles, cisterns and sulci are within normal limits for age. Mild periventricular hypoattenuation is seen, a nonspecific finding. Atherosclerotic vascular Calcification seen. Cochlear implants. Surgical yancy over the left parietal scalp. There is postsurgical appearance of the bilateral temporal bones. Opacity is noted in the bilateral mastoid air cells. Paranasal sinuses clear. No acute skull fracture identified. IMPRESSION: Exam limited due to metallic streak artifact. No definite evidence of acute intracranial hemorrhage, mass effect or cortical edema. Postsurgical appearance of the bilateral mastoid air cells with bilateral mastoid opacification. Findings may be chronic however correlate clinically to exclude acute mastoiditis. No acute skull fracture. This corresponds with the statrad preliminary report. The CT scanner at [facility] is accredited by the [employer] and the scans are performed using protocols designed to limit radiation exposure to as low as reasonably achievable to attain images of sufficient resolution adequate for diagnostic evaluation.
[2017-05-24] MEDS: Pantoprazole Inj IVP SCH (10:01)
--- NOTE | 2017-05-24 11:03 | Diagnostic Imaging Report ---
Indication: Chest pain Technique: XRAY Chest 1v Comparison: 02/28/2016 Findings: Pacemaker and PICC line unchanged. Heart size and mediastinal contours are stable. Atherosclerotic calcifications again noted. There is interstitial opacification/edema. There is patchy left basilar atelectasis. No large pleural effusion. No pneumothorax. There is scoliosis and degenerative change of the spine. IMPRESSION: Mild interstitial opacification/edema. Clinical correlation/follow-up exam recommended. Study obtained via the emergency department however patient admitted to the hospital at time of dictation of the final report.
[2017-05-24 12:00] VITALS: BP 138/72
[2017-05-24] MEDS: cefTRIAXone 1 GM in D5W 55 ML IVPB SCH (13:13)
--- NOTE | 2017-05-24 14:37 | Consultation ---
History of Present Illness General Date patient seen: May 24, 2017 Chief Complaint: Generalized Weakness Present Illness HPI 66-year-old female with hx of mdd and anxiety presented for altered mental status in addition to COPD. the pt has had falls. the pt takes Ambien and Klonopin. the pt endorses anxiety and insomnia. the pt has low energy and was not open to ssris. No si/hi Allergies: Coded Allergies: BENZODIAZEPINES (Verified Allergy, Unknown, 04/20/10) IODINE (Verified Allergy, Unknown, 04/20/10) LIDOCAINE (Verified Allergy, Unknown, 04/20/10) LORAZEPAM (Verified Allergy, Unknown, 04/20/10) OXYBUTYNIN (Verified Allergy, Unknown, 04/20/10) PENICILLINS (Verified Allergy, Unknown, 04/20/10) PHENOTHIAZINES (Verified Allergy, Unknown, 04/20/10) PIPERACILLIN (Verified Allergy, Unknown, 04/20/10) PROPOFOL (Verified Allergy, Unknown, 04/20/10) QUINOLONES (Verified Allergy, Unknown, 04/20/10) SULFASALAZINE (Verified Allergy, Unknown, 04/20/10) TAZOBACTAM (Verified Allergy, Unknown, 04/20/10) TEMAZEPAM (Verified Allergy, Unknown, 04/20/10) VANCOMYCIN (Verified Adverse Reaction, Intermediate, 05/23/17) "it messes up my stomach" Medication History Scheduled Amlodipine Besylate* (Amlodipine Besylate*), 10 MG PO DAILY, (Reported) Atenolol (Tenormin), 25 MG ORAL DAILY, (Reported) Clonazepam* (Klonopin*), 1.5 MG ORAL QHS, (Reported) Diphenoxylate Hcl/Atropine (Diphenoxylate-Atropine Tablet), 1 EACH PO TID, ( Reported) Esomeprazole Magnesium (Nexium), 40 MG PO AC, (Reported) Furosemide* (Lasix*), 20 MG ORAL DAILY, (Reported) Levothyroxine Sodium* (Synthroid*), 100 MCG PO AC, (Reported) Scheduled PRN Albuterol Sulfate (Ventolin Hfa), 1 PUFF INH TID PRN for Shortness of Breath, ( Reported) Hydromorphone Hcl (Hydromorphone Hcl), 4 MG PO THREE TIMES A DAY PRN for For Pain, (Reported) Miscellaneous Medications Cyclobenzaprine Hcl* (Flexeril*), Unknown Dose ORAL, (Reported) Mesalamine (Asacol Hd), Unknown Dose ORAL, (Reported) Discontinued Medications Hydromorphone Hcl (Dilaudid), 1 MG PO, (Reported) Discontinued Reason: Prescription changed Patient History Healthcare decision maker Resuscitation status Advanced Directive on File Review of Systems Psychiatric: Reports: prior hx, anxiety, depressed feelings Physical Exam General Appearance: no apparent distress, alert Neurologic: oriented x 3, responsive, depressed affect Last 24 Hour Vital Signs Date Time Temp Pulse Resp B/P (MAP) Pulse Ox O2 Delivery O2 Flow Rate FiO2 05/24/17 12:00 105 05/24/17 12:00 97.2 91 20 138/72 92 Room Air 97.2 05/24/17 12:00 97.7 91 20 138/72 Nasal Cannula 4.0 97.7 05/24/17 10:51 Nasal Cannula 3.0 32 05/24/17 10:51 Nasal Cannula 3.0 05/24/17 09:03 88 155/65 05/24/17 08:00 97.7 87 21 153/115 Nasal Cannula 4.0 97.7 05/24/17 08:00 75 05/24/17 04:00 81 05/24/17 04:00 96.8 91 20 143/77 Nasal Cannula 4.0 96.8 05/24/17 00:00 98.2 84 19 140/75 Nasal Cannula 4.0 98.2 05/23/17 23:31 Nasal Cannula 3.0 05/23/17 23:31 88 20 94 Nasal Cannula 3.0 32 05/23/17 20:25 98.0 95 20 155/65 95 4.0 05/23/17 20:20 97.6 97 14 155/68 98 Nasal Cannula 3.0 97.6 05/23/17 20:05 98.0 91 19 155/65 98 Nasal Cannula 4.0 98.0 05/23/17 19:00 98.0 85 15 150/63 98 Nasal Cannula 3.0 98.0 05/23/17 18:02 88 15 95 Nasal Cannula 2.0 05/23/17 18:01 89 16 Nasal Cannula 2.0 28 05/23/17 18:00 97.6 85 20 146/61 89 Nasal Cannula 3.0 97.6 05/23/17 17:54 93 20 90 Nasal Cannula 2.0 28 05/23/17 17:00 97.4 95 22 139/78 99 Nasal Cannula 3.0 97.4 05/23/17 16:37 98.4 96 16 128/61 98 Nasal Cannula 2.0 98.4 Laboratory Tests Test 05/23/17 17:50 05/24/17 06:30 White Blood Count 10.2 K/UL (4.8-10.8) 5.2 K/UL (4.8-10.8) Red Blood Count 3.88 M/UL (4.20-5.40) L 3.55 M/UL (4.20-5.40) L Hemoglobin 10.9 G/DL (12.0-16.0) L 9.0 G/DL (12.0-16.0) L Hematocrit 34.5 % (37.0-47.0) L 31.0 % (37.0-47.0) L Mean Corpuscular Volume 89 FL (80-99) 87 FL (80-99) Mean Corpuscular Hemoglobin 28.1 PG (27.0-31.0) 25.3 PG (27.0-31.0) L Mean Corpuscular Hemoglobin Concent 31.7 G/DL (32.0-36.0) L 29.0 G/DL (32.0-36.0) L Red Cell Distribution Width 14.4 % (11.6-14.8) 14.1 % (11.6-14.8) Platelet Count 253 K/UL (150-450) 232 K/UL (150-450) Mean Platelet Volume 5.9 FL (6.5-10.1) L 5.9 FL (6.5-10.1) L Neutrophils (%) (Auto) 82.3 % (45.0-75.0) H % (45.0-75.0) Lymphocytes (%) (Auto) 13.4 % (20.0-45.0) L % (20.0-45.0) Monocytes (%) (Auto) 3.6 % (1.0-10.0) % (1.0-10.0) Eosinophils (%) (Auto) 0.3 % (0.0-3.0) % (0.0-3.0) Basophils (%) (Auto) 0.4 % (0.0-2.0) % (0.0-2.0) Urine Color Pale yellow Urine Appearance Slightly cloudy Urine pH 8 (4.5-8.0) Urine Specific [place] 1.010 (1.005-1.035) Urine Protein 3+ (NEGATIVE) H Urine Glucose (UA) Negative (NEGATIVE) Urine Ketones 2+ (NEGATIVE) H Urine Occult Blood 2+ (NEGATIVE) H Urine Nitrite Negative (NEGATIVE) Urine Bilirubin Negative (NEGATIVE) Urine Urobilinogen Normal MG/DL (0.0-1.0) Urine Leukocyte Esterase 3+ (NEGATIVE) H Urine RBC 0-2 /HPF (0 - 2) Urine WBC 5-10 /HPF (0 - 2) H Urine Squamous Epithelial Cells Occasional /LPF Urine Bacteria Many /HPF (NONE) H Sodium Level 142 MMOL/L (136-145) 141 MMOL/L (136-145) Potassium Level 3.7 MMOL/L (3.5-5.1) 3.8 MMOL/L (3.5-5.1) Chloride Level 95 MMOL/L (98-107) L 98 MMOL/L (98-107) Carbon Dioxide Level 39 MMOL/L (21-32) H 35 MMOL/L (21-32) H Anion Gap 8 mmol/L (5-15) 8 mmol/L (5-15) Blood Urea Nitrogen 19 mg/dL (7-18) H 20 mg/dL (7-18) H Creatinine 1.0 MG/DL (0.55-1.30) 1.1 MG/DL (0.55-1.30) Estimat Glomerular Filtration Rate 55.3 mL/min (>60) 49.6 mL/min (>60) Glucose Level 127 MG/DL (74-106) H 161 MG/DL (74-106) H Lactic Acid Level 0.50 mmol/L (0.66-2.22) L Calcium Level 9.5 MG/DL (8.5-10.1) 8.9 MG/DL (8.5-10.1) Total Bilirubin 0.6 MG/DL (0.2-1.0) 0.7 MG/DL (0.2-1.0) Aspartate Amino Transf (AST/SGOT) 35 U/L (15-37) 31 U/L (15-37) Alanine Aminotransferase (ALT/SGPT) 26 U/L (12-78) 26 U/L (12-78) Alkaline Phosphatase 79 U/L (46-116) 72 U/L (46-116) Total Creatine Kinase 177 U/L (26-308) Creatine Kinase MB 4.0 NG/ML (0.0-3.6) H Troponin I 0.022 ng/mL (0.000-0.056) Pro-B-Type Natriuretic Peptide 281 pg/mL (0-125) H Total Protein 7.2 G/DL (6.4-8.2) 7.1 G/DL (6.4-8.2) Albumin 4.0 G/DL (3.4-5.0) 3.5 G/DL (3.4-5.0) Globulin 3.2 g/dL 3.6 g/dL Albumin/Globulin Ratio 1.3 (1.0-2.7) 1.0 (1.0-2.7) Differential Total Cells Counted 100 Neutrophils % (Manual) 84 % (45-75) H Lymphocytes % (Manual) 16 % (20-45) L Monocytes % (Manual) 0 % (1-10) L Eosinophils % (Manual) 0 % (0-3) Basophils % (Manual) 0 % (0-2) Band Neutrophils 0 % (0-8) Platelet Estimate Adequate Platelet Morphology Normal Hypochromasia 1+ Anisocytosis 1+ Phosphorus Level 3.8 MG/DL (2.5-4.9) Magnesium Level 2.0 MG/DL (1.8-2.4) Microbiology Date/Time Source Procedure Growth Status 05/23/17 17:50 Nasal Nares Influenza Types A,B Antigen (ED) - Final Complete Height (Feet): 5 Height (Inches): 4.00 Weight (Pounds): 175 Medications Current Medications Medications (Trade) Dose Ordered Sig/Mamie Route PRN Reason Start Time Stop Time Status Last Admin Dose Admin Acetaminophen (Tylenol) 650 mg Q4H PRN ORAL Mild Pain (Scale 1-3)/FEVER 05/23/17 21:45 06/22/17 21:44 Acetaminophen (Tylenol) 650 mg Q4H PRN RECTAL Mild Pain (Scale 1-3)/FEVER 05/23/17 21:45 06/22/17 21:44 Albuterol/ Ipratropium (Albuterol/ Ipratropium) 3 ml Q4H PRN HHN Shortness of Breath 05/23/17 20:15 05/28/17 20:14 Albuterol/ Ipratropium (Albuterol/ Ipratropium) 3 ml Q8HRT HHN 05/23/17 23:00 05/28/17 22:59 Amlodipine Besylate (Norvasc) 10 mg DAILY ORAL 05/24/17 09:00 06/23/17 08:59 05/24/17 09:03 Bisacodyl (Dulcolax) 10 mg HSPRN PRN RECTAL Constipation 05/23/17 21:45 06/22/17 21:44 Ceftriaxone Sodium 1 gm/ Dextrose 55 ml @ 110 mls/hr Q24H IVPB 05/24/17 13:30 05/31/17 13:29 05/24/17 13:13 Clonazepam (KlonoPIN) 2 mg BEDTIME PRN ORAL For Anxiety 05/23/17 23:15 05/30/17 23:14 Cyclobenzaprine HCl (Flexeril) 10 mg THREE TIMES A DAY ORAL 05/24/17 09:00 06/23/17 08:59 05/24/17 13:04 Dextrose (Dextrose 50%) STAT PRN IV Hypoglycemia 05/23/17 21:45 06/22/17 21:44 Diphenhydramine HCl (Benadryl) 25 mg Q6H PRN ORAL Itching/Pruritis 05/23/17 21:45 06/22/17 21:44 05/24/17 01:30 Docusate Sodium (Colace) 100 mg EVERY 12 HOURS ORAL 05/24/17 09:00 06/23/17 08:59 05/24/17 09:03 Doxycycline Monohydrate (Vibramycin) 100 mg EVERY 12 HOURS ORAL 05/23/17 21:00 05/30/17 20:59 05/24/17 09:04 Furosemide (Lasix) 20 mg DAILY ORAL 05/24/17 09:00 06/23/17 08:59 05/24/17 09:03 Guaifenesin/ Dextromethorphan (Robitussin DM Syrup) 5 ml Q6H PRN ORAL For Cough 05/24/17 07:00 06/23/17 06:59 Heparin Sodium (Porcine) (Heparin 5000 units/ml) 5,000 units EVERY 8 HOURS SUBQ 05/23/17 22:00 06/22/17 21:59 05/24/17 06:00 Hydromorphone HCl (Dilaudid) 0.5 mg Q4HR PRN IVP Moderate Pain (Pain Scale 4-6) 05/23/17 21:45 05/30/17 21:44 Hydromorphone HCl (Dilaudid) 1 mg Q4HR PRN IVP Moderate Pain (Pain Scale 4-6) 05/23/17 21:45 05/30/17 21:44 05/24/17 10:01 Insulin Aspart (NovoLOG) BEFORE MEALS AND HS SUBQ 05/24/17 06:30 06/23/17 06:29 05/24/17 11:30 Levothyroxine Sodium (Synthroid) 100 mcg DAILY@0630 ORAL 05/24/17 06:30 06/23/17 06:29 05/24/17 06:30 Methylprednisolone Sodium Succinate (Solu-MEDROL) 80 mg EVERY 8 HOURS IV 05/23/17 22:00 06/22/17 21:59 05/24/17 13:03 Nitroglycerin (Ntg) 0.4 mg Q5M X 3 DOSES PRN SL Prn Chest Pain 05/23/17 21:45 06/22/17 21:44 Ondansetron HCl (Zofran) 4 mg Q6H PRN IVP Nausea & Vomiting 05/23/17 21:45 06/22/17 21:44 Pantoprazole (Protonix) 40 mg DAILY IVP 05/24/17 10:30 06/23/17 10:29 05/24/17 10:01 Zolpidem Tartrate (Ambien) 5 mg HSPRN PRN ORAL Insomnia 05/23/17 21:45 05/30/17 21:44 05/24/17 03:31 Assessment/Plan Status: stable Assessment/Plan anxiety d/o -cont Ambien -will decrease Jamel Benoit M.D. May 24, 2017 14:37
--- NOTE | 2017-05-24 14:51 | Internal Med Progress Note ---
Subjective Date of Service: May 24, 2017 Physician Name Osmar Campbell Attending Physician Felx Dodson MD Current Medications Medications (Trade) Dose Ordered Sig/Mamie Route PRN Reason Start Time Stop Time Status Last Admin Dose Admin Acetaminophen (Tylenol) 650 mg Q4H PRN ORAL Mild Pain (Scale 1-3)/FEVER 05/23/17 21:45 06/22/17 21:44 Acetaminophen (Tylenol) 650 mg Q4H PRN RECTAL Mild Pain (Scale 1-3)/FEVER 05/23/17 21:45 06/22/17 21:44 Albuterol/ Ipratropium (Albuterol/ Ipratropium) 3 ml Q8HRT HHN 05/23/17 23:00 05/28/17 22:59 Amlodipine Besylate (Norvasc) 10 mg DAILY ORAL 05/24/17 09:00 06/23/17 08:59 05/24/17 09:03 Bisacodyl (Dulcolax) 10 mg HSPRN PRN RECTAL Constipation 05/23/17 21:45 06/22/17 21:44 Ceftriaxone Sodium 1 gm/ Dextrose 55 ml @ 110 mls/hr Q24H IVPB 05/24/17 13:30 05/31/17 13:29 05/24/17 13:13 Clonazepam (KlonoPIN) 2 mg BEDTIME PRN ORAL For Anxiety 05/23/17 23:15 05/30/17 23:14 Cyclobenzaprine HCl (Flexeril) 10 mg THREE TIMES A DAY ORAL 05/24/17 09:00 06/23/17 08:59 05/24/17 13:04 Dextrose (Dextrose 50%) STAT PRN IV Hypoglycemia 05/23/17 21:45 06/22/17 21:44 Diphenhydramine HCl (Benadryl) 25 mg Q6H PRN ORAL Itching/Pruritis 05/23/17 21:45 06/22/17 21:44 05/24/17 01:30 Docusate Sodium (Colace) 100 mg EVERY 12 HOURS ORAL 05/24/17 09:00 06/23/17 08:59 05/24/17 09:03 Doxycycline Monohydrate (Vibramycin) 100 mg EVERY 12 HOURS ORAL 05/23/17 21:00 05/30/17 20:59 05/24/17 09:04 Furosemide (Lasix) 20 mg DAILY ORAL 05/24/17 09:00 06/23/17 08:59 05/24/17 09:03 Guaifenesin/ Dextromethorphan (Robitussin DM Syrup) 5 ml Q6H PRN ORAL For Cough 05/24/17 07:00 06/23/17 06:59 Heparin Sodium (Porcine) (Heparin 5000 units/ml) 5,000 units EVERY 8 HOURS SUBQ 05/23/17 22:00 06/22/17 21:59 05/24/17 06:00 Hydromorphone HCl (Dilaudid) 0.5 mg Q4HR PRN IVP Moderate Pain (Pain Scale 4-6) 05/23/17 21:45 05/30/17 21:44 Hydromorphone HCl (Dilaudid) 1 mg Q4HR PRN IVP Moderate Pain (Pain Scale 4-6) 05/23/17 21:45 05/30/17 21:44 05/24/17 10:01 Insulin Aspart (NovoLOG) BEFORE MEALS AND HS SUBQ 05/24/17 06:30 06/23/17 06:29 05/24/17 11:30 Levalbuterol HCl (Xopenex) 1.25 mg Q4HR HHN 05/24/17 17:00 05/29/17 16:59 Levothyroxine Sodium (Synthroid) 100 mcg DAILY@0630 ORAL 05/24/17 06:30 06/23/17 06:29 05/24/17 06:30 Methylprednisolone Sodium Succinate (Solu-MEDROL) 80 mg EVERY 8 HOURS IV 05/23/17 22:00 06/22/17 21:59 05/24/17 13:03 Nitroglycerin (Ntg) 0.4 mg Q5M X 3 DOSES PRN SL Prn Chest Pain 05/23/17 21:45 06/22/17 21:44 Ondansetron HCl (Zofran) 4 mg Q6H PRN IVP Nausea & Vomiting 05/23/17 21:45 06/22/17 21:44 Pantoprazole (Protonix) 40 mg DAILY IVP 05/24/17 10:30 06/23/17 10:29 05/24/17 10:01 Zolpidem Tartrate (Ambien) 5 mg HSPRN PRN ORAL Insomnia 05/23/17 21:45 05/30/17 21:44 05/24/17 03:31 Allergies: Coded Allergies: BENZODIAZEPINES (Verified Allergy, Unknown, 04/20/10) IODINE (Verified Allergy, Unknown, 04/20/10) LIDOCAINE (Verified Allergy, Unknown, 04/20/10) LORAZEPAM (Verified Allergy, Unknown, 04/20/10) OXYBUTYNIN (Verified Allergy, Unknown, 04/20/10) PENICILLINS (Verified Allergy, Unknown, 04/20/10) PHENOTHIAZINES (Verified Allergy, Unknown, 04/20/10) PIPERACILLIN (Verified Allergy, Unknown, 04/20/10) PROPOFOL (Verified Allergy, Unknown, 04/20/10) QUINOLONES (Verified Allergy, Unknown, 04/20/10) SULFASALAZINE (Verified Allergy, Unknown, 04/20/10) TAZOBACTAM (Verified Allergy, Unknown, 04/20/10) TEMAZEPAM (Verified Allergy, Unknown, 04/20/10) VANCOMYCIN (Verified Adverse Reaction, Intermediate, 05/23/17) "it messes up my stomach" ROS Limited/Unobtainable: No Constitutional: Reports: no symptoms HEENT: Reports: no symptoms Cardiovascular: Reports: no symptoms Respiratory: Reports: shortness of breath Gastrointestinal/Abdominal: Reports: no symptoms Genitourinary: Reports: no symptoms Neurologic/Psychiatric: Reports: no symptoms Subjective 66 YO F admitted with COPD exacerbation and altered mental status. Cover for Int Jonnie-Dr Dodson. Objective Last Vital Signs Date Time Temp Pulse Resp B/P (MAP) Pulse Ox O2 Delivery O2 Flow Rate FiO2 05/24/17 12:00 105 05/24/17 12:00 97.2 20 138/72 92 Room Air 97.2 05/24/17 12:00 4.0 05/24/17 10:51 32 General Appearance: WD/WN, no apparent distress, mild distress EENT: PERRL/EOMI, normal ENT inspection Neck: non-tender, normal alignment, supple, normal inspection Cardiovascular: normal peripheral pulses, normal rate, regular rhythm, no gallop/murmur, no JVD Respiratory/Chest: respiratory distress, accessory muscle use, crackles/rales, rhonchi - bilaterally, expiratory wheezing Abdomen: normal bowel sounds, non tender, soft, no organomegaly, no mass Extremities: normal range of motion, non-tender 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8) 14.1 % (11.6-14.8) Platelet Count 253 K/UL (150-450) 232 K/UL (150-450) Mean Platelet Volume 5.9 FL (6.5-10.1) L 5.9 FL (6.5-10.1) L Neutrophils (%) (Auto) 82.3 % (45.0-75.0) H % (45.0-75.0) Lymphocytes (%) (Auto) 13.4 % (20.0-45.0) L % (20.0-45.0) Monocytes (%) (Auto) 3.6 % (1.0-10.0) % (1.0-10.0) Eosinophils (%) (Auto) 0.3 % (0.0-3.0) % (0.0-3.0) Basophils (%) (Auto) 0.4 % (0.0-2.0) % (0.0-2.0) Urine Color Pale yellow Urine Appearance Slightly cloudy Urine pH 8 (4.5-8.0) Urine Specific [place] 1.010 (1.005-1.035) Urine Protein 3+ (NEGATIVE) H Urine Glucose (UA) Negative (NEGATIVE) Urine Ketones 2+ (NEGATIVE) H Urine Occult Blood 2+ (NEGATIVE) H Urine Nitrite Negative (NEGATIVE) Urine Bilirubin Negative (NEGATIVE) Urine Urobilinogen Normal MG/DL (0.0-1.0) Urine Leukocyte Esterase 3+ (NEGATIVE) H Urine RBC 0-2 /HPF (0 - 2) Urine WBC 5-10 /HPF (0 - 2) H Urine Squamous Epithelial Cells Occasional /LPF Urine Bacteria Many /HPF (NONE) H Sodium Level 142 MMOL/L (136-145) 141 MMOL/L (136-145) Potassium Level 3.7 MMOL/L (3.5-5.1) 3.8 MMOL/L (3.5-5.1) Chloride Level 95 MMOL/L (98-107) L 98 MMOL/L (98-107) Carbon Dioxide Level 39 MMOL/L (21-32) H 35 MMOL/L (21-32) H Anion Gap 8 mmol/L (5-15) 8 mmol/L (5-15) Blood Urea Nitrogen 19 mg/dL (7-18) H 20 mg/dL (7-18) H Creatinine 1.0 MG/DL (0.55-1.30) 1.1 MG/DL (0.55-1.30) Estimat Glomerular Filtration Rate 55.3 mL/min (>60) 49.6 mL/min (>60) Glucose Level 127 MG/DL (74-106) H 161 MG/DL (74-106) H Lactic Acid Level 0.50 mmol/L (0.66-2.22) L Calcium Level 9.5 MG/DL (8.5-10.1) 8.9 MG/DL (8.5-10.1) Total Bilirubin 0.6 MG/DL (0.2-1.0) 0.7 MG/DL (0.2-1.0) Aspartate Amino Transf (AST/SGOT) 35 U/L (15-37) 31 U/L (15-37) Alanine Aminotransferase (ALT/SGPT) 26 U/L (12-78) 26 U/L (12-78) Alkaline Phosphatase 79 U/L (46-116) 72 U/L (46-116) Total Creatine Kinase 177 U/L (26-308) Creatine Kinase MB 4.0 NG/ML (0.0-3.6) H Troponin I 0.022 ng/mL (0.000-0.056) Pro-B-Type Natriuretic Peptide 281 pg/mL (0-125) H Total Protein 7.2 G/DL (6.4-8.2) 7.1 G/DL (6.4-8.2) Albumin 4.0 G/DL (3.4-5.0) 3.5 G/DL (3.4-5.0) Globulin 3.2 g/dL 3.6 g/dL Albumin/Globulin Ratio 1.3 (1.0-2.7) 1.0 (1.0-2.7) Differential Total Cells Counted 100 Neutrophils % (Manual) 84 % (45-75) H Lymphocytes % (Manual) 16 % (20-45) L Monocytes % (Manual) 0 % (1-10) L Eosinophils % (Manual) 0 % (0-3) Basophils % (Manual) 0 % (0-2) Band Neutrophils 0 % (0-8) Platelet Estimate Adequate Platelet Morphology Normal Hypochromasia 1+ Anisocytosis 1+ Phosphorus Level 3.8 MG/DL (2.5-4.9) Magnesium Level 2.0 MG/DL (1.8-2.4) Microbiology Date/Time Source Procedure Growth Status 05/23/17 17:50 Nasal Nares Influenza Types A,B Antigen (ED) - Final Complete Assessment/Plan Problem List: (1) COPD with acute exacerbation Assessment & Plan: Continue IV solumedrol, albuterol nebs and ceftriaxone (2) UTI (urinary tract infection) Assessment & Plan: Continue ceftriaxone (3) Altered mental status Assessment & Plan: Deu to hypoxia (4) Hypoxia (5) Hypothyroidism Assessment & Plan: Continue synthroid (6) HTN (hypertension) Assessment & Plan: Continue norvasc Status: not improved OSMAR CAMPBELL May 24, 2017 14:51
[2017-05-24] MEDS: Levalbuterol Inh UD 1.25mg/0.5ml HHN SCH ×3 (15:05→22:46)
[2017-05-24] MEDS: DiphenhydrAMINE 50mg/ml Inj IVP PRN ×2 (15:47→20:13)
[2017-05-24 16:00] VITALS: BP 146/82
[2017-05-24] MEDS ORDERED: Levalbuterol Inh UD 1.25mg/0.5ml HHN SCH (17:00)
--- NOTE | 2017-05-24 17:30 | Consultation ---
DATE OF CONSULTATION: 05/24/2017 PULMONARY CONSULTATION HISTORY OF PRESENT ILLNESS: This is a 66-year-old female who came to the hospital with exacerbation of COPD. The patient has a very long complicated past history. She has had recent closure of left-sided head laceration after a fall. The patient was also noted to be behaving in an unusual manner. There is concern she may have overdosed on medications. The patient has a longstanding history of COPD and has home oxygen at home as well. PAST HISTORY: Very complicated notable for AICD, deafness, chronic pain with pump in place, history of breast CA, history of porphyria cutanea tarda, history of COPD, history of hepatitis, and ulcerative colitis. MEDICATIONS: Home medications reviewed and reconciled in chart. ALLERGIES: Multiple listed including penicillin, oxybutynin, Ativan, tazobactam, temazepam, vancomycin, propofol, and benzodiazepines. REVIEW OF SYSTEMS: Denies any headaches, hematemesis, melena, hematochezia. PHYSICAL EXAMINATION: GENERAL: Reveals a 66-year-old female. VITAL SIGNS: Blood pressure 130/60, heart rate 84, respirations , and afebrile. HEENT: Unremarkable. LUNGS: Diminished breath sounds bilaterally. CARDIAC: Normal heart sounds. ABDOMEN: Soft. NEUROLOGIC: Nonfocal. LABORATORY AND DIAGNOSTIC DATA: Lab testing shows normal CBC and BMP except for hemoglobin 9. Chemistry is notable for glucose of 161. Lactic acid 0.5. Urinalysis negative except for few wbc's. X-ray chest is unremarkable except for nonspecific changes. Head CT was negative. IMPRESSION: 1. Exacerbation of COPD, mild. 2. Status post fall. 3. Chronic medical conditions, listed above. DISCUSSION: Agree with admission and care. The patient has been seen by Dr. Dodson and orders had been placed for continuation of home medications. She is also receiving Solu-Medrol and antibiotics, doxycycline medications. We will follow as back tender cylinder. Ordered oxygen and pulmonary hygiene. Shahid Lake M.D. DR: JM JOB#: [id number] CC:
[2017-05-24 20:00] VITALS: BP 152/85
[2017-05-24] MEDS: Hydromorphone 0.5mg/0.5ml inj IVP PRN (20:14)
[2017-05-25] VITALS: BP 147/82
[2017-05-25] MEDS: Levalbuterol Inh UD 1.25mg/0.5ml HHN SCH ×6 (03:00→23:36)
[2017-05-25 04:00] VITALS: BP 150/78
[2017-05-25] MEDS: NovoLOG Insulin Flexpen SUBQ SCH ×4 (06:30→20:44)
[2017-05-25] MEDS: Solu-MEDROL 125mg Inj IV SCH (06:56)
[2017-05-25] MEDS: Heparin 5000 units/ml inj SUBQ SCH ×3 (06:57→20:43)
[2017-05-25 08:00] VITALS: BP 149/87
[2017-05-25] MEDS: Docusate 100mg cap ORAL SCH ×2 (09:23→20:40)
[2017-05-25] MEDS: Pantoprazole Inj IVP SCH (09:23)
[2017-05-25] MEDS: Cyclobenzaprine 10mg Tab ORAL SCH ×3 (09:24→17:23)
[2017-05-25 10:09] LABS: BASOPHILS % (AUTO) 0.5 % (0.0-2.0); HEMATOCRIT 36.1 % (37.0-47.0); HEMOGLOBIN 11.7 G/DL (12.0-16.0); LYMPHOCYTES % (AUTO) 12.3 % (20.0-45.0); MEAN CORPUSCULAR VOLUME 89 FL (80-99); MONOCYTES % (AUTO) 2.5 % (1.0-10.0); NEUTROPHILS % (AUTO) 84.8 % (45.0-75.0); PLATELET COUNT 357 K/UL (150-450); RED BLOOD COUNT 4.06 M/UL (4.20-5.40); RED CELL DISTRIBUTION WIDTH 14.9 % (11.6-14.8); WHITE BLOOD COUNT 9.1 K/UL (4.8-10.8)
[2017-05-25 11:14] LABS: ANION GAP 12 mmol/L (5-15); BLOOD UREA NITROGEN 24 mg/dL (7-18); CALCIUM 9.2 MG/DL (8.5-10.1); CARBON DIOXIDE 34 MMOL/L (21-32); CHLORIDE 97 MMOL/L (98-107); CREATININE 1.1 MG/DL (0.55-1.30); POTASSIUM 3.3 MMOL/L (3.5-5.1); SODIUM 143 MMOL/L (136-145)
[2017-05-25 12:00] VITALS: BP 130/76
--- NOTE | 2017-05-25 12:48 | Pulmonology Progress Note ---
Assessment/Plan Assessment/Plan CHF CAD COPD shortness of breath hearing loss UTI PLAN respiratory care oxygen monitor fluid status optimize DVT prophylaxis impression, plan, and exam edited and reviewed in detail care discussed with RN Subjective Allergies: Coded Allergies: BENZODIAZEPINES (Verified Allergy, Unknown, 04/20/10) IODINE (Verified Allergy, Unknown, 04/20/10) IPRATROPIUM (Verified Allergy, Unknown, unknown, 05/24/17) LIDOCAINE (Verified Allergy, Unknown, 04/20/10) LORAZEPAM (Verified Allergy, Unknown, 04/20/10) OXYBUTYNIN (Verified Allergy, Unknown, 04/20/10) PENICILLINS (Verified Allergy, Unknown, 04/20/10) PHENOTHIAZINES (Verified Allergy, Unknown, 04/20/10) PIPERACILLIN (Verified Allergy, Unknown, 04/20/10) PROPOFOL (Verified Allergy, Unknown, 04/20/10) QUINOLONES (Verified Allergy, Unknown, 04/20/10) SULFASALAZINE (Verified Allergy, Unknown, 04/20/10) TAZOBACTAM (Verified Allergy, Unknown, 04/20/10) TEMAZEPAM (Verified Allergy, Unknown, 04/20/10) VANCOMYCIN (Verified Adverse Reaction, Intermediate, 05/23/17) "it messes up my stomach" Subjective no distress still feels tight deaf Objective Last 24 Hour Vital Signs Date Time Temp Pulse Resp B/P (MAP) Pulse Ox O2 Delivery O2 Flow Rate FiO2 05/25/17 12:00 98.1 103 20 130/76 95 Nasal Cannula 3.0 98.1 05/25/17 11:12 98 24 96 Nasal Cannula 3.0 32 05/25/17 11:02 96 22 94 Nasal Cannula 3.0 32 05/25/17 09:24 93 149/87 05/25/17 08:20 94 22 96 Nasal Cannula 3.0 32 05/25/17 08:10 93 20 94 Nasal Cannula 3.0 32 05/25/17 08:10 Nasal Cannula 3.0 32 05/25/17 08:10 94 Nasal Cannula 3.0 32 05/25/17 08:00 97.9 82 20 149/87 100 Nasal Cannula 4.0 97.9 05/25/17 07:42 99 05/25/17 04:00 108 05/25/17 04:00 97.3 108 22 150/78 95 Nasal Cannula 4.0 97.3 05/25/17 03:29 Nasal Cannula 2.0 05/25/17 03:29 Nasal Cannula 2.0 05/25/17 00:00 98 05/25/17 00:00 97.5 98 20 147/82 95 Nasal Cannula 4.0 97.5 05/24/17 22:45 Nasal Cannula 2.0 05/24/17 22:45 Nasal Cannula 2.0 05/24/17 20:00 98.2 101 19 152/85 93 Nasal Cannula 4.0 98.2 05/24/17 20:00 105 05/24/17 19:20 Nasal Cannula 2.0 05/24/17 19:20 Nasal Cannula 2.0 05/24/17 18:40 98.1 05/24/17 17:45 98.1 05/24/17 17:24 Nasal Cannula 3.0 05/24/17 17:23 Nasal Cannula 3.0 32 05/24/17 16:00 104 05/24/17 16:00 98.1 97 20 146/82 94 Room Air 98.1 Intake and Output 05/24/17 05/25/17 19:00 07:00 Intake Total 400 ml 400 ml Balance 400 ml 400 ml Intake Oral 400 ml Other 400 ml # Voids 5 # Bowel Movements 4 Objective WDWN NAD reduced breath sounds bilaterally without rhonchi or wheeze [id number] without MRG NABS nontender no HSM no CC edema deaf nonfocal Microbiology Date/Time Source Procedure Growth Status 05/23/17 17:50 Blood Blood Culture - Preliminary NO GROWTH AFTER 24 HOURS Resulted 05/23/17 17:30 Blood Blood Culture - Preliminary NO GROWTH AFTER 24 HOURS Resulted 05/23/17 17:50 Nasal Nares Influenza Types A,B Antigen (ED) - Final Complete 05/23/17 17:50 Urine,Clean Catch Urine Culture - Preliminary Gram Negative Leonardo Resulted Laboratory Tests 05/25/17 09:05: White Blood Count 9.1#, Red Blood Count 4.06L, Hemoglobin 11.7L, Hematocrit 36.1L, Mean Corpuscular Volume 89, Mean Corpuscular Hemoglobin 28.8, Mean Corpuscular Hemoglobin Concent 32.4, Red Cell Distribution Width 14.9H, Platelet Count 357#, Mean Platelet Volume 6.5, Neutrophils (%) (Auto) 84.8H, Lymphocytes (%) (Auto) 12.3L, Monocytes (%) (Auto) 2.5, Eosinophils (%) (Auto) 0.0, Basophils (%) (Auto) 0.5, Sodium Level 143, Potassium Level 3.3L, Chloride Level 97L, Carbon Dioxide Level 34H, Anion Gap 12, Blood Urea Nitrogen 24H, Creatinine 1.1, Estimat Glomerular Filtration Rate 49.6, Glucose Level 171H, Calcium Level 9.2, Troponin I 0.031, Free Thyroxine 2.55H, Triiodothyonine (T3) [Pending], Free Triiodothyronine 2.4, Triiodothyronine (T3) Uptake [Pending] Current Medications Medications (Trade) Dose Ordered Sig/Mamie Route PRN Reason Start Time Stop Time Status Last Admin Dose Admin Acetaminophen (Tylenol) 650 mg Q4H PRN ORAL Mild Pain (Scale 1-3)/FEVER 05/23/17 21:45 06/22/17 21:44 Acetaminophen (Tylenol) 650 mg Q4H PRN RECTAL Mild Pain (Scale 1-3)/FEVER 05/23/17 21:45 06/22/17 21:44 Amlodipine Besylate (Norvasc) 10 mg DAILY ORAL 05/24/17 09:00 06/23/17 08:59 05/25/17 09:24 Bisacodyl (Dulcolax) 10 mg HSPRN PRN RECTAL Constipation 05/23/17 21:45 06/22/17 21:44 Ceftriaxone Sodium 1 gm/ Dextrose 55 ml @ 110 mls/hr Q24H IVPB 05/24/17 13:30 05/31/17 13:29 05/24/17 13:13 Clonazepam (KlonoPIN) 2 mg BEDTIME PRN ORAL For Anxiety 05/23/17 23:15 05/30/17 23:14 05/25/17 00:01 Cyclobenzaprine HCl (Flexeril) 10 mg THREE TIMES A DAY ORAL 05/24/17 09:00 06/23/17 08:59 05/25/17 09:24 Dextrose (Dextrose 50%) STAT PRN IV Hypoglycemia 05/23/17 21:45 06/22/17 21:44 Diphenhydramine HCl (Benadryl) 25 mg Q4H PRN IVP Itching 05/24/17 15:00 06/23/17 14:59 05/24/17 20:13 Docusate Sodium (Colace) 100 mg EVERY 12 HOURS ORAL 05/24/17 09:00 06/23/17 08:59 05/25/17 09:23 Doxycycline Monohydrate (Vibramycin) 100 mg EVERY 12 HOURS ORAL 05/23/17 21:00 05/30/17 20:59 05/25/17 09:49 Furosemide (Lasix) 20 mg DAILY ORAL 05/24/17 09:00 06/23/17 08:59 05/25/17 09:24 Guaifenesin/ Dextromethorphan (Robitussin DM Syrup) 5 ml Q6H PRN ORAL For Cough 05/24/17 07:00 06/23/17 06:59 Heparin Sodium (Porcine) (Heparin 5000 units/ml) 5,000 units EVERY 8 HOURS SUBQ 05/23/17 22:00 06/22/17 21:59 05/25/17 06:57 Hydromorphone HCl (Dilaudid) 0.5 mg Q4HR PRN IVP Moderate Pain (Pain Scale 4-6) 05/23/17 21:45 05/30/17 21:44 05/24/17 20:14 Hydromorphone HCl (Dilaudid) 1 mg Q4HR PRN IVP Moderate Pain (Pain Scale 4-6) 05/23/17 21:45 05/30/17 21:44 05/24/17 15:47 Insulin Aspart (NovoLOG) BEFORE MEALS AND HS SUBQ 05/24/17 06:30 06/23/17 06:29 05/25/17 11:35 Levalbuterol HCl (Xopenex) 1.25 mg Q4HRT HHN 05/24/17 15:05 05/29/17 15:04 05/25/17 11:01 Levothyroxine Sodium (Synthroid) 100 mcg DAILY@0630 ORAL 05/24/17 06:30 06/23/17 06:29 05/25/17 06:56 Methylprednisolone Sodium Succinate (Solu-MEDROL) 80 mg EVERY 8 HOURS IV 05/23/17 22:00 06/22/17 21:59 05/25/17 06:56 Nitroglycerin (Ntg) 0.4 mg Q5M X 3 DOSES PRN SL Prn Chest Pain 05/23/17 21:45 06/22/17 21:44 Ondansetron HCl (Zofran) 4 mg Q6H PRN IVP Nausea & Vomiting 05/23/17 21:45 06/22/17 21:44 Pantoprazole (Protonix) 40 mg DAILY IVP 05/24/17 10:30 06/23/17 10:29 05/25/17 09:23 Potassium Chloride (K-Dur) 40 meq ONCE ONCE ORAL 05/25/17 13:00 05/25/17 13:01 Zolpidem Tartrate (Ambien) 5 mg HSPRN PRN ORAL Insomnia 05/23/17 21:45 05/30/17 21:44 05/24/17 21:49 ARTURO SINGH May 25, 2017 12:48
[2017-05-25] MEDS: cefTRIAXone 1 GM in D5W 55 ML IVPB SCH (13:35)
[2017-05-25] MEDS: Solu-MEDROL 40mg Inj IVP SCH ×2 (14:22→22:11)
[2017-05-25 16:00] VITALS: BP 157/72
--- NOTE | 2017-05-25 16:38 | Internal Med Progress Note ---
Subjective Date of Service: May 25, 2017 Physician Name Osmar Campbell Attending Physician Flex Dodson MD Current Medications Medications (Trade) Dose Ordered Sig/Mamie Route PRN Reason Start Time Stop Time Status Last Admin Dose Admin Acetaminophen (Tylenol) 650 mg Q4H PRN ORAL Mild Pain (Scale 1-3)/FEVER 05/23/17 21:45 06/22/17 21:44 Acetaminophen (Tylenol) 650 mg Q4H PRN RECTAL Mild Pain (Scale 1-3)/FEVER 05/23/17 21:45 06/22/17 21:44 Amlodipine Besylate (Norvasc) 10 mg DAILY ORAL 05/24/17 09:00 06/23/17 08:59 05/25/17 09:24 Bisacodyl (Dulcolax) 10 mg HSPRN PRN RECTAL Constipation 05/23/17 21:45 06/22/17 21:44 Ceftriaxone Sodium 1 gm/ Dextrose 55 ml @ 110 mls/hr Q24H IVPB 05/24/17 13:30 05/31/17 13:29 05/25/17 13:35 Clonazepam (KlonoPIN) 2 mg BEDTIME PRN ORAL For Anxiety 05/23/17 23:15 05/30/17 23:14 05/25/17 00:01 Cyclobenzaprine HCl (Flexeril) 10 mg THREE TIMES A DAY ORAL 05/24/17 09:00 06/23/17 08:59 05/25/17 13:35 Dextrose (Dextrose 50%) STAT PRN IV Hypoglycemia 05/23/17 21:45 06/22/17 21:44 Diphenhydramine HCl (Benadryl) 25 mg Q4H PRN IVP Itching 05/24/17 15:00 06/23/17 14:59 05/24/17 20:13 Docusate Sodium (Colace) 100 mg EVERY 12 HOURS ORAL 05/24/17 09:00 06/23/17 08:59 05/25/17 09:23 Doxycycline Monohydrate (Vibramycin) 100 mg EVERY 12 HOURS ORAL 05/23/17 21:00 05/30/17 20:59 05/25/17 09:49 Furosemide (Lasix) 20 mg DAILY ORAL 05/24/17 09:00 06/23/17 08:59 05/25/17 09:24 Guaifenesin/ Dextromethorphan (Robitussin DM Syrup) 5 ml Q6H PRN ORAL For Cough 05/24/17 07:00 06/23/17 06:59 Heparin Sodium (Porcine) (Heparin 5000 units/ml) 5,000 units EVERY 8 HOURS SUBQ 05/23/17 22:00 06/22/17 21:59 05/25/17 14:25 Hydromorphone HCl (Dilaudid) 0.5 mg Q4HR PRN IVP Moderate Pain (Pain Scale 4-6) 05/23/17 21:45 05/30/17 21:44 05/24/17 20:14 Hydromorphone HCl (Dilaudid) 1 mg Q4HR PRN IVP Moderate Pain (Pain Scale 4-6) 05/23/17 21:45 05/30/17 21:44 05/24/17 15:47 Insulin Aspart (NovoLOG) BEFORE MEALS AND HS SUBQ 05/24/17 06:30 06/23/17 06:29 05/25/17 11:35 Levalbuterol HCl (Xopenex) 1.25 mg Q4HRT HHN 05/24/17 15:05 05/29/17 15:04 05/25/17 15:40 Levothyroxine Sodium (Synthroid) 100 mcg DAILY@0630 ORAL 05/24/17 06:30 06/23/17 06:29 05/25/17 06:56 Methylprednisolone Sodium Succinate (Solu-MEDROL) 40 mg EVERY 8 HOURS IVP 05/25/17 14:00 06/24/17 13:59 05/25/17 14:22 Nitroglycerin (Ntg) 0.4 mg Q5M X 3 DOSES PRN SL Prn Chest Pain 05/23/17 21:45 06/22/17 21:44 Ondansetron HCl (Zofran) 4 mg Q6H PRN IVP Nausea & Vomiting 05/23/17 21:45 06/22/17 21:44 Pantoprazole (Protonix) 40 mg DAILY IVP 05/24/17 10:30 06/23/17 10:29 05/25/17 09:23 Zolpidem Tartrate (Ambien) 5 mg HSPRN PRN ORAL Insomnia 05/23/17 21:45 05/30/17 21:44 05/24/17 21:49 Allergies: Coded Allergies: BENZODIAZEPINES (Verified Allergy, Unknown, 04/20/10) IODINE (Verified Allergy, Unknown, 04/20/10) IPRATROPIUM (Verified Allergy, Unknown, unknown, 05/24/17) LIDOCAINE (Verified Allergy, Unknown, 04/20/10) LORAZEPAM (Verified Allergy, Unknown, 04/20/10) OXYBUTYNIN (Verified Allergy, Unknown, 04/20/10) PENICILLINS (Verified Allergy, Unknown, 04/20/10) PHENOTHIAZINES (Verified Allergy, Unknown, 04/20/10) PIPERACILLIN (Verified Allergy, Unknown, 04/20/10) PROPOFOL (Verified Allergy, Unknown, 04/20/10) QUINOLONES (Verified Allergy, Unknown, 04/20/10) SULFASALAZINE (Verified Allergy, Unknown, 04/20/10) TAZOBACTAM (Verified Allergy, Unknown, 04/20/10) TEMAZEPAM (Verified Allergy, Unknown, 04/20/10) VANCOMYCIN (Verified Adverse Reaction, Intermediate, 05/23/17) "it messes up my stomach" ROS Limited/Unobtainable: No Constitutional: Reports: no symptoms HEENT: Reports: no symptoms Cardiovascular: Reports: no symptoms Respiratory: Reports: shortness of breath Gastrointestinal/Abdominal: Reports: no symptoms Neurologic/Psychiatric: Reports: no symptoms Subjective 66 YO F admitted with COPD exacerbation and altered mental status. Cover for Int Jonnie-Dr Dodson. Objective Last Vital Signs Date Time Temp Pulse Resp B/P (MAP) Pulse Ox O2 Delivery O2 Flow Rate FiO2 05/25/17 16:00 98.1 105 21 157/72 98 Nasal Cannula 3.0 98.1 05/25/17 15:51 32 Laboratory Tests Test 05/25/17 09:05 White Blood Count 9.1 K/UL (4.8-10.8) # Red Blood Count 4.06 M/UL (4.20-5.40) L Hemoglobin 11.7 G/DL (12.0-16.0) L Hematocrit 36.1 % (37.0-47.0) L Mean Corpuscular Volume 89 FL (80-99) Mean Corpuscular Hemoglobin 28.8 PG (27.0-31.0) Mean Corpuscular Hemoglobin Concent 32.4 G/DL (32.0-36.0) Red Cell Distribution Width 14.9 % (11.6-14.8) H Platelet Count 357 K/UL (150-450) # Mean Platelet Volume 6.5 FL (6.5-10.1) Neutrophils (%) (Auto) 84.8 % (45.0-75.0) H Lymphocytes (%) (Auto) 12.3 % (20.0-45.0) L Monocytes (%) (Auto) 2.5 % (1.0-10.0) Eosinophils (%) (Auto) 0.0 % (0.0-3.0) Basophils (%) (Auto) 0.5 % (0.0-2.0) Sodium Level 143 MMOL/L (136-145) Potassium Level 3.3 MMOL/L (3.5-5.1) L Chloride Level 97 MMOL/L (98-107) L Carbon Dioxide Level 34 MMOL/L (21-32) H Anion Gap 12 mmol/L (5-15) Blood Urea Nitrogen 24 mg/dL (7-18) H Creatinine 1.1 MG/DL (0.55-1.30) Estimat Glomerular Filtration Rate 49.6 mL/min (>60) Glucose Level 171 MG/DL (74-106) H Calcium Level 9.2 MG/DL (8.5-10.1) Troponin I 0.031 ng/mL (0.000-0.056) Free Thyroxine 2.55 NG/DL (0.76-1.46) H Triiodothyonine (T3) Pending Free Triiodothyronine 2.4 pg/mL (2.3-4.2) Triiodothyronine (T3) Uptake Pending Microbiology Date/Time Source Procedure Growth Status 05/23/17 17:50 Blood Blood Culture - Preliminary NO GROWTH AFTER 24 HOURS Resulted 05/23/17 17:30 Blood Blood Culture - Preliminary NO GROWTH AFTER 24 HOURS Resulted 05/23/17 17:50 Nasal Nares Influenza Types A,B Antigen (ED) - Final Complete 05/23/17 17:50 Urine,Clean Catch Urine Culture - Preliminary Gram Negative Leonardo Resulted Intake and Output 05/24/17 05/25/17 19:00 07:00 Intake Total 400 ml 400 ml Balance 400 ml 400 ml Intake Oral 400 ml Other 400 ml # Voids 5 # Bowel Movements 4 Objective General Appearance: WD/WN, no apparent distress, mild distress EENT: PERRL/EOMI, normal ENT inspection Neck: non-tender, normal alignment, supple, normal inspection Cardiovascular: normal peripheral pulses, normal rate, regular rhythm, no gallop/murmur, no JVD Respiratory/Chest: respiratory distress, accessory muscle use, crackles/rales, rhonchi - bilaterally, expiratory wheezing Abdomen: normal bowel sounds, non tender, soft, no organomegaly, no mass Extremities: normal range of motion, non-tender 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
--- NOTE | 2017-05-25 18:15 | Cardiology Report ---
APPROVED REPORT EKG Measurement Heart [id number] Normal sinus rhythm with sinus arrhythmia Normal ECG
[2017-05-25 20:04] VITALS: BP 138/80
[2017-05-25] MEDS: DiphenhydrAMINE 50mg/ml Inj IVP PRN (20:38)
[2017-05-25] MEDS: Hydromorphone 0.5mg/0.5ml inj IVP PRN (20:39)
[2017-05-25] MEDS: Zolpidem 5mg tab ORAL PRN (23:22)
[2017-05-26] VITALS: BP 156/89
[2017-05-26] MEDS: DiphenhydrAMINE 50mg/ml Inj IVP PRN ×5 (01:02→20:40)
[2017-05-26] MEDS: Levalbuterol Inh UD 1.25mg/0.5ml HHN SCH ×5 (03:00→22:36)
[2017-05-26 04:00] VITALS: BP 135/80
[2017-05-26] MEDS: Solu-MEDROL 40mg Inj IVP SCH ×3 (05:47→20:38)
[2017-05-26] MEDS: Hydromorphone 0.5mg/0.5ml inj IVP PRN (05:48)
[2017-05-26] MEDS: Heparin 5000 units/ml inj SUBQ SCH ×3 (05:50→20:44)
[2017-05-26] MEDS: NovoLOG Insulin Flexpen SUBQ SCH ×4 (05:51→20:46)
[2017-05-26 07:06] LABS: HEMATOCRIT 34.5 % (37.0-47.0); HEMOGLOBIN 11.7 G/DL (12.0-16.0); MEAN CORPUSCULAR VOLUME 87 FL (80-99); PLATELET COUNT 340 K/UL (150-450); RED BLOOD COUNT 3.97 M/UL (4.20-5.40); RED CELL DISTRIBUTION WIDTH 14.4 % (11.6-14.8); WHITE BLOOD COUNT 13.7 K/UL (4.8-10.8)
[2017-05-26 07:18] LABS: ANION GAP 6 mmol/L (5-15); BLOOD UREA NITROGEN 27 mg/dL (7-18); CALCIUM 9.1 MG/DL (8.5-10.1); CARBON DIOXIDE 39 MMOL/L (21-32); CHLORIDE 96 MMOL/L (98-107); CREATININE 1.3 MG/DL (0.55-1.30); POTASSIUM 3.5 MMOL/L (3.5-5.1); SODIUM 141 MMOL/L (136-145)
[2017-05-26 08:00] VITALS: BP 151/81
[2017-05-26] MEDS: Pantoprazole Inj IVP SCH (08:51)
[2017-05-26] MEDS: Cyclobenzaprine 10mg Tab ORAL SCH ×3 (08:52→17:41)
[2017-05-26] MEDS: Docusate 100mg cap ORAL SCH ×2 (08:52→20:38)
--- NOTE | 2017-05-26 09:39 | Internal Med Progress Note ---
Subjective Date of Service: May 26, 2017 Physician Name KellyOsmar Attending Physician Flex Dodson MD Current Medications Medications (Trade) Dose Ordered Sig/Mamie Route PRN Reason Start Time Stop Time Status Last Admin Dose Admin Acetaminophen (Tylenol) 650 mg Q4H PRN ORAL Mild Pain (Scale 1-3)/FEVER 05/23/17 21:45 06/22/17 21:44 Acetaminophen (Tylenol) 650 mg Q4H PRN RECTAL Mild Pain (Scale 1-3)/FEVER 05/23/17 21:45 06/22/17 21:44 Amlodipine Besylate (Norvasc) 10 mg DAILY ORAL 05/24/17 09:00 06/23/17 08:59 05/26/17 08:52 Bisacodyl (Dulcolax) 10 mg HSPRN PRN RECTAL Constipation 05/23/17 21:45 06/22/17 21:44 Ceftriaxone Sodium 1 gm/ Dextrose 55 ml @ 110 mls/hr Q24H IVPB 05/24/17 13:30 05/31/17 13:29 05/25/17 13:35 Clonazepam (KlonoPIN) 1 mg Q6H PRN ORAL For Anxiety 05/25/17 17:15 06/01/17 17:14 05/25/17 23:23 Clonazepam (KlonoPIN) 2 mg BEDTIME PRN ORAL For Anxiety 05/23/17 23:15 05/30/17 23:14 05/26/17 00:53 Cyclobenzaprine HCl (Flexeril) 10 mg THREE TIMES A DAY ORAL 05/24/17 09:00 06/23/17 08:59 05/26/17 08:52 Dextrose (Dextrose 50%) STAT PRN IV Hypoglycemia 05/23/17 21:45 06/22/17 21:44 Diphenhydramine HCl (Benadryl) 25 mg Q4H PRN IVP Itching 05/24/17 15:00 06/23/17 14:59 05/26/17 05:47 Docusate Sodium (Colace) 100 mg EVERY 12 HOURS ORAL 05/24/17 09:00 06/23/17 08:59 05/26/17 08:52 Doxycycline Monohydrate (Vibramycin) 100 mg EVERY 12 HOURS ORAL 05/23/17 21:00 4/5/18 20:59 05/26/17 08:52 Furosemide (Lasix) 20 mg DAILY ORAL 05/24/17 09:00 06/23/17 08:59 05/26/17 08:52 Guaifenesin/ Dextromethorphan (Robitussin DM Syrup) 5 ml Q6H PRN ORAL For Cough 05/24/17 07:00 06/23/17 06:59 Heparin Sodium (Porcine) (Heparin 5000 units/ml) 5,000 units EVERY 8 HOURS SUBQ 05/23/17 22:00 06/22/17 21:59 05/26/17 05:50 Hydromorphone HCl (Dilaudid) 0.5 mg Q4HR PRN IVP Moderate Pain (Pain Scale 4-6) 05/23/17 21:45 05/30/17 21:44 05/26/17 05:48 Hydromorphone HCl (Dilaudid) 1 mg Q4HR PRN IVP Moderate Pain (Pain Scale 4-6) 05/23/17 21:45 05/30/17 21:44 05/24/17 15:47 Insulin Aspart (NovoLOG) BEFORE MEALS AND HS SUBQ 05/24/17 06:30 06/23/17 06:29 05/26/17 05:51 Levalbuterol HCl (Xopenex) 1.25 mg Q4HRT HHN 05/24/17 15:05 05/29/17 15:04 05/26/17 08:02 Levothyroxine Sodium (Synthroid) 100 mcg DAILY@0630 ORAL 05/24/17 06:30 06/23/17 06:29 05/26/17 05:47 Methylprednisolone Sodium Succinate (Solu-MEDROL) 40 mg EVERY 8 HOURS IVP 05/25/17 14:00 06/24/17 13:59 05/26/17 05:47 Nitroglycerin (Ntg) 0.4 mg Q5M X 3 DOSES PRN SL Prn Chest Pain 05/23/17 21:45 06/22/17 21:44 Ondansetron HCl (Zofran) 4 mg Q6H PRN IVP Nausea & Vomiting 05/23/17 21:45 06/22/17 21:44 Pantoprazole (Protonix) 40 mg DAILY IVP 05/24/17 10:30 06/23/17 10:29 05/26/17 08:51 Zolpidem Tartrate (Ambien) 5 mg HSPRN PRN ORAL Insomnia 05/23/17 21:45 05/30/17 21:44 05/25/17 23:22 Allergies: Coded Allergies: BENZODIAZEPINES (Verified Allergy, Unknown, 04/20/10) IODINE (Verified Allergy, Unknown, 04/20/10) IPRATROPIUM (Verified Allergy, Unknown, unknown, 05/24/17) LIDOCAINE (Verified Allergy, Unknown, 04/20/10) LORAZEPAM (Verified Allergy, Unknown, 04/20/10) OXYBUTYNIN (Verified Allergy, Unknown, 04/20/10) PENICILLINS (Verified Allergy, Unknown, 04/20/10) PHENOTHIAZINES (Verified Allergy, Unknown, 04/20/10) PIPERACILLIN (Verified Allergy, Unknown, 04/20/10) PROPOFOL (Verified Allergy, Unknown, 04/20/10) QUINOLONES (Verified Allergy, Unknown, 04/20/10) SULFASALAZINE (Verified Allergy, Unknown, 04/20/10) TAZOBACTAM (Verified Allergy, Unknown, 04/20/10) TEMAZEPAM (Verified Allergy, Unknown, 04/20/10) VANCOMYCIN (Verified Adverse Reaction, Intermediate, 05/23/17) "it messes up my stomach" ROS Limited/Unobtainable: No Constitutional: Reports: no symptoms HEENT: Reports: no symptoms Cardiovascular: Reports: no symptoms Respiratory: Reports: shortness of breath Gastrointestinal/Abdominal: Reports: no symptoms Genitourinary: Reports: no symptoms Neurologic/Psychiatric: Reports: no symptoms Subjective 66 YO F admitted with COPD exacerbation and altered mental status. Cover for Int Jonnie-Dr Dodson. C/O anxiety. Objective Last Vital Signs Date Time Temp Pulse Resp B/P (MAP) Pulse Ox O2 Delivery O2 Flow Rate FiO2 05/26/17 08:52 97 151/81 05/26/17 08:32 24 98 Nasal Cannula 5.0 40 05/26/17 08:00 98.1 98.1 Laboratory Tests Test 05/26/17 06:30 White Blood Count 13.7 K/UL (4.8-10.8) #H Red Blood Count 3.97 M/UL (4.20-5.40) L Hemoglobin 11.7 G/DL (12.0-16.0) L Hematocrit 34.5 % (37.0-47.0) L Mean Corpuscular Volume 87 FL (80-99) Mean Corpuscular Hemoglobin 29.4 PG (27.0-31.0) Mean Corpuscular Hemoglobin Concent 33.9 G/DL (32.0-36.0) Red Cell Distribution Width 14.4 % (11.6-14.8) Platelet Count 340 K/UL (150-450) Mean Platelet Volume 6.3 FL (6.5-10.1) L Neutrophils (%) (Auto) % (45.0-75.0) Lymphocytes (%) (Auto) % (20.0-45.0) Monocytes (%) (Auto) % (1.0-10.0) Eosinophils (%) (Auto) % (0.0-3.0) Basophils (%) (Auto) % (0.0-2.0) Differential Total Cells Counted 100 Neutrophils % (Manual) 94 % (45-75) H Lymphocytes % (Manual) 4 % (20-45) L Monocytes % (Manual) 2 % (1-10) Eosinophils % (Manual) 0 % (0-3) Basophils % (Manual) 0 % (0-2) Band Neutrophils 0 % (0-8) Platelet Estimate Adequate Platelet Morphology Normal Hypochromasia 1+ Sodium Level 141 MMOL/L (136-145) Potassium Level 3.5 MMOL/L (3.5-5.1) Chloride Level 96 MMOL/L (98-107) L Carbon Dioxide Level 39 MMOL/L (21-32) H Anion Gap 6 mmol/L (5-15) Blood Urea Nitrogen 27 mg/dL (7-18) H Creatinine 1.3 MG/DL (0.55-1.30) Estimat Glomerular Filtration Rate 40.9 mL/min (>60) Glucose Level 147 MG/DL (74-106) H Calcium Level 9.1 MG/DL (8.5-10.1) Microbiology Date/Time Source Procedure Growth Status 05/23/17 17:50 Blood Blood Culture - Preliminary NO GROWTH AFTER 48 HOURS Resulted 05/23/17 17:30 Blood Blood Culture - Preliminary NO GROWTH AFTER 48 HOURS Resulted 05/23/17 17:50 Nasal Nares Influenza Types A,B Antigen (ED) - Final Complete 05/23/17 17:50 Urine,Clean Catch Urine Culture - Preliminary Proteus Mirabilis Resulted Intake and Output 05/25/17 05/26/17 18:59 06:59 Intake Total 1040 ml 640 ml Balance 1040 ml 640 ml Intake Oral 1040 ml 640 ml # Voids 13 5 Objective General Appearance: WD/WN, no apparent distress, mild distress EENT: PERRL/EOMI, normal ENT inspection Neck: non-tender, normal alignment, supple, normal inspection Cardiovascular: normal peripheral pulses, normal rate, regular rhythm, no gallop/murmur, no JVD Respiratory/Chest: respiratory distress, accessory muscle use, crackles/rales, rhonchi - bilaterally, expiratory wheezing Abdomen: normal bowel sounds, non tender, soft, no organomegaly, no mass Extremities: normal range of motion, non-tender 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, no motor/sensory deficits Skin: normal pigmentation, warm/dry Assessment/Plan Problem List: (1) COPD with acute exacerbation Assessment & Plan: Continue IV solumedrol, albuterol nebs, doxycycline and ceftriaxone per pulmonary (2) UTI (urinary tract infection) Assessment & Plan: Continue ceftriaxone (3) Altered mental status Assessment & Plan: Due to hypoxia (4) Hypoxia (5) Hypothyroidism Assessment & Plan: Continue synthroid (6) HTN (hypertension) Assessment & Plan: Continue norvasc (7) Anxiety (8) Panic attack Assessment & Plan: Patient requesting klonopin Status: progressing OSMAR CAMPBELL May 26, 2017 09:39
[2017-05-26] MEDS ORDERED: Nitroglycerin Subl 0.4mg tab SL PRN (11:00)
[2017-05-26] MEDS ORDERED: Acetaminophen 650 MG SUPP RECTAL PRN (11:30)
[2017-05-26] MEDS ORDERED: Guaifenesin/DM 10ml syrup ORAL PRN (11:30)
[2017-05-26] MEDS ORDERED: Zolpidem 5mg tab ORAL PRN (11:30)
[2017-05-26 12:07] VITALS: BP 173/63
--- NOTE | 2017-05-26 12:07 | Pulmonology Progress Note ---
Assessment/Plan Assessment/Plan CHF CAD COPD shortness of breath hearing loss UTI PLAN respiratory care as is pain management oxygen monitor fluid status no other changes needed at present per pulmonary DVT prophylaxis impression, plan, and exam edited and reviewed in detail care discussed with RN Subjective Allergies: Coded Allergies: BENZODIAZEPINES (Verified Allergy, Unknown, 04/20/10) IODINE (Verified Allergy, Unknown, 04/20/10) IPRATROPIUM (Verified Allergy, Unknown, unknown, 05/24/17) LIDOCAINE (Verified Allergy, Unknown, 04/20/10) LORAZEPAM (Verified Allergy, Unknown, 04/20/10) OXYBUTYNIN (Verified Allergy, Unknown, 04/20/10) PENICILLINS (Verified Allergy, Unknown, 04/20/10) PHENOTHIAZINES (Verified Allergy, Unknown, 04/20/10) PIPERACILLIN (Verified Allergy, Unknown, 04/20/10) PROPOFOL (Verified Allergy, Unknown, 04/20/10) QUINOLONES (Verified Allergy, Unknown, 04/20/10) SULFASALAZINE (Verified Allergy, Unknown, 04/20/10) TAZOBACTAM (Verified Allergy, Unknown, 04/20/10) TEMAZEPAM (Verified Allergy, Unknown, 04/20/10) VANCOMYCIN (Verified Adverse Reaction, Intermediate, 05/23/17) "it messes up my stomach" Subjective no distress less sob has pain Objective Last 24 Hour Vital Signs Date Time Temp Pulse Resp B/P (MAP) Pulse Ox O2 Delivery O2 Flow Rate FiO2 05/26/17 11:30 Nasal Cannula 5.0 40 05/26/17 11:30 Nasal Cannula 5.0 40 05/26/17 08:52 97 151/81 05/26/17 08:32 97 24 98 Nasal Cannula 5.0 40 05/26/17 08:31 Nasal Cannula 5.0 40 05/26/17 08:31 95 Nasal Cannula 5.0 40 05/26/17 08:03 89 18 95 Nasal Cannula 5.0 40 05/26/17 08:00 98.1 96 19 151/81 98 Nasal Cannula 3.0 98.1 05/26/17 07:44 105 05/26/17 06:18 97.5 05/26/17 04:00 97.5 77 18 135/80 100 Nasal Cannula 3.0 97.5 05/26/17 04:00 75 05/26/17 03:14 Nasal Cannula 2.0 05/26/17 03:14 Nasal Cannula 2.0 05/26/17 00:00 91 05/26/17 00:00 97.5 95 18 156/89 97 97.5 05/25/17 23:47 95 24 98 Nasal Cannula 2.0 28 05/25/17 23:36 92 18 95 Nasal Cannula 3.0 32 05/25/17 20:20 95 Nasal Cannula 3.0 32 05/25/17 20:20 Nasal Cannula 3.0 32 05/25/17 20:16 Nasal Cannula 2.0 05/25/17 20:16 Nasal Cannula 2.0 05/25/17 20:04 97.5 99 20 138/80 94 97.5 05/25/17 20:00 103 05/25/17 16:00 98.1 105 21 157/72 98 Nasal Cannula 3.0 98.1 05/25/17 16:00 112 05/25/17 15:51 107 22 95 Nasal Cannula 3.0 32 05/25/17 15:40 106 20 94 Nasal Cannula 3.0 32 Intake and Output 05/25/17 05/26/17 19:00 07:00 Intake Total 1040 ml 640 ml Balance 1040 ml 640 ml Intake Oral 1040 ml 640 ml # Voids 13 5 Objective WDWN NAD reduced breath sounds bilaterally without rhonchi or wheeze [id number] without MRG NABS nontender no HSM no CC edema deaf nonfocal reviewed and edited Microbiology Date/Time Source Procedure Growth Status 05/23/17 17:50 Blood Blood Culture - Preliminary NO GROWTH AFTER 48 HOURS Resulted 05/23/17 17:30 Blood Blood Culture - Preliminary NO GROWTH AFTER 48 HOURS Resulted 05/23/17 17:50 Nasal Nares Influenza Types A,B Antigen (ED) - Final Complete 05/23/17 17:50 Urine,Clean Catch Urine Culture - Preliminary Proteus Mirabilis Resulted Laboratory Tests 05/26/17 06:30: White Blood Count 13.7#H, Red Blood Count 3.97L, Hemoglobin 11.7L, Hematocrit 34.5L, Mean Corpuscular Volume 87, Mean Corpuscular Hemoglobin 29.4, Mean Corpuscular Hemoglobin Concent 33.9, Red Cell Distribution Width 14.4, Platelet Count 340, Mean Platelet Volume 6.3L, Neutrophils (%) (Auto) , Lymphocytes (%) ( Auto) , Monocytes (%) (Auto) , Eosinophils (%) (Auto) , Basophils (%) (Auto) , Differential Total Cells Counted 100, Neutrophils % (Manual) 94H, Lymphocytes % (Manual) 4L, Monocytes % (Manual) 2, Eosinophils % (Manual) 0, Basophils % ( Manual) 0, Band Neutrophils 0, Platelet Estimate Adequate, Platelet Morphology Normal, Hypochromasia 1+, Sodium Level 141, Potassium Level 3.5, Chloride Level 96L, Carbon Dioxide Level 39H, Anion Gap 6, Blood Urea Nitrogen 27H, Creatinine 1.3, Estimat Glomerular Filtration Rate 40.9, Glucose Level 147H, Calcium Level 9.1 Current Medications Medications (Trade) Dose Ordered Sig/Mamie Route PRN Reason Start Time Stop Time Status Last Admin Dose Admin Acetaminophen (Tylenol) 650 mg Q4H PRN ORAL Mild Pain (Scale 1-3)/FEVER 05/26/17 11:30 06/22/17 11:29 Acetaminophen (Tylenol) 650 mg Q4H PRN RECTAL Mild Pain (Scale 1-3)/FEVER 05/26/17 11:30 06/22/17 11:29 Amlodipine Besylate (Norvasc) 10 mg DAILY ORAL 05/27/17 09:00 06/23/17 08:59 Bisacodyl (Dulcolax) 10 mg HSPRN PRN RECTAL Constipation 05/26/17 11:30 06/22/17 11:29 Ceftriaxone Sodium 1 gm/ Dextrose 55 ml @ 110 mls/hr Q24H IVPB 05/26/17 13:30 05/31/17 13:29 Clonazepam (KlonoPIN) 1 mg Q6H PRN ORAL For Anxiety 05/26/17 11:15 06/01/17 17:14 Clonazepam (KlonoPIN) 2 mg HSPRN PRN ORAL For Anxiety 05/26/17 21:00 06/02/17 20:59 Cyclobenzaprine HCl (Flexeril) 10 mg THREE TIMES A DAY ORAL 05/26/17 13:00 06/23/17 08:59 Dextrose (Dextrose 50%) STAT PRN IV Hypoglycemia 05/26/17 12:00 06/22/17 11:59 Diphenhydramine HCl (Benadryl) 25 mg Q4H PRN IVP Itching 05/26/17 11:00 06/23/17 14:59 05/26/17 11:41 Docusate Sodium (Colace) 100 mg EVERY 12 HOURS ORAL 05/26/17 21:00 06/23/17 08:59 Doxycycline Monohydrate (Vibramycin) 100 mg EVERY 12 HOURS ORAL 05/26/17 21:00 05/30/17 20:59 Furosemide (Lasix) 20 mg DAILY ORAL 05/27/17 09:00 06/23/17 08:59 Guaifenesin/ Dextromethorphan (Robitussin DM Syrup) 5 ml Q6H PRN ORAL For Cough 05/26/17 11:30 06/23/17 11:29 Heparin Sodium (Porcine) (Heparin 5000 units/ml) 5,000 units EVERY 8 HOURS SUBQ 05/26/17 14:00 06/22/17 21:59 Hydromorphone HCl (Dilaudid) 2 mg Q4H PRN IVP Moderate Pain (Pain Scale 4-6) 05/26/17 11:30 06/02/17 11:29 05/26/17 11:41 Insulin Aspart (NovoLOG) BEFORE MEALS AND HS SUBQ 05/26/17 11:30 06/23/17 06:29 05/26/17 11:47 Levalbuterol HCl (Xopenex) 1.25 mg Q4HRT HHN 05/26/17 15:00 05/29/17 14:59 Levothyroxine Sodium (Synthroid) 100 mcg DAILY@0630 ORAL 05/27/17 06:30 06/23/17 06:29 Methylprednisolone Sodium Succinate (Solu-MEDROL) 40 mg EVERY 8 HOURS IVP 05/26/17 14:00 06/24/17 13:59 Nitroglycerin (Ntg) 0.4 mg Q5M X 3 DOSES PRN SL Prn Chest Pain 05/26/17 11:00 06/22/17 21:44 Ondansetron HCl (Zofran) 4 mg Q6H PRN IVP Nausea & Vomiting 05/26/17 11:30 06/22/17 11:29 Pantoprazole (Protonix) 40 mg DAILY IVP 05/27/17 09:00 06/23/17 10:29 Zolpidem Tartrate (Ambien) 5 mg HSPRN PRN ORAL Insomnia 05/26/17 11:30 05/30/17 11:29 ARTURO SINGH May 26, 2017 12:07
[2017-05-26] MEDS: cefTRIAXone 1 GM in D5W 55 ML IVPB SCH (15:13)
[2017-05-26 16:00] VITALS: BP 163/82
[2017-05-26 20:00] VITALS: BP 159/95
[2017-05-27] VITALS: BP 150/81
[2017-05-27] MEDS: DiphenhydrAMINE 50mg/ml Inj IVP PRN ×4 (02:28→18:49)
[2017-05-27] MEDS: Levalbuterol Inh UD 1.25mg/0.5ml HHN SCH ×6 (03:11→23:15)
[2017-05-27 04:00] VITALS: BP 165/85
[2017-05-27] MEDS: Solu-MEDROL 40mg Inj IVP SCH ×2 (05:44→14:11)
[2017-05-27] MEDS: Heparin 5000 units/ml inj SUBQ SCH ×3 (05:45→22:17)
[2017-05-27] MEDS: NovoLOG Insulin Flexpen SUBQ SCH ×4 (05:47→20:57)
[2017-05-27 06:38] LABS: HEMATOCRIT 37.5 % (37.0-47.0); HEMOGLOBIN 11.7 G/DL (12.0-16.0); MEAN CORPUSCULAR VOLUME 89 FL (80-99); PLATELET COUNT 339 K/UL (150-450); RED BLOOD COUNT 4.22 M/UL (4.20-5.40); RED CELL DISTRIBUTION WIDTH 14.8 % (11.6-14.8); WHITE BLOOD COUNT 13.4 K/UL (4.8-10.8)
[2017-05-27 07:40] LABS: ANION GAP 7 mmol/L (5-15); BLOOD UREA NITROGEN 31 mg/dL (7-18); CALCIUM 8.6 MG/DL (8.5-10.1); CARBON DIOXIDE 38 MMOL/L (21-32); CHLORIDE 96 MMOL/L (98-107); CREATININE 1.3 MG/DL (0.55-1.30); POTASSIUM 3.2 MMOL/L (3.5-5.1); SODIUM 141 MMOL/L (136-145)
[2017-05-27 08:00] VITALS: BP 180/95
[2017-05-27] MEDS: Docusate 100mg cap ORAL SCH ×2 (08:36→20:57)
[2017-05-27] MEDS: Cyclobenzaprine 10mg Tab ORAL SCH ×3 (08:36→17:24)
[2017-05-27] MEDS: Pantoprazole Inj IVP SCH (08:38)
[2017-05-27] MEDS ORDERED: HYDROmorphone 4mg tab ORAL PRN (09:30)
--- NOTE | 2017-05-27 09:32 | Pulmonology Progress Note ---
Assessment/Plan Assessment/Plan 1. Exacerbation of COPD, mild. 2. Status post fall. 3. Chronic medical conditions, listed above. DISCUSSION: I will decrease steroids Added Xanax and Effexor Will dc Lexapro Added PO Dilaudid ( she takes it at home - scheduled) DC planning for home in AM tomorrow Subjective Interval Events: Very tremolous Constitutional: Reports: no symptoms HEENT: Repors: no symptoms Respiratory: Reports: shortness of breath Cardiovascular: Reports: no symptoms Gastrointestinal/Abdominal: Reports: no symptoms Allergies: Coded Allergies: BENZODIAZEPINES (Verified Allergy, Unknown, 04/20/10) IODINE (Verified Allergy, Unknown, 04/20/10) IPRATROPIUM (Verified Allergy, Unknown, unknown, 05/24/17) LIDOCAINE (Verified Allergy, Unknown, 04/20/10) LORAZEPAM (Verified Allergy, Unknown, 04/20/10) OXYBUTYNIN (Verified Allergy, Unknown, 04/20/10) PENICILLINS (Verified Allergy, Unknown, 04/20/10) PHENOTHIAZINES (Verified Allergy, Unknown, 04/20/10) PIPERACILLIN (Verified Allergy, Unknown, 04/20/10) PROPOFOL (Verified Allergy, Unknown, 04/20/10) QUINOLONES (Verified Allergy, Unknown, 04/20/10) SULFASALAZINE (Verified Allergy, Unknown, 04/20/10) TAZOBACTAM (Verified Allergy, Unknown, 04/20/10) TEMAZEPAM (Verified Allergy, Unknown, 04/20/10) VANCOMYCIN (Verified Adverse Reaction, Intermediate, 05/23/17) "it messes up my stomach" Objective Last 24 Hour Vital Signs Date Time Temp Pulse Resp B/P (MAP) Pulse Ox O2 Delivery O2 Flow Rate FiO2 05/27/17 08:38 89 165/85 05/27/17 08:36 98.8 05/27/17 08:28 86 20 9 Nasal Cannula 3.0 32 05/27/17 08:18 89 20 95 Nasal Cannula 3.0 32 05/27/17 08:17 Nasal Cannula 3.0 05/27/17 08:16 95 Nasal Cannula 3.0 05/27/17 08:00 98.3 90 20 180/95 97 Nasal Cannula 3.0 98.3 05/27/17 04:00 96 Nasal Cannula 3.0 05/27/17 04:00 98.8 102 20 165/85 93 98.8 05/27/17 03:59 92 20 97 Nasal Cannula 3.0 32 05/27/17 03:11 91 18 94 Nasal Cannula 3.0 32 05/27/17 00:00 98 Nasal Cannula 3.0 05/27/17 00:00 98.1 99 21 150/81 94 98.1 05/26/17 23:03 98 20 97 Nasal Cannula 3.0 32 05/26/17 22:37 97 18 94 Nasal Cannula 3.0 32 05/26/17 20:00 96 Nasal Cannula 3.0 05/26/17 20:00 98.1 116 19 159/95 92 98.1 05/26/17 19:02 Nasal Cannula 3.0 32 05/26/17 19:02 96 Nasal Cannula 3.0 32 05/26/17 19:02 97 24 96 Nasal Cannula 3.0 32 05/26/17 18:52 97 18 93 Nasal Cannula 3.0 32 05/26/17 16:26 93 24 98 Nasal Cannula 3.0 32 05/26/17 16:14 93 18 96 Nasal Cannula 3.0 32 05/26/17 16:00 98.7 98 22 163/82 96 98.7 05/26/17 14:20 97.9 05/26/17 12:07 97.9 103 21 173/63 97 97.9 05/26/17 11:30 Nasal Cannula 5.0 40 05/26/17 11:30 Nasal Cannula 5.0 40 Intake and Output 05/26/17 05/27/17 19:00 07:00 Intake Total 590 ml Output Total 850 ml Balance 590 ml -850 ml Intake Oral 590 ml Output Urine Total 850 ml # Bowel Movements 3 General Appearance: no acute distress HEENT: normocephalic Respiratory/Chest: chest wall non-tender, lungs clear Cardiovascular: normal peripheral pulses, normal rate Abdomen: normal bowel sounds, soft, non tender Laboratory Tests 05/27/17 06:15: White Blood Count 13.4H, Red Blood Count 4.22, Hemoglobin 11.7L, Hematocrit 37.5 , Mean Corpuscular Volume 89, Mean Corpuscular Hemoglobin 27.6, Mean Corpuscular Hemoglobin Concent 31.1L, Red Cell Distribution Width 14.8, Platelet Count 339, Mean Platelet Volume 6.4L, Neutrophils (%) (Auto) , Lymphocytes (%) (Auto) , Monocytes (%) (Auto) , Eosinophils (%) (Auto) , Basophils (%) (Auto) , Differential Total Cells Counted 100, Neutrophils % ( Manual) 91H, Lymphocytes % (Manual) 6L, Monocytes % (Manual) 3, Eosinophils % ( Manual) 0, Basophils % (Manual) 0, Band Neutrophils 0, Platelet Estimate Adequate, Platelet Morphology Normal, Hypochromasia 1+, Anisocytosis 1+, Sodium Level 141, Potassium Level 3.2L, Chloride Level 96L, Carbon Dioxide Level 38H, Anion Gap 7, Blood Urea Nitrogen 31H, Creatinine 1.3, Estimat Glomerular Filtration Rate 40.9, Glucose Level 155H, Calcium Level 8.6 Current Medications Medications (Trade) Dose Ordered Sig/Mamie Route PRN Reason Start Time Stop Time Status Last Admin Dose Admin Acetaminophen (Tylenol) 650 mg Q4H PRN ORAL Mild Pain (Scale 1-3)/FEVER 05/26/17 11:30 06/22/17 11:29 Acetaminophen (Tylenol) 650 mg Q4H PRN RECTAL Mild Pain (Scale 1-3)/FEVER 05/26/17 11:30 06/22/17 11:29 Amlodipine Besylate (Norvasc) 10 mg DAILY ORAL 05/27/17 09:00 06/23/17 08:59 05/27/17 08:38 Bisacodyl (Dulcolax) 10 mg HSPRN PRN RECTAL Constipation 05/26/17 11:30 06/22/17 11:29 Ceftriaxone Sodium 1 gm/ Dextrose 55 ml @ 110 mls/hr Q24H IVPB 05/26/17 13:30 05/31/17 13:29 05/26/17 15:13 Clonazepam (KlonoPIN) 1 mg Q6H PRN ORAL For Anxiety 05/26/17 11:15 06/01/17 17:14 Cyclobenzaprine HCl (Flexeril) 10 mg THREE TIMES A DAY ORAL 05/26/17 13:00 06/23/17 08:59 05/27/17 08:36 Dextrose (Dextrose 50%) STAT PRN IV Hypoglycemia 05/26/17 12:00 06/22/17 11:59 Diphenhydramine HCl (Benadryl) 25 mg Q4H PRN IVP Itching 05/26/17 11:00 06/23/17 14:59 05/27/17 06:51 Docusate Sodium (Colace) 100 mg EVERY 12 HOURS ORAL 05/26/17 21:00 06/23/17 08:59 05/27/17 08:36 Doxycycline Monohydrate (Vibramycin) 100 mg EVERY 12 HOURS ORAL 05/26/17 21:00 05/30/17 20:59 05/27/17 08:38 Escitalopram Oxalate (Lexapro) 10 mg DAILY ORAL 05/27/17 09:00 06/26/17 08:59 05/27/17 08:37 Furosemide (Lasix) 20 mg DAILY ORAL 05/27/17 09:00 06/23/17 08:59 05/27/17 08:38 Guaifenesin/ Dextromethorphan (Robitussin DM Syrup) 5 ml Q6H PRN ORAL For Cough 05/26/17 11:30 06/23/17 11:29 Heparin Sodium (Porcine) (Heparin 5000 units/ml) 5,000 units EVERY 8 HOURS SUBQ 05/26/17 14:00 06/22/17 21:59 05/27/17 05:45 Hydromorphone HCl (Dilaudid) 2 mg Q4H PRN IVP Moderate Pain (Pain Scale 4-6) 05/26/17 11:30 06/02/17 11:29 05/27/17 06:52 Insulin Aspart (NovoLOG) BEFORE MEALS AND HS SUBQ 05/26/17 11:30 06/23/17 06:29 05/27/17 05:47 Levalbuterol HCl (Xopenex) 1.25 mg Q4HRT HHN 05/26/17 15:00 05/29/17 14:59 05/27/17 08:18 Levothyroxine Sodium (Synthroid) 100 mcg DAILY@0630 ORAL 05/27/17 06:30 06/23/17 06:29 05/27/17 05:47 Methylprednisolone Sodium Succinate (Solu-MEDROL) 40 mg EVERY 8 HOURS IVP 05/26/17 14:00 06/24/17 13:59 05/27/17 05:44 Nitroglycerin (Ntg) 0.4 mg Q5M X 3 DOSES PRN SL Prn Chest Pain 05/26/17 11:00 06/22/17 21:44 Ondansetron HCl (Zofran) 4 mg Q6H PRN IVP Nausea & Vomiting 05/26/17 11:30 06/22/17 11:29 Pantoprazole (Protonix) 40 mg DAILY IVP 05/27/17 09:00 06/23/17 10:29 05/27/17 08:38 Quetiapine Fumarate (SEROquel) 25 mg BEDTIME ORAL 05/26/17 21:00 06/25/17 20:59 05/26/17 20:36 Shahid Lake MD May 27, 2017 09:32
[2017-05-27 12:00] VITALS: BP 160/84
--- NOTE | 2017-05-27 12:26 | General Progress Note ---
Assessment/Plan Status: stable, unchanged Assessment/Plan anxiety d/o -cont Ambien -will decrease Klonopin -Lexapro 10mg qam -rec to replace Dilaudid with long acting pain meds Subjective Date patient seen: May 25, 2017 Neurologic/Psychiatric: Reports: anxiety, depressed, emotional problems Allergies: Coded Allergies: BENZODIAZEPINES (Verified Allergy, Unknown, 04/20/10) IODINE (Verified Allergy, Unknown, 04/20/10) IPRATROPIUM (Verified Allergy, Unknown, unknown, 05/24/17) LIDOCAINE (Verified Allergy, Unknown, 04/20/10) LORAZEPAM (Verified Allergy, Unknown, 04/20/10) OXYBUTYNIN (Verified Allergy, Unknown, 04/20/10) PENICILLINS (Verified Allergy, Unknown, 04/20/10) PHENOTHIAZINES (Verified Allergy, Unknown, 04/20/10) PIPERACILLIN (Verified Allergy, Unknown, 04/20/10) PROPOFOL (Verified Allergy, Unknown, 04/20/10) QUINOLONES (Verified Allergy, Unknown, 04/20/10) SULFASALAZINE (Verified Allergy, Unknown, 04/20/10) TAZOBACTAM (Verified Allergy, Unknown, 04/20/10) TEMAZEPAM (Verified Allergy, Unknown, 04/20/10) VANCOMYCIN (Verified Adverse Reaction, Intermediate, 05/23/17) "it messes up my stomach" Objective Last 24 Hour Vital Signs Date Time Temp Pulse Resp B/P (MAP) Pulse Ox O2 Delivery O2 Flow Rate FiO2 05/27/17 11:29 98.8 05/27/17 09:35 98.8 05/27/17 08:38 89 165/85 05/27/17 08:36 98.8 05/27/17 08:28 86 20 9 Nasal Cannula 3.0 32 05/27/17 08:18 89 20 95 Nasal Cannula 3.0 32 05/27/17 08:17 Nasal Cannula 3.0 05/27/17 08:16 95 Nasal Cannula 3.0 05/27/17 08:00 98.3 90 20 180/95 97 Nasal Cannula 3.0 98.3 05/27/17 04:00 96 Nasal Cannula 3.0 05/27/17 04:00 98.8 102 20 165/85 93 98.8 05/27/17 03:59 92 20 97 Nasal Cannula 3.0 32 05/27/17 03:11 91 18 94 Nasal Cannula 3.0 32 05/27/17 00:00 98 Nasal Cannula 3.0 05/27/17 00:00 98.1 99 21 150/81 94 98.1 05/26/17 23:03 98 20 97 Nasal Cannula 3.0 32 05/26/17 22:37 97 18 94 Nasal Cannula 3.0 32 05/26/17 20:00 96 Nasal Cannula 3.0 05/26/17 20:00 98.1 116 19 159/95 92 98.1 05/26/17 19:02 Nasal Cannula 3.0 32 05/26/17 19:02 96 Nasal Cannula 3.0 32 05/26/17 19:02 97 24 96 Nasal Cannula 3.0 32 05/26/17 18:52 97 18 93 Nasal Cannula 3.0 32 05/26/17 16:26 93 24 98 Nasal Cannula 3.0 32 05/26/17 16:14 93 18 96 Nasal Cannula 3.0 32 05/26/17 16:00 98.7 98 22 163/82 96 98.7 Intake and Output 05/26/17 05/27/17 19:00 07:00 Intake Total 590 ml Output Total 850 ml Balance 590 ml -850 ml Intake Oral 590 ml Output Urine Total 850 ml # Bowel Movements 3 Laboratory Tests 05/27/17 06:15: White Blood Count 13.4H, Red Blood Count 4.22, Hemoglobin 11.7L, Hematocrit 37.5 , Mean Corpuscular Volume 89, Mean Corpuscular Hemoglobin 27.6, Mean Corpuscular Hemoglobin Concent 31.1L, Red Cell Distribution Width 14.8, Platelet Count 339, Mean Platelet Volume 6.4L, Neutrophils (%) (Auto) , Lymphocytes (%) (Auto) , Monocytes (%) (Auto) , Eosinophils (%) (Auto) , Basophils (%) (Auto) , Differential Total Cells Counted 100, Neutrophils % ( Manual) 91H, Lymphocytes % (Manual) 6L, Monocytes % (Manual) 3, Eosinophils % ( Manual) 0, Basophils % (Manual) 0, Band Neutrophils 0, Platelet Estimate Adequate, Platelet Morphology Normal, Hypochromasia 1+, Anisocytosis 1+, Sodium Level 141, Potassium Level 3.2L, Chloride Level 96L, Carbon Dioxide Level 38H, Anion Gap 7, Blood Urea Nitrogen 31H, Creatinine 1.3, Estimat Glomerular Filtration Rate 40.9, Glucose Level 155H, Calcium Level 8.6 Height (Feet): 5 Height (Inches): 4.00 Weight (Pounds): 175 General Appearance: WD/WN, no apparent distress, alert Neurologic: oriented x 3, responsive, depressed affect Jamel Washington M.D. May 27, 2017 12:26
--- NOTE | 2017-05-27 12:28 | Internal Med Progress Note ---
Subjective Date of Service: May 27, 2017 Physician Name Osmar Campbell Attending Physician Flex Dodson MD Current Medications Medications (Trade) Dose Ordered Sig/Mamie Route PRN Reason Start Time Stop Time Status Last Admin Dose Admin Acetaminophen (Tylenol) 650 mg Q4H PRN ORAL Mild Pain (Scale 1-3)/FEVER 05/26/17 11:30 06/22/17 11:29 Acetaminophen (Tylenol) 650 mg Q4H PRN RECTAL Mild Pain (Scale 1-3)/FEVER 05/26/17 11:30 06/22/17 11:29 Alprazolam (Xanax) 0.5 mg THREE TIMES A DAY ORAL 05/27/17 13:00 06/03/17 12:59 Amlodipine Besylate (Norvasc) 10 mg DAILY ORAL 05/27/17 09:00 06/23/17 08:59 05/27/17 08:38 Bisacodyl (Dulcolax) 10 mg HSPRN PRN RECTAL Constipation 05/26/17 11:30 06/22/17 11:29 Ceftriaxone Sodium 1 gm/ Dextrose 55 ml @ 110 mls/hr Q24H IVPB 05/26/17 13:30 05/31/17 13:29 05/26/17 15:13 Clonazepam (KlonoPIN) 1 mg Q6H PRN ORAL For Anxiety 05/26/17 11:15 06/01/17 17:14 Cyclobenzaprine HCl (Flexeril) 10 mg THREE TIMES A DAY ORAL 05/26/17 13:00 06/23/17 08:59 05/27/17 08:36 Dextrose (Dextrose 50%) STAT PRN IV Hypoglycemia 05/26/17 12:00 06/22/17 11:59 Diphenhydramine HCl (Benadryl) 25 mg Q4H PRN IVP Itching 05/26/17 11:00 06/23/17 14:59 05/27/17 11:28 Docusate Sodium (Colace) 100 mg EVERY 12 HOURS ORAL 05/26/17 21:00 06/23/17 08:59 05/27/17 08:36 Doxycycline Monohydrate (Vibramycin) 100 mg EVERY 12 HOURS ORAL 05/26/17 21:00 05/30/17 20:59 05/27/17 08:38 Furosemide (Lasix) 20 mg DAILY ORAL 05/27/17 09:00 06/23/17 08:59 05/27/17 08:38 Guaifenesin/ Dextromethorphan (Robitussin DM Syrup) 5 ml Q6H PRN ORAL For Cough 05/26/17 11:30 06/23/17 11:29 Heparin Sodium (Porcine) (Heparin 5000 units/ml) 5,000 units EVERY 8 HOURS SUBQ 05/26/17 14:00 06/22/17 21:59 05/27/17 05:45 Hydromorphone HCl (Dilaudid) 2 mg Q4H PRN IVP Moderate Pain (Pain Scale 4-6) 05/26/17 11:30 06/02/17 11:29 05/27/17 11:29 Hydromorphone HCl (Dilaudid) 4 mg Q6HR PRN ORAL Severe Pain (Pain Scale 7-10) 05/27/17 11:15 06/03/17 09:29 UNV Insulin Aspart (NovoLOG) BEFORE MEALS AND HS SUBQ 05/26/17 11:30 06/23/17 06:29 05/27/17 05:47 Levalbuterol HCl (Xopenex) 1.25 mg Q4HRT HHN 05/26/17 15:00 05/29/17 14:59 05/27/17 08:18 Levothyroxine Sodium (Synthroid) 100 mcg DAILY@0630 ORAL 05/27/17 06:30 06/23/17 06:29 05/27/17 05:47 Methylprednisolone Sodium Succinate (Solu-MEDROL) 40 mg DAILY IVP 05/28/17 09:00 06/24/17 13:59 Methylprednisolone Sodium Succinate (Solu-MEDROL) 40 mg EVERY 8 HOURS IVP 05/26/17 14:00 05/27/17 14:00 05/27/17 05:44 Nitroglycerin (Ntg) 0.4 mg Q5M X 3 DOSES PRN SL Prn Chest Pain 05/26/17 11:00 06/22/17 21:44 Ondansetron HCl (Zofran) 4 mg Q6H PRN IVP Nausea & Vomiting 05/26/17 11:30 06/22/17 11:29 Pantoprazole (Protonix) 40 mg DAILY IVP 05/27/17 09:00 06/23/17 10:29 05/27/17 08:38 Quetiapine Fumarate (SEROquel) 25 mg BEDTIME ORAL 05/26/17 21:00 06/25/17 20:59 05/26/17 20:36 Venlafaxine HCl (Effexor-XR) 75 mg DAILY ORAL 05/28/17 09:00 06/27/17 08:59 Allergies: Coded Allergies: BENZODIAZEPINES (Verified Allergy, Unknown, 04/20/10) IODINE (Verified Allergy, Unknown, 04/20/10) IPRATROPIUM (Verified Allergy, Unknown, unknown, 05/24/17) LIDOCAINE (Verified Allergy, Unknown, 04/20/10) LORAZEPAM (Verified Allergy, Unknown, 04/20/10) OXYBUTYNIN (Verified Allergy, Unknown, 04/20/10) PENICILLINS (Verified Allergy, Unknown, 04/20/10) PHENOTHIAZINES (Verified Allergy, Unknown, 04/20/10) PIPERACILLIN (Verified Allergy, Unknown, 04/20/10) PROPOFOL (Verified Allergy, Unknown, 04/20/10) QUINOLONES (Verified Allergy, Unknown, 04/20/10) SULFASALAZINE (Verified Allergy, Unknown, 04/20/10) TAZOBACTAM (Verified Allergy, Unknown, 04/20/10) TEMAZEPAM (Verified Allergy, Unknown, 04/20/10) VANCOMYCIN (Verified Adverse Reaction, Intermediate, 05/23/17) "it messes up my stomach" ROS Limited/Unobtainable: No Constitutional: Reports: no symptoms HEENT: Reports: no symptoms Cardiovascular: Reports: no symptoms Respiratory: Reports: shortness of breath Gastrointestinal/Abdominal: Reports: no symptoms Genitourinary: Reports: no symptoms Neurologic/Psychiatric: Reports: anxiety Subjective 66 YO F admitted with COPD exacerbation and altered mental status. Cover for Int Jonnie-Dr Dodson. C/O anxiety. Objective Last Vital Signs Date Time Temp Pulse Resp B/P (MAP) Pulse Ox O2 Delivery O2 Flow Rate FiO2 05/27/17 11:29 98.8 05/27/17 08:38 89 165/85 05/27/17 08:28 20 9 Nasal Cannula 3.0 32 Laboratory Tests Test 05/27/17 06:15 White Blood Count 13.4 K/UL (4.8-10.8) H Red Blood Count 4.22 M/UL (4.20-5.40) Hemoglobin 11.7 G/DL (12.0-16.0) L Hematocrit 37.5 % (37.0-47.0) Mean Corpuscular Volume 89 FL (80-99) Mean Corpuscular Hemoglobin 27.6 PG (27.0-31.0) Mean Corpuscular Hemoglobin Concent 31.1 G/DL (32.0-36.0) L Red Cell Distribution Width 14.8 % (11.6-14.8) Platelet Count 339 K/UL (150-450) Mean Platelet Volume 6.4 FL (6.5-10.1) L Neutrophils (%) (Auto) % (45.0-75.0) Lymphocytes (%) (Auto) % (20.0-45.0) Monocytes (%) (Auto) % (1.0-10.0) Eosinophils (%) (Auto) % (0.0-3.0) Basophils (%) (Auto) % (0.0-2.0) Differential Total Cells Counted 100 Neutrophils % (Manual) 91 % (45-75) H Lymphocytes % (Manual) 6 % (20-45) L Monocytes % (Manual) 3 % (1-10) Eosinophils % (Manual) 0 % (0-3) Basophils % (Manual) 0 % (0-2) Band Neutrophils 0 % (0-8) Platelet Estimate Adequate Platelet Morphology Normal Hypochromasia 1+ Anisocytosis 1+ Sodium Level 141 MMOL/L (136-145) Potassium Level 3.2 MMOL/L (3.5-5.1) L Chloride Level 96 MMOL/L (98-107) L Carbon Dioxide Level 38 MMOL/L (21-32) H Anion Gap 7 mmol/L (5-15) Blood Urea Nitrogen 31 mg/dL (7-18) H Creatinine 1.3 MG/DL (0.55-1.30) Estimat Glomerular Filtration Rate 40.9 mL/min (>60) Glucose Level 155 MG/DL (74-106) H Calcium Level 8.6 MG/DL (8.5-10.1) Intake and Output 05/26/17 05/27/17 19:00 07:00 Intake Total 590 ml Output Total 850 ml Balance 590 ml -850 ml Intake Oral 590 ml Output Urine Total 850 ml # Bowel Movements 3 Objective General Appearance: WD/WN, no apparent distress, mild distress EENT: PERRL/EOMI, normal ENT inspection Neck: non-tender, normal alignment, supple, normal inspection Cardiovascular: normal peripheral pulses, normal rate, regular rhythm, no gallop/murmur, no JVD Respiratory/Chest: respiratory distress, accessory muscle use, crackles/rales, rhonchi - bilaterally, expiratory wheezing Abdomen: normal bowel sounds, non tender, soft, no organomegaly, no mass Extremities: normal range of motion, non-tender Neurologic: operator cavity pump II-XII grossly normal, no motor/sensory deficits Skin: normal pigmentation, warm/dry Assessment/Plan Problem List: (1) COPD with acute exacerbation Assessment & Plan: Continue IV solumedrol, albuterol nebs, doxycycline and ceftriaxone per pulmonary (2) UTI (urinary tract infection) Assessment & Plan: Continue ceftriaxone (3) Altered mental status Assessment & Plan: Due to hypoxia (4) Hypoxia (5) Hypothyroidism Assessment & Plan: Continue synthroid (6) HTN (hypertension) Assessment & Plan: Continue norvasc (7) Anxiety (8) Panic attack Assessment & Plan: Patient requesting klonopin Status: progressing Assessment/Plan Discharge planning OSMAR CAMPBELL May 27, 2017 12:28
--- NOTE | 2017-05-27 12:29 | General Progress Note ---
Assessment/Plan Assessment/Plan anxiety d/o -cont Ambien -will decrease Klonopin -Lexapro 10mg qam -rec to replace Dilaudid with long acting pain meds Subjective Date patient seen: May 27, 2017 Neurologic/Psychiatric: Reports: anxiety, depressed, emotional problems - he pt c/o body pain her primary care nurse practitioner next to bed the pt is hard of hearing and is more irrtable today Allergies: Coded Allergies: BENZODIAZEPINES (Verified Allergy, Unknown, 04/20/10) IODINE (Verified Allergy, Unknown, 04/20/10) IPRATROPIUM (Verified Allergy, Unknown, unknown, 05/24/17) LIDOCAINE (Verified Allergy, Unknown, 04/20/10) LORAZEPAM (Verified Allergy, Unknown, 04/20/10) OXYBUTYNIN (Verified Allergy, Unknown, 04/20/10) PENICILLINS (Verified Allergy, Unknown, 04/20/10) PHENOTHIAZINES (Verified Allergy, Unknown, 04/20/10) PIPERACILLIN (Verified Allergy, Unknown, 04/20/10) PROPOFOL (Verified Allergy, Unknown, 04/20/10) QUINOLONES (Verified Allergy, Unknown, 04/20/10) SULFASALAZINE (Verified Allergy, Unknown, 04/20/10) TAZOBACTAM (Verified Allergy, Unknown, 04/20/10) TEMAZEPAM (Verified Allergy, Unknown, 04/20/10) VANCOMYCIN (Verified Adverse Reaction, Intermediate, 05/23/17) "it messes up my stomach" Objective Last 24 Hour Vital Signs Date Time Temp Pulse Resp B/P (MAP) Pulse Ox O2 Delivery O2 Flow Rate FiO2 05/27/17 11:29 98.8 05/27/17 09:35 98.8 05/27/17 08:38 89 165/85 05/27/17 08:36 98.8 05/27/17 08:28 86 20 9 Nasal Cannula 3.0 32 05/27/17 08:18 89 20 95 Nasal Cannula 3.0 32 05/27/17 08:17 Nasal Cannula 3.0 05/27/17 08:16 95 Nasal Cannula 3.0 05/27/17 08:00 98.3 90 20 180/95 97 Nasal Cannula 3.0 98.3 05/27/17 04:00 96 Nasal Cannula 3.0 05/27/17 04:00 98.8 102 20 165/85 93 98.8 4/2/18 03:59 92 20 97 Nasal Cannula 3.0 32 05/27/17 03:11 91 18 94 Nasal Cannula 3.0 32 05/27/17 00:00 98 Nasal Cannula 3.0 05/27/17 00:00 98.1 99 21 150/81 94 98.1 05/26/17 23:03 98 20 97 Nasal Cannula 3.0 32 05/26/17 22:37 97 18 94 Nasal Cannula 3.0 32 05/26/17 20:00 96 Nasal Cannula 3.0 05/26/17 20:00 98.1 116 19 159/95 92 98.1 05/26/17 19:02 Nasal Cannula 3.0 32 05/26/17 19:02 96 Nasal Cannula 3.0 32 05/26/17 19:02 97 24 96 Nasal Cannula 3.0 32 05/26/17 18:52 97 18 93 Nasal Cannula 3.0 32 05/26/17 16:26 93 24 98 Nasal Cannula 3.0 32 05/26/17 16:14 93 18 96 Nasal Cannula 3.0 32 05/26/17 16:00 98.7 98 22 163/82 96 98.7 Intake and Output 05/26/17 05/27/17 19:00 07:00 Intake Total 590 ml Output Total 850 ml Balance 590 ml -850 ml Intake Oral 590 ml Output Urine Total 850 ml # Bowel Movements 3 Laboratory Tests 05/27/17 06:15: White Blood Count 13.4H, Red Blood Count 4.22, Hemoglobin 11.7L, Hematocrit 37.5 , Mean Corpuscular Volume 89, Mean Corpuscular Hemoglobin 27.6, Mean Corpuscular Hemoglobin Concent 31.1L, Red Cell Distribution Width 14.8, Platelet Count 339, Mean Platelet Volume 6.4L, Neutrophils (%) (Auto) , Lymphocytes (%) (Auto) , Monocytes (%) (Auto) , Eosinophils (%) (Auto) , Basophils (%) (Auto) , Differential Total Cells Counted 100, Neutrophils % ( Manual) 91H, Lymphocytes % (Manual) 6L, Monocytes % (Manual) 3, Eosinophils % ( Manual) 0, Basophils % (Manual) 0, Band Neutrophils 0, Platelet Estimate Adequate, Platelet Morphology Normal, Hypochromasia 1+, Anisocytosis 1+, Sodium Level 141, Potassium Level 3.2L, Chloride Level 96L, Carbon Dioxide Level 38H, Anion Gap 7, Blood Urea Nitrogen 31H, Creatinine 1.3, Estimat Glomerular Filtration Rate 40.9, Glucose Level 155H, Calcium Level 8.6 Height (Feet): 5 Height (Inches): 4.00 Weight (Pounds): 175 General Appearance: no apparent distress, alert, obese Neurologic: alert, oriented x 3, responsive, depressed affect Jamel Washington M.D. May 27, 2017 12:29
--- NOTE | 2017-05-27 12:30 | Psych Consult Progress Note ---
Psych Consult Progress Note Consult 05/26/17 the pt was seen on saturday. the pt is the same anxiety d/o -cont Ambien -will decrease Klonopin -Lexapro 10mg qam -rec to replace Dilaudid with long acting pain meds Vital Signs Last 24 Hour Vital Signs Date Time Temp Pulse Resp B/P (MAP) Pulse Ox O2 Delivery O2 Flow Rate FiO2 05/27/17 11:29 98.8 05/27/17 09:35 98.8 05/27/17 08:38 89 165/85 05/27/17 08:36 98.8 05/27/17 08:28 86 20 9 Nasal Cannula 3.0 32 05/27/17 08:18 89 20 95 Nasal Cannula 3.0 32 05/27/17 08:17 Nasal Cannula 3.0 05/27/17 08:16 95 Nasal Cannula 3.0 05/27/17 08:00 98.3 90 20 180/95 97 Nasal Cannula 3.0 98.3 05/27/17 04:00 96 Nasal Cannula 3.0 05/27/17 04:00 98.8 102 20 165/85 93 98.8 05/27/17 03:59 92 20 97 Nasal Cannula 3.0 32 05/27/17 03:11 91 18 94 Nasal Cannula 3.0 32 05/27/17 00:00 98 Nasal Cannula 3.0 05/27/17 00:00 98.1 99 21 150/81 94 98.1 05/26/17 23:03 98 20 97 Nasal Cannula 3.0 32 05/26/17 22:37 97 18 94 Nasal Cannula 3.0 32 05/26/17 20:00 96 Nasal Cannula 3.0 05/26/17 20:00 98.1 116 19 159/95 92 98.1 05/26/17 19:02 Nasal Cannula 3.0 32 05/26/17 19:02 96 Nasal Cannula 3.0 32 05/26/17 19:02 97 24 96 Nasal Cannula 3.0 32 05/26/17 18:52 97 18 93 Nasal Cannula 3.0 32 05/26/17 16:26 93 24 98 Nasal Cannula 3.0 32 05/26/17 16:14 93 18 96 Nasal Cannula 3.0 32 05/26/17 16:00 98.7 98 22 163/82 96 98.7 Labs Laboratory Tests Test 05/27/17 06:15 White Blood Count 13.4 K/UL (4.8-10.8) H Red Blood Count 4.22 M/UL (4.20-5.40) Hemoglobin 11.7 G/DL (12.0-16.0) L Hematocrit 37.5 % (37.0-47.0) Mean Corpuscular Volume 89 FL (80-99) Mean Corpuscular Hemoglobin 27.6 PG (27.0-31.0) Mean Corpuscular Hemoglobin Concent 31.1 G/DL (32.0-36.0) L Red Cell Distribution Width 14.8 % (11.6-14.8) Platelet Count 339 K/UL (150-450) Mean Platelet Volume 6.4 FL (6.5-10.1) L Neutrophils (%) (Auto) % (45.0-75.0) Lymphocytes (%) (Auto) % (20.0-45.0) Monocytes (%) (Auto) % (1.0-10.0) Eosinophils (%) (Auto) % (0.0-3.0) Basophils (%) (Auto) % (0.0-2.0) Differential Total Cells Counted 100 Neutrophils % (Manual) 91 % (45-75) H Lymphocytes % (Manual) 6 % (20-45) L Monocytes % (Manual) 3 % (1-10) Eosinophils % (Manual) 0 % (0-3) Basophils % (Manual) 0 % (0-2) Band Neutrophils 0 % (0-8) Platelet Estimate Adequate Platelet Morphology Normal Hypochromasia 1+ Anisocytosis 1+ Sodium Level 141 MMOL/L (136-145) Potassium Level 3.2 MMOL/L (3.5-5.1) L Chloride Level 96 MMOL/L (98-107) L Carbon Dioxide Level 38 MMOL/L (21-32) H Anion Gap 7 mmol/L (5-15) Blood Urea Nitrogen 31 mg/dL (7-18) H Creatinine 1.3 MG/DL (0.55-1.30) Estimat Glomerular Filtration Rate 40.9 mL/min (>60) Glucose Level 155 MG/DL (74-106) H Calcium Level 8.6 MG/DL (8.5-10.1) Medications Current Medications Medications (Trade) Dose Ordered Sig/Mamie Route PRN Reason Start Time Stop Time Status Last Admin Dose Admin Acetaminophen (Tylenol) 650 mg Q4H PRN ORAL Mild Pain (Scale 1-3)/FEVER 05/26/17 11:30 06/22/17 11:29 Acetaminophen (Tylenol) 650 mg Q4H PRN RECTAL Mild Pain (Scale 1-3)/FEVER 05/26/17 11:30 06/22/17 11:29 Alprazolam (Xanax) 0.5 mg THREE TIMES A DAY ORAL 05/27/17 13:00 06/03/17 12:59 Amlodipine Besylate (Norvasc) 10 mg DAILY ORAL 05/27/17 09:00 06/23/17 08:59 05/27/17 08:38 Bisacodyl (Dulcolax) 10 mg HSPRN PRN RECTAL Constipation 05/26/17 11:30 06/22/17 11:29 Ceftriaxone Sodium 1 gm/ Dextrose 55 ml @ 110 mls/hr Q24H IVPB 05/26/17 13:30 05/31/17 13:29 05/26/17 15:13 Clonazepam (KlonoPIN) 1 mg Q6H PRN ORAL For Anxiety 05/26/17 11:15 06/01/17 17:14 Cyclobenzaprine HCl (Flexeril) 10 mg THREE TIMES A DAY ORAL 05/26/17 13:00 06/23/17 08:59 05/27/17 08:36 Dextrose (Dextrose 50%) STAT PRN IV Hypoglycemia 05/26/17 12:00 06/22/17 11:59 Diphenhydramine HCl (Benadryl) 25 mg Q4H PRN IVP Itching 05/26/17 11:00 06/23/17 14:59 05/27/17 11:28 Docusate Sodium (Colace) 100 mg EVERY 12 HOURS ORAL 05/26/17 21:00 06/23/17 08:59 05/27/17 08:36 Doxycycline Monohydrate (Vibramycin) 100 mg EVERY 12 HOURS ORAL 05/26/17 21:00 05/30/17 20:59 05/27/17 08:38 Furosemide (Lasix) 20 mg DAILY ORAL 05/27/17 09:00 06/23/17 08:59 05/27/17 08:38 Guaifenesin/ Dextromethorphan (Robitussin DM Syrup) 5 ml Q6H PRN ORAL For Cough 05/26/17 11:30 06/23/17 11:29 Heparin Sodium (Porcine) (Heparin 5000 units/ml) 5,000 units EVERY 8 HOURS SUBQ 05/26/17 14:00 06/22/17 21:59 05/27/17 05:45 Hydromorphone HCl (Dilaudid) 2 mg Q4H PRN IVP Moderate Pain (Pain Scale 4-6) 05/26/17 11:30 06/02/17 11:29 05/27/17 11:29 Hydromorphone HCl (Dilaudid) 4 mg Q6HR PRN ORAL Severe Pain (Pain Scale 7-10) 05/27/17 11:15 06/03/17 09:29 UNV Insulin Aspart (NovoLOG) BEFORE MEALS AND HS SUBQ 05/26/17 11:30 06/23/17 06:29 05/27/17 05:47 Levalbuterol HCl (Xopenex) 1.25 mg Q4HRT HHN 05/26/17 15:00 05/29/17 14:59 05/27/17 08:18 Levothyroxine Sodium (Synthroid) 100 mcg DAILY@0630 ORAL 05/27/17 06:30 06/23/17 06:29 05/27/17 05:47 Methylprednisolone Sodium Succinate (Solu-MEDROL) 40 mg DAILY IVP 05/28/17 09:00 06/24/17 13:59 Methylprednisolone Sodium Succinate (Solu-MEDROL) 40 mg EVERY 8 HOURS IVP 05/26/17 14:00 05/27/17 14:00 05/27/17 05:44 Nitroglycerin (Ntg) 0.4 mg Q5M X 3 DOSES PRN SL Prn Chest Pain 05/26/17 11:00 06/22/17 21:44 Ondansetron HCl (Zofran) 4 mg Q6H PRN IVP Nausea & Vomiting 05/26/17 11:30 06/22/17 11:29 Pantoprazole (Protonix) 40 mg DAILY IVP 05/27/17 09:00 06/23/17 10:29 05/27/17 08:38 Quetiapine Fumarate (SEROquel) 25 mg BEDTIME ORAL 05/26/17 21:00 06/25/17 20:59 05/26/17 20:36 Venlafaxine HCl (Effexor-XR) 75 mg DAILY ORAL 05/28/17 09:00 06/27/17 08:59 Jamel Washington M.D. May 27, 2017 12:30
[2017-05-27] MEDS: ALPRAZolam 0.5mg tab ORAL SCH ×2 (12:52→17:24)
[2017-05-27] MEDS: cefTRIAXone 1 GM in D5W 55 ML IVPB SCH (14:11)
[2017-05-27 16:00] VITALS: BP 160/84
[2017-05-27] MEDS: HYDROmorphone 4mg tab ORAL SCH ×2 (16:43→22:15)
[2017-05-27 20:00] VITALS: BP 176/90
[2017-05-27] MEDS: Meropenem 1 GM in D5W 55 ML IVPB SCH (20:58)
[2017-05-28] VITALS (7 sets, daily range): BP systolic 155–173; BP diastolic 84–99
[2017-05-28] MEDS: DiphenhydrAMINE 50mg/ml Inj IVP PRN ×3 (00:42→15:39)
[2017-05-28] MEDS: Levalbuterol Inh UD 1.25mg/0.5ml HHN SCH ×6 (03:00→23:48)
[2017-05-28] MEDS: HYDROmorphone 4mg tab ORAL SCH ×4 (03:54→22:53)
[2017-05-28] MEDS: Heparin 5000 units/ml inj SUBQ SCH ×3 (06:05→22:54)
[2017-05-28] MEDS: NovoLOG Insulin Flexpen SUBQ SCH ×4 (06:06→20:33)
--- NOTE | 2017-05-28 07:54 | Pulmonology Progress Note ---
Assessment/Plan Assessment/Plan 1. Exacerbation of COPD, mild. 2. Status post fall. DISCUSSION: OK to switch to PO steroids Added Xanax and Effexor Off Lexapro On PO Dilaudid ( she takes it at home - scheduled) DC planning for home today per Dr Dodson/Kelly Subjective Interval Events: Much improved Constitutional: Reports: no symptoms HEENT: Repors: no symptoms Respiratory: Reports: shortness of breath Cardiovascular: Reports: no symptoms Gastrointestinal/Abdominal: Reports: no symptoms Genitourinary: Reports: no symptoms Allergies: Coded Allergies: BENZODIAZEPINES (Verified Allergy, Unknown, 04/20/10) IODINE (Verified Allergy, Unknown, 04/20/10) IPRATROPIUM (Verified Allergy, Unknown, unknown, 05/24/17) LIDOCAINE (Verified Allergy, Unknown, 04/20/10) LORAZEPAM (Verified Allergy, Unknown, 04/20/10) OXYBUTYNIN (Verified Allergy, Unknown, 04/20/10) PENICILLINS (Verified Allergy, Unknown, 04/20/10) PHENOTHIAZINES (Verified Allergy, Unknown, 04/20/10) PIPERACILLIN (Verified Allergy, Unknown, 04/20/10) PROPOFOL (Verified Allergy, Unknown, 04/20/10) QUINOLONES (Verified Allergy, Unknown, 04/20/10) SULFASALAZINE (Verified Allergy, Unknown, 04/20/10) TAZOBACTAM (Verified Allergy, Unknown, 04/20/10) TEMAZEPAM (Verified Allergy, Unknown, 04/20/10) VANCOMYCIN (Verified Adverse Reaction, Intermediate, 05/23/17) "it messes up my stomach" Objective Last 24 Hour Vital Signs Date Time Temp Pulse Resp B/P (MAP) Pulse Ox O2 Delivery O2 Flow Rate FiO2 05/28/17 07:45 88 18 96 Nasal Cannula 3.0 32 05/28/17 07:45 96 Nasal Cannula 3.0 32 05/28/17 07:45 Nasal Cannula 3.0 32 05/28/17 04:00 98.1 93 20 158/88 94 98.1 05/28/17 03:18 Nasal Cannula 3.0 32 05/28/17 03:18 Nasal Cannula 3.0 32 05/28/17 01:47 155/99 05/28/17 00:00 98.2 101 20 173/89 92 98.2 05/28/17 00:00 Nasal Cannula 4.0 05/27/17 23:16 92 20 96 Nasal Cannula 3.0 32 05/27/17 23:15 90 20 92 Nasal Cannula 3.0 32 05/27/17 20:00 98.1 104 20 176/90 94 98.1 05/27/17 20:00 Nasal Cannula 4.0 05/27/17 19:43 100 20 95 Nasal Cannula 3.0 32 05/27/17 19:42 98 20 92 Nasal Cannula 3.0 32 05/27/17 19:41 Nasal Cannula 3.0 32 05/27/17 19:41 92 Nasal Cannula 3.0 32 05/27/17 18:49 98.8 05/27/17 17:42 98.8 05/27/17 17:42 98.8 05/27/17 17:42 98.8 05/27/17 17:24 98.8 05/27/17 16:51 93 Nasal Cannula 4.0 05/27/17 16:43 98.8 05/27/17 16:00 97.3 104 20 160/84 91 Nasal Cannula 3.0 97.3 05/27/17 15:27 73 20 97 Nasal Cannula 3.0 32 05/27/17 15:17 102 22 89 Room Air 05/27/17 12:52 98.8 05/27/17 12:00 Nasal Cannula 3.0 05/27/17 12:00 97.2 96 20 160/84 95 97.2 05/27/17 11:29 98.8 05/27/17 11:03 Nasal Cannula 3.0 05/27/17 11:00 Nasal Cannula 3.0 05/27/17 08:38 89 165/85 05/27/17 08:36 98.8 05/27/17 08:28 86 20 9 Nasal Cannula 3.0 32 05/27/17 08:18 89 20 95 Nasal Cannula 3.0 32 05/27/17 08:17 Nasal Cannula 3.0 05/27/17 08:16 95 Nasal Cannula 3.0 05/27/17 08:00 98.3 90 20 180/95 97 Nasal Cannula 3.0 98.3 Intake and Output 05/27/17 05/28/17 19:00 07:00 Intake Total 220 ml Balance 220 ml Intake Oral 220 ml # Voids 4 3 General Appearance: no acute distress HEENT: normocephalic Respiratory/Chest: chest wall non-tender, decreased breath sounds Cardiovascular: normal peripheral pulses, normal rate Abdomen: normal bowel sounds Laboratory Tests 05/28/17 07:00: White Blood Count [Pending], Red Blood Count [Pending], Hemoglobin [Pending], Hematocrit [Pending], Mean Corpuscular Volume [Pending], Mean Corpuscular Hemoglobin [Pending], Mean Corpuscular Hemoglobin Concent [Pending], Red Cell Distribution Width [Pending], Platelet Count [Pending], Mean Platelet Volume [ Pending], Neutrophils (%) (Auto) [Pending], Lymphocytes (%) (Auto) [Pending], Monocytes (%) (Auto) [Pending], Eosinophils (%) (Auto) [Pending], Basophils (%) (Auto) [Pending], Sodium Level [Pending], Potassium Level [Pending], Chloride Level [Pending], Carbon Dioxide Level [Pending], Blood Urea Nitrogen [Pending], Creatinine [Pending], Estimat Glomerular Filtration Rate [Pending], Glucose Level [Pending], Calcium Level [Pending] Current Medications Medications (Trade) Dose Ordered Sig/Mamie Route PRN Reason Start Time Stop Time Status Last Admin Dose Admin Acetaminophen (Tylenol) 650 mg Q4H PRN ORAL Mild Pain (Scale 1-3)/FEVER 05/26/17 11:30 06/22/17 11:29 Acetaminophen (Tylenol) 650 mg Q4H PRN RECTAL Mild Pain (Scale 1-3)/FEVER 05/26/17 11:30 06/22/17 11:29 Alprazolam (Xanax) 0.5 mg THREE TIMES A DAY ORAL 05/27/17 13:00 06/03/17 12:59 05/27/17 17:24 Amlodipine Besylate (Norvasc) 10 mg DAILY ORAL 05/27/17 09:00 06/23/17 08:59 05/27/17 08:38 Bisacodyl (Dulcolax) 10 mg HSPRN PRN RECTAL Constipation 05/26/17 11:30 06/22/17 11:29 Cyclobenzaprine HCl (Flexeril) 10 mg THREE TIMES A DAY ORAL 05/26/17 13:00 06/23/17 08:59 05/27/17 17:24 Dextrose (Dextrose 50%) STAT PRN IV Hypoglycemia 05/26/17 12:00 06/22/17 11:59 Diphenhydramine HCl (Benadryl) 25 mg Q4H PRN IVP Itching 05/26/17 11:00 06/23/17 14:59 05/28/17 06:58 Docusate Sodium (Colace) 100 mg EVERY 12 HOURS ORAL 05/26/17 21:00 06/23/17 08:59 05/27/17 20:57 Doxycycline Monohydrate (Vibramycin) 100 mg EVERY 12 HOURS ORAL 05/26/17 21:00 05/30/17 20:59 05/27/17 20:58 Furosemide (Lasix) 20 mg DAILY ORAL 05/27/17 09:00 06/23/17 08:59 05/27/17 08:38 Guaifenesin/ Dextromethorphan (Robitussin DM Syrup) 5 ml Q6H PRN ORAL For Cough 05/26/17 11:30 06/23/17 11:29 Heparin Sodium (Porcine) (Heparin 5000 units/ml) 5,000 units EVERY 8 HOURS SUBQ 05/26/17 14:00 06/22/17 21:59 05/28/17 06:05 Hydromorphone HCl (Dilaudid) 2 mg Q4H PRN IVP Moderate Pain (Pain Scale 4-6) 05/26/17 11:30 06/02/17 11:29 05/28/17 06:19 Hydromorphone HCl (Dilaudid) 4 mg Q6H ORAL 05/27/17 16:00 06/03/17 15:59 05/28/17 03:54 Insulin Aspart (NovoLOG) BEFORE MEALS AND HS SUBQ 05/26/17 11:30 06/23/17 06:29 05/28/17 06:06 Levalbuterol HCl (Xopenex) 1.25 mg Q4HRT HHN 05/26/17 15:00 05/29/17 14:59 05/28/17 07:45 Levothyroxine Sodium (Synthroid) 100 mcg DAILY@0630 ORAL 05/27/17 06:30 06/23/17 06:29 05/28/17 06:05 Meropenem 1 gm/ Dextrose 55 ml @ 110 mls/hr Q12H IVPB 05/27/17 20:00 05/28/17 08:29 05/27/17 20:58 Methylprednisolone Sodium Succinate (Solu-MEDROL) 40 mg DAILY IVP 05/28/17 09:00 06/24/17 13:59 Nitroglycerin (Ntg) 0.4 mg Q5M X 3 DOSES PRN SL Prn Chest Pain 05/26/17 11:00 06/22/17 21:44 Ondansetron HCl (Zofran) 4 mg Q6H PRN IVP Nausea & Vomiting 05/26/17 11:30 06/22/17 11:29 Pantoprazole (Protonix) 40 mg DAILY IVP 05/27/17 09:00 06/23/17 10:29 05/27/17 08:38 Quetiapine Fumarate (SEROquel) 25 mg BEDTIME ORAL 05/26/17 21:00 06/25/17 20:59 05/27/17 20:57 Venlafaxine HCl (Effexor-XR) 75 mg DAILY ORAL 05/28/17 09:00 06/27/17 08:59 Shahid Lake MD May 28, 2017 07:54
[2017-05-28 08:02] LABS: HEMATOCRIT 38.3 % (37.0-47.0); HEMOGLOBIN 12.4 G/DL (12.0-16.0); MEAN CORPUSCULAR VOLUME 89 FL (80-99); PLATELET COUNT 370 K/UL (150-450); RED BLOOD COUNT 4.32 M/UL (4.20-5.40); RED CELL DISTRIBUTION WIDTH 14.4 % (11.6-14.8); WHITE BLOOD COUNT 18.4 K/UL (4.8-10.8)
[2017-05-28 08:07] LABS: ANION GAP 6 mmol/L (5-15); BLOOD UREA NITROGEN 30 mg/dL (7-18); CALCIUM 8.7 MG/DL (8.5-10.1); CARBON DIOXIDE 38 MMOL/L (21-32); CHLORIDE 93 MMOL/L (98-107); CREATININE 1.3 MG/DL (0.55-1.30); POTASSIUM 3.2 MMOL/L (3.5-5.1); SODIUM 137 MMOL/L (136-145)
[2017-05-28] MEDS: Docusate 100mg cap ORAL SCH ×2 (09:15→20:32)
[2017-05-28] MEDS: Solu-MEDROL 40mg Inj IVP SCH (09:15)
--- NOTE | 2017-05-28 09:15 | History and Physical Report ---
DATE OF ADMISSION: 05/23/2017 NOTE: "POOR AUDIO QUALITY" CHIEF COMPLAINT: Shortness of breath and cough. HISTORY OF PRESENT ILLNESS: This is a 66-year-old very delightful female with past medical history significant for chronic pain syndrome, history of ulcerative colitis, obstructive sleep apnea, sympathetic reflex dystrophy, hepatitis B and C positive, peripheral neuropathy, pernicious anemia, fibromyalgia, COPD, on home oxygen, who presented to the hospital complaining about shortness of breath, cough, altered mental status. The patient had a fall three days ago had staple closure of the left side of the head. Friend called 911 because she thought she was not acting "right." Friend was suspicious for possible Dilaudid overdose. The patient stated that she typically on 5 L nasal cannula and denies any fever, chills, or chest pain. Shortly after initial evaluation in the emergency, the patient was admitted to the hospital with acute COPD exacerbation, possible UTI. PAST MEDICAL HISTORY/PAST SURGICAL HISTORY: As above. 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 MEDICATIONS: At home significant for Advair 250/50 one puff b.i.d., 0.25 mg t.i.d., amlodipine 10 mg daily, atenolol 25 mg daily, Lovenox 40 mg subcutaneous daily, 10 mg daily as needed, Lasix 40 mg daily, Robitussin A-C 10 mL q.4 hours p.r.n. for cough, Dilaudid 4 mg as needed q.6 hours. She is on Novolin R sliding scale 4 times a day before each meal, 1 mg daily, milk of magnesia 30 mL p.r.n. daily for constipation, Nexium 40 mg daily, MiraLAX p.r.n., potassium chloride 8 mEq daily, senna 8.6 mg daily, Spiriva handheld daily, Synthroid 100 mcg daily, vitamin D 1000 daily, Zoloft 50 mg daily. ALLERGIES: To ciprofloxacin, iodine, penicillin, sulfa medication, . SOCIAL HISTORY: The patient lives at home in an apartment. No alcohol or drug abuse. Currently smokes 3 cigarettes a day. FAMILY HISTORY: Noncontributory. REVIEW OF SYSTEMS: Mostly as above. Denies any dysuria, frequency, or hematuria heart disease. Denies any hemoptysis or hematochezia. Denies any bright red blood per rectum. Denies any loss of consciousness. Complained about occasional cough. PHYSICAL EXAMINATION: VITAL SIGNS: On admission, temperature 98.4, pulse of 92, respirations 16, and blood pressure 128/61. GENERAL: The patient is awake, responsive . HEAD AND NECK: Pupils are equal and reactive to light. Extraocular movements intact. NECK: Supple. Decreased air in the bases bilaterally. Occasional wheezes posteriorly. HEART: Reveals S1, S2. Distant heart sounds. No murmur or gallops. AICD was noted in the left side of the chest wall. ABDOMEN: Soft, nondistended, nontender. obese. The patient has a pain pump noted in the left side of the abdomen area. EXTREMITIES: No cyanosis, clubbing, or edema. SKIN: Scaly hyperpigmentation of bilateral lower extremities. NEUROLOGIC: Cranial nerves II through XII grossly intact. The patient moves all extremities. Gait was not assessed at this time. LABORATORY DATA: On admission from the ER, WBC of 10.2, hemoglobin 10.9, hematocrit 34, platelet is 253,000. Sodium 142, potassium 3.7, chloride 95, bicarbonate 29, BUN 19, creatinine 1.0, and glucose 127. AST of 35, ALT of 26, alkaline phosphatase was 79. Total creatine kinase 177. Albumin is 4.0. Urinalysis, +3 protein, +2 ketones, +2 occult blood, 5 to 10 wbc, many bacteria. Chest x-ray, mild interstitial opacification and edema. Clinical correlation, followup examination recommended. CT of the head was done and shows that the patient has limited due to the metallic evidence of acute intracranial hemorrhage, mass effect, or cortical edema. Postsurgical appearance of the bilateral mastoid air cell with bilateral mastoid opacification. Finding may be chronic, however, correlation to exclude acute mastoiditis, no acute skull fracture. ASSESSMENT: 1. Acute COPD exacerbation. 2. History of ulcerative colitis. 3. Obstructive sleep apnea. 4. Sympathetic reflex dystrophy. 5. Hepatitis B and C positive. 6. Peripheral neuropathy. 7. Pernicious anemia. 8. History of spinal stenosis with compression fracture of the spine. 9. Hypothyroidism. 10. History of lower extremity bilateral cellulitis. 11. Chronic abdominal pain and a pain pump. 12. Anemia. PLAN: Admit the patient to monitored unit. We will follow up laboratory tests. Solu-Medrol. Broad-spectrum antibiotics . We discussed the case with Dr. Shahid Lake from Pulmonary/Critical Care. Resume home medications. Copy of the record from the [facility] was obtained and placed in the chart. DVT prophylaxis, heparin subcutaneous. CODE STATUS: Full Code. Flex Dodson M.D. DR: Lydia JOB#: [id number] CC:
[2017-05-28] MEDS: Venlafaxine XR 75mg cap ORAL SCH (09:16)
[2017-05-28] MEDS: ALPRAZolam 0.5mg tab ORAL SCH ×3 (09:17→17:33)
[2017-05-28] MEDS: Cyclobenzaprine 10mg Tab ORAL SCH ×3 (09:17→17:33)
[2017-05-28] MEDS: Pantoprazole Inj IVP SCH (09:17)
[2017-05-28] MEDS: Meropenem 1 GM in D5W 55 ML IVPB SCH (09:23)
--- NOTE | 2017-05-28 11:33 | Physician Query ---
--------- THIS DOCUMENT IS A PERMANENT PART OF THE MEDICAL RECORD --------- PLEASE COMPLETE DOCUMENT BEFORE SIGNING Dear ESCOBAR Banuelos Date: 05/28/17 Sludge Control Operator/CDS Name: Tereso Collier Sludge Control Operator / CDS Phone #[phone] Exercise your independent professional judgment when responding to query. Question asked do not imply a particular answer is desired/expected. Clinical Documentation States: "Altered Mental Status / Confusion / ALOC" documented in: Progress Note : Dr. Mendoza (05/24/17) o.COPD with acute exacerbation o.Altered Mental Status due to hypoxia Please indicate the nature and chronicity of the condition below: [X] Metabolic Encephalopathy [] Toxic Encephalopathy [] Toxic - Metabolic Encephalopathy [] Progressive Encephalopathy [] Encephalopathy, Other [] Other: [] Not Applicable Severity [] Acute [] Chronic [X] Acute on Chronic [] Unable to determine Condition Present on Admission: [X] Yes [] No []Clinically Undeterminable Please also document in your Progress Notes and/or Discharge Summary and indicate if the condition was present on admission. Dr. ESCOBAR LR Date/Time MTDD
--- NOTE | 2017-05-28 12:57 | Consultation ---
Sonny Lee MD May 28, 2017 12:57
--- NOTE | 2017-05-28 14:09 | Consultation ---
Consult Note Consult Note [id number] Sonny Lee MD May 28, 2017 14:09
--- NOTE | 2017-05-28 15:50 | Internal Med Progress Note ---
Subjective Date of Service: May 28, 2017 Physician Name Sheldon Campbell Attending Physician Flex Dodson MD Current Medications Medications (Trade) Dose Ordered Sig/Mamie Route PRN Reason Start Time Stop Time Status Last Admin Dose Admin Acetaminophen (Tylenol) 650 mg Q4H PRN ORAL Mild Pain (Scale 1-3)/FEVER 05/26/17 11:30 06/22/17 11:29 Acetaminophen (Tylenol) 650 mg Q4H PRN RECTAL Mild Pain (Scale 1-3)/FEVER 05/26/17 11:30 06/22/17 11:29 Alprazolam (Xanax) 0.5 mg THREE TIMES A DAY ORAL 05/27/17 13:00 06/03/17 12:59 05/28/17 13:12 Amlodipine Besylate (Norvasc) 10 mg DAILY ORAL 05/27/17 09:00 06/23/17 08:59 05/28/17 09:17 Bisacodyl (Dulcolax) 10 mg HSPRN PRN RECTAL Constipation 05/26/17 11:30 06/22/17 11:29 Cyclobenzaprine HCl (Flexeril) 10 mg THREE TIMES A DAY ORAL 05/26/17 13:00 06/23/17 08:59 05/28/17 13:12 Dextrose (Dextrose 50%) STAT PRN IV Hypoglycemia 05/26/17 12:00 06/22/17 11:59 Diphenhydramine HCl (Benadryl) 25 mg Q4H PRN IVP Itching 05/26/17 11:00 06/23/17 14:59 05/28/17 15:39 Docusate Sodium (Colace) 100 mg EVERY 12 HOURS ORAL 05/26/17 21:00 06/23/17 08:59 05/28/17 09:15 Doxycycline Monohydrate (Vibramycin) 100 mg EVERY 12 HOURS ORAL 05/26/17 21:00 05/30/17 20:59 05/28/17 09:16 Furosemide (Lasix) 20 mg DAILY ORAL 05/27/17 09:00 06/23/17 08:59 05/28/17 09:15 Guaifenesin/ Dextromethorphan (Robitussin DM Syrup) 5 ml Q6H PRN ORAL For Cough 05/26/17 11:30 06/23/17 11:29 Heparin Sodium (Porcine) (Heparin 5000 units/ml) 5,000 units EVERY 8 HOURS SUBQ 05/26/17 14:00 06/22/17 21:59 05/28/17 13:14 Hydromorphone HCl (Dilaudid) 2 mg Q4H PRN IVP Moderate Pain (Pain Scale 4-6) 05/26/17 11:30 06/02/17 11:29 05/28/17 15:40 Hydromorphone HCl (Dilaudid) 4 mg Q6H ORAL 05/27/17 16:00 06/03/17 15:59 05/28/17 15:39 Insulin Aspart (NovoLOG) BEFORE MEALS AND HS SUBQ 05/26/17 11:30 06/23/17 06:29 05/28/17 11:53 Levalbuterol HCl (Xopenex) 1.25 mg Q4HRT HHN 05/26/17 15:00 05/29/17 14:59 05/28/17 07:45 Levothyroxine Sodium (Synthroid) 100 mcg DAILY@0630 ORAL 05/27/17 06:30 06/23/17 06:29 05/28/17 06:05 Methylprednisolone Sodium Succinate (Solu-MEDROL) 40 mg DAILY IVP 05/28/17 09:00 06/24/17 13:59 05/28/17 09:15 Nitroglycerin (Ntg) 0.4 mg Q5M X 3 DOSES PRN SL Prn Chest Pain 05/26/17 11:00 06/22/17 21:44 Ondansetron HCl (Zofran) 4 mg Q6H PRN IVP Nausea & Vomiting 05/26/17 11:30 06/22/17 11:29 Pantoprazole (Protonix) 40 mg DAILY IVP 05/27/17 09:00 06/23/17 10:29 05/28/17 09:17 Quetiapine Fumarate (SEROquel) 25 mg BEDTIME ORAL 05/26/17 21:00 06/25/17 20:59 05/27/17 20:57 Venlafaxine HCl (Effexor-XR) 75 mg DAILY ORAL 05/28/17 09:00 06/27/17 08:59 05/28/17 09:16 Allergies: Coded Allergies: BENZODIAZEPINES (Verified Allergy, Unknown, 04/20/10) IODINE (Verified Allergy, Unknown, 04/20/10) IPRATROPIUM (Verified Allergy, Unknown, unknown, 05/24/17) LIDOCAINE (Verified Allergy, Unknown, 04/20/10) LORAZEPAM (Verified Allergy, Unknown, 04/20/10) OXYBUTYNIN (Verified Allergy, Unknown, 04/20/10) PENICILLINS (Verified Allergy, Unknown, 04/20/10) PHENOTHIAZINES (Verified Allergy, Unknown, 04/20/10) PIPERACILLIN (Verified Allergy, Unknown, 04/20/10) PROPOFOL (Verified Allergy, Unknown, 04/20/10) QUINOLONES (Verified Allergy, Unknown, 04/20/10) SULFASALAZINE (Verified Allergy, Unknown, 04/20/10) TAZOBACTAM (Verified Allergy, Unknown, 04/20/10) TEMAZEPAM (Verified Allergy, Unknown, 04/20/10) VANCOMYCIN (Verified Adverse Reaction, Intermediate, 05/23/17) "it messes up my stomach" ROS Limited/Unobtainable: No Constitutional: Reports: no symptoms HEENT: Reports: no symptoms Cardiovascular: Reports: no symptoms Respiratory: Reports: no symptoms Gastrointestinal/Abdominal: Reports: no symptoms Genitourinary: Reports: no symptoms Neurologic/Psychiatric: Reports: no symptoms Subjective 66 YO F admitted with COPD exacerbation and altered mental status. Cover for Int Med-Dr Dodson. C/O anxiety. Objective Last Vital Signs Date Time Temp Pulse Resp B/P (MAP) Pulse Ox O2 Delivery O2 Flow Rate FiO2 05/28/17 15:11 Nasal Cannula 3.0 32 05/28/17 12:00 97.5 88 20 160/84 94 97.5 Laboratory Tests Test 05/28/17 07:00 White Blood Count 18.4 K/UL (4.8-10.8) H Red Blood Count 4.32 M/UL (4.20-5.40) Hemoglobin 12.4 G/DL (12.0-16.0) Hematocrit 38.3 % (37.0-47.0) Mean Corpuscular Volume 89 FL (80-99) Mean Corpuscular Hemoglobin 28.7 PG (27.0-31.0) Mean Corpuscular Hemoglobin Concent 32.4 G/DL (32.0-36.0) Red Cell Distribution Width 14.4 % (11.6-14.8) Platelet Count 370 K/UL (150-450) Mean Platelet Volume 6.8 FL (6.5-10.1) Neutrophils (%) (Auto) % (45.0-75.0) Lymphocytes (%) (Auto) % (20.0-45.0) Monocytes (%) (Auto) % (1.0-10.0) Eosinophils (%) (Auto) % (0.0-3.0) Basophils (%) (Auto) % (0.0-2.0) Differential Total Cells Counted 100 Neutrophils % (Manual) 75 % (45-75) Lymphocytes % (Manual) 17 % (20-45) L Monocytes % (Manual) 8 % (1-10) Eosinophils % (Manual) 0 % (0-3) Basophils % (Manual) 0 % (0-2) Band Neutrophils 0 % (0-8) Platelet Estimate Adequate Platelet Morphology Normal Hypochromasia 1+ Anisocytosis 1+ Sodium Level 137 MMOL/L (136-145) Potassium Level 3.2 MMOL/L (3.5-5.1) L Chloride Level 93 MMOL/L (98-107) L Carbon Dioxide Level 38 MMOL/L (21-32) H Anion Gap 6 mmol/L (5-15) Blood Urea Nitrogen 30 mg/dL (7-18) H Creatinine 1.3 MG/DL (0.55-1.30) Estimat Glomerular Filtration Rate 40.9 mL/min (>60) Glucose Level 92 MG/DL (74-106) Calcium Level 8.7 MG/DL (8.5-10.1) Intake and Output 05/27/17 05/28/17 19:00 07:00 Intake Total 220 ml Balance 220 ml Intake Oral 220 ml # Voids 4 3 Objective General Appearance: WD/WN, no apparent distress, mild distress EENT: PERRL/EOMI, normal ENT inspection Neck: non-tender, normal alignment, supple, normal inspection Cardiovascular: normal peripheral pulses, normal rate, regular rhythm, no gallop/murmur, no JVD Respiratory/Chest: respiratory distress, accessory muscle use, crackles/rales, rhonchi - bilaterally, expiratory wheezing Abdomen: normal bowel sounds, non tender, soft, no organomegaly, no mass Extremities: normal range of motion, non-tender Neurologic: bottom presser II-XII grossly normal, no motor/sensory deficits Skin: normal pigmentation, warm/dry Assessment/Plan Problem List: (1) COPD with acute exacerbation Assessment & Plan: Continue IV solumedrol, albuterol nebs, doxycycline and ceftriaxone per pulmonary (2) UTI (urinary tract infection) Assessment & Plan: Proteus. Continue meropenem per ID (3) Altered mental status Assessment & Plan: Due to hypoxia (4) Hypoxia (5) Hypothyroidism Assessment & Plan: Continue synthroid (6) HTN (hypertension) Assessment & Plan: Continue norvasc (7) Anxiety (8) Panic attack Assessment & Plan: Patient requesting klonopin Status: stable Assessment/Plan Discharge today with Home health SHELDON CAMPBELL May 28, 2017 15:50
--- NOTE | 2017-05-28 17:45 | Consultation ---
DATE OF CONSULTATION: 05/28/2017 INFECTIOUS DISEASE CONSULTATION CONSULTING PHYSICIAN: Sonny Lee M.D. REFERRING PHYSICIAN: Sheldon Mendoza M.D. REASON FOR CONSULTATION: Evaluation of the patient for possible urinary tract infection and antibiotic management. HISTORY OF PRESENT ILLNESS: The patient is a 66-year-old female with multiple medical problems including deafness. The patient came to the hospital with shortness of breath. The patient has home O2 for COPD. The patient was found to have positive urine culture, however, the patient does not have any urinary symptoms such as dysuria. Infectious disease consultation was requested for further evaluation of the patient for possible need for antibiotic treatment. PAST MEDICAL HISTORY: 1. History of chronic pain. 2. History of ulcerative colitis. 3. History of sleep apnea. 4. Hepatitis B and C. 5. Peripheral neuropathy. 6. History of anemia. 7. Fibromyalgia. 8. COPD. 9. GERD. 10. History of AICD placement. 11. History of breast biopsy. 12. History of cochlear implant. ALLERGIES: Multiple. Please see EMR. SOCIAL HISTORY: The patient lives at home. FAMILY HISTORY: Noncontributory. REVIEW OF SYSTEMS: Ten-point review was done, except what was mentioned has been negative. The patient does not have significant cough, however, has shortness of breath. PHYSICAL EXAMINATION: VITAL SIGNS: Temperature 97, blood pressure 162/84, pulse 88, respiratory rate 18. HEENT: No pale conjunctivae. No icterus. NECK: No lymphadenopathy. CHEST: Coarse breathing sounds. HEART: S1, S2. ABDOMEN: Soft, obese, nontender. No flank tenderness. EXTREMITIES: No cyanosis. NEUROLOGIC: Awake and alert. LABORATORY DATA: White blood cells 18, hemoglobin 12, platelets 370,000. UA, 5 to 10 white blood cells, 0 to 2 red blood cells. BUN 30, creatinine 1.3. Liver function tests are unremarkable. Urine culture is growing [id number] Proteus. Influenza screening, negative. Blood culture, no growth. ASSESSMENT: The patient is a 66-year-old with: 1. Leukocytosis due to steroids. 2. COPD exacerbation. 3. Positive urine culture, however, asymptomatic. No need for treatment. 4. ? history of hepatitis B and C. we will check hepatitis panel. PLAN: 1. We will continue the patient on doxycycline for a total of five days. 2. Monitor CBC and BMP. 3. Further serology. 4. Monitor the patient's clinical course. 5. Monitor chest x-ray. 6. Based on the patient's clinical course and labs, we will do further recommendation. Thank you for this consultation. I will follow the patient with you during this hospitalization. Sonny Lee M.D. DR: Anne Marie JOB#: [id number] CC:
--- NOTE | 2017-05-28 23:05 | General Progress Note ---
Assessment/Plan Assessment/Plan anxiety d/o -cont Ambien -will decrease Klonopin -Lexapro 10mg qam -rec to replace Dilaudid with long acting pain meds Subjective Date patient seen: May 28, 2017 Neurologic/Psychiatric: Reports: anxiety, depressed, emotional problems Allergies: Coded Allergies: BENZODIAZEPINES (Verified Allergy, Unknown, 04/20/10) IODINE (Verified Allergy, Unknown, 04/20/10) IPRATROPIUM (Verified Allergy, Unknown, unknown, 05/24/17) LIDOCAINE (Verified Allergy, Unknown, 04/20/10) LORAZEPAM (Verified Allergy, Unknown, 04/20/10) OXYBUTYNIN (Verified Allergy, Unknown, 04/20/10) PENICILLINS (Verified Allergy, Unknown, 04/20/10) PHENOTHIAZINES (Verified Allergy, Unknown, 04/20/10) PIPERACILLIN (Verified Allergy, Unknown, 04/20/10) PROPOFOL (Verified Allergy, Unknown, 04/20/10) QUINOLONES (Verified Allergy, Unknown, 04/20/10) SULFASALAZINE (Verified Allergy, Unknown, 04/20/10) TAZOBACTAM (Verified Allergy, Unknown, 04/20/10) TEMAZEPAM (Verified Allergy, Unknown, 04/20/10) VANCOMYCIN (Verified Adverse Reaction, Intermediate, 05/23/17) "it messes up my stomach" Objective Last 24 Hour Vital Signs Date Time Temp Pulse Resp B/P (MAP) Pulse Ox O2 Delivery O2 Flow Rate FiO2 05/28/17 20:00 98.2 94 18 163/99 98 Nasal Cannula 3.0 98.2 05/28/17 19:21 91 20 98 Nasal Cannula 3.0 32 05/28/17 19:08 94 18 96 Nasal Cannula 3.0 32 05/28/17 19:05 Nasal Cannula 3.0 32 05/28/17 19:05 97 Nasal Cannula 3.0 32 05/28/17 16:00 97.7 100 20 172/90 94 97.7 05/28/17 15:11 Nasal Cannula 3.0 32 05/28/17 15:11 Nasal Cannula 3.0 32 05/28/17 12:00 97.5 88 20 160/84 94 97.5 05/28/17 11:30 Nasal Cannula 3.0 32 05/28/17 11:30 Nasal Cannula 3.0 32 05/28/17 09:17 94 166/92 05/28/17 08:00 97.7 94 20 166/92 94 97.7 05/28/17 07:53 89 18 96 Nasal Cannula 3.0 32 05/28/17 07:45 88 18 96 Nasal Cannula 3.0 32 05/28/17 07:45 96 Nasal Cannula 3.0 32 05/28/17 07:45 Nasal Cannula 3.0 32 05/28/17 04:00 98.1 93 20 158/88 94 98.1 05/28/17 03:18 Nasal Cannula 3.0 32 05/28/17 03:18 Nasal Cannula 3.0 32 05/28/17 01:47 155/99 05/28/17 00:00 98.2 101 20 173/89 92 98.2 05/28/17 00:00 Nasal Cannula 4.0 05/27/17 23:16 92 20 96 Nasal Cannula 3.0 32 05/27/17 23:15 90 20 92 Nasal Cannula 3.0 32 Intake and Output 05/27/17 05/28/17 19:00 07:00 Intake Total 220 ml Balance 220 ml Intake Oral 220 ml # Voids 4 3 Laboratory Tests 05/28/17 07:00: White Blood Count 18.4H, Red Blood Count 4.32, Hemoglobin 12.4, Hematocrit 38.3 , Mean Corpuscular Volume 89, Mean Corpuscular Hemoglobin 28.7, Mean Corpuscular Hemoglobin Concent 32.4, Red Cell Distribution Width 14.4, Platelet Count 370, Mean Platelet Volume 6.8, Neutrophils (%) (Auto) , Lymphocytes (%) ( Auto) , Monocytes (%) (Auto) , Eosinophils (%) (Auto) , Basophils (%) (Auto) , Differential Total Cells Counted 100, Neutrophils % (Manual) 75, Lymphocytes % ( Manual) 17L, Monocytes % (Manual) 8, Eosinophils % (Manual) 0, Basophils % ( Manual) 0, Band Neutrophils 0, Platelet Estimate Adequate, Platelet Morphology Normal, Hypochromasia 1+, Anisocytosis 1+, Sodium Level 137, Potassium Level 3.2L, Chloride Level 93L, Carbon Dioxide Level 38H, Anion Gap 6, Blood Urea Nitrogen 30H, Creatinine 1.3, Estimat Glomerular Filtration Rate 40.9, Glucose Level 92, Calcium Level 8.7, Hepatitis A IgM Antibody [Pending], Hepatitis B Surface Antigen [Pending], Hepatitis B Core IgM Antibody [Pending], Hepatitis C Antibody [Pending], Hepatitis C RNA (PCR) IUs/ml [Pending], Hepatitis C RNA (PCR ) log IUs/ml [Pending] Height (Feet): 5 Height (Inches): 4.00 Weight (Pounds): 175 Jamel Washington M.D. May 28, 2017 23:05
[2017-05-29 00:02] VITALS: BP 184/91
[2017-05-29] MEDS: DiphenhydrAMINE 50mg/ml Inj IVP PRN ×2 (00:53→06:09)
[2017-05-29] MEDS: Levalbuterol Inh UD 1.25mg/0.5ml HHN SCH ×3 (03:00→11:30)
[2017-05-29 04:00] VITALS: BP 173/96
[2017-05-29] MEDS: HYDROmorphone 4mg tab ORAL SCH ×2 (04:16→09:00)
[2017-05-29] MEDS: Heparin 5000 units/ml inj SUBQ SCH (06:10)
[2017-05-29] MEDS: NovoLOG Insulin Flexpen SUBQ SCH ×2 (06:11→11:30)
[2017-05-29 07:38] LABS: BASOPHILS % (AUTO) 0.9 % (0.0-2.0); EOSINOPHILS % (AUTO) 0.4 % (0.0-3.0); HEMATOCRIT 40.2 % (37.0-47.0); HEMOGLOBIN 12.7 G/DL (12.0-16.0); LYMPHOCYTES % (AUTO) 30.2 % (20.0-45.0); MEAN CORPUSCULAR VOLUME 88 FL (80-99); MONOCYTES % (AUTO) 7.5 % (1.0-10.0); PLATELET COUNT 352 K/UL (150-450); RED BLOOD COUNT 4.55 M/UL (4.20-5.40); RED CELL DISTRIBUTION WIDTH 14.8 % (11.6-14.8); WHITE BLOOD COUNT 14.8 K/UL (4.8-10.8)
[2017-05-29 07:41] LABS: ANION GAP 2 mmol/L (5-15); BLOOD UREA NITROGEN 23 mg/dL (7-18); CALCIUM 9.1 MG/DL (8.5-10.1); CARBON DIOXIDE 40 MMOL/L (21-32); CHLORIDE 94 MMOL/L (98-107); POTASSIUM 3.5 MMOL/L (3.5-5.1); SODIUM 136 MMOL/L (136-145)
--- NOTE | 2017-05-29 07:57 | Pulmonology Progress Note ---
Assessment/Plan Assessment/Plan 1. Exacerbation of COPD, mild. 2. Status post fall. DISCUSSION: OK to switch to PO steroids Added Xanax and Effexor Off Lexapro On PO Dilaudid ( she takes it at home - scheduled) DC planning for home today per Dr Dodson/Kelly Subjective Interval Events: No reported events Constitutional: Reports: no symptoms HEENT: Repors: no symptoms Respiratory: Reports: no symptoms Cardiovascular: Reports: no symptoms Gastrointestinal/Abdominal: Reports: no symptoms Genitourinary: Reports: no symptoms Neurologic: Reports: no symptoms Allergies: Coded Allergies: BENZODIAZEPINES (Verified Allergy, Unknown, 04/20/10) IODINE (Verified Allergy, Unknown, 04/20/10) IPRATROPIUM (Verified Allergy, Unknown, unknown, 05/24/17) LIDOCAINE (Verified Allergy, Unknown, 04/20/10) LORAZEPAM (Verified Allergy, Unknown, 04/20/10) OXYBUTYNIN (Verified Allergy, Unknown, 04/20/10) PENICILLINS (Verified Allergy, Unknown, 04/20/10) PHENOTHIAZINES (Verified Allergy, Unknown, 04/20/10) PIPERACILLIN (Verified Allergy, Unknown, 04/20/10) PROPOFOL (Verified Allergy, Unknown, 04/20/10) QUINOLONES (Verified Allergy, Unknown, 04/20/10) SULFASALAZINE (Verified Allergy, Unknown, 04/20/10) TAZOBACTAM (Verified Allergy, Unknown, 04/20/10) TEMAZEPAM (Verified Allergy, Unknown, 04/20/10) VANCOMYCIN (Verified Adverse Reaction, Intermediate, 05/23/17) "it messes up my stomach" Objective Last 24 Hour Vital Signs Date Time Temp Pulse Resp B/P (MAP) Pulse Ox O2 Delivery O2 Flow Rate FiO2 05/29/17 07:30 Nasal Cannula 3.0 32 05/29/17 07:30 96 Nasal Cannula 3.0 32 05/29/17 07:30 Nasal Cannula 3.0 32 05/29/17 07:30 91 18 97 Nasal Cannula 3.0 32 05/29/17 04:00 97.0 97 18 173/96 88 Nasal Cannula 3.0 97.0 05/29/17 03:02 Nasal Cannula 3.0 32 05/29/17 03:02 Nasal Cannula 3.0 32 05/29/17 00:02 97.0 97 20 184/91 94 Nasal Cannula 3.0 97.0 05/29/17 00:00 Nasal Cannula 3.0 05/28/17 23:17 88 18 98 Nasal Cannula 3.0 32 05/28/17 23:07 95 18 95 Nasal Cannula 3.0 32 05/28/17 20:00 Nasal Cannula 3.0 05/28/17 20:00 98.2 94 18 163/99 98 Nasal Cannula 3.0 98.2 05/28/17 19:21 91 20 98 Nasal Cannula 3.0 32 05/28/17 19:08 94 18 96 Nasal Cannula 3.0 32 05/28/17 19:05 Nasal Cannula 3.0 32 05/28/17 19:05 97 Nasal Cannula 3.0 32 05/28/17 16:00 97.7 100 20 172/90 94 97.7 05/28/17 15:11 Nasal Cannula 3.0 32 05/28/17 15:11 Nasal Cannula 3.0 32 05/28/17 12:00 97.5 88 20 160/84 94 97.5 05/28/17 11:30 Nasal Cannula 3.0 32 05/28/17 11:30 Nasal Cannula 3.0 32 05/28/17 09:17 94 166/92 05/28/17 08:00 97.7 94 20 166/92 94 97.7 Intake and Output 05/28/17 05/29/17 19:00 07:00 Intake Total 620 ml 240 ml Output Total 300 ml 400 ml Balance 320 ml -160 ml Intake Oral 620 ml 240 ml Output Urine Total 300 ml 400 ml # Voids 5 General Appearance: no acute distress HEENT: normocephalic Respiratory/Chest: chest wall non-tender, lungs clear Cardiovascular: normal peripheral pulses, normal rate Abdomen: normal bowel sounds Laboratory Tests 05/29/17 07:10: White Blood Count 14.8H, Red Blood Count 4.55, Hemoglobin 12.7, Hematocrit 40.2 , Mean Corpuscular Volume 88, Mean Corpuscular Hemoglobin 27.8, Mean Corpuscular Hemoglobin Concent 31.5L, Red Cell Distribution Width 14.8, Platelet Count 352, Mean Platelet Volume 6.5, Neutrophils (%) (Auto) 61.0, Lymphocytes (%) (Auto) 30.2, Monocytes (%) (Auto) 7.5, Eosinophils (%) (Auto) 0.4, Basophils (%) (Auto) 0.9, Sodium Level 136, Potassium Level 3.5, Chloride Level 94L, Carbon Dioxide Level 40H, Anion Gap 2L, Blood Urea Nitrogen 23H, Creatinine 1.0, Estimat Glomerular Filtration Rate 55.3, Glucose Level 90, Calcium Level 9.1 Current Medications Medications (Trade) Dose Ordered Sig/Mamie Route PRN Reason Start Time Stop Time Status Last Admin Dose Admin Acetaminophen (Tylenol) 650 mg Q4H PRN ORAL Mild Pain (Scale 1-3)/FEVER 05/26/17 11:30 06/22/17 11:29 Acetaminophen (Tylenol) 650 mg Q4H PRN RECTAL Mild Pain (Scale 1-3)/FEVER 05/26/17 11:30 06/22/17 11:29 Alprazolam (Xanax) 0.5 mg THREE TIMES A DAY ORAL 05/27/17 13:00 06/03/17 12:59 05/28/17 17:33 Amlodipine Besylate (Norvasc) 10 mg DAILY ORAL 05/27/17 09:00 06/23/17 08:59 05/28/17 09:17 Bisacodyl (Dulcolax) 10 mg HSPRN PRN RECTAL Constipation 05/26/17 11:30 06/22/17 11:29 Cyclobenzaprine HCl (Flexeril) 10 mg THREE TIMES A DAY ORAL 05/26/17 13:00 06/23/17 08:59 05/28/17 17:33 Dextrose (Dextrose 50%) STAT PRN IV Hypoglycemia 05/26/17 12:00 06/22/17 11:59 Diphenhydramine HCl (Benadryl) 25 mg Q4H PRN IVP Itching 05/26/17 11:00 06/23/17 14:59 05/29/17 06:09 Docusate Sodium (Colace) 100 mg EVERY 12 HOURS ORAL 05/26/17 21:00 06/23/17 08:59 05/28/17 20:32 Doxycycline Monohydrate (Vibramycin) 100 mg EVERY 12 HOURS ORAL 05/26/17 21:00 05/30/17 20:59 05/28/17 20:32 Furosemide (Lasix) 20 mg DAILY ORAL 05/27/17 09:00 06/23/17 08:59 05/28/17 09:15 Guaifenesin/ Dextromethorphan (Robitussin DM Syrup) 5 ml Q6H PRN ORAL For Cough 05/26/17 11:30 06/23/17 11:29 Heparin Sodium (Porcine) (Heparin 5000 units/ml) 5,000 units EVERY 8 HOURS SUBQ 05/26/17 14:00 06/22/17 21:59 05/29/17 06:10 Hydromorphone HCl (Dilaudid) 2 mg Q4H PRN IVP Moderate Pain (Pain Scale 4-6) 05/26/17 11:30 06/02/17 11:29 05/29/17 06:08 Hydromorphone HCl (Dilaudid) 4 mg Q6H ORAL 05/27/17 16:00 06/03/17 15:59 05/29/17 04:16 Insulin Aspart (NovoLOG) BEFORE MEALS AND HS SUBQ 05/26/17 11:30 06/23/17 06:29 05/29/17 06:11 Levalbuterol HCl (Xopenex) 1.25 mg Q4HRT HHN 05/26/17 15:00 05/29/17 14:59 05/28/17 23:48 Levothyroxine Sodium (Synthroid) 100 mcg DAILY@0630 ORAL 05/27/17 06:30 06/23/17 06:29 05/29/17 06:08 Methylprednisolone Sodium Succinate (Solu-MEDROL) 40 mg DAILY IVP 05/28/17 09:00 06/24/17 13:59 05/28/17 09:15 Nitroglycerin (Ntg) 0.4 mg Q5M X 3 DOSES PRN SL Prn Chest Pain 05/26/17 11:00 06/22/17 21:44 Ondansetron HCl (Zofran) 4 mg Q6H PRN IVP Nausea & Vomiting 05/26/17 11:30 06/22/17 11:29 Pantoprazole (Protonix) 40 mg DAILY IVP 05/27/17 09:00 06/23/17 10:29 05/28/17 09:17 Quetiapine Fumarate (SEROquel) 25 mg BEDTIME ORAL 05/26/17 21:00 06/25/17 20:59 05/28/17 20:32 Venlafaxine HCl (Effexor-XR) 75 mg DAILY ORAL 05/28/17 09:00 06/27/17 08:59 05/28/17 09:16 Shahid Lake MD May 29, 2017 07:57
[2017-05-29 08:00] VITALS: BP 162/87
[2017-05-29] MEDS ORDERED: MEDROL DOSEPAK4 MG ORAL (08:28)
[2017-05-29 08:53] VITALS: BP 162/87
[2017-05-29] MEDS: Docusate 100mg cap ORAL SCH (08:53)
[2017-05-29] MEDS: Pantoprazole Inj IVP SCH (08:54)
[2017-05-29] MEDS: ALPRAZolam 0.5mg tab ORAL SCH (08:54)
[2017-05-29] MEDS: Solu-MEDROL 40mg Inj IVP SCH (08:54)
[2017-05-29] MEDS: Cyclobenzaprine 10mg Tab ORAL SCH (08:54)
[2017-05-29] MEDS: Venlafaxine XR 75mg cap ORAL SCH (08:54)
--- NOTE | 2017-05-29 09:56 | Infectious Diseases Prog Note ---
Assessment/Plan Assessment/Plan ASSESSMENT: The patient is a 66-year-old with: Leukocytosis due to steroids. COPD exacerbation. Positive urine culture, however, asymptomatic. No need for treatment. hepatitis C. Ab + History of chronic pain. History of ulcerative colitis. History of sleep apnea. Peripheral neuropathy. History of anemia. Fibromyalgia. COPD. GERD. History of AICD placement. History of breast biopsy. History of cochlear implant. PLAN: continue the patient on doxycycline d?# 4 / 5 . Monitor CBC and BMP. Further serology. Monitor the patient's clinical course. Monitor chest x-ray Hep C PCR . Subjective Constitutional: Denies: no symptoms, fever, chills, fatigue, anorexia, drenching sweats, other Allergies: Coded Allergies: BENZODIAZEPINES (Verified Allergy, Unknown, 04/20/10) IODINE (Verified Allergy, Unknown, 04/20/10) IPRATROPIUM (Verified Allergy, Unknown, unknown, 05/24/17) LIDOCAINE (Verified Allergy, Unknown, 04/20/10) LORAZEPAM (Verified Allergy, Unknown, 04/20/10) OXYBUTYNIN (Verified Allergy, Unknown, 04/20/10) PENICILLINS (Verified Allergy, Unknown, 04/20/10) PHENOTHIAZINES (Verified Allergy, Unknown, 04/20/10) PIPERACILLIN (Verified Allergy, Unknown, 04/20/10) PROPOFOL (Verified Allergy, Unknown, 04/20/10) QUINOLONES (Verified Allergy, Unknown, 04/20/10) SULFASALAZINE (Verified Allergy, Unknown, 04/20/10) TAZOBACTAM (Verified Allergy, Unknown, 04/20/10) TEMAZEPAM (Verified Allergy, Unknown, 04/20/10) VANCOMYCIN (Verified Adverse Reaction, Intermediate, 05/23/17) "it messes up my stomach" Objective Vital Signs Last 24 Hour Vital Signs Date Time Temp Pulse Resp B/P (MAP) Pulse Ox O2 Delivery O2 Flow Rate FiO2 05/29/17 08:53 82 162/87 05/29/17 08:00 97.2 82 21 162/87 96 97.2 05/29/17 07:30 Nasal Cannula 3.0 32 05/29/17 07:30 96 Nasal Cannula 3.0 32 05/29/17 07:30 Nasal Cannula 3.0 32 05/29/17 07:30 91 18 97 Nasal Cannula 3.0 32 05/29/17 04:00 97.0 97 18 173/96 88 Nasal Cannula 3.0 97.0 05/29/17 03:02 Nasal Cannula 3.0 32 05/29/17 03:02 Nasal Cannula 3.0 32 05/29/17 00:02 97.0 97 20 184/91 94 Nasal Cannula 3.0 97.0 05/29/17 00:00 Nasal Cannula 3.0 05/28/17 23:17 88 18 98 Nasal Cannula 3.0 32 05/28/17 23:07 95 18 95 Nasal Cannula 3.0 32 05/28/17 20:00 Nasal Cannula 3.0 05/28/17 20:00 98.2 94 18 163/99 98 Nasal Cannula 3.0 98.2 05/28/17 19:21 91 20 98 Nasal Cannula 3.0 32 05/28/17 19:08 94 18 96 Nasal Cannula 3.0 32 05/28/17 19:05 Nasal Cannula 3.0 32 05/28/17 19:05 97 Nasal Cannula 3.0 32 05/28/17 16:00 97.7 100 20 172/90 94 97.7 05/28/17 15:11 Nasal Cannula 3.0 32 05/28/17 15:11 Nasal Cannula 3.0 32 05/28/17 12:00 97.5 88 20 160/84 94 97.5 05/28/17 11:30 Nasal Cannula 3.0 32 05/28/17 11:30 Nasal Cannula 3.0 32 Height (Feet): 5 Height (Inches): 4.00 Weight (Pounds): 175 HEENT: mucous membranes moist Respiratory/Chest: no respiratory distress Cardiovascular: regularly irregular Abdomen: no mass Laboratory Tests Test 05/29/17 07:10 White Blood Count 14.8 K/UL (4.8-10.8) H Red Blood Count 4.55 M/UL (4.20-5.40) Hemoglobin 12.7 G/DL (12.0-16.0) Hematocrit 40.2 % (37.0-47.0) Mean Corpuscular Volume 88 FL (80-99) Mean Corpuscular Hemoglobin 27.8 PG (27.0-31.0) Mean Corpuscular Hemoglobin Concent 31.5 G/DL (32.0-36.0) L Red Cell Distribution Width 14.8 % (11.6-14.8) Platelet Count 352 K/UL (150-450) Mean Platelet Volume 6.5 FL (6.5-10.1) Neutrophils (%) (Auto) 61.0 % (45.0-75.0) Lymphocytes (%) (Auto) 30.2 % (20.0-45.0) Monocytes (%) (Auto) 7.5 % (1.0-10.0) Eosinophils (%) (Auto) 0.4 % (0.0-3.0) Basophils (%) (Auto) 0.9 % (0.0-2.0) Sodium Level 136 MMOL/L (136-145) Potassium Level 3.5 MMOL/L (3.5-5.1) Chloride Level 94 MMOL/L (98-107) L Carbon Dioxide Level 40 MMOL/L (21-32) H Anion Gap 2 mmol/L (5-15) L Blood Urea Nitrogen 23 mg/dL (7-18) H Creatinine 1.0 MG/DL (0.55-1.30) Estimat Glomerular Filtration Rate 55.3 mL/min (>60) Glucose Level 90 MG/DL (74-106) Calcium Level 9.1 MG/DL (8.5-10.1) Current Medications Medications (Trade) Dose Ordered Sig/Mamie Route PRN Reason Start Time Stop Time Status Last Admin Dose Admin Acetaminophen (Tylenol) 650 mg Q4H PRN ORAL Mild Pain (Scale 1-3)/FEVER 05/26/17 11:30 06/22/17 11:29 Acetaminophen (Tylenol) 650 mg Q4H PRN RECTAL Mild Pain (Scale 1-3)/FEVER 05/26/17 11:30 06/22/17 11:29 Alprazolam (Xanax) 0.5 mg THREE TIMES A DAY ORAL 05/27/17 13:00 06/03/17 12:59 05/29/17 08:54 Amlodipine Besylate (Norvasc) 10 mg DAILY ORAL 05/27/17 09:00 06/23/17 08:59 05/29/17 08:53 Bisacodyl (Dulcolax) 10 mg HSPRN PRN RECTAL Constipation 05/26/17 11:30 06/22/17 11:29 Cyclobenzaprine HCl (Flexeril) 10 mg THREE TIMES A DAY ORAL 05/26/17 13:00 06/23/17 08:59 05/29/17 08:54 Dextrose (Dextrose 50%) 25 ml STAT PRN IV HYPOGLYCEMIA 05/29/17 09:30 06/28/17 09:29 Dextrose (Dextrose 50%) 50 ml STAT PRN IV Hypoglycemia 05/29/17 09:30 06/22/17 11:59 Diphenhydramine HCl (Benadryl) 25 mg Q4H PRN IVP Itching 05/26/17 11:00 06/23/17 14:59 05/29/17 06:09 Docusate Sodium (Colace) 100 mg EVERY 12 HOURS ORAL 05/26/17 21:00 06/23/17 08:59 05/29/17 08:53 Doxycycline Monohydrate (Vibramycin) 100 mg EVERY 12 HOURS ORAL 05/26/17 21:00 05/30/17 20:59 05/29/17 08:54 Furosemide (Lasix) 20 mg DAILY ORAL 05/27/17 09:00 06/23/17 08:59 05/29/17 08:54 Guaifenesin/ Dextromethorphan (Robitussin DM Syrup) 5 ml Q6H PRN ORAL For Cough 05/26/17 11:30 06/23/17 11:29 Heparin Sodium (Porcine) (Heparin 5000 units/ml) 5,000 units EVERY 8 HOURS SUBQ 05/26/17 14:00 06/22/17 21:59 05/29/17 06:10 Hydromorphone HCl (Dilaudid) 2 mg Q4H PRN IVP Moderate Pain (Pain Scale 4-6) 05/26/17 11:30 06/02/17 11:29 05/29/17 06:08 Hydromorphone HCl (Dilaudid) 4 mg Q6H ORAL 05/27/17 16:00 06/03/17 15:59 05/29/17 09:00 Insulin Aspart (NovoLOG) BEFORE MEALS AND HS SUBQ 05/26/17 11:30 06/23/17 06:29 05/29/17 06:11 Levalbuterol HCl (Xopenex) 1.25 mg Q4HRT HHN 05/26/17 15:00 05/29/17 14:59 05/28/17 23:48 Levothyroxine Sodium (Synthroid) 100 mcg DAILY@0630 ORAL 05/27/17 06:30 06/23/17 06:29 05/29/17 06:08 Methylprednisolone Sodium Succinate (Solu-MEDROL) 40 mg DAILY IVP 05/28/17 09:00 06/24/17 13:59 05/29/17 08:54 Nitroglycerin (Ntg) 0.4 mg Q5M X 3 DOSES PRN SL Prn Chest Pain 05/26/17 11:00 06/22/17 21:44 Ondansetron HCl (Zofran) 4 mg Q6H PRN IVP Nausea & Vomiting 05/26/17 11:30 06/22/17 11:29 Pantoprazole (Protonix) 40 mg DAILY IVP 05/27/17 09:00 06/23/17 10:29 05/29/17 08:54 Quetiapine Fumarate (SEROquel) 25 mg BEDTIME ORAL 05/26/17 21:00 06/25/17 20:59 05/28/17 20:32 Venlafaxine HCl (Effexor-XR) 75 mg DAILY ORAL 05/28/17 09:00 06/27/17 08:59 05/29/17 08:54 Sonny Lee MD May 29, 2017 09:56
[2017-05-29] MEDS ORDERED: Heplock Flush 100 units/ml 3 ml syr INJ ONE (11:30)
--- NOTE | 2017-05-29 11:39 | Internal Med Progress Note ---
Subjective Date of Service: May 29, 2017 Physician Name Osmar Campbell Attending Physician Flex Dodson MD Current Medications Medications (Trade) Dose Ordered Sig/Mamie Route PRN Reason Start Time Stop Time Status Last Admin Dose Admin Acetaminophen (Tylenol) 650 mg Q4H PRN ORAL Mild Pain (Scale 1-3)/FEVER 05/26/17 11:30 06/22/17 11:29 Acetaminophen (Tylenol) 650 mg Q4H PRN RECTAL Mild Pain (Scale 1-3)/FEVER 05/26/17 11:30 06/22/17 11:29 Alprazolam (Xanax) 0.5 mg THREE TIMES A DAY ORAL 05/27/17 13:00 06/03/17 12:59 05/29/17 08:54 Amlodipine Besylate (Norvasc) 10 mg DAILY ORAL 05/27/17 09:00 06/23/17 08:59 05/29/17 08:53 Bisacodyl (Dulcolax) 10 mg HSPRN PRN RECTAL Constipation 05/26/17 11:30 06/22/17 11:29 Cyclobenzaprine HCl (Flexeril) 10 mg THREE TIMES A DAY ORAL 05/26/17 13:00 06/23/17 08:59 05/29/17 08:54 Dextrose (Dextrose 50%) 25 ml STAT PRN IV HYPOGLYCEMIA 05/29/17 09:30 06/28/17 09:29 Dextrose (Dextrose 50%) 50 ml STAT PRN IV Hypoglycemia 05/29/17 09:30 06/22/17 11:59 Diphenhydramine HCl (Benadryl) 25 mg Q4H PRN IVP Itching 05/26/17 11:00 06/23/17 14:59 05/29/17 06:09 Docusate Sodium (Colace) 100 mg EVERY 12 HOURS ORAL 05/26/17 21:00 06/23/17 08:59 05/29/17 08:53 Doxycycline Monohydrate (Vibramycin) 100 mg EVERY 12 HOURS ORAL 05/26/17 21:00 05/30/17 20:59 05/29/17 08:54 Furosemide (Lasix) 20 mg DAILY ORAL 05/27/17 09:00 06/23/17 08:59 05/29/17 08:54 Guaifenesin/ Dextromethorphan (Robitussin DM Syrup) 5 ml Q6H PRN ORAL For Cough 05/26/17 11:30 06/23/17 11:29 Heparin Sodium (Porcine) (Heparin 5000 units/ml) 5,000 units EVERY 8 HOURS SUBQ 05/26/17 14:00 06/22/17 21:59 05/29/17 06:10 Hydromorphone HCl (Dilaudid) 2 mg Q4H PRN IVP Moderate Pain (Pain Scale 4-6) 05/26/17 11:30 06/02/17 11:29 05/29/17 06:08 Hydromorphone HCl (Dilaudid) 4 mg Q6H ORAL 05/27/17 16:00 06/03/17 15:59 05/29/17 09:00 Insulin Aspart (NovoLOG) BEFORE MEALS AND HS SUBQ 05/26/17 11:30 06/23/17 06:29 05/29/17 06:11 Levalbuterol HCl (Xopenex) 1.25 mg Q4HRT HHN 05/26/17 15:00 05/29/17 14:59 05/28/17 23:48 Levothyroxine Sodium (Synthroid) 100 mcg DAILY@0630 ORAL 05/27/17 06:30 06/23/17 06:29 05/29/17 06:08 Methylprednisolone Sodium Succinate (Solu-MEDROL) 40 mg DAILY IVP 05/28/17 09:00 06/24/17 13:59 05/29/17 08:54 Nitroglycerin (Ntg) 0.4 mg Q5M X 3 DOSES PRN SL Prn Chest Pain 05/26/17 11:00 06/22/17 21:44 Ondansetron HCl (Zofran) 4 mg Q6H PRN IVP Nausea & Vomiting 05/26/17 11:30 06/22/17 11:29 Pantoprazole (Protonix) 40 mg DAILY IVP 05/27/17 09:00 06/23/17 10:29 05/29/17 08:54 Quetiapine Fumarate (SEROquel) 25 mg BEDTIME ORAL 05/26/17 21:00 06/25/17 20:59 05/28/17 20:32 Venlafaxine HCl (Effexor-XR) 75 mg DAILY ORAL 05/28/17 09:00 06/27/17 08:59 05/29/17 08:54 Allergies: Coded Allergies: BENZODIAZEPINES (Verified Allergy, Unknown, 04/20/10) IODINE (Verified Allergy, Unknown, 04/20/10) IPRATROPIUM (Verified Allergy, Unknown, unknown, 05/24/17) LIDOCAINE (Verified Allergy, Unknown, 04/20/10) LORAZEPAM (Verified Allergy, Unknown, 04/20/10) OXYBUTYNIN (Verified Allergy, Unknown, 04/20/10) PENICILLINS (Verified Allergy, Unknown, 04/20/10) PHENOTHIAZINES (Verified Allergy, Unknown, 04/20/10) PIPERACILLIN (Verified Allergy, Unknown, 04/20/10) PROPOFOL (Verified Allergy, Unknown, 04/20/10) QUINOLONES (Verified Allergy, Unknown, 04/20/10) SULFASALAZINE (Verified Allergy, Unknown, 04/20/10) TAZOBACTAM (Verified Allergy, Unknown, 04/20/10) TEMAZEPAM (Verified Allergy, Unknown, 04/20/10) VANCOMYCIN (Verified Adverse Reaction, Intermediate, 05/23/17) "it messes up my stomach" ROS Limited/Unobtainable: No Constitutional: Reports: no symptoms HEENT: Reports: no symptoms Cardiovascular: Reports: no symptoms Respiratory: Reports: no symptoms Gastrointestinal/Abdominal: Reports: abdominal pain Genitourinary: Reports: no symptoms Neurologic/Psychiatric: Reports: no symptoms Subjective 66 YO F admitted with COPD exacerbation and altered mental status. Cover for Kelly Dodson. Discharge held today; Await discharge Objective Last Vital Signs Date Time Temp Pulse Resp B/P (MAP) Pulse Ox O2 Delivery O2 Flow Rate FiO2 05/29/17 08:53 82 162/87 05/29/17 08:00 97.2 21 96 97.2 05/29/17 07:30 Nasal Cannula 3.0 32 Laboratory Tests Test 05/29/17 07:10 White Blood Count 14.8 K/UL (4.8-10.8) H Red Blood Count 4.55 M/UL (4.20-5.40) Hemoglobin 12.7 G/DL (12.0-16.0) Hematocrit 40.2 % (37.0-47.0) Mean Corpuscular Volume 88 FL (80-99) Mean Corpuscular Hemoglobin 27.8 PG (27.0-31.0) Mean Corpuscular Hemoglobin Concent 31.5 G/DL (32.0-36.0) L Red Cell Distribution Width 14.8 % (11.6-14.8) Platelet Count 352 K/UL (150-450) Mean Platelet Volume 6.5 FL (6.5-10.1) Neutrophils (%) (Auto) 61.0 % (45.0-75.0) Lymphocytes (%) (Auto) 30.2 % (20.0-45.0) Monocytes (%) (Auto) 7.5 % (1.0-10.0) Eosinophils (%) (Auto) 0.4 % (0.0-3.0) Basophils (%) (Auto) 0.9 % (0.0-2.0) Sodium Level 136 MMOL/L (136-145) Potassium Level 3.5 MMOL/L (3.5-5.1) Chloride Level 94 MMOL/L (98-107) L Carbon Dioxide Level 40 MMOL/L (21-32) H Anion Gap 2 mmol/L (5-15) L Blood Urea Nitrogen 23 mg/dL (7-18) H Creatinine 1.0 MG/DL (0.55-1.30) Estimat Glomerular Filtration Rate 55.3 mL/min (>60) Glucose Level 90 MG/DL (74-106) Calcium Level 9.1 MG/DL (8.5-10.1) Intake and Output 05/28/17 05/29/17 19:00 07:00 Intake Total 620 ml 240 ml Output Total 300 ml 400 ml Balance 320 ml -160 ml Intake Oral 620 ml 240 ml Output Urine Total 300 ml 400 ml # Voids 5 Objective General Appearance: WD/WN, no apparent distress, mild distress EENT: PERRL/EOMI, normal ENT inspection Neck: non-tender, normal alignment, supple, normal inspection Cardiovascular: normal peripheral pulses, normal rate, regular rhythm, no gallop/murmur, no JVD Respiratory/Chest: respiratory distress, accessory muscle use, crackles/rales, rhonchi - bilaterally, expiratory wheezing Abdomen: normal bowel sounds, non tender, soft, no organomegaly, no mass Extremities: normal range of motion, non-tender Neurologic: field representatives director II-XII grossly normal, no motor/sensory deficits Skin: normal pigmentation, warm/dry Assessment/Plan Problem List: (1) COPD with acute exacerbation Assessment & Plan: Continue IV solumedrol, albuterol nebs, doxycycline and ceftriaxone per pulmonary (2) UTI (urinary tract infection) Assessment & Plan: Proteus. Continue meropenem per ID (3) Altered mental status Assessment & Plan: Due to hypoxia (4) Hypoxia (5) Hypothyroidism Assessment & Plan: Continue synthroid (6) HTN (hypertension) Assessment & Plan: Continue norvasc (7) Anxiety (8) Panic attack Assessment & Plan: Patient requesting klonopin Status: stable Assessment/Plan Discharge today with Home health OSMAR CAMPBELL May 29, 2017 11:39
--- NOTE | 2017-05-29 12:29 | General Progress Note ---
Assessment/Plan Status: stable, progressing Assessment/Plan anxiety d/o -cont Ambien -cont Klonopin -Lexapro 10mg qam -rec to replace Dilaudid with long acting pain meds Subjective Date patient seen: May 29, 2017 Neurologic/Psychiatric: Reports: anxiety, depressed, emotional problems Allergies: Coded Allergies: BENZODIAZEPINES (Verified Allergy, Unknown, 04/20/10) IODINE (Verified Allergy, Unknown, 04/20/10) IPRATROPIUM (Verified Allergy, Unknown, unknown, 05/24/17) LIDOCAINE (Verified Allergy, Unknown, 04/20/10) LORAZEPAM (Verified Allergy, Unknown, 04/20/10) OXYBUTYNIN (Verified Allergy, Unknown, 04/20/10) PENICILLINS (Verified Allergy, Unknown, 04/20/10) PHENOTHIAZINES (Verified Allergy, Unknown, 04/20/10) PIPERACILLIN (Verified Allergy, Unknown, 04/20/10) PROPOFOL (Verified Allergy, Unknown, 04/20/10) QUINOLONES (Verified Allergy, Unknown, 04/20/10) SULFASALAZINE (Verified Allergy, Unknown, 04/20/10) TAZOBACTAM (Verified Allergy, Unknown, 04/20/10) TEMAZEPAM (Verified Allergy, Unknown, 04/20/10) VANCOMYCIN (Verified Adverse Reaction, Intermediate, 05/23/17) "it messes up my stomach" Objective Last 24 Hour Vital Signs Date Time Temp Pulse Resp B/P (MAP) Pulse Ox O2 Delivery O2 Flow Rate FiO2 05/29/17 11:30 Nasal Cannula 3.0 32 05/29/17 11:30 Nasal Cannula 3.0 32 05/29/17 08:53 82 162/87 05/29/17 08:00 97.2 82 21 162/87 96 97.2 05/29/17 07:30 Nasal Cannula 3.0 32 05/29/17 07:30 96 Nasal Cannula 3.0 32 05/29/17 07:30 Nasal Cannula 3.0 32 05/29/17 07:30 91 18 97 Nasal Cannula 3.0 32 05/29/17 04:00 97.0 97 18 173/96 88 Nasal Cannula 3.0 97.0 05/29/17 03:02 Nasal Cannula 3.0 32 05/29/17 03:02 Nasal Cannula 3.0 32 05/29/17 00:02 97.0 97 20 184/91 94 Nasal Cannula 3.0 97.0 05/29/17 00:00 Nasal Cannula 3.0 05/28/17 23:17 88 18 98 Nasal Cannula 3.0 32 05/28/17 23:07 95 18 95 Nasal Cannula 3.0 32 05/28/17 20:00 Nasal Cannula 3.0 05/28/17 20:00 98.2 94 18 163/99 98 Nasal Cannula 3.0 98.2 05/28/17 19:21 91 20 98 Nasal Cannula 3.0 32 05/28/17 19:08 94 18 96 Nasal Cannula 3.0 32 05/28/17 19:05 Nasal Cannula 3.0 32 05/28/17 19:05 97 Nasal Cannula 3.0 32 05/28/17 16:00 97.7 100 20 172/90 94 97.7 05/28/17 15:11 Nasal Cannula 3.0 32 05/28/17 15:11 Nasal Cannula 3.0 32 Intake and Output 05/28/17 05/29/17 19:00 07:00 Intake Total 620 ml 240 ml Output Total 300 ml 400 ml Balance 320 ml -160 ml Intake Oral 620 ml 240 ml Output Urine Total 300 ml 400 ml # Voids 5 Laboratory Tests 05/29/17 07:10: White Blood Count 14.8H, Red Blood Count 4.55, Hemoglobin 12.7, Hematocrit 40.2 , Mean Corpuscular Volume 88, Mean Corpuscular Hemoglobin 27.8, Mean Corpuscular Hemoglobin Concent 31.5L, Red Cell Distribution Width 14.8, Platelet Count 352, Mean Platelet Volume 6.5, Neutrophils (%) (Auto) 61.0, Lymphocytes (%) (Auto) 30.2, Monocytes (%) (Auto) 7.5, Eosinophils (%) (Auto) 0.4, Basophils (%) (Auto) 0.9, Sodium Level 136, Potassium Level 3.5, Chloride Level 94L, Carbon Dioxide Level 40H, Anion Gap 2L, Blood Urea Nitrogen 23H, Creatinine 1.0, Estimat Glomerular Filtration Rate 55.3, Glucose Level 90, Calcium Level 9.1 Height (Feet): 5 Height (Inches): 4.00 Weight (Pounds): 175 General Appearance: no apparent distress, alert Neurologic: oriented x 3, responsive, depressed affect Farhadi,Pantea M.D. May 29, 2017 12:29
--- NOTE | 2017-05-30 08:15 | Diagnostic Imaging Report ---
APPROVED REPORT CPT Code: 71909 Present Symptoms Shortness of breath BILATERAL: Imaging reveals a patent deep venous system bilaterally. There is no evidence of thrombus within the femoral, popliteal or tibial segments. The greater saphenous veins are also within normal limits. Doppler indicates normal spontaneous flow within these segments.
--- NOTE | 2017-05-30 23:45 | Discharge Summary 2 SIG ---
DATE OF ADMISSION: 05/23/2017 DATE OF DISCHARGE: 05/29/2017 CONSULTANTS: 1. Jamel Washington M.D. 2. Sonny Lee M.D. 3. Shahid Lake M.D. BRIEF HOSPITAL COURSE: The patient is a 66-year-old delightful female with past medical history significant for chronic pain syndrome, history of ulcerative colitis, obstructive sleep apnea, sympathetic reflex dystrophy, hepatitis B and C positive, peripheral neuropathy, pernicious anemia, fibromyalgia, and COPD, on home O2, presented to the hospital complaining of shortness of breath, cough, and altered mental status. The patient had a fall three days prior to admission and had staple closure on the left side of the head. Friend called 911 because she thought the patient was not acting right and friend was suspicious of possible Dilaudid overdose. She is typically on 5 liters nasal cannula. She denied any fever, chills, or chest pain. On evaluation at ED, blood work showed WBC of 10. Total CK 177. Urinalysis with 3+ protein, 2+ ketones, 2+ occult blood, 5 to 10 wbc, and many bacteria. Chest x-ray with mild interstitial opacification and edema. CT of the head was negative for acute intracranial hemorrhage, mass effect, or cortical edema. There was postsurgical appearance of bilateral mastoid air cells with bilateral mastoid opacification. There was no acute skull fracture. She was admitted for acute chronic obstructive pulmonary disease exacerbation. She was given Solu-Medrol and was started on broad-spectrum antibiotic, ceftriaxone. She was followed by sewer maintenance supervisor, Dr. Lake. She was continued on O2 and pulmonary hygiene. The patient has history of major depressive disorder and anxiety and has been taking Ambien and Klonopin. She was continued on Ambien. She denied allergy to Ambien or Klonopin. Lexapro was discontinued and was given Xanax and Effexor. Steroids were eventually tapered. She was given doxycycline. Urine culture was growing multiple drug-resistant Proteus. Influenza screen was negative, and blood culture did not isolate any growth. She was given meropenem for ESBL UTI. She was given doxycycline and ceftriaxone for COPD exacerbation. She was eventually discharged home with home health. FINAL DIAGNOSES: 1. Acute COPD exacerbation. 2. Urinary tract infection with Proteus mirabilis. 3. Altered mental status/acute on chronic metabolic encephalopathy, present on admission. 4. Hypothyroidism. 5. Hypertension. 6. Anxiety with panic attacks. 7. Hepatitis C antibody positive. 8. GERD. 9. Fibromyalgia. 10. History of ulcerative colitis. 11. History of sleep apnea. 12. Peripheral neuropathy. 13. History of anemia. 14. History of automatic implantable cardioverter-defibrillator placement. 15. History of breast biopsy. 16. History of cochlear implant. DISPOSITION: The patient was discharged home with home health. Sheldon Mendoza M.D. I have been assigned to dictate discharge summary on this account and I was not involved in the patient's management. Cornelia Tobias N.P. DR: OMARI JOB#: [id number] CC:
== END 2017-05-29 11:30 | disposition home health service (06) | DRG 190 ==
LOC: EDBD 16:42 → EMR 16:45 → EDBEDREQ 17:07 → 2E 17:23 → EDBEDREQ 18:19 → 2E 20:43 → 4E 05-26 10:50
DX: J44.1 Chronic obstructive pulmonary disease with (acute) exacerbation (principal); G93.41 Metabolic encephalopathy; N39.0 Urinary tract infection, site not specified; G90.50 Complex regional pain syndrome I, unspecified; K51.90 Ulcerative colitis, unspecified, without complications; R41.82 Altered mental status, unspecified; I11.0 Hypertensive heart disease with heart failure; I50.9 Heart failure, unspecified; D51.0 Vitamin B12 deficiency anemia due to intrinsic factor deficiency; G47.33 Obstructive sleep apnea (adult) (pediatric); E03.9 Hypothyroidism, unspecified; R10.9 Unspecified abdominal pain; Z88.1 Allergy status to other antibiotic agents; Z88.0 Allergy status to penicillin; Z88.2 Allergy status to sulfonamides; Z88.8 Allergy status to other drugs, medicaments and biological substances; G62.9 Polyneuropathy, unspecified; B96.4 Proteus (mirabilis) (morganii) as the cause of diseases classified elsewhere; F41.0 Panic disorder [episodic paroxysmal anxiety]; K21.9 Gastro-esophageal reflux disease without esophagitis; M79.7 Fibromyalgia; Z95.810 Presence of automatic (implantable) cardiac defibrillator; H91.90 Unspecified hearing loss, unspecified ear; Z91.81 History of falling; R09.02 Hypoxemia; F32.9 Major depressive disorder, single episode, unspecified
CPT/HCPCS: 36415; 70450; 71045; 80048; 80053; 81003; 82550; 82553; 82962; 83605; 83735; 83880; 84100; 84439; 84443; 84480; 84481; 84484; 85007; 85025; 86705; 86709; 86710; 86803; 87040; 87086; 87181; 87340; 87522; 93005; 93970; 94640; 94664; 94760; 99285; J1815; J7620; J8499